=== PATIENT | male | born 1940 | race Caucasian/White ===

== ENCOUNTER 2018-01-07 07:13 | Inpatient (IN) | payer MEDICARE, BC ==
[2018-01-07] MEDS ORDERED: HYDROmorphone 2 MG/ML SDV IVPUSH ONE (07:18)
[2018-01-07] MEDS ORDERED: Metoclopramide 10 MG/2 ML SDV IVPUSH ONE (07:18)
[2018-01-07] MEDS: Sodium Chloride 0.9% 1,000 ML IV SCH ×2 (07:50→11:41)
[2018-01-07] MEDS ORDERED: Sodium Chloride 0.9% 10 ML Syringe FLUSH PRN (07:57)
[2018-01-07] MEDS ORDERED: Potassium Chloride 20 MEQ in Premix Bag 1 BAG IV ONE (08:18)
[2018-01-07] MEDS ORDERED: Potassium Chloride 100 ML ONE (08:53)
[2018-01-07] MEDS ORDERED: Ondansetron 4 MG Tab.DIS PO PRN (10:12)
[2018-01-07] MEDS ORDERED: cefTRIAXone 1,000 MG in Sodium Chloride 0.9% 50 ML IV SCH (10:30)
--- NOTE | 2018-01-07 11:02 | PCM.HP ---
H&P History of Present Illness - General Date of Service: 01/07/18 Admit Problem/Dx: Admission Diagnosis/Problem Admission Diagnosis/Problem Acute cholecystitis versus biliary colic versus muscle strain Source of Information: Patient, Old Records, Provider, RN Notes Reviewed - History of Present Illness Initial Comments - Free Text/Narative: Patient is 77-year-old male admitted for right abdominal pain and evidence of gallbladder stones on ultrasound with some Pericholecystic edema on CT abdomen. Patient was in his usual state of health until this morning at about 4 AM when he woke out of a sound sleep with severe right upper quadrant and middle quadrant abdominal pain. It looks almost stabbing him with a knife. The pain was constant and unremitting. He got up and finally decided to come into the emergency room because it was so painful. No other associated symptoms. No nausea, no vomiting, no diarrhea, no chest pain, no shortness of breath. He had no shoulder pain. He did have the chills but no sweats. No fever that he knows of. He's otherwise been feeling well and at his usual baseline. He's got underlying shortness of breath with activity and is morbidly obese but has had no worsening of his shortness of breath. Has had no upper respiratory symptoms. No real cough. No GI or complaints that are new. Past medical history: #1 Coronary artery disease with history of ST elevated myocardial infarction with stent in 2007 to the RCA. Later that same year received another 2 stents at planned outpatient angiogram. In 2009 had another angiogram and at that time received 2 more stents. Ejection fraction was 40%. About 2 weeks later patient had a non-ST elevated MT with another angiogram and received a bare metal stent to the LAD. In 2010 patient had another non-ST elevated MT with a stent to the mid LAD. At that time ejection fraction was markedly reduced with 30%. In 2012 had another non-ST MT with 2 drug-eluting stents to the mid circumflex. 2013 another drug-eluting stent to the proximal RCA. 2015 had a left main and circumflex stent. Since 2015 hasn't had any further MIs or stents. Has ischemic myopathy with a dual-chamber ICD with last ejection fraction 40% in 2015 and hypokinetic anterolateral, apical anterior, apical lateral, and apex wall segments. ICD was placed in 2011. #2 chronic combined systolic and diastolic congestive heart failure, cardiorenal syndrome, chronic atrial fibrillation. #3 DVT of right femoral vein in 2013. On chronic warfarin treatment. Last INR 2.5 on December 19, 2017 #4 hypertension and hyperlipidemia. #5 peripheral vascular disease #6 obstructive sleep apnea with dyspnea on exertion underlying COPD. #7 deviated septum #8 diabetes mellitus with retinopathy, peripheral neuropathy, and mild chronic kidney disease. Last A1c was 8.9% in October 2017. 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 #12 cataracts. Social History: The patient quit smoking in 1985. 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 He was raised on a farm and has formed his whole life. He never and had no children. He is a nondrinker. Family history: The patient has 3 siblings as noted above. His mother at 93 of old age. His father at 79. He is not sure why he . Onset of Symptoms: Reports: Sudden right lower quad Pain Score (Numeric/FACES): 10 - Related Data Allergies/Adverse Reactions: Allergies Allergy/AdvReac Type Severity Reaction Status Date / Time No Known Allergies Allergy Verified 05/10/16 02:27 Home Medications: Home Meds Omeprazole 40 mg PO 1700 12/08/13 [History] Insulin Npl/Insulin Lispro [Humalog Mix 75-25 Kwikpen] 27 units SUBCUT DAILY 04/20 [History] Potassium Chloride [Klor-Con 10] 10 meq PO DAILY 10/14/15 [History] Warfarin [Coumadin] 5 mg PO SUTUTHSA 10/14/15 [History] Acetaminophen [Acetaminophen ER] 650 mg PO ASDIRECTED PRN 02/22/16 [History] Carvedilol 12.5 mg PO BID 02/22/16 [History] Furosemide [Lasix] 40 mg PO BID 02/22/16 [History] atorvaSTATin [Lipitor] 80 mg PO DAILY 04/10/16 [History] Multivits-Minerals/FA/Lycopene [One Daily Men's Health Tablet] 1 tab PO DAILY [History] Nitroglycerin 0.4 mg SL ASDIRECTED PRN 04/14/16 [History] Triamcinolone Acetonide [Kenalog 0.1% Crm] 1 applic TOP TID 04/14/16 [History] Cyclobenzaprine HCl 5 mg PO Q6H PRN 01/07/18 [History] Diltiazem [Diltiazem XR] 240 mg PO DAILY 01/07/18 [History] Insulin Lispro Prot/Lispro [HumaLOG Mix 75-25] 23 unit SQ BEDTIME 01/07/18 [ History] Metolazone 2.5 mg PO TUTHSA 01/07/18 [History] Ticagrelor [Brilinta] 60 mg PO BID 01/07/18 [History] Warfarin [Coumadin] 2.5 mg PO MOWEFR 01/07/18 [History] Past Medical History HEENT History: Reports: Hard of Hearing, Sinusitis Other HEENT History: States had sinus surgery in the past. Cardiovascular History: Reports: Automatic Implantable Cardioverter Defibrillators, Blood Clots/VTE/DVT, CAD, Heart Failure, High Cholesterol, Hypertension, Pacemaker, SOB on Exertion, Stents Respiratory History: Reports: COPD, Sleep Apnea Other Respiratory History: Uses O2 @ hs with CPAP. Gastrointestinal History: Reports: GERD Musculoskeletal History: Reports: Arthritis, Back Pain, Chronic, Fracture, Gout , Osteoarthritis, Other (See Below) Other Musculoskeletal History: fx ankle Endocrine/Metabolic History: Reports: Diabetes, Type II, Obesity/BMI 30+ Hematologic History: Reports: Blood Transfusion(s) Dermatologic History: Reports: Other (See Below) Other Dermatologic History: Stated rash was on stomach and was taken medication at home and now resolved. - Infectious Disease History Infectious Disease History: Reports: Chicken Pox, Measles, Mumps - Past Surgical History HEENT Surgical History: Reports: Other (See Below) Cardiovascular Surgical History: Reports: Coronary Artery Stent, Percutaneous Transluminal Angioplasty Social & Family History - Family History Family Medical History: Noncontributory H&P Review of Systems - Review of Systems: Review Of Systems: ROS reveals no pertinent complaints other than HPI. Exam - Exam Exam: See Below (Oriented to person, place, and time but drowsy from pain medication.) - Vital Signs Vital Signs: Last Vital Signs Temp 36.5 C 01/07/18 07:05 Pulse 50 L 01/07/18 08:10 Resp 16 01/07/18 08:10 BP 128/68 01/07/18 08:10 Pulse Ox 98 01/07/18 08:10 Weight: 122.47 kg - Exam General: Alert, Oriented, Cooperative HEENT: PERRLA, Mucosa Moist & [place]ck[place], Posterior Pharynx Clear Neck: Supple Lungs: Clear to Auscultation, Normal Respiratory Effort Cardiovascular: Regular Rate, Regular Rhythm, Normal S1, Normal S2 GI/Abdominal Exam: Normal Bowel Sounds, Soft, Tender (obese. Exquisitely tender over the right upper and middle quadrant. No tenderness over the left. No guarding, no rigidity.) - Patient Data Lab Results Last 24 hrs: Laboratory Results - last 24 hr 01/07/18 01/07/18 01/07/18 Range/Units 07:45 07:45 07:45 WBC 11.3 (4.5-12.0) X10-3/uL RBC 4.63 (4.30-5.75) x10(6)uL Hgb 15.5 (11.5-15.5) g/dL Hct 45.7 (30.0-51.3) % MCV 98.8 H (80-96) fL MCH 33.6 (27.7-33.6) pg MCHC 33.9 (32.2-35.4) g/dL RDW 13.3 (11.5-15.5) % Plt Count 182 (125-369) X10(3)uL MPV 9.2 (7.4-10.4) fL Neut % (Auto) 82.3 H (46-82) % Lymph % (Auto) 8.0 L (13-37) % [place] % (Auto) 5.1 (4-12) % Eos % (Auto) 2 (1.0-5.0) % Baso % (Auto) 3 H (0-2) % Neut # (Auto) 9.2 H (1.6-8.3) # Lymph # (Auto) 0.9 (0.6-5.0) # [place] # (Auto) 0.6 (0.0-1.3) # Eos # (Auto) 0.2 (0.0-0.8) # Baso # (Auto) 0.4 H (0.0-0.2) # PT (8.7-11.1) INR (0.89-1.13) Sodium (135-145) mmol/L Potassium (3.5-5.3) mmol/L Chloride (100-110) mmol/L Carbon Dioxide (21-32) mmol/L BUN (7-18) mg/dL Creatinine (0.70-1.30) mg/dL Est Cr Clr Drug Dosing mL/min Estimated GFR (MDRD) (>60) BUN/Creatinine Ratio (9-20) Glucose (80-116) mg/dL Lactic Acid 2.3 H (0.4-2.2) mmol/L Calcium (8.6-10.2) mg/dL Total Bilirubin (0.1-1.3) mg/dL AST (5-25) IU/L ALT (12-36) U/L Alkaline Phosphatase (56-112) IU/L C-Reactive Protein 1.6 H (0.5-0.9) mg/dL Total Protein (6.0-8.0) g/dL Albumin (3.2-4.6) g/dL Globulin g/dL Albumin/Globulin Ratio Urine Color (YELLOW) Urine Appearance (CLEAR) Urine pH (5.0-6.5) Ur Specific [place] (1.010-1.025) Urine Protein (NEGATIVE) mg/dL Urine Glucose (UA) (NEGATIVE) mg/dL Urine Ketones (NEGATIVE) mg/dL Urine Occult Blood (NEGATIVE) Urine Nitrite (NEGATIVE) Urine Bilirubin (NEGATIVE) Urine Urobilinogen (NEGATIVE) mg/dL Ur Leukocyte Esterase (NEGATIVE) Urine RBC (0) Urine WBC (0) Ur Squamous Epith Cells (NS,R,O) Urine Bacteria (NS) 01/07/18 01/07/18 01/07/18 Range/Units 07:45 07:45 09:20 WBC (4.5-12.0) X10-3/uL RBC (4.30-5.75) x10(6)uL Hgb (11.5-15.5) g/dL Hct (30.0-51.3) % MCV (80-96) fL MCH (27.7-33.6) pg MCHC (32.2-35.4) g/dL RDW (11.5-15.5) % Plt Count (125-369) X10(3)uL MPV (7.4-10.4) fL Neut % (Auto) (46-82) % Lymph % (Auto) (13-37) % [place] % (Auto) (4-12) % Eos % (Auto) (1.0-5.0) % Baso % (Auto) (0-2) % Neut # (Auto) (1.6-8.3) # Lymph # (Auto) (0.6-5.0) # [place] # (Auto) (0.0-1.3) # Eos # (Auto) (0.0-0.8) # Baso # (Auto) (0.0-0.2) # PT 33.4 H (8.7-11.1) INR 3.48 H (0.89-1.13) Sodium 132 L (135-145) mmol/L Potassium 3.0 L (3.5-5.3) mmol/L Chloride 92 L (100-110) mmol/L Carbon Dioxide 34 H (21-32) mmol/L BUN 18 (7-18) mg/dL Creatinine 1.2 (0.70-1.30) mg/dL Est Cr Clr Drug Dosing 48.29 mL/min Estimated GFR (MDRD) 58 L (>60) BUN/Creatinine Ratio 15.0 (9-20) Glucose 251 H (80-116) mg/dL Lactic Acid (0.4-2.2) mmol/L Calcium 9.1 (8.6-10.2) mg/dL Total Bilirubin 1.1 (0.1-1.3) mg/dL AST 21 (5-25) IU/L ALT 25 (12-36) U/L Alkaline Phosphatase 89 (56-112) IU/L C-Reactive Protein (0.5-0.9) mg/dL Total Protein 6.8 (6.0-8.0) g/dL Albumin 3.6 (3.2-4.6) g/dL Globulin 3.2 g/dL Albumin/Globulin Ratio 1.1 Urine Color Yellow (YELLOW) Urine Appearance Clear (CLEAR) Urine pH 8.0 H (5.0-6.5) Ur Specific [place] 1.015 (1.010-1.025) Urine Protein Negative (NEGATIVE) mg/dL Urine Glucose (UA) >1000 H (NEGATIVE) mg/dL Urine Ketones Negative (NEGATIVE) mg/dL Urine Occult Blood Negative (NEGATIVE) Urine Nitrite Negative (NEGATIVE) Urine Bilirubin Negative (NEGATIVE) Urine Urobilinogen Normal (NEGATIVE) mg/dL Ur Leukocyte Esterase Negative (NEGATIVE) Urine RBC 0-5 (0) Urine WBC 5-10 (0) Ur Squamous Epith Cells Few H (NS,R,O) Urine Bacteria Many H (NS) Result Diagrams: 01/07/18 07:45 01/07/18 07:45 - Problem List (1) RUQ abdominal pain SNOMED Code(s): 390856747 ICD Code: R10.11 - RIGHT UPPER QUADRANT PAIN Status: Acute Current Visit : Yes Problem Details: Patient has a presentation consistent with biliary colic rather than acute cholecystitis. However this patient is high risk for complications and with his chills and acute onset of pain, I'm going to start him on Rocephin until seen by general surgery. Dr. Phan consulted. He is this patient does progress to acute cholecystitis and would require surgery, I would not feel comfortable managing him here because of his cardiac history. He should be managed at a facility where he can be followed by cardiology. (2) Coronary arteriosclerosis, CAD SNOMED Code(s): 98417616 ICD Code: I25.10 - ATHSCL HEART DISEASE OF [place] CORONARY ARTERY W/O ANG PCTRS Status: Chronic Current Visit: No Problem Details: Continue current medications. (3) Diabetes mellitus type 2 SNOMED Code(s): 45359428 ICD Code: E11.9 - TYPE 2 DIABETES MELLITUS WITHOUT COMPLICATIONS Status: Chronic Current Visit: No Problem Details: Patient's outpatient control is very poor. It's very difficult to adjust 75/25 for blood sugars and I would suggest for this patient that we consider switching him to a Lantus and NovoLog regimen as long as we have him here in the hospital. For now he is going to be nothing by mouth and sliding scale but ultimately we may want to change him to Levemir this evening and discharge him on Levemir/NovoLog. Could also consider addition of Januvia. Will discuss with patient when he is more awake. (4) HTN, Benign essential hypertension SNOMED Code(s): 0833010 ICD Code: I10 - ESSENTIAL (PRIMARY) HYPERTENSION Status: Chronic Current Visit: No Problem Details: Continue Home meds (5) Hyperlipidemia SNOMED Code(s): 97037391 ICD Code: E78.5 - HYPERLIPIDEMIA, UNSPECIFIED Status: Chronic Current Visit: No Problem Details: Continue lipitor. (6) Obesity SNOMED Code(s): 361010826 ICD Code: E66.9 - OBESITY, UNSPECIFIED Status: Chronic Current Visit: No Problem Details: With ROCKY. Home CPAP machine. Continuous oximetry while on narcotics. (7) Systolic and diastolic CHF, chronic SNOMED Code(s): 036391918000151, 035386843624704 ICD Code: I50.42 - CHRONIC COMBINED SYSTOLIC AND DIASTOLIC HRT FAIL Status : Acute Current Visit: Yes Problem Details: We will have to monitor very closely for signs of fluid overload while patient is nothing by mouth and holding Lasix. 75 mL normal saline per hour for now. (8) Hx of deep venous thrombosis SNOMED Code(s): 788136018 ICD Code: Z86.718 - PERSONAL HISTORY OF OTHER VENOUS THROMBOSIS AND EMBOLISM Status: Acute Current Visit: Yes Problem Details: Continue anticoagulation. INR slightly elevated. Hold warfarin today and resume tomorrow. (9) Chronic a-fib SNOMED Code(s): 760862509 ICD Code: I48.2 - CHRONIC ATRIAL FIBRILLATION Status: Acute Current Visit : Yes Problem Details: Monitor. Currently sounds to be in SR. (10) DVT prophylaxis SNOMED Code(s): 655328538, 755006133 ICD Code: [id number] - Status: Acute Current Visit: Yes Problem Details: Anticoagulated. (11) ROCKY on CPAP SNOMED Code(s): 28538182 ICD Code: G47.33 - OBSTRUCTIVE SLEEP APNEA (ADULT) (PEDIATRIC); Z99.89 - DEPENDENCE ON OTHER ENABLING MACHINES AND DEVICES Status: Acute Current Visit: Yes Problem Details: Continue with home machine. Problem List Initiated/Reviewed/Updated: Yes Orders Last 24hrs: Active Orders 24 hr Category Date Time Status Patient Status [ADT] Routine ADT 01/07/18 10:12 Active EKG Documentation Completion [RC] ASDIRECTED Care 01/07/18 10:15 Active Height and Weight [RC] DAILY Care 01/07/18 10:12 Active Intake and Output [RC] QSHIFT Care 01/07/18 10:13 Active Notify Provider Vital Signs [RC] ASDIRECTED Care 01/07/18 10:14 Active Oxygen Therapy [RC] PRN Care 01/07/18 09:55 Active Oxygen Therapy [RC] PRN Care 01/07/18 10:12 Active Up With Assistance [RC] ASDIRECTED Care 01/07/18 10:12 Active VTE/DVT Education [RC] Per Unit Routine Care 01/07/18 09:55 Active VTE/DVT Education [RC] Per Unit Routine Care 01/07/18 10:12 Active Vital Signs [RC] Q4H Care 01/07/18 09:55 Active Vital Signs [RC] Q4H Care 01/07/18 10:12 Active Nothing per Oral Now Diet [DIET] Diet 01/07/18 Breakfast Active Abdomen Pelvis wo Cont [CT] Stat Exams 01/07/18 07:20 Taken Gallbladder [Abdomen Ltd] [US] Stat Exams 01/07/18 08:21 Taken CBC WITH AUTO DIFF [HEME] AM Lab 01/08/18 05:11 Ordered COMPREHENSIVE METABOLIC PN,CMP [CHEM] AM Lab 01/08/18 05:11 Ordered CULTURE URINE [RM] Routine Lab 01/07/18 09:20 Ordered UA W/MICROSCOPIC [URIN] Urgent Lab 01/07/18 09:20 Ordered Carvedilol [Coreg] Med 01/07/18 21:00 Active 12.5 mg PO BID Diltiazem [Dilacor XR] Med 01/08/18 09:00 Active 240 mg PO DAILY HYDROmorphone [Dilaudid] Med 01/07/18 10:12 Active 0.5 mg IVPUSH Q2H PRN Insulin Aspart [NovoLOG] Med 01/07/18 13:00 Ordered See Protocol SUBCUT QID Ondansetron [Zofran ODT] Med 01/07/18 10:12 Active 4 mg PO Q4H PRN Sodium Chloride 0.9% [Normal Saline] 1,000 ml Med 01/07/18 07:30 Active IV ASDIRECTED Sodium Chloride 0.9% [Saline Flush] Med 01/07/18 07:57 Active 10 ml FLUSH ASDIRECTED PRN Ticagrelor [Brilinta] Med 01/07/18 21:00 Active 90 mg PO BID Umeclidinium Brm/Vilanterol Tr [Anoro Ellipta 62.5-25 Med 01/08/18 09:00 Ordered MCG] DOSE mcg IH DAILY cefTRIAXone [Rocephin] 1,000 mg Med 01/07/18 10:30 Ordered Sodium Chloride 0.9% [Normal Saline] 50 ml IV Q24H Peripheral IV Insertion Adult [OM.PC] Routine Oth 01/07/18 07:45 Ordered Sequential Compression Device [OM.PC] Per Unit Routine Oth 01/07/18 10:14 Ordered Resuscitation Status Routine Resus Stat 01/07/18 09:55 Ordered EKG 12 Lead [EK] Routine Ther 01/07/18 10:12 Ordered Medication Orders Carvedilol (Coreg) 12.5 mg PO BID [facility] Diltiazem HCl (Dilacor Xr) 240 mg PO DAILY [facility] Hydromorphone HCl (Dilaudid) 0.5 mg IVPUSH Q2H PRN PRN Reason: Pain (severe 7-10) Sodium Chloride (Normal Saline) 1,000 mls @ 300 mls/hr IV ASDIRECTED ROCIO Last Admin: 01/07/18 07:50 Dose: 300 mls/hr Ceftriaxone Sodium 1,000 mg/ (Sodium Chloride) 50 mls @ 100 mls/hr IV Q24H [facility] Insulin Aspart (Novolog) 0 unit SUBCUT QID ROCIO; Protocol Ondansetron HCl (Zofran Odt) 4 mg PO Q4H PRN PRN Reason: nausea, able to take PO Sodium Chloride (Saline Flush) 10 ml FLUSH ASDIRECTED PRN PRN Reason: Keep Vein Open Last Admin: 01/07/18 07:45 Dose: 10 ml Ticagrelor (Brilinta) 90 mg PO BID [facility] Assessment/Plan Comment:: CODE STATUS discussed with the patient on admission. He is really unable to make a decision as he doesn't feel ready to decide. He will just be a full code. Explained to him what that means. He is agreeable. Thus FULL CODE.
[2018-01-07] MEDS ORDERED: cefTRIAXone 1,000 MG VIAL IVPUSH SCH (11:15)
[2018-01-07] MEDS ORDERED: Sodium Chloride 0.9% 1,000 ML IV SCH (11:20)
--- NOTE | 2018-01-07 12:01 | PCM.CONS ---
H&P History of Present Illness - General Date of Service: 01/07/18 Admit Problem/Dx: Admission Diagnosis/Problem Admission Diagnosis/Problem Acute cholecystitis versus biliary colic versus muscle strain Source of Information: Patient, Old Records History Limitations: Reports: Other (poor historian ) - History of Present Illness Initial Comments - Free Text/Narative: 77 yo wm who has significant medical hx including, CAD, CHF, DM, PVD. Presented to the ED this am with a hx of right sided abd pain. The pt is unable to delineate any exacerbating or relieving factors nor describe the qualilty of the pain. He underwent a subsequent love which demonstrated some pericholecystic fluid, as well as gallstones on CT scan. US is pending at this point. CBC was normal, as were his LFTs. CRP and lactic acid was elevated mildly. He denies any fever. right lower quad Pain Score (Numeric/FACES): 10 - Related Data Allergies/Adverse Reactions: Allergies Allergy/AdvReac Type Severity Reaction Status Date / Time No Known Allergies Allergy Verified 05/10/16 02:27 Home Medications: Home Meds Omeprazole 40 mg PO 1700 12/08/13 [History] Insulin Npl/Insulin Lispro [Humalog Mix 75-25 Kwikpen] 27 units SUBCUT DAILY 04/20 [History] Potassium Chloride [Klor-Con 10] 10 meq PO DAILY 10/14/15 [History] Warfarin [Coumadin] 5 mg PO SUTUTHSA 10/14/15 [History] Acetaminophen [Acetaminophen ER] 1,300 mg PO BID 02/22/16 [History] Carvedilol 12.5 mg PO BID 02/22/16 [History] Furosemide [Lasix] 40 mg PO BID@08,12 02/22/16 [History] atorvaSTATin [Lipitor] 80 mg PO DAILY 04/10/16 [History] Multivits-Minerals/FA/Lycopene [One Daily Men's Health Tablet] 1 tab PO DAILY [History] Nitroglycerin 0.4 mg SL ASDIRECTED PRN 04/14/16 [History] Triamcinolone Acetonide [Kenalog 0.1% Crm] 1 applic TOP TID 04/14/16 [History] Cyclobenzaprine HCl 5 mg PO Q6H PRN 01/07/18 [History] Diltiazem [Diltiazem XR] 240 mg PO DAILY 01/07/18 [History] Insulin Lispro Prot/Lispro [HumaLOG Mix 75-25] 23 unit SQ BEDTIME 01/07/18 [ History] Metolazone 2.5 mg PO TUTHSA 01/07/18 [History] Ticagrelor [Brilinta] 60 mg PO BID 01/07/18 [History] Warfarin [Coumadin] 2.5 mg PO MOWEFR 01/07/18 [History] Past Medical History HEENT History: Reports: Hard of Hearing, Sinusitis Other HEENT History: States had sinus surgery in the past. Cardiovascular History: Reports: Automatic Implantable Cardioverter Defibrillators, Blood Clots/VTE/DVT, CAD, Heart Failure, High Cholesterol, Hypertension, Pacemaker, SOB on Exertion, Stents Other Cardiovascular History: peripheral vascular disease; unstable angina; cardio renal syndrome; deviated septum; elevated troponin Respiratory History: Reports: COPD, Sleep Apnea Other Respiratory History: Uses O2 @ hs with CPAP. Gastrointestinal History: Reports: GERD Genitourinary History: Reports: Other (See Below) Other Genitourinary History: organic impotence; phimosis Musculoskeletal History: Reports: Arthritis, Back Pain, Chronic, Fracture, Gout , Osteoarthritis, Other (See Below) Other Musculoskeletal History: fx ankle Endocrine/Metabolic History: Reports: Diabetes, Type II, Obesity/BMI 30+ Other Endocrine/Metabolic History: Diabetic retinopathy; peripheral neuropathy Hematologic History: Reports: Blood Transfusion(s) Other Hematologic History: long time use of anticoagulant therapy Dermatologic History: Reports: Other (See Below) Other Dermatologic History: Stated rash was on stomach and was taken medication at home and now resolved. - Infectious Disease History Infectious Disease History: Reports: Chicken Pox, Measles, Mumps - Past Surgical History HEENT Surgical History: Reports: Other (See Below) Cardiovascular Surgical History: Reports: Coronary Artery Stent, Percutaneous Transluminal Angioplasty Social & Family History - Family History Family Medical History: Noncontributory - Tobacco Use Smoking Status *Q: Never Smoker - Caffeine Use Caffeine Use: Reports: None - Recreational Drug Use Recreational Drug Use: No H&P Review of Systems - Review of Systems: Review Of Systems: Unable To Obtain (poor historian) Exam - Exam Exam: See Below - Vital Signs Vital Signs: Last Vital Signs Temp 36.9 C 01/07/18 10:38 Pulse 86 01/07/18 10:38 Resp 18 01/07/18 10:38 BP 110/67 01/07/18 10:38 Pulse Ox 95 01/07/18 10:38 Weight: 122.47 kg - Exam General: Alert Lungs: Clear to Auscultation, Normal Respiratory Effort Cardiovascular: Regular Rate, Regular Rhythm GI/Abdominal Exam: Normal Bowel Sounds, Tender (ruq). No: Guarding, Rigid, Rebound - Patient Data Lab Results Last 24 hrs: Laboratory Results - last 24 hr 01/07/18 01/07/18 01/07/18 Range/Units 07:45 07:45 07:45 WBC 11.3 (4.5-12.0) X10-3/uL RBC 4.63 (4.30-5.75) x10(6)uL Hgb 15.5 (11.5-15.5) g/dL Hct 45.7 (30.0-51.3) % MCV 98.8 H (80-96) fL MCH 33.6 (27.7-33.6) pg MCHC 33.9 (32.2-35.4) g/dL RDW 13.3 (11.5-15.5) % Plt Count 182 (125-369) X10(3)uL MPV 9.2 (7.4-10.4) fL Neut % (Auto) 82.3 H (46-82) % Lymph % (Auto) 8.0 L (13-37) % Parmer % (Auto) 5.1 (4-12) % Eos % (Auto) 2 (1.0-5.0) % Baso % (Auto) 3 H (0-2) % Neut # (Auto) 9.2 H (1.6-8.3) # Lymph # (Auto) 0.9 (0.6-5.0) # Parmer # (Auto) 0.6 (0.0-1.3) # Eos # (Auto) 0.2 (0.0-0.8) # Baso # (Auto) 0.4 H (0.0-0.2) # PT (8.7-11.1) INR (0.89-1.13) Sodium (135-145) mmol/L Potassium (3.5-5.3) mmol/L Chloride (100-110) mmol/L Carbon Dioxide (21-32) mmol/L BUN (7-18) mg/dL Creatinine (0.70-1.30) mg/dL Est Cr Clr Drug Dosing mL/min Estimated GFR (MDRD) (>60) BUN/Creatinine Ratio (9-20) Glucose (80-116) mg/dL Lactic Acid 2.3 H (0.4-2.2) mmol/L Calcium (8.6-10.2) mg/dL Total Bilirubin (0.1-1.3) mg/dL AST (5-25) IU/L ALT (12-36) U/L Alkaline Phosphatase (56-112) IU/L C-Reactive Protein 1.6 H (0.5-0.9) mg/dL Total Protein (6.0-8.0) g/dL Albumin (3.2-4.6) g/dL Globulin g/dL Albumin/Globulin Ratio Urine Color (YELLOW) Urine Appearance (CLEAR) Urine pH (5.0-6.5) Ur Specific [place] (1.010-1.025) Urine Protein (NEGATIVE) mg/dL Urine Glucose (UA) (NEGATIVE) mg/dL Urine Ketones (NEGATIVE) mg/dL Urine Occult Blood (NEGATIVE) Urine Nitrite (NEGATIVE) Urine Bilirubin (NEGATIVE) Urine Urobilinogen (NEGATIVE) mg/dL Ur Leukocyte Esterase (NEGATIVE) Urine RBC (0) Urine WBC (0) Ur Squamous Epith Cells (NS,R,O) Urine Bacteria (NS) 01/07/18 01/07/18 01/07/18 Range/Units 07:45 07:45 09:20 WBC (4.5-12.0) X10-3/uL RBC (4.30-5.75) x10(6)uL Hgb (11.5-15.5) g/dL Hct (30.0-51.3) % MCV (80-96) fL MCH (27.7-33.6) pg MCHC (32.2-35.4) g/dL RDW (11.5-15.5) % Plt Count (125-369) X10(3)uL MPV (7.4-10.4) fL Neut % (Auto) (46-82) % Lymph % (Auto) (13-37) % Parmer % (Auto) (4-12) % Eos % (Auto) (1.0-5.0) % Baso % (Auto) (0-2) % Neut # (Auto) (1.6-8.3) # Lymph # (Auto) (0.6-5.0) # Parmer # (Auto) (0.0-1.3) # Eos # (Auto) (0.0-0.8) # Baso # (Auto) (0.0-0.2) # PT 33.4 H (8.7-11.1) INR 3.48 H (0.89-1.13) Sodium 132 L (135-145) mmol/L Potassium 3.0 L (3.5-5.3) mmol/L Chloride 92 L (100-110) mmol/L Carbon Dioxide 34 H (21-32) mmol/L BUN 18 (7-18) mg/dL Creatinine 1.2 (0.70-1.30) mg/dL Est Cr Clr Drug Dosing 48.29 mL/min Estimated GFR (MDRD) 58 L (>60) BUN/Creatinine Ratio 15.0 (9-20) Glucose 251 H (80-116) mg/dL Lactic Acid (0.4-2.2) mmol/L Calcium 9.1 (8.6-10.2) mg/dL Total Bilirubin 1.1 (0.1-1.3) mg/dL AST 21 (5-25) IU/L ALT 25 (12-36) U/L Alkaline Phosphatase 89 (56-112) IU/L C-Reactive Protein (0.5-0.9) mg/dL Total Protein 6.8 (6.0-8.0) g/dL Albumin 3.6 (3.2-4.6) g/dL Globulin 3.2 g/dL Albumin/Globulin Ratio 1.1 Urine Color Yellow (YELLOW) Urine Appearance Clear (CLEAR) Urine pH 8.0 H (5.0-6.5) Ur Specific [place] 1.015 (1.010-1.025) Urine Protein Negative (NEGATIVE) mg/dL Urine Glucose (UA) >1000 H (NEGATIVE) mg/dL Urine Ketones Negative (NEGATIVE) mg/dL Urine Occult Blood Negative (NEGATIVE) Urine Nitrite Negative (NEGATIVE) Urine Bilirubin Negative (NEGATIVE) Urine Urobilinogen Normal (NEGATIVE) mg/dL Ur Leukocyte Esterase Negative (NEGATIVE) Urine RBC 0-5 (0) Urine WBC 5-10 (0) Ur Squamous Epith Cells Few H (NS,R,O) Urine Bacteria Many H (NS) Result Diagrams: 01/07/18 07:45 01/07/18 07:45 Consult PN Assessment/Plan Procedures: Procedures AIRWAY INHALATION TREATMENT (05/09/16) ASSAY OF CK (CPK) (12/08/13) ASSAY OF LACTIC ACID (05/09/16) ASSAY OF NATRIURETIC PEPTIDE (05/09/16) ASSAY OF TROPONIN QUANT (05/09/16) ASSAY THYROID STIM HORMONE (04/14/16) BLOOD CULTURE FOR BACTERIA (04/28/16) BLOOD GASES ANY COMBINATION (04/14/16) C-REACTIVE PROTEIN (04/28/16) CHEST X-RAY 1 VIEW FRONTAL (05/09/16) CHEST X-RAY 2VW FRONTAL&LATL (05/02/15) COMPLETE CBC AUTOMATED (05/09/16) COMPLETE CBC W/AUTO DIFF WBC (04/28/16) COMPREHEN METABOLIC PANEL (04/28/16) CREATINE MB FRACTION (12/08/13) CRITICAL CARE FIRST HOUR (03/29/16) CT MAXILLOFACIAL W/O DYE (04/28/16) CULTURE AEROBIC IDENTIFY (05/14/15) CULTURE OTHR SPECIMN AEROBIC (04/28/16) ELECTROCARDIOGRAM REPORT (05/09/16) ELECTROCARDIOGRAM TRACING (05/09/16) EMERGENCY DEPT VISIT (05/09/16) EMERGENCY DEPT VISIT (04/12/16) EMERGENCY DEPT VISIT (04/11/16) EMERGENCY DEPT VISIT (04/10/16) EMERGENCY DEPT VISIT (04/10/16) EMERGENCY DEPT VISIT (03/29/16) EMERGENCY DEPT VISIT (02/22/16) EMERGENCY DEPT VISIT (10/14/15) EMERGENCY DEPT VISIT (05/02/15) EMERGENCY DEPT VISIT (05/02/15) EMERGENCY DEPT VISIT (04/26/14) EMERGENCY DEPT VISIT (04/26/14) EMERGENCY DEPT VISIT (12/08/13) EMERGENCY DEPT VISIT (12/08/13) EVALUATE PT USE OF INHALER (05/09/16) EXTREMITY STUDY (12/01/14) FIBRIN DEGRADATION QUANT (04/28/16) GLUCOSE BLOOD TEST (05/14/15) GLYCOSYLATED HEMOGLOBIN TEST (05/09/16) HYDRATE IV INFUSION ADD-ON (03/29/16) INSERT TEMP BLADDER CATH (03/29/16) METABOLIC PANEL TOTAL CA (11/10/17) MICROBE SUSCEPTIBLE ELOINA (05/14/15) NON-ROUTINE BL DRAW 3/> YRS (03/29/16) OFFICE/OUTPATIENT VISIT EST (05/07/16) POS AIRWAY PRESSURE CPAP (03/29/16) PROTHROMBIN TIME (05/09/16) REAGENT STRIP/BLOOD GLUCOSE (04/26/14) ROUTINE VENIPUNCTURE (11/10/17) SMEAR GRAM STAIN (04/28/16) THER/DIAG CONCURRENT INF (04/28/16) THER/PROPH/DIAG INJ IV PUSH (04/10/16) THER/PROPH/DIAG INJ SC/IM (02/22/16) THER/PROPH/DIAG IV INF ADDON (04/28/16) THER/PROPH/DIAG IV INF INIT (04/28/16) TX/PRO/DX INJ NEW DRUG ADDON (04/28/16) URINALYSIS AUTO W/O SCOPE (12/08/13) URINALYSIS AUTO W/SCOPE (05/09/16) URINE CULTURE/COLONY COUNT (04/28/16) WITHDRAWAL OF ARTERIAL BLOOD (04/14/16) X-RAY EXAM L-S SPINE 2/3 VWS (04/11/13) (1) RUQ abdominal pain SNOMED Code(s): 731908039 Code(s): R10.11 - RIGHT UPPER QUADRANT PAIN Current Visit: Yes Comment: Patient has a presentation consistent with biliary colic rather than acute cholecystitis. However this patient is high risk for complications and with his chills and acute onset of pain, I'm going to start him on Rocephin until seen by general surgery. Dr. Phan consulted. He is this patient does progress to acute cholecystitis and would require surgery, I would not feel comfortable managing him here because of his cardiac history. He should be managed at a facility where he can be followed by cardiology. Assessment:: exam appears to be most consistent with biliary colic though early cholecystitis could not be ruled out and should be a concern mauricio with his DM. Problem List Initiated/Reviewed/Updated: Yes My Orders Last 24 Hours: My Active Orders 01/07/18 12:00 cefOXitin [Mefoxin] 2 gm IVPUSH Q8H Plan: at this point I would keep NPO I have change his antibiotics from rocephin to cefoxitin serial labs will follow with you. at this point he does not appear to need surgery. If he does need to require surgery, would recommend transfer.
[2018-01-07] MEDS: cefOXitin 2 GM Vial IVPUSH SCH ×2 (12:26→20:42)
[2018-01-07] MEDS ORDERED: Albuterol/Ipratropium 3.0-0.5 MG/3 ML Neb Soln INH PRN (12:37)
[2018-01-07] MEDS: Insulin Aspart 100 Units/ML 3 ML Pen SUBCUT SCH ×3 (12:44→20:40)
[2018-01-07] MEDS ORDERED: Warfarin Sliding Scale PO SCH (13:30)
--- NOTE | 2018-01-07 14:02 | US ---
INDICATION: Abdominal pain with pericholecystic stranding on CT. RIGHT UPPER QUADRANT/GALLBLADDER ULTRASOUND: Multiple ultrasonic images revealed the gallbladder to be enlarged, measuring 14 x 5.3 x 4.3 cm. Calculi are present within it of small size, compatible with gravel. No pericholecystic fluid is seen. The wall was not thickened. The common bile duct could not be evaluated - was not visualized. The pancreas and right kidney were not visualized adequately. Portions of the liver visualized appeared normal with no intrahepatic ductal dilatation identified. IMPRESSION: Cholelithiasis with negative ultrasonic [place] sign. However, other findings suggest acute cholecystitis, including markedly enlarged size and multiple calculi. Although negative ultrasonic [place] sign was present, it does not preclude the diagnosis of acute cholecystitis. MTDD
[2018-01-07] MEDS: HYDROmorphone 2 MG/ML SDV IVPUSH PRN ×2 (14:31→17:40)
[2018-01-07] MEDS: Carvedilol 12.5 MG Tab PO SCH (18:14)
[2018-01-07] MEDS ORDERED: Ticagrelor 90 MG Tab PO SCH (21:00)
[2018-01-08] MEDS: HYDROmorphone 2 MG/ML SDV IVPUSH PRN ×4 (00:07→10:30)
[2018-01-08] MEDS: TICAGRELOR 60 MG PO SCH ×2 (01:52→09:30)
[2018-01-08] MEDS: cefOXitin 2 GM Vial IVPUSH SCH (04:12)
--- NOTE | 2018-01-08 07:43 | PCM.SURGPN ---
- General Info Date of Service: 01/08/18 - Review of Systems General: Denies: Fever Pulmonary: Reports: No Symptoms Cardiovascular: Reports: No Symptoms Gastrointestinal: Reports: Abdominal Pain - Patient Data Vitals - Most Recent: Last Vital Signs Temp 37.0 C 01/08/18 04:20 Pulse 84 01/08/18 04:20 Resp 20 01/08/18 04:20 BP 120/73 01/08/18 04:20 Pulse Ox 93 L 01/08/18 04:20 Weight - Most Recent: 130.725 kg I&O - Last 24 Hours: Intake & Output 01/07/18 01/08/18 01/08/18 22:59 06:59 14:59 Intake Total 350 650 Output Total 300 375 Balance 50 275 Lab Results Last 24 Hrs: Laboratory Results - last 24 hr 01/07/18 01/07/18 01/07/18 Range/Units 07:45 07:45 07:45 WBC 11.3 (4.5-12.0) X10-3/uL RBC 4.63 (4.30-5.75) x10(6)uL Hgb 15.5 (11.5-15.5) g/dL Hct 45.7 (30.0-51.3) % MCV 98.8 H (80-96) fL MCH 33.6 (27.7-33.6) pg MCHC 33.9 (32.2-35.4) g/dL RDW 13.3 (11.5-15.5) % Plt Count 182 (125-369) X10(3)uL MPV 9.2 (7.4-10.4) fL Neut % (Auto) 82.3 H (46-82) % Lymph % (Auto) 8.0 L (13-37) % [place] % (Auto) 5.1 (4-12) % Eos % (Auto) 2 (1.0-5.0) % Baso % (Auto) 3 H (0-2) % Neut # (Auto) 9.2 H (1.6-8.3) # Lymph # (Auto) 0.9 (0.6-5.0) # [place] # (Auto) 0.6 (0.0-1.3) # Eos # (Auto) 0.2 (0.0-0.8) # Baso # (Auto) 0.4 H (0.0-0.2) # Add Manual Diff Neutrophils % (Manual) (46-82) % Band Neutrophils % (0-6) % Lymphocytes % (Manual) (13-37) % Monocytes % (Manual) (4-12) % Eosinophils % (Manual) (0-5) % PT (8.7-11.1) INR (0.89-1.13) Sodium (135-145) mmol/L Potassium (3.5-5.3) mmol/L Chloride (100-110) mmol/L Carbon Dioxide (21-32) mmol/L BUN (7-18) mg/dL Creatinine (0.70-1.30) mg/dL Est Cr Clr Drug Dosing mL/min Estimated GFR (MDRD) (>60) BUN/Creatinine Ratio (9-20) Glucose (80-116) mg/dL POC Glucose (80-116) mg/dL Lactic Acid 2.3 H (0.4-2.2) mmol/L Calcium (8.6-10.2) mg/dL Total Bilirubin (0.1-1.3) mg/dL AST (5-25) IU/L ALT (12-36) U/L Alkaline Phosphatase (56-112) IU/L C-Reactive Protein 1.6 H (0.5-0.9) mg/dL Total Protein (6.0-8.0) g/dL Albumin (3.2-4.6) g/dL Globulin g/dL Albumin/Globulin Ratio Urine Color (YELLOW) Urine Appearance (CLEAR) Urine pH (5.0-6.5) Ur Specific [place] (1.010-1.025) Urine Protein (NEGATIVE) mg/dL Urine Glucose (UA) (NEGATIVE) mg/dL Urine Ketones (NEGATIVE) mg/dL Urine Occult Blood (NEGATIVE) Urine Nitrite (NEGATIVE) Urine Bilirubin (NEGATIVE) Urine Urobilinogen (NEGATIVE) mg/dL Ur Leukocyte Esterase (NEGATIVE) Urine RBC (0) Urine WBC (0) Ur Squamous Epith Cells (NS,R,O) Urine Bacteria (NS) 01/07/18 01/07/18 01/07/18 Range/Units 07:45 07:45 09:20 WBC (4.5-12.0) X10-3/uL RBC (4.30-5.75) x10(6)uL Hgb (11.5-15.5) g/dL Hct (30.0-51.3) % MCV (80-96) fL MCH (27.7-33.6) pg MCHC (32.2-35.4) g/dL RDW (11.5-15.5) % Plt Count (125-369) X10(3)uL MPV (7.4-10.4) fL Neut % (Auto) (46-82) % Lymph % (Auto) (13-37) % [place] % (Auto) (4-12) % Eos % (Auto) (1.0-5.0) % Baso % (Auto) (0-2) % Neut # (Auto) (1.6-8.3) # Lymph # (Auto) (0.6-5.0) # [place] # (Auto) (0.0-1.3) # Eos # (Auto) (0.0-0.8) # Baso # (Auto) (0.0-0.2) # Add Manual Diff Neutrophils % (Manual) (46-82) % Band Neutrophils % (0-6) % Lymphocytes % (Manual) (13-37) % Monocytes % (Manual) (4-12) % Eosinophils % (Manual) (0-5) % PT 33.4 H (8.7-11.1) INR 3.48 H (0.89-1.13) Sodium 132 L (135-145) mmol/L Potassium 3.0 L (3.5-5.3) mmol/L Chloride 92 L (100-110) mmol/L Carbon Dioxide 34 H (21-32) mmol/L BUN 18 (7-18) mg/dL Creatinine 1.2 (0.70-1.30) mg/dL Est Cr Clr Drug Dosing 48.29 mL/min Estimated GFR (MDRD) 58 L (>60) BUN/Creatinine Ratio 15.0 (9-20) Glucose 251 H (80-116) mg/dL POC Glucose (80-116) mg/dL Lactic Acid (0.4-2.2) mmol/L Calcium 9.1 (8.6-10.2) mg/dL Total Bilirubin 1.1 (0.1-1.3) mg/dL AST 21 (5-25) IU/L ALT 25 (12-36) U/L Alkaline Phosphatase 89 (56-112) IU/L C-Reactive Protein (0.5-0.9) mg/dL Total Protein 6.8 (6.0-8.0) g/dL Albumin 3.6 (3.2-4.6) g/dL Globulin 3.2 g/dL Albumin/Globulin Ratio 1.1 Urine Color Yellow (YELLOW) Urine Appearance Clear (CLEAR) Urine pH 8.0 H (5.0-6.5) Ur Specific [place] 1.015 (1.010-1.025) Urine Protein Negative (NEGATIVE) mg/dL Urine Glucose (UA) >1000 H (NEGATIVE) mg/dL Urine Ketones Negative (NEGATIVE) mg/dL Urine Occult Blood Negative (NEGATIVE) Urine Nitrite Negative (NEGATIVE) Urine Bilirubin Negative (NEGATIVE) Urine Urobilinogen Normal (NEGATIVE) mg/dL Ur Leukocyte Esterase Negative (NEGATIVE) Urine RBC 0-5 (0) Urine WBC 5-10 (0) Ur Squamous Epith Cells Few H (NS,R,O) Urine Bacteria Many H (NS) 01/07/18 01/07/18 01/08/18 Range/Units 12:19 17:22 05:24 WBC (4.5-12.0) X10-3/uL RBC (4.30-5.75) x10(6)uL Hgb (11.5-15.5) g/dL Hct (30.0-51.3) % MCV (80-96) fL MCH (27.7-33.6) pg MCHC (32.2-35.4) g/dL RDW (11.5-15.5) % Plt Count (125-369) X10(3)uL MPV (7.4-10.4) fL Neut % (Auto) (46-82) % Lymph % (Auto) (13-37) % [place] % (Auto) (4-12) % Eos % (Auto) (1.0-5.0) % Baso % (Auto) (0-2) % Neut # (Auto) (1.6-8.3) # Lymph # (Auto) (0.6-5.0) # [place] # (Auto) (0.0-1.3) # Eos # (Auto) (0.0-0.8) # Baso # (Auto) (0.0-0.2) # Add Manual Diff Neutrophils % (Manual) (46-82) % Band Neutrophils % (0-6) % Lymphocytes % (Manual) (13-37) % Monocytes % (Manual) (4-12) % Eosinophils % (Manual) (0-5) % PT (8.7-11.1) INR (0.89-1.13) Sodium (135-145) mmol/L Potassium (3.5-5.3) mmol/L Chloride (100-110) mmol/L Carbon Dioxide (21-32) mmol/L BUN (7-18) mg/dL Creatinine (0.70-1.30) mg/dL Est Cr Clr Drug Dosing mL/min Estimated GFR (MDRD) (>60) BUN/Creatinine Ratio (9-20) Glucose (80-116) mg/dL POC Glucose 242 H 250 H 272 H (80-116) mg/dL Lactic Acid (0.4-2.2) mmol/L Calcium (8.6-10.2) mg/dL Total Bilirubin (0.1-1.3) mg/dL AST (5-25) IU/L ALT (12-36) U/L Alkaline Phosphatase (56-112) IU/L C-Reactive Protein (0.5-0.9) mg/dL Total Protein (6.0-8.0) g/dL Albumin (3.2-4.6) g/dL Globulin g/dL Albumin/Globulin Ratio Urine Color (YELLOW) Urine Appearance (CLEAR) Urine pH (5.0-6.5) Ur Specific [place] (1.010-1.025) Urine Protein (NEGATIVE) mg/dL Urine Glucose (UA) (NEGATIVE) mg/dL Urine Ketones (NEGATIVE) mg/dL Urine Occult Blood (NEGATIVE) Urine Nitrite (NEGATIVE) Urine Bilirubin (NEGATIVE) Urine Urobilinogen (NEGATIVE) mg/dL Ur Leukocyte Esterase (NEGATIVE) Urine RBC (0) Urine WBC (0) Ur Squamous Epith Cells (NS,R,O) Urine Bacteria (NS) 01/08/18 01/08/18 01/08/18 Range/Units 05:50 05:50 05:50 WBC 14.0 H (4.5-12.0) X10-3/uL RBC 4.47 (4.30-5.75) x10(6)uL Hgb 15.1 (11.5-15.5) g/dL Hct 44.6 (30.0-51.3) % MCV 99.6 H (80-96) fL MCH 33.8 H (27.7-33.6) pg MCHC 33.9 (32.2-35.4) g/dL RDW 13.8 (11.5-15.5) % Plt Count 155 (125-369) X10(3)uL MPV 9.7 (7.4-10.4) fL Neut % (Auto) (46-82) % Lymph % (Auto) (13-37) % [place] % (Auto) (4-12) % Eos % (Auto) (1.0-5.0) % Baso % (Auto) (0-2) % Neut # (Auto) (1.6-8.3) # Lymph # (Auto) (0.6-5.0) # [place] # (Auto) (0.0-1.3) # Eos # (Auto) (0.0-0.8) # Baso # (Auto) (0.0-0.2) # Add Manual Diff Yes Neutrophils % (Manual) 85 H (46-82) % Band Neutrophils % 3 (0-6) % Lymphocytes % (Manual) 4 L (13-37) % Monocytes % (Manual) 7 (4-12) % Eosinophils % (Manual) 1 (0-5) % PT 20.3 H (8.7-11.1) INR 2.11 H (0.89-1.13) Sodium 132 L (135-145) mmol/L Potassium 3.1 L (3.5-5.3) mmol/L Chloride 95 L (100-110) mmol/L Carbon Dioxide 30 (21-32) mmol/L BUN 15 (7-18) mg/dL Creatinine 1.2 (0.70-1.30) mg/dL Est Cr Clr Drug Dosing 48.29 mL/min Estimated GFR (MDRD) 58 L (>60) BUN/Creatinine Ratio 12.5 (9-20) Glucose 263 H (80-116) mg/dL POC Glucose (80-116) mg/dL Lactic Acid (0.4-2.2) mmol/L Calcium 8.5 L (8.6-10.2) mg/dL Total Bilirubin 1.8 H (0.1-1.3) mg/dL AST 19 (5-25) IU/L ALT 20 D (12-36) U/L Alkaline Phosphatase 62 (56-112) IU/L C-Reactive Protein (0.5-0.9) mg/dL Total Protein 6.1 (6.0-8.0) g/dL Albumin 2.9 L (3.2-4.6) g/dL Globulin 3.2 g/dL Albumin/Globulin Ratio 0.9 Urine Color (YELLOW) Urine Appearance (CLEAR) Urine pH (5.0-6.5) Ur Specific [place] (1.010-1.025) Urine Protein (NEGATIVE) mg/dL Urine Glucose (UA) (NEGATIVE) mg/dL Urine Ketones (NEGATIVE) mg/dL Urine Occult Blood (NEGATIVE) Urine Nitrite (NEGATIVE) Urine Bilirubin (NEGATIVE) Urine Urobilinogen (NEGATIVE) mg/dL Ur Leukocyte Esterase (NEGATIVE) Urine RBC (0) Urine WBC (0) Ur Squamous Epith Cells (NS,R,O) Urine Bacteria (NS) Pravin Results Last 24 Hrs: Microbiology 01/07/18 09:20 Urine Culture - Preliminary Urine, Voided Gram Positive Cocci Gram Negative Rods Med Orders - Current: Current Medications Albuterol/Ipratropium (Duoneb 3.0-0.5 Mg/3 Ml) 3 ml INH QID PRN PRN Reason: SHORTNESS OF BREATH Carvedilol (Coreg) 12.5 mg PO BIDMEALS [facility] Last Admin: 01/07/18 18:14 Dose: 12.5 mg Cefoxitin Sodium (Mefoxin) 2 gm IVPUSH Q8H [facility] [place] Last Admin: 01/08/18 04:12 Dose: 2 gm Diltiazem HCl (Dilacor Xr) 240 mg PO DAILY [facility] [place] Hydromorphone HCl (Dilaudid) 0.5 mg IVPUSH Q2H PRN PRN Reason: Pain (severe 7-10) Last Admin: 01/08/18 04:15 Dose: 0.5 mg Sodium Chloride (Normal Saline) 1,000 mls @ 75 mls/hr IV ASDIRECTED [facility] [place] Last Admin: 01/08/18 00:25 Dose: 75 mls/hr Insulin Aspart (Novolog) 0 unit SUBCUT QIDACANDBED [facility]; Protocol Last Admin: 01/07/18 20:40 Dose: Not Given (Ticagrelor [ Brilinta] 60 Mg) * Ptom 60 mg PO BID [facility] [place] Last Admin: 01/08/18 01:52 Dose: Not Given Ondansetron HCl (Zofran Odt) 4 mg PO Q4H PRN PRN Reason: nausea, able to take PO Sodium Chloride (Saline Flush) 10 ml FLUSH ASDIRECTED PRN PRN Reason: Keep Vein Open Last Admin: 01/07/18 07:45 Dose: 10 ml Warfarin Sodium (Coumadin Sliding Scale) 0 each PO ASDIRECTED [facility] Discontinued Medications Ceftriaxone Sodium (Rocephin) 1,000 mg IVPUSH Q24H [facility] [place] Last Admin: 01/07/18 13:40 Dose: Not Given Hydromorphone HCl (Dilaudid) 1 mg IVPUSH ONETIME ONE Stop: 01/07/18 07:19 Last Admin: 01/07/18 07:56 Dose: 1 mg Sodium Chloride (Normal Saline) 1,000 mls @ 300 mls/hr IV ASDIRECTED [facility] [place] Last Admin: 01/07/18 11:41 Dose: 300 mls/hr Potassium Chloride 20 meq/ (Premix) 100 mls @ 40 mls/hr IV ONETIME ONE Stop: 01/07/18 10:47 Last Admin: 01/07/18 08:55 Dose: 40 mls/hr Potassium Chloride (Kcl 20 Meq In Water 100 Ml) Confirm Administered Dose 100 mls @ as directed .ROUTE .STK-MED ONE Stop: 01/07/18 08:54 Last Admin: 01/07/18 13:41 Dose: Not Given Metoclopramide HCl (Reglan) 10 mg IVPUSH ONETIME ONE Stop: 01/07/18 07:19 Last Admin: 01/07/18 07:56 Dose: 10 mg - Exam General: Alert, Cooperative Lungs: Clear to Auscultation, Normal Respiratory Effort Cardiovascular: Regular Rate, Regular Rhythm GI/Abdominal Exam: Tender (ruq) - Problem List & Annotations (1) RUQ abdominal pain SNOMED Code(s): 239338452 Code(s): R10.11 - RIGHT UPPER QUADRANT PAIN Status: Acute Current Visit: Yes Annotation/Comment:: Patient has a presentation consistent with biliary colic rather than acute cholecystitis. However this patient is high risk for complications and with his chills and acute onset of pain, I'm going to start him on Rocephin until seen by general surgery. Dr. Phan consulted. He is this patient does progress to acute cholecystitis and would require surgery, I would not feel comfortable managing him here because of his cardiac history. He should be managed at a facility where he can be followed by cardiology. (2) Acute cholecystitis due to biliary calculus SNOMED Code(s): 92961015095061 Code(s): K80.00 - CALCULUS OF GALLBLADDER W ACUTE CHOLECYST W/O OBSTRUCTION Status: Acute Current Visit: Yes Annotation/Comment:: appears to have progressed into cholecystitis. elevation in bilirubin is also a concern for possible obstruction. - Problem List Review Problem List Initiated/Reviewed/Updated: Yes - My Orders Last 24 Hours: Active Orders 24 hr Category Date Time Status Patient Status [ADT] Routine ADT 01/07/18 10:12 Active CPAP Noctural Home [RT BiPAP/CPAP] [RC] ASDIRECTED Care 01/07/18 11:49 Active Height and Weight [RC] 06 Care 01/07/18 10:12 Active Intake and Output [RC] 06,14,22 Care 01/07/18 10:13 Active Notify Provider Consults [RC] ASDIRECTED Care 01/07/18 11:33 Active Notify Provider Vital Signs [RC] ASDIRECTED Care 01/07/18 10:14 Active Overnight Pulse Oximetry [RC] Click to Edit Care 01/07/18 11:48 Active Oxygen Therapy [RC] PRN Care 01/07/18 09:55 Active Oxygen Therapy [RC] PRN Care 01/07/18 10:12 Active POC Glucose [Blood Glucose Check, Bedside] [RC] 0630, Care 01/07/18 12:00 Active 1100,1700,2100 Up With Assistance [RC] ASDIRECTED Care 01/07/18 10:12 Active VTE/DVT Education [RC] Per Unit Routine Care 01/07/18 09:55 Active VTE/DVT Education [RC] Per Unit Routine Care 01/07/18 10:12 Active Vital Signs [RC] 00,04,08,12,16,20 Care 01/07/18 09:55 Active Vital Signs [RC] Q4H Care 01/07/18 10:12 Active Consult to Pharmacy [CONS] Routine Cons 01/07/18 11:59 Active Consult to Physician [CONS] Routine Cons 01/07/18 11:32 Ordered Abdomen Pelvis wo Cont [CT] Stat Exams 01/07/18 07:20 Taken BILIRUBIN DIRECT/INDIRECT [CHEM] Routine Lab 01/08/18 07:36 Ordered CULTURE URINE [RM] Routine Lab 01/07/18 09:20 Ordered INR,PT,PROTHROMBIN TIME [COAG] DAILY Lab 01/09/18 13:23 Ordered INR,PT,PROTHROMBIN TIME [COAG] DAILY Lab 01/10/18 13:23 Ordered INR,PT,PROTHROMBIN TIME [COAG] DAILY Lab 01/11/18 13:23 Ordered INR,PT,PROTHROMBIN TIME [COAG] DAILY Lab 01/12/18 13:23 Ordered INR,PT,PROTHROMBIN TIME [COAG] DAILY Lab 01/13/18 13:23 Ordered INR,PT,PROTHROMBIN TIME [COAG] DAILY Lab 01/14/18 13:23 Ordered UA W/MICROSCOPIC [URIN] Urgent Lab 01/07/18 09:20 Ordered Albuterol/Ipratropium [DuoNeb 3.0-0.5 MG/3 ML] Med 01/07/18 12:37 Active 3 ml INH QID PRN Carvedilol [Coreg] Med 01/07/18 18:00 Active 12.5 mg PO BIDMEALS Diltiazem [Dilacor XR] Med 01/08/18 09:00 Active 240 mg PO DAILY HYDROmorphone [Dilaudid] Med 01/07/18 10:12 Active 0.5 mg IVPUSH Q2H PRN Insulin Aspart [NovoLOG] Med 01/07/18 11:30 Active See Protocol SUBCUT QIDACANDBED Ondansetron [Zofran ODT] Med 01/07/18 10:12 Active 4 mg PO Q4H PRN Sodium Chloride 0.9% [Normal Saline] 1,000 ml Med 01/07/18 11:20 Active IV ASDIRECTED Sodium Chloride 0.9% [Saline Flush] Med 01/07/18 07:57 Active 10 ml FLUSH ASDIRECTED PRN Ticagrelor [Brilinta] Med 01/07/18 21:00 Active 60 mg PO BID Warfarin Sliding Scale [Coumadin Sliding Scale] Med 01/07/18 13:30 Pending See Dose Instructions PO ASDIRECTED cefOXitin [Mefoxin] Med 01/07/18 12:00 Active 2 gm IVPUSH Q8H Peripheral IV Insertion Adult [OM.PC] Routine Oth 01/07/18 07:45 Ordered Pulse Oximetry Continuous Monitoring [OM.PC] Routine Oth 01/07/18 11:48 Ordered Sequential Compression Device [OM.PC] Per Unit Routine Oth 01/07/18 10:14 Ordered Resuscitation Status Routine Resus Stat 01/07/18 09:55 Ordered EKG 12 Lead [EK] Routine Ther 01/07/18 10:12 Ordered Medication Orders Albuterol/Ipratropium (Duoneb 3.0-0.5 Mg/3 Ml) 3 ml INH QID PRN PRN Reason: SHORTNESS OF BREATH Carvedilol (Coreg) 12.5 mg PO BIDMEALS [facility] Last Admin: 01/07/18 18:14 Dose: 12.5 mg Cefoxitin Sodium (Mefoxin) 2 gm IVPUSH Q8H [facility] Last Admin: 01/08/18 04:12 Dose: 2 gm Admin: 01/07/18 20:42 Dose: 2 gm Admin: 01/07/18 12:26 Dose: 2 gm Diltiazem HCl (Dilacor Xr) 240 mg PO DAILY [facility] Hydromorphone HCl (Dilaudid) 0.5 mg IVPUSH Q2H PRN PRN Reason: Pain (severe 7-10) Last Admin: 01/08/18 04:15 Dose: 0.5 mg Admin: 01/08/18 00:07 Dose: 0.5 mg Admin: 01/07/18 17:40 Dose: 0.5 mg Admin: 01/07/18 14:31 Dose: 0.5 mg Sodium Chloride (Normal Saline) 1,000 mls @ 75 mls/hr IV ASDIRECTED [facility] Last Admin: 01/08/18 00:25 Dose: 75 mls/hr Insulin Aspart (Novolog) 0 unit SUBCUT QIDACANDBED [facility]; Protocol Last Admin: 01/07/18 20:40 Dose: Admin: 01/07/18 17:41 Dose: 6 units Admin: 01/07/18 12:44 Dose: 4 units (Ticagrelor [ Brilinta] 60 Mg) * Ptom 60 mg PO BID [facility] Last Admin: 01/08/18 01:52 Dose: Ondansetron HCl (Zofran Odt) 4 mg PO Q4H PRN PRN Reason: nausea, able to take PO Sodium Chloride (Saline Flush) 10 ml FLUSH ASDIRECTED PRN PRN Reason: Keep Vein Open Last Admin: 01/07/18 07:45 Dose: 10 ml Warfarin Sodium (Coumadin Sliding Scale) 0 each PO ASDIRECTED [facility] - Assessment Assessment (Free Text/Narrative):: appears to need surgery. - Plan Plan (Free Text/Narrative):: fractionate the bilirubin per your discussion and concern about commodities would recommend transfer at this time. will sign off.
[2018-01-08] MEDS: Insulin Aspart 100 Units/ML 3 ML Pen SUBCUT SCH ×2 (08:44→11:30)
[2018-01-08] MEDS ORDERED: Umeclidinium Brm/Vilanterol Tr 62.5-25 MCG 30 Puff Inhaler IH SCH (09:00)
[2018-01-08] MEDS ORDERED: Diltiazem 240 MG Cap.ER PO SCH (09:00)
[2018-01-08] MEDS: Carvedilol 12.5 MG Tab PO SCH (09:29)
--- NOTE | 2018-01-08 09:29 | PCM.DCSUM1 ---
Discharge Summary - Hospital Course Free Text/Narrative:: Date of admission: 01/07/18 Date of discharge/transfer: 01/08/18 Admission diagnosis: Possible cholecystitis, conservative management. Discharge diagnosis: Acute cholecystitis with possible biliary obstruction. Patient too high risk to manage at this facility. Transfer to higher level of care. Consults: Gen. surgery Dr. Phan Procedures: CT abdomen and pelvis showed cholelithiasis with minimal pericholecystic edema. Ultrasound on preliminary report was negative but final radiology report showed cholelithiasis with negative ultrasonic Moyer's sign, however patient had enlarged gallbladder with multiple calculi. Common bile duct was unable to be evaluated as it was not visualized. The gallbladder wall was not thickened. History of present illness: Patient is 77-year-old male in his usual state of health until morning of admission at about 4 AM when he woke out of a sound sleep with severe right upper quadrant and middle quadrant abdominal pain. It was like someone stabbing him with a knife. The pain was constant and unremitting. He got up and finally decided to come into the emergency room because it was so painful. No other associated symptoms. No nausea, no vomiting, no diarrhea, no chest pain, no shortness of breath. He had no shoulder pain. He did have the chills but no sweats. No fever that he knows of. He's otherwise been feeling well and at his usual baseline. He's got underlying shortness of breath with activity and is morbidly obese but has had no worsening of his shortness of breath. Has had no upper respiratory symptoms. No real cough. No GI or complaints that are new. Hospital Course: Patient was admitted and treated with IV fluids, IV antibiotic therapy with Mefoxin and consult with general surgery. Vital signs were stable but the day of transfer the patient's bilirubin had increased, and his white count had increased, suggesting failure of conservative management. Due to the patient's complexity and multiple medical problems as well as anticoagulation issues, the decision was made to transfer the patient to higher level of care. Dr. Childers and Dr. Coffey from [facility] accepted the patient in transfer at ~ 0915. - Discharge Data Discharge Date: 01/08/18 Discharge Disposition: DC/Tfer to Acute Hospital 02 Condition: Good - Discharge Diagnosis/Problem(s) (1) RUQ abdominal pain SNOMED Code(s): 440615857 ICD Code: R10.11 - RIGHT UPPER QUADRANT PAIN Status: Acute Problem Details: Patient has declared himself with increased WBC, increased bili to have failed antibiotic therapy alone. Transfer to higher level of care. Dr. Childers general surgeon and Dr. Coffey hospitalist agreed to accept the patient in transfer. (2) Coronary arteriosclerosis, CAD SNOMED Code(s): 98189210 ICD Code: I25.10 - ATHSCL HEART DISEASE OF [place] CORONARY ARTERY W/O ANG PCTRS Status: Chronic Problem Details: Continue current medications. (3) Diabetes mellitus type 2 SNOMED Code(s): 46910178 ICD Code: E11.9 - TYPE 2 DIABETES MELLITUS WITHOUT COMPLICATIONS Status: Chronic Problem Details: Patient's outpatient control is very poor. Currently on sliding scale only. Will defer to accepting team. (4) HTN, Benign essential hypertension SNOMED Code(s): 8824639 ICD Code: I10 - ESSENTIAL (PRIMARY) HYPERTENSION Status: Chronic Problem Details: Continue Home meds (5) Hyperlipidemia SNOMED Code(s): 40034735 ICD Code: E78.5 - HYPERLIPIDEMIA, UNSPECIFIED Status: Chronic Problem Details: Continue lipitor. (6) Obesity SNOMED Code(s): 284156407 ICD Code: E66.9 - OBESITY, UNSPECIFIED Status: Chronic Problem Details: With ROCKY. Home CPAP machine. Continuous oximetry while on narcotics. (7) Acute cholecystitis due to biliary calculus SNOMED Code(s): 12059932589806 ICD Code: K80.00 - CALCULUS OF GALLBLADDER W ACUTE CHOLECYST W/O OBSTRUCTION Status: Acute Problem Details: Transfer as above. Patient extremely complex and high risk for surgical complications. (8) DVT prophylaxis SNOMED Code(s): 818348299, 666230368 ICD Code: DXL7734 - Status: Acute Problem Details: Anticoagulated. Warfarin held on day of admission 01/08. - Patient Summary/Data Consults: Consultations 01/07/18 11:32 Consult to Physician [CONS] Routine Consulting Provider: Bebeto Phan Courtesy Call Completed to Consulting Physician: Yes Reason for Consult: possible cholecystitis 01/07/18 11:59 Consult to Pharmacy [CONS] Routine Comment: Physician Instructions: Quantity: Reason for Consult: a fib DVT INR 2-3: warfarin management Special Instructions: please hold today - Patient Instructions Diet: NPO - Discharge Plan Home Medications: Home Meds Omeprazole 40 mg PO 1700 12/08/13 [History] Insulin Npl/Insulin Lispro [Humalog Mix 75-25 Kwikpen] 27 units SUBCUT DAILY 04/20 [History] Potassium Chloride [Klor-Con 10] 10 meq PO DAILY 10/14/15 [History] Warfarin [Coumadin] 5 mg PO SUTUTHSA 10/14/15 [History] Acetaminophen [Acetaminophen ER] 1,300 mg PO BID 02/22/16 [History] Carvedilol 12.5 mg PO BID 02/22/16 [History] Furosemide [Lasix] 40 mg PO BID@,12 02/22/16 [History] atorvaSTATin [Lipitor] 80 mg PO DAILY 04/10/16 [History] Multivits-Minerals/FA/Lycopene [One Daily Men's Health Tablet] 1 tab PO DAILY [History] Nitroglycerin 0.4 mg SL ASDIRECTED PRN 04/14/16 [History] Triamcinolone Acetonide [Kenalog 0.1% Crm] 1 applic TOP TID 04/14/16 [History] Cyclobenzaprine HCl 5 mg PO Q6H PRN 01/07/18 [History] Diltiazem [Diltiazem XR] 240 mg PO DAILY 01/07/18 [History] Insulin Lispro Prot/Lispro [HumaLOG Mix 75-25] 23 unit SQ BEDTIME 01/07/18 [ History] Metolazone 2.5 mg PO TUTHSA 01/07/18 [History] Ticagrelor [Brilinta] 60 mg PO BID 01/07/18 [History] Warfarin [Coumadin] 2.5 mg PO MOWEFR 01/07/18 [History] Patient Handouts: Type 2 Diabetes Mellitus, Diagnosis, Adult, Heart Failure, [id number], Fall Prevention in Hospitals, Adult, Preventing Antibiotic Resistance, Venous Thromboembolism Prevention Forms: ED Department Discharge Referrals: Hector De Leon MD [Primary Care Provider] - - General Info Date of Service: 01/08/18 Subjective Update: Still having right upper quadrant abdominal pain radiating down the right side. No nausea or vomiting. No chest pain or new shortness of breath. Patient is agreeable to transfer. - Patient Data Vitals - Most Recent: Last Vital Signs Temp 37.0 C 01/08/18 04:20 Pulse 84 01/08/18 04:20 Resp 20 01/08/18 04:20 BP 120/73 01/08/18 04:20 Pulse Ox 93 L 01/08/18 04:20 Weight - Most Recent: 130.725 kg I&O - Last 24 hours: Intake & Output 01/07/18 01/08/18 01/08/18 22:59 06:59 14:59 Intake Total 350 650 Output Total 300 375 Balance 50 275 Lab Results - Last 24 hrs: Laboratory Results - last 24 hr 01/07/18 01/07/18 01/07/18 Range/Units 07:45 09:20 12:19 WBC (4.5-12.0) X10-3/uL RBC (4.30-5.75) x10(6)uL Hgb (11.5-15.5) g/dL Hct (30.0-51.3) % MCV (80-96) fL MCH (27.7-33.6) pg MCHC (32.2-35.4) g/dL RDW (11.5-15.5) % Plt Count (125-369) X10(3)uL MPV (7.4-10.4) fL Add Manual Diff Neutrophils % (Manual) (46-82) % Band Neutrophils % (0-6) % Lymphocytes % (Manual) (13-37) % Monocytes % (Manual) (4-12) % Eosinophils % (Manual) (0-5) % PT 33.4 H (8.7-11.1) INR 3.48 H (0.89-1.13) Sodium (135-145) mmol/L Potassium (3.5-5.3) mmol/L Chloride (100-110) mmol/L Carbon Dioxide (21-32) mmol/L BUN (7-18) mg/dL Creatinine (0.70-1.30) mg/dL Est Cr Clr Drug Dosing mL/min Estimated GFR (MDRD) (>60) BUN/Creatinine Ratio (9-20) Glucose (80-116) mg/dL POC Glucose 242 H (80-116) mg/dL Calcium (8.6-10.2) mg/dL Total Bilirubin (0.1-1.3) mg/dL Direct Bilirubin (0.10-0.20) mg/dL Indirect Bilirubin (0.0-1.0) mg/dL AST (5-25) IU/L ALT (12-36) U/L Alkaline Phosphatase (56-112) IU/L Total Protein (6.0-8.0) g/dL Albumin (3.2-4.6) g/dL Globulin g/dL Albumin/Globulin Ratio Urine Color Yellow (YELLOW) Urine Appearance Clear (CLEAR) Urine pH 8.0 H (5.0-6.5) Ur Specific [place] 1.015 (1.010-1.025) Urine Protein Negative (NEGATIVE) mg/dL Urine Glucose (UA) >1000 H (NEGATIVE) mg/dL Urine Ketones Negative (NEGATIVE) mg/dL Urine Occult Blood Negative (NEGATIVE) Urine Nitrite Negative (NEGATIVE) Urine Bilirubin Negative (NEGATIVE) Urine Urobilinogen Normal (NEGATIVE) mg/dL Ur Leukocyte Esterase Negative (NEGATIVE) Urine RBC 0-5 (0) Urine WBC 5-10 (0) Ur Squamous Epith Cells Few H (NS,R,O) Urine Bacteria Many H (NS) 01/07/18 01/08/18 01/08/18 Range/Units 17:22 05:24 05:50 WBC 14.0 H (4.5-12.0) X10-3/uL RBC 4.47 (4.30-5.75) x10(6)uL Hgb 15.1 (11.5-15.5) g/dL Hct 44.6 (30.0-51.3) % MCV 99.6 H (80-96) fL MCH 33.8 H (27.7-33.6) pg MCHC 33.9 (32.2-35.4) g/dL RDW 13.8 (11.5-15.5) % Plt Count 155 (125-369) X10(3)uL MPV 9.7 (7.4-10.4) fL Add Manual Diff Yes Neutrophils % (Manual) 85 H (46-82) % Band Neutrophils % 3 (0-6) % Lymphocytes % (Manual) 4 L (13-37) % Monocytes % (Manual) 7 (4-12) % Eosinophils % (Manual) 1 (0-5) % PT (8.7-11.1) INR (0.89-1.13) Sodium (135-145) mmol/L Potassium (3.5-5.3) mmol/L Chloride (100-110) mmol/L Carbon Dioxide (21-32) mmol/L BUN (7-18) mg/dL Creatinine (0.70-1.30) mg/dL Est Cr Clr Drug Dosing mL/min Estimated GFR (MDRD) (>60) BUN/Creatinine Ratio (9-20) Glucose (80-116) mg/dL POC Glucose 250 H 272 H (80-116) mg/dL Calcium (8.6-10.2) mg/dL Total Bilirubin (0.1-1.3) mg/dL Direct Bilirubin (0.10-0.20) mg/dL Indirect Bilirubin (0.0-1.0) mg/dL AST (5-25) IU/L ALT (12-36) U/L Alkaline Phosphatase (56-112) IU/L Total Protein (6.0-8.0) g/dL Albumin (3.2-4.6) g/dL Globulin g/dL Albumin/Globulin Ratio Urine Color (YELLOW) Urine Appearance (CLEAR) Urine pH (5.0-6.5) Ur Specific [place] (1.010-1.025) Urine Protein (NEGATIVE) mg/dL Urine Glucose (UA) (NEGATIVE) mg/dL Urine Ketones (NEGATIVE) mg/dL Urine Occult Blood (NEGATIVE) Urine Nitrite (NEGATIVE) Urine Bilirubin (NEGATIVE) Urine Urobilinogen (NEGATIVE) mg/dL Ur Leukocyte Esterase (NEGATIVE) Urine RBC (0) Urine WBC (0) Ur Squamous Epith Cells (NS,R,O) Urine Bacteria (NS) 01/08/18 01/08/18 01/08/18 Range/Units 05:50 05:50 05:50 WBC (4.5-12.0) X10-3/uL RBC (4.30-5.75) x10(6)uL Hgb (11.5-15.5) g/dL Hct (30.0-51.3) % MCV (80-96) fL MCH (27.7-33.6) pg MCHC (32.2-35.4) g/dL RDW (11.5-15.5) % Plt Count (125-369) X10(3)uL MPV (7.4-10.4) fL Add Manual Diff Neutrophils % (Manual) (46-82) % Band Neutrophils % (0-6) % Lymphocytes % (Manual) (13-37) % Monocytes % (Manual) (4-12) % Eosinophils % (Manual) (0-5) % PT 20.3 H (8.7-11.1) INR 2.11 H (0.89-1.13) Sodium 132 L (135-145) mmol/L Potassium 3.1 L (3.5-5.3) mmol/L Chloride 95 L (100-110) mmol/L Carbon Dioxide 30 (21-32) mmol/L BUN 15 (7-18) mg/dL Creatinine 1.2 (0.70-1.30) mg/dL Est Cr Clr Drug Dosing 48.29 mL/min Estimated GFR (MDRD) 58 L (>60) BUN/Creatinine Ratio 12.5 (9-20) Glucose 263 H (80-116) mg/dL POC Glucose (80-116) mg/dL Calcium 8.5 L (8.6-10.2) mg/dL Total Bilirubin 1.8 H 1.7 H (0.1-1.3) mg/dL Direct Bilirubin 0.35 H (0.10-0.20) mg/dL Indirect Bilirubin 1.4 H (0.0-1.0) mg/dL AST 19 (5-25) IU/L ALT 20 D (12-36) U/L Alkaline Phosphatase 62 (56-112) IU/L Total Protein 6.1 (6.0-8.0) g/dL Albumin 2.9 L (3.2-4.6) g/dL Globulin 3.2 g/dL Albumin/Globulin Ratio 0.9 Urine Color (YELLOW) Urine Appearance (CLEAR) Urine pH (5.0-6.5) Ur Specific [place] (1.010-1.025) Urine Protein (NEGATIVE) mg/dL Urine Glucose (UA) (NEGATIVE) mg/dL Urine Ketones (NEGATIVE) mg/dL Urine Occult Blood (NEGATIVE) Urine Nitrite (NEGATIVE) Urine Bilirubin (NEGATIVE) Urine Urobilinogen (NEGATIVE) mg/dL Ur Leukocyte Esterase (NEGATIVE) Urine RBC (0) Urine WBC (0) Ur Squamous Epith Cells (NS,R,O) Urine Bacteria (NS) ELOINA Results - Last 24 hrs: Microbiology 01/07/18 09:20 Urine Culture - Preliminary Urine, Voided Gram Positive Cocci Gram Negative Rods Med Orders - Current: Current Medications Albuterol/Ipratropium (Duoneb 3.0-0.5 Mg/3 Ml) 3 ml INH QID PRN PRN Reason: SHORTNESS OF BREATH Carvedilol (Coreg) 12.5 mg PO BIDMEALS [facility] Last Admin: 01/07/18 18:14 Dose: 12.5 mg Cefoxitin Sodium (Mefoxin) 2 gm IVPUSH Q8H [facility] Last Admin: 01/08/18 04:12 Dose: 2 gm Diltiazem HCl (Dilacor Xr) 240 mg PO DAILY [facility] Hydromorphone HCl (Dilaudid) 0.5 mg IVPUSH Q2H PRN PRN Reason: Pain (severe 7-10) Last Admin: 01/08/18 08:45 Dose: 0.5 mg Sodium Chloride (Normal Saline) 1,000 mls @ 75 mls/hr IV ASDIRECTED [facility] Last Admin: 01/08/18 00:25 Dose: 75 mls/hr Insulin Aspart (Novolog) 0 unit SUBCUT QIDACANDBED [facility]; Protocol Last Admin: 01/08/18 08:44 Dose: 6 units (Ticagrelor [ Brilinta] 60 Mg) * Ptom 60 mg PO BID [facility] Last Admin: 01/08/18 01:52 Dose: Not Given Ondansetron HCl (Zofran Odt) 4 mg PO Q4H PRN PRN Reason: nausea, able to take PO Sodium Chloride (Saline Flush) 10 ml FLUSH ASDIRECTED PRN PRN Reason: Keep Vein Open Last Admin: 01/07/18 07:45 Dose: 10 ml Warfarin Sodium (Coumadin Sliding Scale) 0 each PO ASDIRECTED [facility] Discontinued Medications Ceftriaxone Sodium (Rocephin) 1,000 mg IVPUSH Q24H [facility] Last Admin: 01/07/18 13:40 Dose: Not Given Hydromorphone HCl (Dilaudid) 1 mg IVPUSH ONETIME ONE Stop: 01/07/18 07:19 Last Admin: 01/07/18 07:56 Dose: 1 mg Sodium Chloride (Normal Saline) 1,000 mls @ 300 mls/hr IV ASDIRECTED [facility] Last Admin: 01/07/18 11:41 Dose: 300 mls/hr Potassium Chloride 20 meq/ (Premix) 100 mls @ 40 mls/hr IV ONETIME ONE Stop: 01/07/18 10:47 Last Admin: 01/07/18 08:55 Dose: 40 mls/hr Potassium Chloride (Kcl 20 Meq In Water 100 Ml) Confirm Administered Dose 100 mls @ as directed .ROUTE .STK-MED ONE Stop: 01/07/18 08:54 Last Admin: 01/07/18 13:41 Dose: Not Given Metoclopramide HCl (Reglan) 10 mg IVPUSH ONETIME ONE Stop: 01/07/18 07:19 Last Admin: 01/07/18 07:56 Dose: 10 mg - Exam General: Reports: Alert, Cooperative, No Acute Distress HEENT: Reports: Pupils Equal, Pupils Reactive Neck: Reports: Supple Lungs: Reports: Clear to Auscultation, Normal Respiratory Effort Cardiovascular: Reports: Regular Rate, No Murmurs, Irregular Rhythm GI/Abdominal Exam: Soft, Distended, Tender (RUQ and MQ tenderness, hypoactive BS.) Back Exam: Reports: Normal Inspection Extremities: Pedal Edema (Trace)
[2018-01-08 09:30] VITALS: BP 143/85
--- NOTE | 2018-01-11 09:57 | ER ---
DATE SEEN: 01/07/2018 HISTORY OF PRESENT ILLNESS: The patient is awakened at approximately 0300 to 0400 hours with right lower quadrant and right upper quadrant abdominal discomfort. The patient was seen at 0710. 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 He has had chronic low back pain in the past, which is unchanged. He has had a slight cough for the last several weeks. No history of weight loss or hematochezia, constipation, blood in his stool, or change in bowels. He notes he does have to strain to move his bowels, and yesterday he strained moderately excessively because he thought he had constipation. He had minimal stool, but there was semi-firm stool, not rock hard or pellets. No history of hematochezia or vomiting or decreased fluid or p.o. intake. PAST MEDICAL HISTORY: Significant for insulin-dependent diabetes, metabolic syndrome, congestive heart failure, AFib, non-STEMI, back muscle spasm, CHF, pneumonia, DVTs, coronary artery disease, dyslipidemia, obesity, hypertension, diabetes, and chest pain. MEDICATIONS: 1. Warfarin 5 mg daily. 2. Insulin 43 units daily. 3. Lispro 39 units in the morning. 4. Visine p.r.n. 5. Metolazone 2.5 mg Sunday, , and Sunday. DICTATION ENDS HERE /[id number] ROSEMARY/YELITZA
== END 2018-01-08 10:40 | DRG 445 ==
LOC: FB.ED 07:13 → FB.MS 09:59 → OBSVTOIN 10:12
PROVIDERS: ADMIT Family Medicine; ATTEND Family Medicine
DX: R10.11 Right upper quadrant pain (principal); K80.50 Calculus of bile duct without cholangitis or cholecystitis without obstruction; K80.00 Calculus of gallbladder with acute cholecystitis without obstruction; Z68.41 Body mass index [BMI] 40.0-44.9, adult; I13.0 Hypertensive heart and chronic kidney disease with heart failure and stage 1 through stage 4 chronic kidney disease, or unspecified chronic kidney disease; I50.42 Chronic combined systolic (congestive) and diastolic (congestive) heart failure; E66.01 Morbid (severe) obesity due to excess calories; I25.10 Atherosclerotic heart disease of native coronary artery without angina pectoris; I25.2 Old myocardial infarction; N18.9 Chronic kidney disease, unspecified; E11.22 Type 2 diabetes mellitus with diabetic chronic kidney disease; E11.65 Type 2 diabetes mellitus with hyperglycemia; Z79.4 Long term (current) use of insulin; Z87.891 Personal history of nicotine dependence; I48.2 Chronic atrial fibrillation; Z79.01 Long term (current) use of anticoagulants; Z79.84 Long term (current) use of oral hypoglycemic drugs; Z51.81 Encounter for therapeutic drug level monitoring; E11.319 Type 2 diabetes mellitus with unspecified diabetic retinopathy without macular edema; E11.42 Type 2 diabetes mellitus with diabetic polyneuropathy; Z95.5 Presence of coronary angioplasty implant and graft; Z86.718 Personal history of other venous thrombosis and embolism; E78.5 Hyperlipidemia, unspecified; E11.51 Type 2 diabetes mellitus with diabetic peripheral angiopathy without gangrene; G47.33 Obstructive sleep apnea (adult) (pediatric); M19.90 Unspecified osteoarthritis, unspecified site; M54.9 Dorsalgia, unspecified; G89.29 Other chronic pain; Z99.89 Dependence on other enabling machines and devices; H91.90 Unspecified hearing loss, unspecified ear; Q76.2 Congenital spondylolisthesis; Z95.810 Presence of automatic (implantable) cardiac defibrillator
CPT/HCPCS: 36415; 74176; 76705; 80053; 81001; 83605; 85025; 85610; 86140; 87086; 87088 ×2; 87186 ×2; 96361; 96365; 96366; 96375; 99285; J1170; J2765; J3480; J7030; J7050; 82247; 82248; 82962; 93005; A9270-GY; J0694

== ENCOUNTER 2018-11-25 13:52 | Emergency (ER) | payer MEDICARE, BC ==
[2018-11-25] MEDS ORDERED: Nitroglycerin 0.4 MG Tab.SL SL PRN (14:06)
[2018-11-25] MEDS ORDERED: Sodium Chloride 0.9% 10 ML Syringe FLUSH PRN (14:06)
--- NOTE | 2018-11-25 14:19 | EDM.PDOC ---
ED HPI GENERAL MEDICAL PROBLEM - General Chief Complaint: Cardiovascular Problem Stated Complaint: CHEST PAIN Time Seen by Provider: 11/25/18 14:07 Source of Information: Reports: Patient History Limitations: Reports: No Limitations - History of Present Illness INITIAL COMMENTS - FREE TEXT/NARRATIVE: Presents with intermittent substernal non-radiating chest pressure x 2 days. Has had a cough, on Augmentin for sinusitis. Patient has a history of CAD, 15 coronary stents placed, last 2 yrs ago @[facility]. Patient is scheduled for cataract surgery tomorrow. 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 - Related Data Allergies Allergy/AdvReac Type Severity Reaction Status Date / Time No Known Allergies Allergy Verified 11/25/18 13:41 Home Meds: Home Meds Omeprazole 40 mg PO 1700 12/08/13 [History] Acetaminophen [Acetaminophen ER] 650 mg PO Q4HR PRN 02/22/16 [History] Carvedilol 12.5 mg PO BID 02/22/16 [History] Furosemide [Lasix] 40 mg PO BID@08,12 02/22/16 [History] atorvaSTATin [Lipitor] 40 mg PO 1700 04/10/16 [History] Multivits-Minerals/FA/Lycopene [One Daily Men's Health Tablet] 1 tab PO DAILY [History] Nitroglycerin 0.4 mg SL ASDIRECTED PRN 04/14/16 [History] Triamcinolone Acetonide [Kenalog 0.1% Crm] 1 applic TOP TID 04/14/16 [History] Diltiazem [Diltiazem XR] 240 mg PO DAILY 01/07/18 [History] Ticagrelor [Brilinta] 60 mg PO BID 01/07/18 [History] metOLazone [Metolazone] 2.5 mg PO TUTHSA 01/07/18 [History] Docusate Sodium [Colace] 1 cap PO BID 11/25/18 [History] Fluticasone Propionate [Flonase] 1 spray INH BID 11/25/18 [History] Gluc [place]/Chondro [place] A/Vit C/Mn [Glucosamine-Chondroitin Cap] 1 cap PO BID [History] Glycerin/Phenyleph/Pramox/Pet [Preparation H Crm] 1 dose RECTAL QID PRN [History] Insulin Detemir [Levemir Flextouch] 38 units SQ BEDTIME 11/25/18 [History] Insulin Lispro [Humalog] 10 units SQ TID 11/25/18 [History] Loratadine [Claritin] 10 mg PO DAILY PRN 11/25/18 [History] Potassium Chloride 2 tab PO TID 11/25/18 [History] Sodium Chloride 0.65% [[place] Saline] 2 spray INH QID 11/25/18 [History] Tiotropium Br/Olodaterol HCl [Stiolto Respimat Inhal [place]] 2 puff INH DAILY [History] Warfarin Sodium [Jantoven] 2.5 mg PO MO 11/25/18 [History] Warfarin Sodium [Jantoven] 5 mg PO SUTUWETHFRSA 11/25/18 [History] Past Medical History HEENT History: Reports: Hard of Hearing, Sinusitis Other HEENT History: States had sinus surgery in the past. Cardiovascular History: Reports: Automatic Implantable Cardioverter Defibrillators, Blood Clots/VTE/DVT, CAD, Heart Failure, High Cholesterol, Hypertension, Pacemaker, SOB on Exertion, Stents Other Cardiovascular History: peripheral vascular disease; unstable angina; cardio renal syndrome; deviated septum; elevated troponin Respiratory History: Reports: COPD, Sleep Apnea Other Respiratory History: Uses O2 @ hs with CPAP. Gastrointestinal History: Reports: GERD Genitourinary History: Reports: Other (See Below) Other Genitourinary History: organic impotence; phimosis Musculoskeletal History: Reports: Arthritis, Back Pain, Chronic, Fracture, Gout , Osteoarthritis, Other (See Below) Other Musculoskeletal History: fx ankle Endocrine/Metabolic History: Reports: Diabetes, Type II, Obesity/BMI 30+ Other Endocrine/Metabolic History: Diabetic retinopathy; peripheral neuropathy Hematologic History: Reports: Blood Transfusion(s) Other Hematologic History: long time use of anticoagulant therapy Dermatologic History: Reports: Other (See Below) Other Dermatologic History: Stated rash was on stomach and was taken medication at home and now resolved. - Infectious Disease History Infectious Disease History: Reports: Chicken Pox, Measles, Mumps - Past Surgical History HEENT Surgical History: Reports: Other (See Below) Cardiovascular Surgical History: Reports: Coronary Artery Stent, Percutaneous Transluminal Angioplasty Other Cardiovascular Surgeries/Procedures: Pacemaker Social & Family History - Family History Family Medical History: Noncontributory - Tobacco Use Tobacco Use Within Last Twelve Months: No - Caffeine Use Caffeine Use: Reports: None ED ROS GENERAL - Review of Systems Review Of Systems: ROS reveals no pertinent complaints other than HPI. ED EXAM, GENERAL - Physical Exam Exam: See Below Exam Limited By: No Limitations General Appearance: Alert, WD/WN, No Apparent Distress Ears: Normal External Exam Nose: Normal Inspection Throat/Mouth: Normal Inspection, No Airway Compromise Head: Atraumatic, Normocephalic Neck: Supple Respiratory/Chest: No Respiratory Distress, Lungs Clear, Normal Breath Sounds, Chest Non-Tender Cardiovascular: Regular Rate, Rhythm, No Murmur GI/Abdominal: Normal Bowel Sounds, Soft, Tender (mild epigastric) Back Exam: Full Range of Motion Extremities: Normal Range of Motion, Non-Tender, Pedal Edema Neurological: Alert, Normal Cognition, No Motor/Sensory Deficits Psychiatric: Normal Affect, Normal Mood Skin Exam: Warm, Dry, Intact EKG INTERPRETATION EKG Date: 11/25/18 Time: 14:11 Rhythm: Other (atrial paced rhythm) Rate (Beats/Min): 65 Comparison: Change From Previous EKG Course - Vital Signs Text/Narrative:: BP 135/63, HR 63, SAO2 100% RA, RR 21 - Orders/Labs/Meds Orders: Active Orders 24 hr Category Date Time Status EKG Documentation Completion [RC] ASDIRECTED Care 11/25/18 14:05 Active Chest 1V Frontal [CR] Stat Exams 11/25/18 14:05 Taken Sodium Chloride 0.9% [Saline Flush] Med 11/25/18 14:06 Active 10 ml FLUSH ASDIRECTED PRN Saline Lock Insert [OM.PC] Routine Oth 11/25/18 14:06 Ordered EKG 12 Lead [EK] Routine Ther 11/25/18 14:05 Ordered Medication Orders Sodium Chloride (Saline Flush) 10 ml FLUSH ASDIRECTED PRN PRN Reason: Keep Vein Open Last Admin: 11/25/18 14:20 Dose: 10 ml Labs: Laboratory Tests 11/25/18 11/25/18 11/25/18 Range/Units 14:20 14:20 14:20 WBC 6.1 (4.5-12.0) X10-3/uL RBC 4.14 L (4.30-5.75) x10(6)uL Hgb 13.7 (13.5-17.8) g/dL Hct 40.0 (30.0-51.3) % MCV 96.7 H (80-96) fL MCH 33.1 (27.7-33.6) pg MCHC 34.2 (32.2-35.4) g/dL RDW 14.1 (11.5-15.5) % Plt Count 175 (125-369) X10(3)uL MPV 9.0 (7.4-10.4) fL Neut % (Auto) 69.4 (46-82) % Lymph % (Auto) 19.3 (13-37) % [place] % (Auto) 7.3 (4-12) % Eos % (Auto) 3 (1.0-5.0) % Baso % (Auto) 1 (0-2) % Neut # (Auto) 4.3 (1.6-8.3) # Lymph # (Auto) 1.2 (0.6-5.0) # [place] # (Auto) 0.4 (0.0-1.3) # Eos # (Auto) 0.2 (0.0-0.8) # Baso # (Auto) 0.0 (0.0-0.2) # PT 35.2 H* (8.7-11.1) INR 3.68 H (0.89-1.13) Sodium 136 (135-145) mmol/L Potassium 3.3 L (3.5-5.3) mmol/L Chloride 100 D (100-110) mmol/L Carbon Dioxide 29 (21-32) mmol/L BUN 21 H (7-18) mg/dL Creatinine 1.2 (0.70-1.30) mg/dL Est Cr Clr Drug Dosing TNP Estimated GFR (MDRD) 58 L (>60) BUN/Creatinine Ratio 17.5 (9-20) Glucose 169 H D (80-116) mg/dL Calcium 8.8 (8.6-10.2) mg/dL Magnesium (1.8-2.5) mg/dL Total Bilirubin 0.8 (0.1-1.3) mg/dL AST 19 (5-25) IU/L ALT 23 D (12-36) U/L Alkaline Phosphatase 81 (56-112) IU/L Troponin I (<0.017-0.056) ng/mL NT-Pro-B Natriuret Pep (<=450) pg/mL Total Protein 6.2 (6.0-8.0) g/dL Albumin 3.1 L (3.2-4.6) g/dL Globulin 3.1 g/dL Albumin/Globulin Ratio 1.0 Amylase (25-115) U/L 11/25/18 11/25/18 11/25/18 Range/Units 14:20 14:20 14:54 WBC (4.5-12.0) X10-3/uL RBC (4.30-5.75) x10(6)uL Hgb (13.5-17.8) g/dL Hct (30.0-51.3) % MCV (80-96) fL MCH (27.7-33.6) pg MCHC (32.2-35.4) g/dL RDW (11.5-15.5) % Plt Count (125-369) X10(3)uL MPV (7.4-10.4) fL Neut % (Auto) (46-82) % Lymph % (Auto) (13-37) % [place] % (Auto) (4-12) % Eos % (Auto) (1.0-5.0) % Baso % (Auto) (0-2) % Neut # (Auto) (1.6-8.3) # Lymph # (Auto) (0.6-5.0) # [place] # (Auto) (0.0-1.3) # Eos # (Auto) (0.0-0.8) # Baso # (Auto) (0.0-0.2) # PT (8.7-11.1) INR (0.89-1.13) Sodium (135-145) mmol/L Potassium (3.5-5.3) mmol/L Chloride (100-110) mmol/L Carbon Dioxide (21-32) mmol/L BUN (7-18) mg/dL Creatinine (0.70-1.30) mg/dL Est Cr Clr Drug Dosing Estimated GFR (MDRD) (>60) BUN/Creatinine Ratio (9-20) Glucose (80-116) mg/dL Calcium (8.6-10.2) mg/dL Magnesium 2.0 (1.8-2.5) mg/dL Total Bilirubin (0.1-1.3) mg/dL AST (5-25) IU/L ALT (12-36) U/L Alkaline Phosphatase (56-112) IU/L Troponin I 0.038 (<0.017-0.056) ng/mL NT-Pro-B Natriuret Pep 493 H (<=450) pg/mL Total Protein (6.0-8.0) g/dL Albumin (3.2-4.6) g/dL Globulin g/dL Albumin/Globulin Ratio Amylase 26 (25-115) U/L 11/25/18 Range/Units 17:00 WBC (4.5-12.0) X10-3/uL RBC (4.30-5.75) x10(6)uL Hgb (13.5-17.8) g/dL Hct (30.0-51.3) % MCV (80-96) fL MCH (27.7-33.6) pg MCHC (32.2-35.4) g/dL RDW (11.5-15.5) % Plt Count (125-369) X10(3)uL MPV (7.4-10.4) fL Neut % (Auto) (46-82) % Lymph % (Auto) (13-37) % [place] % (Auto) (4-12) % Eos % (Auto) (1.0-5.0) % Baso % (Auto) (0-2) % Neut # (Auto) (1.6-8.3) # Lymph # (Auto) (0.6-5.0) # [place] # (Auto) (0.0-1.3) # Eos # (Auto) (0.0-0.8) # Baso # (Auto) (0.0-0.2) # PT (8.7-11.1) INR (0.89-1.13) Sodium (135-145) mmol/L Potassium (3.5-5.3) mmol/L Chloride (100-110) mmol/L Carbon Dioxide (21-32) mmol/L BUN (7-18) mg/dL Creatinine (0.70-1.30) mg/dL Est Cr Clr Drug Dosing Estimated GFR (MDRD) (>60) BUN/Creatinine Ratio (9-20) Glucose (80-116) mg/dL Calcium (8.6-10.2) mg/dL Magnesium (1.8-2.5) mg/dL Total Bilirubin (0.1-1.3) mg/dL AST (5-25) IU/L ALT (12-36) U/L Alkaline Phosphatase (56-112) IU/L Troponin I 0.035 (<0.017-0.056) ng/mL NT-Pro-B Natriuret Pep (<=450) pg/mL Total Protein (6.0-8.0) g/dL Albumin (3.2-4.6) g/dL Globulin g/dL Albumin/Globulin Ratio Amylase (25-115) U/L Meds: Medications Generic Name Dose Route Start Last Admin Trade Name Freq PRN Reason Stop Dose Admin Sodium Chloride 10 ml 11/25/18 14:06 11/25/18 14:20 Saline Flush FLUSH 10 ml ASDIRECTED PRN Administration Keep Vein Open Discontinued Medications Generic Name Dose Route Start Last Admin Trade Name Freq PRN Reason Stop Dose Admin Nitroglycerin 0.4 mg 11/25/18 14:06 Nitrostat SL Q5M PRN Chest Pain Pantoprazole Sodium 40 mg 11/25/18 14:53 11/25/18 15:11 Protonix Iv IVPUSH 11/25/18 14:54 40 mg ONETIME ONE Administration Potassium Chloride 40 meq 11/25/18 14:54 11/25/18 15:11 Potassium Chloride Solution PO 11/25/18 14:55 40 meq ONETIME ONE Administration - Radiology Interpretation Free Text/Narrative:: CXR: atelectasis right base, otherwise negative (ED provider interpretation). - Re-Assessments/Exams Free Text/Narrative Re-Assessment/Exam: 11/25/18 18:07 Symptoms resolved spontaneously, no NTG given. Departure - Departure Time of Disposition: 18:07 Disposition: Home, Self-Care 01 Condition: Good Clinical Impression: Chest pain, Coagulopathy Referrals: Hector De Leon MD [Primary Care Provider] - Nito Solorio DO [Ordering Only Provider] - 2 Days Forms: ED Department Discharge Additional Instructions: Cancel cataract surgery scheduled for tomorrow. Discontinue Augmentin. Hold Coumadin x 2 days, Home Health care to adjust dose. Discontinue Augmentin. Follow up with Cardiology (Dr. Solorio) in 1-2 days. Return to the ER if symptoms worsen. - My Orders Last 24 Hours: My Active Orders 11/25/18 14:05 EKG Documentation Completion [RC] ASDIRECTED Chest 1V Frontal [CR] Stat EKG 12 Lead [EK] Routine 11/25/18 14:06 Sodium Chloride 0.9% [Saline Flush] 10 ml FLUSH ASDIRECTED PRN Saline Lock Insert [OM.PC] Routine - Assessment/Plan Last 24 Hours: My Active Orders 11/25/18 14:05 EKG Documentation Completion [RC] ASDIRECTED Chest 1V Frontal [CR] Stat EKG 12 Lead [EK] Routine 11/25/18 14:06 Sodium Chloride 0.9% [Saline Flush] 10 ml FLUSH ASDIRECTED PRN Saline Lock Insert [OM.PC] Routine
[2018-11-25] MEDS ORDERED: Pantoprazole 40 MG Vial IVPUSH ONE (14:53)
[2018-11-25] MEDS ORDERED: Potassium Chloride 10% 20 MEQ/15 ML Soln 15 ML UD Cup PO ONE (14:54)
--- NOTE | 2018-11-26 08:51 | CR ---
INDICATION: Chest pain. CHEST: A single portable AP upright view of the chest was obtained 11/25/18 and compared with 05/09/16 and 04/28/16. The heart appeared slightly enlarged. Bipolar pacemaker leads are unchanged in position. The aorta is tortuous with calcification in the arch. Overlying EKG leads are noted. A definite active infiltrate or effusion cannot be excluded, especially at the right lung base but also at the left lung base, with heavy markings in those areas. However, these heavy markings may be on the basis of fibrosis, as they appear to have been at least partly present previously. MTDD
[2018-11-29 10:33] VITALS: BP 142/67
== END 2018-11-25 18:20 | disposition home or self-care (01) ==
LOC: FB.ED 13:52
DX: R07.89 Other chest pain (principal); D68.9 Coagulation defect, unspecified; I11.0 Hypertensive heart disease with heart failure; I50.9 Heart failure, unspecified; J44.9 Chronic obstructive pulmonary disease, unspecified; Z95.5 Presence of coronary angioplasty implant and graft; E11.9 Type 2 diabetes mellitus without complications; Z79.4 Long term (current) use of insulin; Z79.01 Long term (current) use of anticoagulants; Z79.899 Other long term (current) drug therapy; Z95.810 Presence of automatic (implantable) cardiac defibrillator
CPT/HCPCS: 36415; 71045; 80053; 82150; 83735; 83880; 84484; 85025; 85610; 93005; 96374; 99283; 99285-25; A9270-GY; C9113

== ENCOUNTER 2019-01-28 06:45 | Day surgery (SDC) | payer MEDICARE, BC ==
[2019-01-28] MEDS ORDERED: Midazolam 1 MG/ML 2 ML SDV IV ONE (06:46)
[2019-01-28] MEDS: Lactated Ringers 1,000 ML IV SCH (07:10)
[2019-01-28 09:31] VITALS: BP 130/73
--- NOTE | 2019-01-29 08:50 | OR ---
DATE OF OPERATION: 01/28/2019 SURGEON: Naomie Suggs MD PREOPERATIVE DIAGNOSIS: Visually significant cataract, left eye. POSTOPERATIVE DIAGNOSIS: Visually significant cataract, left eye. PROCEDURES PERFORMED: Complex phacoemulsification with intraocular lens placement, left eye. CPT 39120. ASSISTANTS: None. ANESTHESIA: Local with sedation. COMPLICATIONS: None. BLOOD LOSS: None. IMPLANTS: A 22.0 diopter lens implanted. CDE: 3.99. DESCRIPTION OF PROCEDURE: After risks and benefits were reviewed with the patient, consent was obtained in the preoperative area, and the operative eye was marked with a surgical pen. In the preoperative area, a pledget was used to dilate the pupil consisting of a mixture of phenylephrine 10%, cyclopentolate 2%, moxifloxacin 0.5%, and bupivacaine 0.75%. The patient was taken to the operating room, where a time-out was performed, and the patient was placed under monitored anesthesia care. Topical tetracaine was used for anesthesia. The operative eye was prepped and draped for ophthalmic surgery, and the microscope was brought into position and focussed. A paracentesis incision was made, followed by injection of preservative-free 1% lidocaine into the anterior chamber, followed by injection of Viscoat into the anterior chamber. Due to poor pupillary dilation, a Malyugin ring was used to dilate the pupil to 6.25 mm. A microkeratome blade was used to make a corneal limbal incision temporarily. A cystotome was used to make the beginning of the capsulorrhexis, which was carried around 360 degrees in a curvilinear fashion using Utrata forceps. A Meraz cannula with BSS was used to hydrodissect and hydrodelineate the nucleus. The nucleus was removed in a divide and conquer manner using phacoemulsification. Irrigation and aspiration were used to remove the remaining cortical material. Provisc was used to inflate the capsular bag, and a pre-loaded 22.0-diopter lens, serial number [id number] was injected into the capsular bag. A Sinskey hook was used to position and center the lens. The Malyugin ring was then removed from the anterior chamber and discarded. Next, irrigation and aspiration was used to remove any remaining viscoelastic and cortical material from the anterior chamber. BSS on a cannula was used to inflate the anterior chamber and hydrate the wound. The wound was checked and found to be watertight. 1 mg of Moxifloxacin was injected into the anterior chamber. Drapes were removed and the eye was cleaned. A drop of brimonidine 0.15% and a drop of TobraDex was placed. The eye was shielded, and the patient was taken to the recovery room in stable condition. /[id number] REMY/DENEENL CC: SOHAIL KWON MD MTDD
== END 2019-01-28 09:20 | disposition home or self-care (01) ==
LOC: FB.SDS 06:45
PROVIDERS: ATTEND Ophthalmology
DX: H25.13 Age-related nuclear cataract, bilateral (principal); H02.886 Meibomian gland dysfunction of left eye, unspecified eyelid; H02.883 Meibomian gland dysfunction of right eye, unspecified eyelid; H43.823 Vitreomacular adhesion, bilateral; H35.039 Hypertensive retinopathy, unspecified eye; H52.209 Unspecified astigmatism, unspecified eye; I11.0 Hypertensive heart disease with heart failure; I50.32 Chronic diastolic (congestive) heart failure; I25.5 Ischemic cardiomyopathy; I48.2 Chronic atrial fibrillation; I25.10 Atherosclerotic heart disease of native coronary artery without angina pectoris; I25.2 Old myocardial infarction; E11.3293 Type 2 diabetes mellitus with mild nonproliferative diabetic retinopathy without macular edema, bilateral; E11.40 Type 2 diabetes mellitus with diabetic neuropathy, unspecified; E11.51 Type 2 diabetes mellitus with diabetic peripheral angiopathy without gangrene; E11.42 Type 2 diabetes mellitus with diabetic polyneuropathy; E78.00 Pure hypercholesterolemia, unspecified; J44.9 Chronic obstructive pulmonary disease, unspecified; K21.9 Gastro-esophageal reflux disease without esophagitis; M17.11 Unilateral primary osteoarthritis, right knee; E66.2 Morbid (severe) obesity with alveolar hypoventilation; Z68.41 Body mass index [BMI] 40.0-44.9, adult; Z99.89 Dependence on other enabling machines and devices; Z95.5 Presence of coronary angioplasty implant and graft; Z86.718 Personal history of other venous thrombosis and embolism; Z83.511 Family history of glaucoma; Z79.4 Long term (current) use of insulin; Z79.01 Long term (current) use of anticoagulants; Z79.899 Other long term (current) drug therapy
CPT/HCPCS: 00142-QZ; 82962; J2250; J7120; V2632

== ENCOUNTER 2019-02-25 06:52 | Day surgery (SDC) | payer MEDICARE, BC ==
[2019-02-25] MEDS ORDERED: Midazolam 1 MG/ML 2 ML SDV IV ONE (06:53)
[2019-02-25] MEDS ORDERED: Lactated Ringers 1,000 ML IV SCH (07:00)
[2019-02-25] MEDS ORDERED: Sodium Chloride 0.9% 10 ML Syringe FLUSH PRN (07:00)
[2019-02-25 13:32] VITALS: BP 110/73; PULSE 64
--- NOTE | 2019-02-25 14:19 | OR ---
DATE OF OPERATION: 02/25/2019 SURGEON: Naomie Suggs MD PREOPERATIVE DIAGNOSIS: Visually significant cataract, right eye. POSTOPERATIVE DIAGNOSIS: Visually significant cataract, right eye. PROCEDURES PERFORMED: Phacoemulsification with intraocular lens placement, right eye. ASSISTANTS: None. ANESTHESIA: Local with sedation. COMPLICATIONS: None. BLOOD LOSS: None. IMPLANTS: Maco [id number], 21.0 diopter lens implanted. CDE: 4.85. DESCRIPTION OF PROCEDURE: After risks and benefits were reviewed with the patient, consent was obtained in the preoperative area, and the operative eye was marked with a surgical pen. In the preoperative area, a pledget was used to dilate the pupil consisting of a mixture of phenylephrine 10%, cyclopentolate 2%, moxifloxacin 0.5%, and bupivacaine 0.75%. The patient was taken to the operating room, where a time-out was performed, and the patient was placed under monitored anesthesia care. Topical tetracaine was used for anesthesia. The operative eye was prepped and draped for ophthalmic surgery, and the microscope was brought into position and focussed. A paracentesis incision was made, followed by injection of preservative-free 1% lidocaine into the anterior chamber, followed by injection of Viscoat into the anterior chamber. A microkeratome blade was used to make a corneal limbal incision temporarily. A cystotome was used to make the beginning of the capsulorrhexis, which was carried around 360 degrees in a curvilinear fashion using Utrata forceps. A Meraz cannula with BSS was used to hydrodissect and hydrodelineate the nucleus. The nucleus was removed in a divide and conquer manner using phacoemulsification. Irrigation and aspiration were used to remove the remaining cortical material. Provisc was used to inflate the capsular bag, and a pre-loaded Maco [id number] 21.0 diopter lens, serial number [id number] was injected into the capsular bag. A Sinskey hook was used to position and center the lens. Next, irrigation and aspiration was used to remove any remaining viscoelastic and cortical material from the anterior chamber. BSS on a cannula was used to inflate the anterior chamber and hydrate the wound. The wound was checked and found to be watertight. 1 mg of Moxifloxacin was injected into the anterior chamber. Drapes were removed and the eye was cleaned. A drop of brimonidine 0.15% and a drop of TobraDex was placed. The eye was shielded, and the patient was taken to the recovery room in stable condition. /[id number] REMY/YELITZA cc: Francisco Daniels, [facility]
== END 2019-02-25 09:39 | disposition home or self-care (01) ==
LOC: FB.SDS 06:52
PROVIDERS: ATTEND Ophthalmology
DX: E11.36 Type 2 diabetes mellitus with diabetic cataract (principal); H25.811 Combined forms of age-related cataract, right eye; H02.886 Meibomian gland dysfunction of left eye, unspecified eyelid; H02.883 Meibomian gland dysfunction of right eye, unspecified eyelid; H35.039 Hypertensive retinopathy, unspecified eye; H52.209 Unspecified astigmatism, unspecified eye; H04.129 Dry eye syndrome of unspecified lacrimal gland; K21.9 Gastro-esophageal reflux disease without esophagitis; I25.10 Atherosclerotic heart disease of native coronary artery without angina pectoris; I25.5 Ischemic cardiomyopathy; I11.0 Hypertensive heart disease with heart failure; I50.42 Chronic combined systolic (congestive) and diastolic (congestive) heart failure; I25.2 Old myocardial infarction; I48.2 Chronic atrial fibrillation; E11.319 Type 2 diabetes mellitus with unspecified diabetic retinopathy without macular edema; E11.51 Type 2 diabetes mellitus with diabetic peripheral angiopathy without gangrene; E78.00 Pure hypercholesterolemia, unspecified; J44.9 Chronic obstructive pulmonary disease, unspecified; E66.2 Morbid (severe) obesity with alveolar hypoventilation; Z68.41 Body mass index [BMI] 40.0-44.9, adult; Z98.42 Cataract extraction status, left eye; Z99.89 Dependence on other enabling machines and devices; Z95.5 Presence of coronary angioplasty implant and graft; Z96.1 Presence of intraocular lens; Z83.511 Family history of glaucoma; Z79.01 Long term (current) use of anticoagulants; Z79.51 Long term (current) use of inhaled steroids; Z79.4 Long term (current) use of insulin; Z79.899 Other long term (current) drug therapy
CPT/HCPCS: 00142; 66984; 82962; J2250; J7120; V2632

== ENCOUNTER 2019-03-18 10:42 | Observation (INO) | payer MEDICARE, BC ==
--- NOTE | 2019-03-18 11:02 | PCM.SN ---
- Free Text/Narrative Note: Was called to ER for IV start on patient complaining of chest discomfort and shortness of breath.Preeped right hand with alcohol and started 20 gauge IV.tapped and flushed with 10cc's of saline
--- NOTE | 2019-03-18 12:17 | EDM.PDOC ---
ED HPI GENERAL MEDICAL PROBLEM - General Chief Complaint: Chest Pain Stated Complaint: CHEST PAIN Time Seen by Provider: 03/18/19 10:50 Source of Information: Reports: Patient, Old Records History Limitations: Reports: No Limitations - History of Present Illness INITIAL COMMENTS - FREE TEXT/NARRATIVE: patient presents with concern for chest pain occurring with activity the last two days, lasting less than 5 minutes, has maybe happened 5-6 times. This morning the chest pain occurred while his home health nurse was there, who encouraged him to take a nitro (had not done so before this, because pain immediately resolved if he sat down) and be evaluated in the ER. He states he has had some increased shortness of breath over the past two days in general which seems unrelated to anything else. Slight cough, clear sputum, uncertain how long that's been happening. Denies weight gain. No nausea, vomiting, sweats, headache, pain in arm or jaw. No fever, chills, sweats, changes in urination (tends to urinate quite frequently, especially after water pill), diarrhea, numbness or tingling on either side of his body. PMHx significant for many coronary stents placed (?15), PAD, CHF, biventricular pacer, diabetes type II on insulin, ROCKY on CPAP which he reports to faithfully be using, HTN, HLD. Remote history of DVT, on coumadin. History diabetic foot ulcers, but states he finally recovered from those. chest Pain Score (Numeric/FACES): 1 - Related Data Allergies Allergy/AdvReac Type Severity Reaction Status Date / Time No Known Allergies Allergy Verified 02/25/19 07:15 Home Meds: Home Meds RX: Omeprazole 40 mg PO 0 12/08/13 [History] Acetaminophen [Acetaminophen ER] 650 mg PO Q4HR PRN 02/22/16 [History] Furosemide [Lasix] 40 mg PO BID@08,12 02/22/16 [History] RX: Carvedilol 12.5 mg PO BID 02/22/16 [History] atorvaSTATin [Lipitor] 40 mg PO 1700 04/10/16 [History] Multivits-Minerals/FA/Lycopene [One Daily Men's Health Tablet] 1 tab PO DAILY [History] RX: Nitroglycerin 0.4 mg SL ASDIRECTED PRN 09/09/16 [History] Triamcinolone Acetonide [Kenalog 0.1% Crm] 1 applic TOP TID 04/14/16 [History] Diltiazem [Diltiazem XR] 240 mg PO DAILY 01/07/18 [History] metOLazone [Metolazone] 2.5 mg PO TUTHSA 01/07/18 [History] Docusate Sodium [Colace] 1 cap PO DAILY 11/25/18 [History] Fluticasone Propionate [Flonase] 1 spray INH BID 11/25/18 [History] Gluc [place]/Chondro [place] A/Vit C/Mn [Glucosamine-Chondroitin Cap] 1 cap PO BID [History] Insulin Detemir [Levemir Flextouch] 40 units SQ BEDTIME 11/25/18 [History] Insulin Lispro [Humalog] 10 units SQ TID 11/25/18 [History] Loratadine [Claritin] 10 mg PO DAILY PRN 11/25/18 [History] RX: Potassium Chloride 2 tab PO TID 11/25/18 [History] Sodium Chloride 0.65% [[place] Saline] 2 spray INH QID 11/25/18 [History] Tiotropium Br/Olodaterol HCl [Stiolto Respimat Inhal Century] 1 puff INH DAILY [History] Warfarin Sodium [Jantoven] 2.5 mg PO MOFR 11/25/18 [History] Warfarin Sodium [Jantoven] 5 mg PO SUTUWETHSA 11/25/18 [History] Ticagrelor [Brilinta] 1 tab PO BID 01/27/19 [History] Past Medical History HEENT History: Reports: Cataract, Hard of Hearing, Sinusitis Other HEENT History: States had sinus surgery in the past. Cardiovascular History: Reports: Automatic Implantable Cardioverter Defibrillators, Blood Clots/VTE/DVT, CAD, Heart Failure, High Cholesterol, Hypertension, Pacemaker, SOB on Exertion, Stents Other Cardiovascular History: peripheral vascular disease; unstable angina; cardio renal syndrome; deviated septum; elevated troponin Respiratory History: Reports: COPD, Sleep Apnea, SOB Other Respiratory History: Uses O2 @ hs with CPAP - maybe. Reports no cannister Gastrointestinal History: Reports: GERD Genitourinary History: Reports: Other (See Below) Other Genitourinary History: organic impotence; phimosis Musculoskeletal History: Reports: Arthritis, Back Pain, Chronic, Fracture, Gout , Osteoarthritis, Other (See Below) Other Musculoskeletal History: fx ankle Endocrine/Metabolic History: Reports: Diabetes, Type II, Obesity/BMI 30+ Other Endocrine/Metabolic History: Diabetic retinopathy; peripheral neuropathy Hematologic History: Reports: Blood Transfusion(s) Other Hematologic History: long time use of anticoagulant therapy Dermatologic History: Reports: Other (See Below) Other Dermatologic History: Stated rash was on stomach and was taken medication at home and now resolved. - Infectious Disease History Infectious Disease History: Reports: Chicken Pox, Measles, Mumps - Past Surgical History HEENT Surgical History: Reports: Cataract Surgery, Other (See Below) Other HEENT Surgeries/Procedures: sinus surgery Cardiovascular Surgical History: Reports: Coronary Artery Stent, Percutaneous Transluminal Angioplasty Other Cardiovascular Surgeries/Procedures: Pacemaker GI Surgical History: Reports: Colonoscopy Social & Family History - Family History Family Medical History: Noncontributory - Tobacco Use Smoking Status *Q: Former Smoker Used Tobacco, but Quit: Yes Month/Year Tobacco Last Used: 1979 - Caffeine Use Caffeine Use: Reports: None - Alcohol Use Alcohol Use History: Yes Date/Time of Last Drink Comment: many years ago, quit in 's around same time he quite smoking - Recreational Drug Use Recreational Drug Use: No - Living Situation & Occupation Social History Comment: brother lives nearby. Home health. ED ROS GENERAL - Review of Systems Review Of Systems: See Below Constitutional: Denies: Fever, Chills, Malaise, Weakness, Night Sweats, Diaphoresis, Weight Gain HEENT: Reports: Rhinitis Respiratory: Reports: Shortness of Breath, Cough, Sputum (clear ). Denies: Wheezing, Pleuritic Chest Pain Cardiovascular: Reports: Chest Pain, Dyspnea on Exertion, Edema (at baseline ). Denies: Lightheadedness, Palpitations, Syncope Endocrine: Reports: No Symptoms GI/Abdominal: Denies: Abdominal Pain, Black Stool, Diarrhea, Nausea, Vomiting : Reports: Frequency. Denies: Dysuria, Urgency Musculoskeletal: Reports: No Symptoms Skin: Reports: No Symptoms Neurological: Denies: Confusion, Headache, Numbness, Tingling, Weakness Psychiatric: Reports: No Symptoms Hematologic/Lymphatic: Denies: Easy Bruising Immunologic: Reports: No Symptoms ED EXAM, GENERAL - Physical Exam Exam: See Below Free Text/Narrative:: general: Alert, very pleasant no acute distress. Head atraumatic, neck supple. Pupils are equal and reactive, facial muscles symmetric. Heart is regular rate and rhythm, noted occasional irregular beat consistent with PVCs on monitor. Lungs have a few very faint scattered wheezes, overall good air movement and no increased respiratory effort. Peripheral pulses are +2 in the upper extremity, +1/barely palpable in lower extremity with some slight pitting edema, at baseline per patient. strength is equal in the upper and lower extremities bilaterally, and there is area of erythema and irritated skin on the soles of both feet. no other rashes or lesions are noted. Abdomen positive bowel sounds, soft nondistended nontender with no rebound or guarding, obese. EKG INTERPRETATION Rhythm: NSR (occasionally paced on monitor) P-Wave: Present QRS: Other (frequent PVCs) ST-T: Normal QT: Normal Course - Vital Signs Text/Narrative:: history concerning for angina and recurrent CAD, alternately wonder about volume /fluid overload with CHF exacerbation, unlikely clot given his dual coumadin and Brilinta therapy. Hemodynamically stable, no chest pain now. 1 nitro this morning. Does not appear in distress, no signs infection. will get labs, CXR Last Recorded V/S: Last Vital Signs Temp 36.4 C 03/18/19 10:42 Pulse 73 03/18/19 10:42 Resp 27 H 03/18/19 10:42 BP 127/72 03/18/19 10:42 Pulse Ox 98 03/18/19 10:42 - Orders/Labs/Meds Orders: Active Orders 24 hr Category Date Time Status Patient Status Manage Transfer [TRANSFER] Routine ADT 03/18/19 15:29 Ordered EKG Documentation Completion [RC] ASDIRECTED Care 03/18/19 12:32 Active EKG 12 Lead [EK] Routine Ther 03/18/19 12:32 Ordered Labs: Laboratory Tests 03/18/19 03/18/19 03/18/19 Range/Units 11:15 11:15 11:15 WBC 5.9 (4.5-12.0) X10-3/uL RBC 4.09 L (4.30-5.75) x10(6)uL Hgb 13.6 (13.5-17.8) g/dL Hct 39.6 (30.0-51.3) % MCV 96.9 H (80-96) fL MCH 33.2 (27.7-33.6) pg MCHC 34.3 (32.2-35.4) g/dL RDW 14.5 (11.5-15.5) % Plt Count 144 (125-369) X10(3)uL MPV 9.7 (7.4-10.4) fL Neut % (Auto) 66.5 (46-82) % Lymph % (Auto) 20.9 (13-37) % Gregory % (Auto) 8.2 (4-12) % Eos % (Auto) 4 (1.0-5.0) % Baso % (Auto) 1 (0-2) % Neut # (Auto) 4.0 (1.6-8.3) # Lymph # (Auto) 1.2 (0.6-5.0) # Gregory # (Auto) 0.5 (0.0-1.3) # Eos # (Auto) 0.2 (0.0-0.8) # Baso # (Auto) 0.0 (0.0-0.2) # PT (8.7-11.1) INR (0.89-1.13) Sodium 135 (135-145) mmol/L Potassium 3.6 (3.5-5.3) mmol/L Chloride 101 (100-110) mmol/L Carbon Dioxide 29 (21-32) mmol/L BUN 25 H (7-18) mg/dL Creatinine 1.3 (0.70-1.30) mg/dL Est Cr Clr Drug Dosing TNP Estimated GFR (MDRD) 53 L (>60) BUN/Creatinine Ratio 19.2 (9-20) Glucose 225 H (80-116) mg/dL Calcium 8.8 (8.6-10.2) mg/dL Magnesium 1.9 (1.8-2.5) mg/dL Total Bilirubin 0.9 (0.1-1.3) mg/dL AST 16 D (5-25) IU/L ALT 16 D (12-36) U/L Alkaline Phosphatase 78 (56-112) IU/L Troponin I 0.059 H (<0.017-0.056) ng/mL NT-Pro-B Natriuret Pep 1105 H* (<=450) pg/mL Total Protein 6.6 (6.0-8.0) g/dL Albumin 2.9 L (3.2-4.6) g/dL Globulin 3.7 g/dL Albumin/Globulin Ratio 0.8 03/18/19 03/18/19 Range/Units 11:15 14:30 WBC (4.5-12.0) X10-3/uL RBC (4.30-5.75) x10(6)uL Hgb (13.5-17.8) g/dL Hct (30.0-51.3) % MCV (80-96) fL MCH (27.7-33.6) pg MCHC (32.2-35.4) g/dL RDW (11.5-15.5) % Plt Count (125-369) X10(3)uL MPV (7.4-10.4) fL Neut % (Auto) (46-82) % Lymph % (Auto) (13-37) % Gregory % (Auto) (4-12) % Eos % (Auto) (1.0-5.0) % Baso % (Auto) (0-2) % Neut # (Auto) (1.6-8.3) # Lymph # (Auto) (0.6-5.0) # Gregory # (Auto) (0.0-1.3) # Eos # (Auto) (0.0-0.8) # Baso # (Auto) (0.0-0.2) # PT 30.0 H (8.7-11.1) INR 3.13 H (0.89-1.13) Sodium (135-145) mmol/L Potassium (3.5-5.3) mmol/L Chloride (100-110) mmol/L Carbon Dioxide (21-32) mmol/L BUN (7-18) mg/dL Creatinine (0.70-1.30) mg/dL Est Cr Clr Drug Dosing Estimated GFR (MDRD) (>60) BUN/Creatinine Ratio (9-20) Glucose (80-116) mg/dL Calcium (8.6-10.2) mg/dL Magnesium (1.8-2.5) mg/dL Total Bilirubin (0.1-1.3) mg/dL AST (5-25) IU/L ALT (12-36) U/L Alkaline Phosphatase (56-112) IU/L Troponin I 0.051 (<0.017-0.056) ng/mL NT-Pro-B Natriuret Pep (<=450) pg/mL Total Protein (6.0-8.0) g/dL Albumin (3.2-4.6) g/dL Globulin g/dL Albumin/Globulin Ratio - Re-Assessments/Exams Free Text/Narrative Re-Assessment/Exam: 03/18/19 CXR - possible slight pulmonary edema, I do not see infiltrate labs - CBC within normal limits, creatinine at baseline per our records, no electrolyte abnormalities, LFTs ok, INR slightly elevated. BNP 1105 - elevated Troponin 0.003 above cutoff for normal. Patient feeling fine now, no recurrence of chest pain since arrival. Reports has been taking medication regularly, denies weight gain, some indiscretion with diet last couple days Discussed with hospitalist regarding admission for ACS r/o vs transfer to [place] given his significant heart history. Patient stable at this time. Will recheck troponin at 3 hrs from last draw, which is roughly almost 6 hrs since his chest pain and taking nitro, if significantly climbing will transfer, if relatively flat and patient has remained asymptomatic will stay here. May benefit from slight bump in diuretics. Patient in agreement with this plan Free Text/Narrative Re-Assessment/Exam: 03/18/19 15:32 repeat troponin similar to first. Discussed with patient admission locally for ACS r/o, I suspect also CHF component. He is in agreement with this plan. Dr Cardenas accepting. Departure - Departure Time of Disposition: 15:33 Disposition: Admitted As Inpatient 64 Condition: Fair Clinical Impression: Coronary arteriosclerosis, CAD, Chest pain CHF (congestive heart failure) Qualifiers: Qualified Code(s): I50.9 - Heart failure, unspecified - Discharge Information *PRESCRIPTION DRUG MONITORING PROGRAM REVIEWED*: Not Applicable *COPY OF PRESCRIPTION DRUG MONITORING REPORT IN PATIENT KAT: Not Applicable Referrals: Hector De Leon MD [Primary Care Provider] - Forms: ED Department Discharge - My Orders Last 24 Hours: My Active Orders 03/18/19 12:32 EKG Documentation Completion [RC] ASDIRECTED EKG 12 Lead [EK] Routine 03/18/19 15:29 Patient Status Manage Transfer [TRANSFER] Routine - Assessment/Plan Last 24 Hours: My Active Orders 03/18/19 12:32 EKG Documentation Completion [RC] ASDIRECTED EKG 12 Lead [EK] Routine 03/18/19 15:29 Patient Status Manage Transfer [TRANSFER] Routine
--- NOTE | 2019-03-18 13:03 | CR ---
INDICATION: Short of breath. CHEST: Two AP views and a lateral view of the chest were obtained, 03/18/19, and compared with 11/25/18 and 05/09/16. The heart appears somewhat enlarged with bipolar pacemaker leads unchanged in position from the left subclavian. Overlying EKG leads are noted. Mild prominence of the upper lung field pulmonary vasculature is again noted, suggesting a mild chronic or mild acute or early CHF of mild degree. No consolidating pneumonia or effusion was identified. Overlying EKG leads are noted. Prominent AP diameter, flattening of diaphragm leaves, and hyperaeration are noted, compatible with COPD. Moderate hypertrophic degenerative changes are noted in the mid to lower thoracic spine. Some linear density at the posterior lung apparently on the right may represent fibrosis and/or linear atelectasis, although minimal patchy pneumonia cannot be excluded. IMPRESSION: 1. Cannot exclude minimal patchy pneumonia versus atelectasis at the right lower lobe posteriorly. 2. ASHD, cardiomegaly, possible minimal or early CHF. 3. COPD. 4. DJD spine. MTDD
[2019-03-18] MEDS ORDERED: Warfarin 2.5 MG Tab *PTOM PO SCH (16:00)
[2019-03-18] MEDS ORDERED: Ondansetron 4 MG/2 ML SDV IV PRN (16:33)
[2019-03-18] MEDS ORDERED: Sodium Chloride 0.9% 10 ML Syringe FLUSH PRN (16:33)
[2019-03-18] MEDS ORDERED: Acetaminophen 325 MG Tab PO PRN (16:33)
[2019-03-18] MEDS ORDERED: Nitroglycerin 0.4 MG Tab.SL SL PRN (16:38)
[2019-03-18] MEDS ORDERED: PETROLATUM RC PRN (16:38)
[2019-03-18] MEDS ORDERED: PHENYLEPHRINE RC PRN (16:38)
[2019-03-18] MEDS ORDERED: PRAMOXINE RC PRN (16:38)
[2019-03-18] MEDS ORDERED: [UNRECOGNIZED DRUG - OTHER] RC PRN (16:38)
[2019-03-18] MEDS ORDERED: Loratadine 10 MG Tab PO PRN (16:38)
[2019-03-18] MEDS ORDERED: Acetaminophen 650 MG Tab.ER PO PRN (16:38)
[2019-03-18] MEDS ORDERED: GLYCERIN RC PRN (16:38)
[2019-03-18] MEDS ORDERED: OMEPRAZOLE 40 MG PO SCH (17:00)
[2019-03-18] MEDS ORDERED: ATORVASTATIN 80 MG PO SCH (17:00)
[2019-03-18] MEDS: [UNRECOGNIZED DRUG - OTHER] SUBCUT SCH (18:03)
[2019-03-18] MEDS: Carvedilol 25 MG Tab *PTOM PO SCH (18:05)
[2019-03-18] MEDS: Potassium Chloride 20 MEQ Tab.ER *PTOM PO SCH (18:05)
[2019-03-18] MEDS: Sodium Chloride 0.65% Nasal Spray 45 ML Bottle NAS SCH ×2 (18:14→21:09)
[2019-03-18] MEDS ORDERED: [UNRECOGNIZED DRUG - OTHER] NS SCH (21:00)
[2019-03-18] MEDS ORDERED: SALIVA SUBSTITUTION COMBO NO 9 MM SCH (21:00)
[2019-03-18] MEDS ORDERED: ALOE NS SCH (21:00)
[2019-03-18] MEDS ORDERED: SODIUM CHLORIDE NS SCH (21:00)
[2019-03-18] MEDS ORDERED: [UNRECOGNIZED DRUG - OTHER] SUBCUT SCH (21:00)
[2019-03-18] MEDS ORDERED: Fluticasone Propionate Nasal Spray 16 GM Bottle NAS SCH (21:00)
[2019-03-18] MEDS ORDERED: VITAMIN E NS SCH (21:00)
[2019-03-18] MEDS ORDERED: Triamcinolone Acetonide 0.1% Crm 15 GM Tube TOP SCH (21:00)
[2019-03-18] MEDS: TICAGRELOR 90 MG PO SCH (21:09)
[2019-03-18] MEDS: CHONDROITIN PO SCH (21:09)
[2019-03-18] MEDS: GLUCOSAMINE PO SCH (21:09)
[2019-03-19] MEDS ORDERED: Furosemide 80 MG Tab *PTOM PO SCH (08:00)
--- NOTE | 2019-03-19 08:29 | PCM.DCSUM1 ---
Discharge Summary - Hospital Course HPI Initial Comments: Patient is an 79 yr old male who presented to ER for 2 day history of chest pain , non-radiating, lasting for 5 min, occurring 5-6 times, worse with activity or walking up stairs, improved with rest. Had episode this morning when home health nurse was present, she had him take a nitro, pain resolved. Was encouraged to be evaluated in ER. Slight shortness of breath, postnasal drainage which he states is chronic, no sinus symptoms or cough. No fevers, chills, diaphoresis, nausea, vomiting, diarrhea, dysuria, urgency. Sometimes has frequency and constipation. No rashes. Some bruising from lab draw and stasis dermatitis on lower legs. 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 Diagnosis: Stroke: No - Discharge Data Discharge Date: 03/19/19 Discharge Disposition: DC/Tfer to Acute Hospital 02 Condition: Stable - Discharge Diagnosis/Problem(s) (1) Chest pain SNOMED Code(s): 31618401 ICD Code: R07.9 - CHEST PAIN, UNSPECIFIED Status: Acute Current Visit: Yes (2) CHF (congestive heart failure) SNOMED Code(s): 31010464 ICD Code: I50.9 - HEART FAILURE, UNSPECIFIED Status: Acute Current Visit : Yes (3) Coronary arteriosclerosis, CAD SNOMED Code(s): 92708439 ICD Code: I25.10 - ATHSCL HEART DISEASE OF [place] CORONARY ARTERY W/O ANG PCTRS Status: Chronic Current Visit: Yes Problem Details: Continue current medications. (4) A-fib SNOMED Code(s): 34635547 ICD Code: I48.91 - UNSPECIFIED ATRIAL FIBRILLATION Status: Chronic Current Visit: No Qualifiers: Atrial fibrillation type: chronic Qualified Code(s): I48.2 - Chronic atrial fibrillation (5) Diabetes mellitus type 2 SNOMED Code(s): 23205961 ICD Code: E11.9 - TYPE 2 DIABETES MELLITUS WITHOUT COMPLICATIONS Status: Chronic Current Visit: No Problem Details: Patient's outpatient control is very poor. Currently on sliding scale only. Will defer to accepting team. (6) HTN, Benign essential hypertension SNOMED Code(s): 8159725 ICD Code: I10 - ESSENTIAL (PRIMARY) HYPERTENSION Status: Chronic Current Visit: No Problem Details: Continue Home meds (7) Cardiac defibrillator in place Status: Chronic Current Visit: Yes - Patient Summary/Data Hospital Course: Patient was admitted yesterday for acute coronary syndrome rule out, had 2 sets of troponin in the ER 0.059 and then 0.051, no EKG changes does have defibrillator in place. Chest x-ray showed some mild CHF, BNP 1105. He had no chest pain overnight. Repeat troponin last night was 0.053 then this morning troponin jumped to 0.157. No chest pain this morning. No abdominal pain. Had some nausea this morning but resolved with eating breakfast. Spoke with Dr Thomas and cardiology media consultant in regards to patient. Cardiology felt with his history that he needed to be transferred to [place]. Dr Thomas, with hospitalist service will be accepting patient on medical floor. - Patient Instructions Diet: Heart Healthy Diet - Discharge Plan *PRESCRIPTION DRUG MONITORING PROGRAM REVIEWED*: Not Applicable *COPY OF PRESCRIPTION DRUG MONITORING REPORT IN PATIENT KAT: Not Applicable Home Medications: Home Meds Omeprazole 40 mg PO 1700 12/08/13 [History] Acetaminophen [Acetaminophen ER] 650 mg PO Q4H PRN 02/22/16 [History] atorvaSTATin [Lipitor] 40 mg PO 1700 04/10/16 [History] Multivits-Minerals/FA/Lycopene [One Daily Men's Health Tablet] 1 tab PO DAILY [History] Nitroglycerin 0.4 mg SL Q5M PRN 04/14/16 [History] Triamcinolone Acetonide [Kenalog 0.1% Crm] 1 applic TOP TID 04/14/16 [History] Diltiazem [Dilacor XR] 240 mg PO DAILY 01/07/18 [History] metOLazone [Metolazone] 2.5 mg PO TUTHSA 01/07/18 [History] Docusate Sodium [Colace] 100 mg PO DAILY 11/25/18 [History] Fluticasone Propionate [Flonase] 1 spray ANKUR BID 11/25/18 [History] Gluc [place]/Chondro [place] A/Vit C/Mn [Glucosamine-Chondroitin Cap] 1 cap PO BID [History] Insulin Detemir [Levemir Flextouch] 40 units SQ BEDTIME 11/25/18 [History] Insulin Lispro [Humalog] 10 units SQ TIDMEALS 11/25/18 [History] Loratadine [Claritin] 10 mg PO DAILY PRN 11/25/18 [History] Potassium Chloride 40 meq PO TIDMEALS 11/25/18 [History] Tiotropium Br/Olodaterol HCl [Stiolto Respimat Inhal [place]] 1 puff INH DAILY [History] Warfarin Sodium [Jantoven] 2.5 mg PO MOFR 11/25/18 [History] Warfarin Sodium [Jantoven] 5 mg PO SUTUWETHSA 11/25/18 [History] Ticagrelor [Brilinta] 90 mg PO BID 01/27/19 [History] Aloe/Sodium Chloride/Vitamin E [Entsol Nasal Gel] 1 applic NS TID 03/18/19 [ History] Carvedilol 12.5 mg PO BIDMEALS 03/18/19 [History] Compounded Eye Drops 1 drop EYERT DAILY 03/18/19 [History] Ez Tears 1 tab PO BID 03/18/19 [History] Furosemide [Lasix] 40 mg PO ,03/18/19 [History] Glycerin/Phenyleph/Pramox/Pet [Preparation H Crm] 1 applic RC Q4H PRN 03/18/19 [ History] Saliva Substitution Combo No.9 [Biotene] 10 ml MM TID 03/18/19 [History] Sodium Chloride 0.65% [[place] Saline] 2 spray ANKUR QID 03/18/19 [History] Oxygen Therapy Mode: Nasal Cannula Oxygen Flow Rate (L/min): 2 Maintain SpO2% greater than: 90 Forms: ED Department Discharge Referrals: Hector De Leon MD [Primary Care Provider] - - Discharge Summary/Plan Comment DC Time >30 min.: No - Patient Data Vitals - Most Recent: Last Vital Signs Temp 36.4 C 03/19/19 04:00 Pulse 69 03/19/19 04:00 Resp 19 03/19/19 04:00 BP 121/68 03/19/19 04:00 Pulse Ox 92 L 03/19/19 04:00 Weight - Most Recent: 122.158 kg I&O - Last 24 hours: Intake & Output 03/18/19 03/19/19 03/19/19 22:59 06:59 14:59 Intake Total 300 Output Total 1890 Balance -1890 300 Lab Results - Last 24 hrs: Laboratory Results - last 24 hr 03/18/19 03/18/19 03/18/19 Range/Units 11:15 11:15 11:15 WBC 5.9 (4.5-12.0) X10-3/uL RBC 4.09 L (4.30-5.75) x10(6)uL Hgb 13.6 (13.5-17.8) g/dL Hct 39.6 (30.0-51.3) % MCV 96.9 H (80-96) fL MCH 33.2 (27.7-33.6) pg MCHC 34.3 (32.2-35.4) g/dL RDW 14.5 (11.5-15.5) % Plt Count 144 (125-369) X10(3)uL MPV 9.7 (7.4-10.4) fL Neut % (Auto) 66.5 (46-82) % Lymph % (Auto) 20.9 (13-37) % [place] % (Auto) 8.2 (4-12) % Eos % (Auto) 4 (1.0-5.0) % Baso % (Auto) 1 (0-2) % Neut # (Auto) 4.0 (1.6-8.3) # Lymph # (Auto) 1.2 (0.6-5.0) # [place] # (Auto) 0.5 (0.0-1.3) # Eos # (Auto) 0.2 (0.0-0.8) # Baso # (Auto) 0.0 (0.0-0.2) # PT (8.7-11.1) INR (0.89-1.13) Sodium 135 (135-145) mmol/L Potassium 3.6 (3.5-5.3) mmol/L Chloride 101 (100-110) mmol/L Carbon Dioxide 29 (21-32) mmol/L BUN 25 H (7-18) mg/dL Creatinine 1.3 (0.70-1.30) mg/dL Est Cr Clr Drug Dosing TNP Estimated GFR (MDRD) 53 L (>60) BUN/Creatinine Ratio 19.2 (9-20) Glucose 225 H (80-116) mg/dL POC Glucose (80-116) mg/dL Calcium 8.8 (8.6-10.2) mg/dL Magnesium 1.9 (1.8-2.5) mg/dL Total Bilirubin 0.9 (0.1-1.3) mg/dL AST 16 D (5-25) IU/L ALT 16 D (12-36) U/L Alkaline Phosphatase 78 (56-112) IU/L Troponin I 0.059 H (<0.017-0.056) ng/mL NT-Pro-B Natriuret Pep 1105 H* (<=450) pg/mL Total Protein 6.6 (6.0-8.0) g/dL Albumin 2.9 L (3.2-4.6) g/dL Globulin 3.7 g/dL Albumin/Globulin Ratio 0.8 03/18/19 03/18/19 03/18/19 Range/Units 11:15 14:30 18:02 WBC (4.5-12.0) X10-3/uL RBC (4.30-5.75) x10(6)uL Hgb (13.5-17.8) g/dL Hct (30.0-51.3) % MCV (80-96) fL MCH (27.7-33.6) pg MCHC (32.2-35.4) g/dL RDW (11.5-15.5) % Plt Count (125-369) X10(3)uL MPV (7.4-10.4) fL Neut % (Auto) (46-82) % Lymph % (Auto) (13-37) % [place] % (Auto) (4-12) % Eos % (Auto) (1.0-5.0) % Baso % (Auto) (0-2) % Neut # (Auto) (1.6-8.3) # Lymph # (Auto) (0.6-5.0) # [place] # (Auto) (0.0-1.3) # Eos # (Auto) (0.0-0.8) # Baso # (Auto) (0.0-0.2) # PT 30.0 H (8.7-11.1) INR 3.13 H (0.89-1.13) Sodium (135-145) mmol/L Potassium (3.5-5.3) mmol/L Chloride (100-110) mmol/L Carbon Dioxide (21-32) mmol/L BUN (7-18) mg/dL Creatinine (0.70-1.30) mg/dL Est Cr Clr Drug Dosing Estimated GFR (MDRD) (>60) BUN/Creatinine Ratio (9-20) Glucose (80-116) mg/dL POC Glucose 100 D (80-116) mg/dL Calcium (8.6-10.2) mg/dL Magnesium (1.8-2.5) mg/dL Total Bilirubin (0.1-1.3) mg/dL AST (5-25) IU/L ALT (12-36) U/L Alkaline Phosphatase (56-112) IU/L Troponin I 0.051 (<0.017-0.056) ng/mL NT-Pro-B Natriuret Pep (<=450) pg/mL Total Protein (6.0-8.0) g/dL Albumin (3.2-4.6) g/dL Globulin g/dL Albumin/Globulin Ratio 03/18/19 03/18/19 03/19/19 Range/Units 20:00 21:05 06:00 WBC (4.5-12.0) X10-3/uL RBC (4.30-5.75) x10(6)uL Hgb (13.5-17.8) g/dL Hct (30.0-51.3) % MCV (80-96) fL MCH (27.7-33.6) pg MCHC (32.2-35.4) g/dL RDW (11.5-15.5) % Plt Count (125-369) X10(3)uL MPV (7.4-10.4) fL Neut % (Auto) (46-82) % Lymph % (Auto) (13-37) % [place] % (Auto) (4-12) % Eos % (Auto) (1.0-5.0) % Baso % (Auto) (0-2) % Neut # (Auto) (1.6-8.3) # Lymph # (Auto) (0.6-5.0) # [place] # (Auto) (0.0-1.3) # Eos # (Auto) (0.0-0.8) # Baso # (Auto) (0.0-0.2) # PT (8.7-11.1) INR (0.89-1.13) Sodium (135-145) mmol/L Potassium (3.5-5.3) mmol/L Chloride (100-110) mmol/L Carbon Dioxide (21-32) mmol/L BUN (7-18) mg/dL Creatinine (0.70-1.30) mg/dL Est Cr Clr Drug Dosing Estimated GFR (MDRD) (>60) BUN/Creatinine Ratio (9-20) Glucose (80-116) mg/dL POC Glucose 218 H D (80-116) mg/dL Calcium (8.6-10.2) mg/dL Magnesium (1.8-2.5) mg/dL Total Bilirubin (0.1-1.3) mg/dL AST (5-25) IU/L ALT (12-36) U/L Alkaline Phosphatase (56-112) IU/L Troponin I 0.053 0.157 H* (<0.017-0.056) ng/mL NT-Pro-B Natriuret Pep (<=450) pg/mL Total Protein (6.0-8.0) g/dL Albumin (3.2-4.6) g/dL Globulin g/dL Albumin/Globulin Ratio 03/19/19 03/19/19 03/19/19 Range/Units 06:00 06:00 07:39 WBC (4.5-12.0) X10-3/uL RBC (4.30-5.75) x10(6)uL Hgb (13.5-17.8) g/dL Hct (30.0-51.3) % MCV (80-96) fL MCH (27.7-33.6) pg MCHC (32.2-35.4) g/dL RDW (11.5-15.5) % Plt Count (125-369) X10(3)uL MPV (7.4-10.4) fL Neut % (Auto) (46-82) % Lymph % (Auto) (13-37) % [place] % (Auto) (4-12) % Eos % (Auto) (1.0-5.0) % Baso % (Auto) (0-2) % Neut # (Auto) (1.6-8.3) # Lymph # (Auto) (0.6-5.0) # [place] # (Auto) (0.0-1.3) # Eos # (Auto) (0.0-0.8) # Baso # (Auto) (0.0-0.2) # PT 25.2 H (8.7-11.1) INR 2.62 H (0.89-1.13) Sodium 141 (135-145) mmol/L Potassium 3.5 (3.5-5.3) mmol/L Chloride 104 (100-110) mmol/L Carbon Dioxide 28 (21-32) mmol/L BUN 20 H (7-18) mg/dL Creatinine 1.2 (0.70-1.30) mg/dL Est Cr Clr Drug Dosing 46.71 Estimated GFR (MDRD) 58 L (>60) BUN/Creatinine Ratio 16.7 (9-20) Glucose 105 D (80-116) mg/dL POC Glucose 109 D (80-116) mg/dL Calcium 8.8 (8.6-10.2) mg/dL Magnesium (1.8-2.5) mg/dL Total Bilirubin (0.1-1.3) mg/dL AST (5-25) IU/L ALT (12-36) U/L Alkaline Phosphatase (56-112) IU/L Troponin I (<0.017-0.056) ng/mL NT-Pro-B Natriuret Pep (<=450) pg/mL Total Protein (6.0-8.0) g/dL Albumin (3.2-4.6) g/dL Globulin g/dL Albumin/Globulin Ratio Med Orders - Current: Current Medications Acetaminophen (Tylenol Arthritis Pain) 650 mg PO Q4H PRN PRN Reason: Pain [facility]vedil[facility] ([facility]) [facility] Admin: 03/18/19 18:05 Dose: 12.5 mg Diltiazem HCl (Dilacor Xr) 240 mg PO DAILY [facility] Docusate Sodium (Colace) 100 mg PO DAILY [facility] Fluticasone Propionate (Flonase) gm ANKUR BID [facility] Furosemide (Lasix) 40 mg PO 12 [facility] Glucosamine/Chondroitin (Glucosamine-Chondroitin 500-400 Capsule) 1 cap PO BID [facility] Last Admin: 03/18/19 21:09 Dose: 1 cap Insulin Glargine (Lantus Solostar) 40 units SUBCUT 2100 [facility] Last Admin: 03/18/19 21:10 Dose: 40 units Insulin Human Lispro (Humalog) 10 unit SUBCUT TIDMEALS [facility] Last Admin: 03/18/19 18:03 Dose: 10 units Loratadine (Claritin) 10 mg PO DAILY PRN PRN Reason: Allergies Metolazone (Zaroxolyn) 2.5 mg PO TUTHSA [facility] Multivitamins (Thera) 1 each PO DAILY [facility] Nitroglycerin (Nitrostat) 0.4 mg SL Q5M PRN PRN Reason: Chest Pain Non-Formulary Medication (Aloe/Sodium Chloride/Vitamin E [Entsol Nasal Gel]) 1 applic NS TID [facility] Atorvastatin [ Lipitor] 80 Mg Tab * Ptom 40 mg PO 1700 [facility] Last Admin: 03/18/19 17:54 Dose: 40 mg Non-Formulary Medication (Glycerin/Phenyleph/Pramox/Pet [Preparation H Crm]) 1 applic RC Q4H PRN PRN Reason: HEMORROIDS Omeprazole [ Omeprazole] 40 Mg* Ptom 40 mg PO 1700 [facility] Last Admin: 03/18/19 17:57 Dose: 40 mg Non-Formulary Medication (Saliva Substitution Combo No.9 [Biotene]) 10 ml MM TID [facility] Non-Formulary Medication (Tiotropium Br/Olodaterol Hcl [Stiolto Respimat Inhal [place]]) 1 puff INH DAILY [facility] Ondansetron HCl (Zofran) 4 mg IV Q4H PRN PRN Reason: Nausea/Vomiting Potassium Chloride (Klor-Con M20) 40 meq PO TIDMEALS [facility] Last Admin: 03/18/19 18:05 Dose: 40 meq Sodium Chloride (Saline Flush) 10 ml FLUSH ASDIRECTED PRN PRN Reason: Keep Vein Open Sodium Chloride ([place] Nasal [place]) 0 ml ANKUR QID [facility] Last Admin: 03/18/19 21:09 Dose: 1 spray Ticagrelor (Brilinta) 90 mg PO BID [facility] Last Admin: 03/18/19 21:09 Dose: 90 mg Triamcinolone Acetonide (Triamcinolone Acetonide 0.1% Crm) gm TOP TID [facility] Warfarin Sodium (Coumadin) 2.5 mg PO MOFR [facility] Warfarin Sodium (Coumadin) 5 mg PO SUTUWETHSA [facility] Last Admin: 03/18/19 17:54 Dose: 5 mg Discontinued Medications Acetaminophen (Tylenol) 650 mg PO Q4H PRN PRN Reason: Pain (Mild 1-3)/fever - Exam Quality Assessment: Reports: Supplemental Oxygen General: Reports: Alert, Oriented, Cooperative, No Acute Distress Lungs: Reports: Clear to Auscultation, Normal Respiratory Effort Cardiovascular: Reports: Regular Rate, Regular Rhythm GI/Abdominal Exam: Normal Bowel Sounds, Soft, Non-Tender, No Distention Extremities: Pedal Edema (1+) Skin: Reports: Warm, Dry, Intact, Ecchymosis, Other (stasis dermatitis bilateral lower legs)
[2019-03-19] MEDS ORDERED: Docusate Sodium 100 MG Cap *PTOM PO SCH (09:00)
[2019-03-19] MEDS ORDERED: MULTIVITAMINS THERAPEUTIC PO SCH (09:00)
[2019-03-19] MEDS ORDERED: DILTIAZEM 240 MG PO SCH (09:00)
[2019-03-19] MEDS: [UNRECOGNIZED DRUG - OTHER] SUBCUT SCH (09:01)
[2019-03-19] MEDS: Potassium Chloride 20 MEQ Tab.ER *PTOM PO SCH (09:03)
[2019-03-19] MEDS: TICAGRELOR 90 MG PO SCH (09:04)
[2019-03-19] MEDS: Carvedilol 25 MG Tab *PTOM PO SCH (09:04)
[2019-03-19] MEDS: CHONDROITIN PO SCH (09:06)
[2019-03-19] MEDS: GLUCOSAMINE PO SCH (09:06)
[2019-03-19] MEDS: Sodium Chloride 0.65% Nasal Spray 45 ML Bottle NAS SCH (09:06)
[2019-03-19 09:08] VITALS: PULSE 66
[2019-03-19 11:03] VITALS: BP 109/53
[2019-03-20] MEDS ORDERED: Metolazone 2.5 MG Tab PO SCH (07:30)
[2019-03-21] MEDS ORDERED: Warfarin 2.5 MG Tab *PTOM PO SCH (16:38)
--- NOTE | 2019-03-25 13:20 | PCM.HP.2 ---
H&P History of Present Illness - General Date of Service: 03/18/19 Admit Problem/Dx: Admission Diagnosis/Problem Admission Diagnosis/Problem Chest pain, rule out acute myocardial infarction Source of Information: Patient, EMS Notes Reviewed - History of Present Illness Initial Comments - Free Text/Narative: Patient is an 79 yr old male who presented to ER for 2 day history of chest pain , non-radiating, lasting for 5 min, occurring 5-6 times, worse with activity or walking up stairs, improved with rest. Had episode this morning when home health nurse was present, she had him take a nitro, pain resolved. Was encouraged to be evaluated in ER. Slight shortness of breath, postnasal drainage which he states is chronic, no sinus symptoms or cough. No fevers, chills, diaphoresis, nausea, vomiting, diarrhea, dysuria, urgency. Sometimes has frequency and constipation. No rashes. Some bruising from lab draw and stasis dermatitis on lower legs. chest Pain Score (Numeric/FACES): 1 - Related Data Allergies/Adverse Reactions: Allergies Allergy/AdvReac Type Severity Reaction Status Date / Time No Known Allergies Allergy Verified 02/25/19 07:15 Home Medications: Home Meds Omeprazole 40 mg PO 1700 12/08/13 [History] Acetaminophen [Acetaminophen ER] 650 mg PO Q4H PRN 02/22/16 [History] atorvaSTATin [Lipitor] 40 mg PO 1700 04/10/16 [History] Multivits-Minerals/FA/Lycopene [One Daily Men's Health Tablet] 1 tab PO DAILY [History] Nitroglycerin 0.4 mg SL Q5M PRN 04/14/16 [History] Triamcinolone Acetonide [Kenalog 0.1% Crm] 1 applic TOP TID 04/14/16 [History] Diltiazem [Diltiazem XR] 240 mg PO DAILY 01/07/18 [History] metOLazone [Metolazone] 2.5 mg PO TUTHSA 01/07/18 [History] Docusate Sodium [Colace] 100 mg PO DAILY 11/25/18 [History] Fluticasone Propionate [Flonase] 1 spray ANKUR BID 11/25/18 [History] Gluc [place]/Chondro [place] A/Vit C/Mn [Glucosamine-Chondroitin Cap] 1 cap PO BID [History] Insulin Detemir [Levemir Flextouch] 40 units SQ BEDTIME 11/25/18 [History] Insulin Lispro [Humalog] 10 units SQ TIDMEALS 11/25/18 [History] Loratadine [Claritin] 10 mg PO DAILY PRN 11/25/18 [History] Potassium Chloride 40 meq PO TIDMEALS 11/25/18 [History] Tiotropium Br/Olodaterol HCl [Stiolto Respimat Inhal [place]] 1 puff INH DAILY [History] Warfarin Sodium [Jantoven] 2.5 mg PO MOFR 11/25/18 [History] Warfarin Sodium [Jantoven] 5 mg PO SUTUWETHSA 11/25/18 [History] Ticagrelor [Brilinta] 90 mg PO BID 01/27/19 [History] Aloe/Sodium Chloride/Vitamin E [Entsol Nasal Gel] 1 applic NS TID 03/18/19 [ History] Carvedilol 12.5 mg PO BIDMEALS 03/18/19 [History] Ez Tears 1 tab PO BID 03/18/19 [History] Furosemide [Lasix] 40 mg PO ,12 03/18/19 [History] Glycerin/Phenyleph/Pramox/Pet [Preparation H Crm] 1 applic RC Q4H PRN 03/18/19 [ History] Saliva Substitution Combo No.9 [Biotene] 10 ml MM TID 03/18/19 [History] Sodium Chloride 0.65% [[place] Saline] 2 spray ANKUR QID 03/18/19 [History] Past Medical History HEENT History: Reports: Cataract, Hard of Hearing, Sinusitis Other HEENT History: States had sinus surgery in the past. Cardiovascular History: Reports: Automatic Implantable Cardioverter Defibrillators, Blood Clots/VTE/DVT, CAD, Heart Failure, High Cholesterol, Hypertension, Pacemaker, SOB on Exertion, Stents Other Cardiovascular History: peripheral vascular disease; unstable angina; cardio renal syndrome; deviated septum; elevated troponin Respiratory History: Reports: COPD, Sleep Apnea, SOB Other Respiratory History: Uses O2 @ hs with CPAP - maybe. Reports no cannister Gastrointestinal History: Reports: GERD Genitourinary History: Reports: Other (See Below) Other Genitourinary History: organic impotence; phimosis Musculoskeletal History: Reports: Arthritis, Back Pain, Chronic, Fracture, Gout , Osteoarthritis, Other (See Below) Other Musculoskeletal History: fx ankle Endocrine/Metabolic History: Reports: Diabetes, Type II, Obesity/BMI 30+ Other Endocrine/Metabolic History: Diabetic retinopathy; peripheral neuropathy Hematologic History: Reports: Blood Transfusion(s) Other Hematologic History: long time use of anticoagulant therapy Dermatologic History: Reports: Other (See Below) Other Dermatologic History: Stated rash was on stomach and was taken medication at home and now resolved. - Infectious Disease History Infectious Disease History: Reports: Chicken Pox, Measles, Mumps - Past Surgical History HEENT Surgical History: Reports: Cataract Surgery, Other (See Below) Other HEENT Surgeries/Procedures: sinus surgery Cardiovascular Surgical History: Reports: Coronary Artery Stent, Percutaneous Transluminal Angioplasty Other Cardiovascular Surgeries/Procedures: Pacemaker GI Surgical History: Reports: Colonoscopy Social & Family History - Family History Family Medical History: Noncontributory - Tobacco Use Smoking Status *Q: Former Smoker Used Tobacco, but Quit: Yes Month/Year Tobacco Last Used: 25 years ago - Caffeine Use Caffeine Use: Reports: Soda - Recreational Drug Use Recreational Drug Use: No H&P Review of Systems - Review of Systems: Review Of Systems: ROS reveals no pertinent complaints other than HPI. Exam - Exam Exam: See Below - Vital Signs Vital Signs: Last Vital Signs Temp 36.4 C 03/18/19 16:12 Pulse 77 03/18/19 16:12 Resp 21 H 03/18/19 16:12 BP 132/68 03/18/19 16:12 Pulse Ox 95 03/18/19 16:29 Weight: 122.425 kg - Exam General: Alert, Oriented, Cooperative HEENT: PERRLA, Conjunctiva Clear, EOMI, Hearing Intact, Mucosa Moist & [place], Nares Patent, Normal Nasal Septum, Posterior Pharynx Clear, Pupils Equal, Pupils Reactive, TMs Clear Neck: Supple, Trachea Midline, +2 Carotid Pulse wo Bruit. No: JVD Lungs: Normal Respiratory Effort, Decreased Breath Sounds Cardiovascular: Regular Rate, Regular Rhythm. No: Systolic Murmur GI/Abdominal Exam: Normal Bowel Sounds, Soft, Non-Tender, No Distention (Male) Exam: Deferred Extremities: Non-Tender, Pedal Edema (1+). No: Leg Pain, Redness Peripheral Pulses: 2+: Radial (L), Radial (R) Skin: Warm, Dry, Intact, Ecchymosis (left forearm, stasis dermatitis BLE) Neuro Extensive - Mental Status: Alert, Oriented x3, Normal Mood/Affect - Patient Data Lab Results Last 24 hrs: Laboratory Results - last 24 hr 03/18/19 03/18/19 03/18/19 Range/Units 11:15 11:15 11:15 WBC 5.9 (4.5-12.0) X10-3/uL RBC 4.09 L (4.30-5.75) x10(6)uL Hgb 13.6 (13.5-17.8) g/dL Hct 39.6 (30.0-51.3) % MCV 96.9 H (80-96) fL MCH 33.2 (27.7-33.6) pg MCHC 34.3 (32.2-35.4) g/dL RDW 14.5 (11.5-15.5) % Plt Count 144 (125-369) X10(3)uL MPV 9.7 (7.4-10.4) fL Neut % (Auto) 66.5 (46-82) % Lymph % (Auto) 20.9 (13-37) % [place] % (Auto) 8.2 (4-12) % Eos % (Auto) 4 (1.0-5.0) % Baso % (Auto) 1 (0-2) % Neut # (Auto) 4.0 (1.6-8.3) # Lymph # (Auto) 1.2 (0.6-5.0) # [place] # (Auto) 0.5 (0.0-1.3) # Eos # (Auto) 0.2 (0.0-0.8) # Baso # (Auto) 0.0 (0.0-0.2) # PT (8.7-11.1) INR (0.89-1.13) Sodium 135 (135-145) mmol/L Potassium 3.6 (3.5-5.3) mmol/L Chloride 101 (100-110) mmol/L Carbon Dioxide 29 (21-32) mmol/L BUN 25 H (7-18) mg/dL Creatinine 1.3 (0.70-1.30) mg/dL Est Cr Clr Drug Dosing TNP Estimated GFR (MDRD) 53 L (>60) BUN/Creatinine Ratio 19.2 (9-20) Glucose 225 H (80-116) mg/dL Calcium 8.8 (8.6-10.2) mg/dL Magnesium 1.9 (1.8-2.5) mg/dL Total Bilirubin 0.9 (0.1-1.3) mg/dL AST 16 D (5-25) IU/L ALT 16 D (12-36) U/L Alkaline Phosphatase 78 (56-112) IU/L Troponin I 0.059 H (<0.017-0.056) ng/mL NT-Pro-B Natriuret Pep 1105 H* (<=450) pg/mL Total Protein 6.6 (6.0-8.0) g/dL Albumin 2.9 L (3.2-4.6) g/dL Globulin 3.7 g/dL Albumin/Globulin Ratio 0.8 03/18/19 03/18/19 Range/Units 11:15 14:30 WBC (4.5-12.0) X10-3/uL RBC (4.30-5.75) x10(6)uL Hgb (13.5-17.8) g/dL Hct (30.0-51.3) % MCV (80-96) fL MCH (27.7-33.6) pg MCHC (32.2-35.4) g/dL RDW (11.5-15.5) % Plt Count (125-369) X10(3)uL MPV (7.4-10.4) fL Neut % (Auto) (46-82) % Lymph % (Auto) (13-37) % [place] % (Auto) (4-12) % Eos % (Auto) (1.0-5.0) % Baso % (Auto) (0-2) % Neut # (Auto) (1.6-8.3) # Lymph # (Auto) (0.6-5.0) # [place] # (Auto) (0.0-1.3) # Eos # (Auto) (0.0-0.8) # Baso # (Auto) (0.0-0.2) # PT 30.0 H (8.7-11.1) INR 3.13 H (0.89-1.13) Sodium (135-145) mmol/L Potassium (3.5-5.3) mmol/L Chloride (100-110) mmol/L Carbon Dioxide (21-32) mmol/L BUN (7-18) mg/dL Creatinine (0.70-1.30) mg/dL Est Cr Clr Drug Dosing Estimated GFR (MDRD) (>60) BUN/Creatinine Ratio (9-20) Glucose (80-116) mg/dL Calcium (8.6-10.2) mg/dL Magnesium (1.8-2.5) mg/dL Total Bilirubin (0.1-1.3) mg/dL AST (5-25) IU/L ALT (12-36) U/L Alkaline Phosphatase (56-112) IU/L Troponin I 0.051 (<0.017-0.056) ng/mL NT-Pro-B Natriuret Pep (<=450) pg/mL Total Protein (6.0-8.0) g/dL Albumin (3.2-4.6) g/dL Globulin g/dL Albumin/Globulin Ratio Result Diagrams: 03/18/19 11:15 03/18/19 11:15 - Problem List (1) Chest pain SNOMED Code(s): 11719330 ICD Code: R07.9 - CHEST PAIN, UNSPECIFIED Status: Acute Current Visit: Yes (2) CHF (congestive heart failure) SNOMED Code(s): 99323249 ICD Code: I50.9 - HEART FAILURE, UNSPECIFIED Status: Acute Current Visit : Yes Qualifiers: Qualified Code(s): I50.9 - Heart failure, unspecified (3) Coronary arteriosclerosis, CAD SNOMED Code(s): 65765818 ICD Code: I25.10 - ATHSCL HEART DISEASE OF [place] CORONARY ARTERY W/O ANG PCTRS Status: Chronic Current Visit: Yes Problem Details: Continue current medications. (4) A-fib SNOMED Code(s): 82497050 ICD Code: I48.91 - UNSPECIFIED ATRIAL FIBRILLATION Status: Chronic Current Visit: No Qualifiers: Atrial fibrillation type: chronic Qualified Code(s): I48.2 - Chronic atrial fibrillation (5) Diabetes mellitus type 2 SNOMED Code(s): 83449178 ICD Code: E11.9 - TYPE 2 DIABETES MELLITUS WITHOUT COMPLICATIONS Status: Chronic Current Visit: No Problem Details: Patient's outpatient control is very poor. Currently on sliding scale only. Will defer to accepting team. (6) HTN, Benign essential hypertension SNOMED Code(s): 6609260 ICD Code: I10 - ESSENTIAL (PRIMARY) HYPERTENSION Status: Chronic Current Visit: No Problem Details: Continue Home meds (7) Cardiac defibrillator in place Status: Chronic Current Visit: Yes Problem List Initiated/Reviewed/Updated: Yes Orders Last 24hrs: Active Orders 24 hr Category Date Time Status Patient Status [ADT] Routine ADT 03/18/19 16:29 Ordered Blood Glucose Check, Bedside [RC] WITHMEALSANDBED Care 03/18/19 16:45 Ordered EKG Documentation Completion [RC] ASDIRECTED Care 03/19/19 06:00 Ordered Oxygen Therapy [RC] PRN Care 03/18/19 16:29 Ordered Telemetry Monitoring [Cardiac Monitoring] [RC] .As Care 03/18/19 15:44 Active Directed Telemetry Monitoring [Cardiac Monitoring] [RC] .As Care 03/18/19 15:58 Active Directed Vital Signs [RC] Q4H Care 03/18/19 16:29 Ordered Heart Healthy Diet [DIET] Diet 03/18/19 Dinner Ordered BASIC METABOLIC PANEL,BMP [CHEM] Routine Lab 03/19/19 06:00 Ordered INR,PT,PROTHROMBIN TIME [COAG] Routine Lab 03/19/19 06:00 Ordered TROPONIN I [CHEM] Routine Lab 03/18/19 20:00 Ordered TROPONIN I [CHEM] Routine Lab 03/19/19 06:00 Ordered Acetaminophen [Tylenol Arthritis Pain] Med 03/18/19 16:38 Ordered 650 mg PO Q4H PRN Aloe/Sodium Chloride/Vitamin E [Entsol Nasal Gel] Med 03/18/19 21:00 Ordered 1 applic NS TID Carvedilol [Coreg] Med 03/18/19 18:00 Ordered 12.5 mg PO BIDMEALS Diltiazem [Dilacor XR] Med 03/19/19 09:00 Ordered 240 mg PO DAILY Docusate Sodium [Colace] Med 03/19/19 09:00 Ordered 100 mg PO DAILY Fluticasone Propionate [Flonase] Med 03/18/19 21:00 Ordered 1 spray ANKUR BID Furosemide [Lasix] Med 03/19/19 08:00 Ordered 40 mg PO 08,12 Gluc [place]/Chondro [place] A/Vit C/Mn [Glucosamine-Chondroitin Med 03/18/19 21:00 Ordered Cap] 1 cap PO BID Glycerin/Phenyleph/Pramox/Pet [Preparation H Crm] Med 03/18/19 16:38 Ordered 1 applic RC Q4H PRN Insulin Detemir [Levemir Flextouch] Med 03/18/19 21:00 Ordered 40 units SQ BEDTIME Insulin Lispro [HumaLOG] Med 03/18/19 18:00 Ordered 10 unit SUBCUT TIDMEALS Loratadine [Claritin] Med 03/18/19 16:38 Ordered 10 mg PO DAILY PRN Multivits-Minerals/FA/Lycopene [One Daily [facility] Med 03/19/19 09:00 Ordered Tablet] 1 tab PO DAILY Nitroglycerin [Nitrostat] Med 03/18/19 16:38 Ordered 0.4 mg SL Q5M PRN Omeprazole [Omeprazole] Med 03/18/19 17:00 Ordered 40 mg PO 1700 Ondansetron [Zofran] Med 03/18/19 16:33 Ordered 4 mg IV Q4H PRN Potassium Chloride [Potassium Chloride] Med 03/18/19 18:00 Ordered 40 meq PO TIDMEALS Saliva Substitution Combo No.9 [Biotene] Med 03/18/19 21:00 Ordered 10 ml MM TID Sodium Chloride 0.65% [[place] Nasal [place]] Med 03/18/19 17:00 Ordered 2 spray ANKUR QID Sodium Chloride 0.9% [Saline Flush] Med 03/18/19 16:33 Ordered 10 ml FLUSH ASDIRECTED PRN Ticagrelor [Brilinta] Med 03/18/19 21:00 Ordered 90 mg PO BID Tiotropium Br/Olodaterol HCl [Stiolto Respimat Inhal Med 03/19/19 09:00 Ordered [place]] 1 puff INH DAILY Triamcinolone Acetonide [Triamcinolone Acetonide 0.1% Med 03/18/19 21:00 Ordered Crm] 1 applic TOP TID Warfarin [Coumadin] Med 03/21/19 16:38 Ordered 2.5 mg PO MOFR Warfarin [Coumadin] Med 03/18/19 16:45 Ordered 5 mg PO SUTUWETHSA atorvaSTATin [Lipitor] Med 03/18/19 17:00 Ordered 40 mg PO 1700 metOLazone [Zaroxolyn] Med 03/18/19 16:45 Ordered 2.5 mg PO TUTHSA Saline Lock Insert [OM.PC] Routine Oth 03/18/19 16:33 Ordered Resuscitation Status Routine Resus Stat 03/18/19 16:29 Ordered EKG 12 Lead [EK] Routine Ther 03/18/19 12:32 Stop Req EKG 12 Lead [EK] Routine Ther 03/19/19 06:00 Ordered Medication Orders Acetaminophen (Tylenol Arthritis Pain) 650 mg PO Q4H PRN PRN Reason: Pain Carvedilol (Coreg) 12.5 mg PO BIDMEALS [facility] Diltiazem HCl (Dilacor Xr) 240 mg PO DAILY [facility] Docusate Sodium (Colace) 100 mg PO DAILY [facility] Fluticasone Propionate (Flonase) gm ANKUR BID [facility] Furosemide (Lasix) 40 mg PO 08,12 [facility] Insulin Human Lispro (Humalog) 10 unit SUBCUT TIDMEALS [facility] Loratadine (Claritin) 10 mg PO DAILY PRN PRN Reason: Allergies Metolazone (Zaroxolyn) 2.5 mg PO TUTHSA [facility] Nitroglycerin (Nitrostat) 0.4 mg SL Q5M PRN PRN Reason: Chest Pain Non-Formulary Medication (Aloe/Sodium Chloride/Vitamin E [Entsol Nasal Gel]) 1 applic NS TID [facility] Non-Formulary Medication (Atorvastatin [Lipitor]) 40 mg PO 1700 [facility] Non-Formulary Medication (Gluc [place]/Chondro [place] A/Vit C/Mn [Glucosamine- Chondroitin Cap]) 1 cap PO BID [facility] Non-Formulary Medication (Glycerin/Phenyleph/Pramox/Pet [Preparation H Crm]) 1 applic RC Q4H PRN PRN Reason: HEMORROIDS Non-Formulary Medication (Insulin Detemir [Levemir Flextouch]) 40 units SQ BEDTIME [facility] Non-Formulary Medication (Multivits-Minerals/Fa/Lycopene [One Daily Men's Health Tablet]) 1 tab PO DAILY [facility] Non-Formulary Medication (Omeprazole [Omeprazole]) 40 mg PO 1700 [facility] Non-Formulary Medication (Potassium Chloride [Potassium Chloride]) 40 meq PO TIDMEALS [facility] Non-Formulary Medication (Saliva Substitution Combo No.9 [Biotene]) 10 ml MM TID [facility] Non-Formulary Medication (Tiotropium Br/Olodaterol Hcl [Stiolto Respimat Inhal [place]]) 1 puff INH DAILY [facility] Ondansetron HCl (Zofran) 4 mg IV Q4H PRN PRN Reason: Nausea/Vomiting Sodium Chloride (Saline Flush) 10 ml FLUSH ASDIRECTED PRN PRN Reason: Keep Vein Open Sodium Chloride ([place] Nasal [place]) ml ANKUR QID [facility] Ticagrelor (Brilinta) 90 mg PO BID [facility] Triamcinolone Acetonide (Triamcinolone Acetonide 0.1% Crm) gm TOP TID [facility] Warfarin Sodium (Coumadin) 2.5 mg PO MOFR [facility] Warfarin Sodium (Coumadin) 5 mg PO SUTUWETHSA [facility] Assessment/Plan Comment:: 1. Admit for observation for rule out acute coronary syndrome, congestive heart failure. 2. Telemetry, serial troponin levels, repeat EKG in am. 3. Daily weights. 4. INR and BMP in am. 5 Continue home medications. 6. Heart healthy diet, blood glucose with meals and bedtime, continue home insulin regiment. 7. Adjust treatments as necessary. 8. Code status: Full. - Mortality Measure Prognosis:: Good
--- OUTSIDE RECORDS SUMMARY | 2019-04-10 13:19 | XMSREPORT ---
:1940 Author Organization [facility] Address [facility] [address] [place] [address] Care Team Providers Name Role Phone Hector De Leon MD Primary Care Provider Dori Minor RN, CDE Inspector [employer] Hector De Leon MD Attributed Provider Reason for Referral (Routine) Status Reason Specialty Diagnoses / Procedures Referred By Contact Referred To Contact [address] [phone] (Routine) Status Reason Specialty Diagnoses / Procedures Referred By Contact Referred To Contact [address] [phone] [facility] (Routine) Status Reason Specialty Diagnoses / Referred By Referred To Contact Procedures Contact New Request CARDIOLOGY Diagnoses NSTEMI (non-ST elevated myocardial infarction) (HCC) Tara Frye, [facility] DAG SPRAYER-INFORMATION SYSTEMS SUPERVISOR [address] [place] [phone] Phone: Scheduling Instructions This is an electronic referral. Reason for Visit Reason Comments Auth/Cert Status Reason Specialty Diagnoses / Procedures Referred By Contact Referred To Contact Encounter Details Date Type Department Care Team Description 03/19/2019 - Hospital Encounter [facility] Provider, Generic Hosp Procedure NSTEMI (non-ST 03/20/2019 [facility] UnderwoodTara delgado, DAG SPRAYER-INFORMATION SYSTEMS SUPERVISOR [address] [place] [address] [phone] elevated myocardial [address] [place], Oleg Hayes MD [address] [place] [address] [phone] infarction) (HCC) [place] [address] Allergies No Known Allergiesdocumented as of this encounter (statuses as of 03/20/2019) Medications Medication Sig Dispensed Refills Start End Date Status Date acetaminophen Take 650 mg by 0 Active (TYLENOL mouth Every 4 ARTHRITIS) 650 mg hours as needed CR tablet for mild pain saline (AYR) Use 1 application 1 Tube 6 Active nasal in the nose 3 6 gelIndications: times a day Wash Nasal hands and then obstruction, apply ointment as Nasal dryness, instructed History of epistaxis saline nasal [place] 2 sprays 0 Active spray (AYR,OCEAN) into each nostril 0.65 % nasal 4 times a day Not spray taking Multiple Vitamin Take 1 tablet by 30 tablet 0 Active (ONE-A-DAY MENS) mouth 1 time per 8 TABSIndications: day Diabetes mellitus with background retinopathy (HCC) Mouthwashes Place 10 mL into 0 Active (BIOTENE DRY mouth 3 times a MOUTH) LIQD day mouthwash PREPARATION H Insert rectally 0 Active (PREPARATION H) Every 4 hours as 1-0.25-14.4-15 % needed CREA Glucosamine-Chond Take 1 capsule by 0 Active roit-Vit C-Mn mouth 2 times a (GLUCOSAMINE-ELBERT day DROITIN) capsule carVEDilol Take 1 tablet 180 tablet 1 Active (COREG) 12.5 mg (12.5 mg) by mouth 8 tabletIndications 2 times a day with : 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 (HCC), Essential hypertension, Chronic atrial fibrillation (HCC) fluticasone USE 1 SPRAY IN 16 g 11 Active (FLONASE) 50 EACH NOSTRIL TWICE 8 mcg/spray nasal A DAY sprayIndications: 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, with long-term current use of insulin ([facility]), COPD exacerbation ([facility]) insulin needle To use with 200 each 2 Active ([place]) insulin four times 8 31G X 8 mm daily E11.3299 (12/19") ShortIndications: Diabetes mellitus with background retinopathy ([facility]) potassium TAKE 2 TABLETS BY 180 tablet 6 Active chloride MOUTH THREE TIMES 8 (KLOR-CON M20) 20 DAILY MEQ CR tabletIndications : Hypokalemia omeprazole Take 1 capsule (40 90 capsule 1 Active (PRILOSEC) 40 mg mg) by mouth 1 8 capsuleIndication time a day at s: Uncontrolled supper type 2 diabetes mellitus with complication, with long-term current use of insulin ([facility]) loratadine Take 1 tablet (10 90 tablet 1 Active (CLARITIN) 10 mg mg) by mouth 1 8 tabletIndications time per day As : COPD needed for exacerbation allergies ([facility]) tiotropium-olodat Inhale 2 puffs 0 Active maritza (STIOLTO orally 1 time per RESPIMAT) 2.5-2.5 day mcg/puff inhaler atorvaSTATin Take 1 tablet (40 90 tablet 1 Active (LIPITOR) 40 mg mg) by mouth 1 9 tabletIndications time per day : Coronary artery disease of [place] artery of [place] heart with stable angina pectoris ([facility]), 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, with long-term current use of insulin ([facility]) insulin lispro Inject 10 Units 3 mL 3 Active (HUMALOG) 100 subcutaneously 3 9 unit/mL times a day with subcutaneous meals injection (pen)Indications: 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, with long-term current use of insulin ([facility]) warfarin Take 1-2 tablets 180 tablet 3 Active (JANTOVEN) 2.5 MG daily as directed 9 tabletIndications by Anticoag Clinic : Chronic atrial fibrillation ([facility]) blood glucose USE TO TEST BLOOD 200 each 1 Active test strip SUGAR THREE TIMES 9 (ACCU-CHEK FRANCISCO DAILY ICD:E11.32 PLUS)Indications: Diabetes mellitus with background retinopathy ([facility]) ticagrelor Take 1 tablet (90 60 tablet 11 Active (BRILINTA) 90 mg mg) by mouth 2 9 tabletIndications times a day : Coronary artery disease of [place] artery of [place] heart with stable angina pectoris ([facility]) dilTIAZem Take 240 mg by 0 Active (CARDIZEM CD) 240 mouth 1 time per mg extended day release capsule furosemide Take 40 mg by 0 Active (LASIX) 40 mg mouth 2 times a tablet day metOLazone Take 2.5 mg by 0 Active (ZAROXOLYN) 2.5 mouth 3 times a mg tablet week , , Sun Take 30 min prior to lasix nitroglycerin Dissolve 1 tablet 25 tablet 3 Active (NITROSTAT) 0.4 (0.4 mg) under the 9 mg sublingual tongue Every 5 tabletIndications minutes as needed : Coronary artery for chest pain May disease involving repeat every 5 [place] heart with minutes for a angina pectoris, total of 3 doses. unspecified vessel or lesion type ([facility]) docusate sodium Take 1 capsule 0 Active (COLACE) 100 mg (100 mg) by mouth 9 capsuleIndication 1 time per day s: 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, with long-term current use of insulin ([facility]) insulin detemir Inject 40 Units 0 Active (LEVEMIR subcutaneously 9 FLEXTOUCH) every night at subcutaneous bedtime injection (pen)Indications: Diabetes mellitus with background retinopathy ([facility]), 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, with long-term current use of insulin ([facility]) docusate sodium Take 1 capsule 180 capsule 1 03/20/20 Discontinued (COLACE) 100 mg (100 mg) by mouth 8 19 capsuleIndication 2 times a day s: 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, with long-term current use of insulin ([facility]) insulin detemir Inject 38 Units 10 mL 6 03/20/20 Discontinued (LEVEMIR subcutaneously 9 19 FLEXTOUCH) every night at subcutaneous bedtime injection (pen)Indications: Diabetes mellitus with background retinopathy ([facility]), 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, with long-term current use of insulin ([facility]) documented as of this encounter (statuses as of 03/20/2019) Active Problems Problem Noted Date NSTEMI (non-ST elevated myocardial infarction) 03/19/2019 Biliary colic 01/08/2018 Osteoarthritis of right knee 07/03/2017 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 Phimosis 01/16/2017 Deviated septum 05/31/2016 ROCKY (obstructive sleep apnea) 04/20/2016 Overview: PSG 12/30/07, AHI 36.7 O2 83% CPAP 12 Changed to CPAP 17 cmH2O, EPR 3/AHI 36.7 on 09/27/2016 Obesity hypoventilation syndrome 04/20/2016 COPD exacerbation 04/20/2016 Chronic atrial fibrillation 04/20/2016 Obesity, Class III, BMI 40-49.9 (morbid obesity) 04/20/2016 Cardiorenal syndrome 04/15/2016 Diabetic retinopathy, nonproliferative 10/26/2015 Status post implantation of automatic cardioverter/defibrillator (AICD) 2015 group home current use of anticoagulant therapy 05/21/2015 Medical home 02/24/2015 [facility] Care Coordination Tier 1 (Basic) 02/24/2015 Peripheral neuropathy 08/31/2014 CHEN (dyspnea on exertion) 06/18/2014 Deep vein thrombosis of right femoral vein 05/04/2014 Overview: 04/25/14 R) Proximal femoral deep vein thrombosis, still present on 11/2014 US. On warfarin therapy. Acute on chronic combined systolic and diastolic congestive heart failure Cataract 10/13/2013 Callus of foot 07/28/2013 Hyperlipidemia 06/21/2012 Hypertension 06/21/2012 Ischemic cardiomyopathy 06/21/2012 Overview: -10/24/11 implantable cardiac defibrillator placement Coronary artery disease involving [place] coronary artery of [place] heart 05/28 Overview: -09/11/2007 ST-elevated myocardial infarction with angiogram revealing a 100% lesion in the proximal RCA. Received a Liberte bare-metal stent to this lesion. Elsewhere there was noted to be an 80% lesion mid left anterior descending artery; 90% stenosis in the 1st obtuse marginal and 2nd obtuse marginal, 60% stenosis distal RCA, 80% stenosis in the RPDA and 80% stenosis in the RPLS. Ejection fraction 25%. -10/17/2007 planned angiogram to intervene on the 80% lesion of the mid left anterior descending artery. Patient received 2-Cypher drug eluting stents to this lesion with 0% residual stenosis. -10/20/09 angiogram due to non-ST elevated myocardial infarction revealed 95% lesion in the mid left anterior descending artery and 80% stenosis in the mid circumflex, patient received Cypher drug elutin g stent to the mid left anterior descending artery and Xience drug eluting stent to the mid circumflex. Right PDA was supplied by collaterals. There was a diffuse 100% stenosis in the middle third of this vessel segment. Ejection fraction 40%. -10/26/09 non-ST elevated myocardial infarction with angiogram revealing a 100% lesion in the mid left anterior descending artery and patient received a Mini Vision bare-metal stent to this lesion. Also noted to have a 50% stenosis in the middle third of the RPLS. RPDA with 100% stenosis and good collateral flow. Ejection fraction 40% with severe anterolateral hypokinesis and severe apical hypokinesis. -03/14/11 non-ST elevated myocardial infarction with angiogram revealing 99% in- stent stenosis in the mid LAD. 100% distal left anterior descending artery stenosis. Received a Xience drug eluting stent to the 99% stenosis in the mid left anterior descending artery. -03/14/11 Echo revealed the left ventricle moderately dilated. Systolic function was markedly reduced with ejection fraction 30%. No significant valvular disease. -10/06/2012 non-STEMI with 2 drug-eluting stents to the mid circumflex. -12/10/13 chest pain with angiogram showing tight stenosis in the proximal RCA and received a 3.5x30 mm Resolute LAMONT to this lesion. -10.14.2015 . Left main stent and circumflex stent Peripheral vascular disease 03/17/2011 Overview: March 2011: Initial visit to IR for claudication with left resting ISHAN 0.39. Angiogram recommended but he was on Effient for recent (3 days prior) LAMONT. Angiogram deferred. July 2011: Lower extremity angiogram by Dr. Solorio with COMPUTER ANALYST to intervention including left peroneal and left popliteal arteries. June 2013: Underwent LE angiogram per Dr. Coto due to recurrent progressive claudication and worsening ABIs. Underwent left SFA 6 mm COMPUTER ANALYST and left tibioperoneal trunk 4 mm COMPUTER ANALYST. Noted to have sev ere tibial occlusive disease with single vessel runoff to both feet. Diabetes mellitus with background retinopathy 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, with long-term current use of insulin Congenital spondylolisthesis documented as of this encounter (statuses as of 03/20/2019) Resolved Problems Problem Noted Date Resolved Date Acute combined systolic and diastolic heart failure 04/29/2016 01/07/2018 Acute respiratory failure with hypoxia 04/20/2016 01/07/2018 Hyponatremia 04/15/2016 04/20/2016 Elevated troponin 04/15/2016 01/07/2018 NSTEMI (non-ST elevated myocardial infarction) 03/30/2016 01/07/2018 Chest pain 10/14/2015 01/07/2018 Unstable angina 12/10/2013 01/07/2018 Rash and other nonspecific skin eruption 07/22/2009 01/07/2018 documented as of this encounter (statuses as of 03/20/2019) Immunizations Name Dates Previously Given Next Due FLU VACCINE HIGH DOSE 65YR+ 04/29/2016, 05/11/2015, 05/04/2014, 05/23/2013 FLU VACCINE HIGH DOSE 65YR+(Fluzone) 04/25/2018, 05/21/2017 Influenza Vaccine,unspecified 06/22/2005 Pneumococcal Conj PCV13 05/05/2015 Pneumococcal Polysaccharide PPSV23 12/12/2016, 06/22/2006, 06/22/1998 TDAP 05/27/2012 Tetanus Toxoid,not adsorbed 05/11/2014, 06/22/1998 Triamcinolone Acetonide 40mg/ml 12/23/2012 Zoster Live(Zostavax) 05/23/2013 documented as of this encounter Social History Tobacco Use Types Packs/Day Years Used Date Former Smoker Cigarettes, Cigars 2 20 Quit: 08/06/1985 Smokeless Tobacco: Never Used Alcohol Use Drinks/Week oz/Week Comments No 0 Standard drinks or equivalent 0.0 Quit 1987 Social Isolation Answer Date Recorded In a typical week, how many times do you More than three times a week 2018 talk on the phone with family, friends, or neighbors? How often do you get together with friends More than three times a week 01/22 or relatives? How often do you attend protestant or More than 4 times per year 01/22/2019 adventism services? Do you belong to any clubs or Yes 01/22/2019 organizations such as protestant groups, unions, fraternal or athletic groups, or school groups? How often do you attend meetings of the More than 4 times per year 01/22/2019 clubs or organizations you belong to? Are you now , , , Never 01/22/2019 , never or living with a partner? Physical Activity Answer Date Recorded On average, how many days per week do you engage in moderate 0 days 2018 to strenuous exercise (like walking fast, running, jogging, dancing, swimming, biking, or other activities that cause a light or heavy sweat)? On average, how many minutes do you engage in exercise at Not asked this level? Financial Resource Strain Answer Date Recorded How hard is it for you to pay for the very basics like Not hard at all 2018 food, housing, medical care, and heating? Intimate Partner Violence Answer Date Recorded Within the last year, have you been afraid of your partner or No 01/22/2019 ex-partner? Within the last year, have you been humiliated or emotionally No 01/22/2019 abused in other ways by your partner or ex-partner? Within the last year, have you been kicked, hit, slapped, or No 01/22/2019 otherwise physically hurt by your partner or ex-partner? Within the last year, have you been raped or forced to have Not asked any kind of sexual activity by your partner or ex-partner? Food Insecurity Answer Date Recorded Within the past 12 months, you worried that your food would Never true 2018 run out before you got money to buy more. Within the past 12 months, the food you bought just didn't Never true 2018 last and you didn't have money to get more. Transportation Needs Answer Date Recorded In the past 12 months, has lack of transportation kept you from No 01/22/2019 medical appointments or from getting medications? In the past 12 months, has lack of transportation kept you from No 01/22/2019 meetings, work, or getting things needed for daily living? Sexually Active Control Partners Comments Not Currently Sex Assigned at Date Recorded Not on file Job Start Date Occupation Industry Not on file Not on file Not on file Travel History Travel Start Travel End No recent travel history available. documented as of this encounter Last Filed Vital Signs Vital Sign Reading Time Taken Blood Pressure 116/64 03/20/2019 7:32 AM CDT Pulse 63 03/20/2019 7:32 AM CDT Temperature 36.7 C (98 F) 03/20/2019 7:32 AM CDT Respiratory Rate 20 03/20/2019 7:32 AM CDT Oxygen Saturation 95% 03/20/2019 7:32 AM CDT Inhaled Oxygen Concentration - - Weight 121.7 kg (268 lb 6.4 oz) 03/19/2019 11:09 AM CDT Height 172.7 cm (5' 8") 03/19/2019 11:09 AM CDT Body Mass Index 40.81 03/19/2019 11:09 AM CDT documented in this encounter Functional Status Functional Status Response Date of Assessment Is the person deaf or does he/she have serious difficulty No 03/19/2019 hearing? Is this person blind or does he/she have difficulty No 03/19/2019 seeing even when wearing glasses? Do you have difficulty with walking, balance, climbing No 03/19/2019 stairs, or had a fall in the last 3 months? Does the patient have difficulty dressing or bathing? No 03/19/2019 Because of a physical, mental, or emotional condition; No 03/19/2019 does this person have difficulty doing errands alone such as visiting a doctor's office or shopping? Cognitive Status Response Date of Assessment Because of a physical, mental, or emotional condition; No 03/19/2019 does this person have serious difficulty concentrating, remembering, or making decisions? documented as of this encounter Discharge Summaries Not on filedocumented in this encounter Discharge Instructions InstructionsCoHilary pope, PHARM D - 03/20/2019 WARFARIN DISCHARGE INSTRUCTIONS Warfarin dose of 5 mg given 03/20/19 in the hospital. Check INR tomorrow on 03/21/19 Radial site discharge instruction provided with the AVS Healthy Meals for Diabetes A healthcare provider will help you develop a meal plan that fits your needs. Ask your healthcare team to help you make a meal plan that fits your needs. Your meal plan tells youwhen to eat your meals and snacks, what kinds of foods to eat, and how much of each food to eat. Youdont have to give up all the foods you like. But you do need to follow some guidelines. Choose healthy carbohydrates Starches, sugars, and fiber are all types of carbohydrates.Fiber can help lower your cholesterol and triglycerides. Fiber is also healthy for your heart. You should have 20 to 35 grams of total fibereach day. Fiber-rich foods include: Whole-grain breads and cereals Bulgur wheat Brown rice Whole-wheat pasta Fruits and vegetables Dry beans, and peas Keep track of the amount of carbohydrates you eat. This can help you keep the right balance of physical activity and medicine. The amount of carbohydrates needed will vary for each person. It depends on many things such as your health , the medicines you take, and how active you are. Your healthcare team will help you figure out the right amount of carbohydrates for you. You may start with around 45 to 60 grams of carbohydrates per meal, depending on your situation. Here are some examples of foods containing about 15 grams of carbohydrates (1 serving of carbohydrates): 1/2 cup of canned or frozen fruit A small piece of fresh fruit (4 ounces) 1 slice of bread 1/2 cup of oatmeal 1/3 cup of rice 4 to 6 crackers 1/2 Georgian muffin 1/2 cup of black beans 1/4 of a large baked potato (3 ounces) 2/3 cup of plain fat-free yogurt 1 cup of soup 1/2 cup of casserole 6 chicken nuggets 6-syhy-xxlksb brownie or cake without frosting 2 small cookies 1/2 cup of ice cream or sherbet Choose healthy protein foods Eating protein that is low in fat can help you control your weight. It also helps keep your heart healthy. Low-fat protein foods include: Fish Plant proteins, such as dry beans and peas, nuts, and soy products like tofu and soymilk Lean meat with all visible fat removed Poultry with the skin removed Low-fat ornonfat milk, cheese, and yogurt Limit unhealthy fats and sugar Saturated and trans fats are unhealthy for your heart. They raise LDL (bad) cholesterol. Fat is alsohigh in calories, so it can make you gain weight. To cut down on unhealthy fats and sugar, limit these foods: Butter or margarine Palm and palm kernel oils and coconut oil Cream Cheese Leal Lunch meats Ice cream Sweet bakery goods such as pies, muffins, and donuts Jams and jellies Candy bars Regular sodas How much to eat The amount of food you eat affects your blood sugar. It also affects your weight. Your healthcare team will tell you how much of each type of food you should eat. Use measuring cups and spoons and afood scale to measure serving sizes. Learn what a correct serving size looks like on your plate. This will help when you are away fromhome and cant measure your servings. Eat only the number of servings given on your meal plan for each food. Don t take seconds. Learn to read food labels. Be sure to look at serving size, total carbohydrates, fiber, calories,sugar, and saturated and trans fats. Look for healthier alternatives to foods that have added sugar. Plan ahead for parties so you can still have a good time without going overboard with unhealthy food choices. Set a good example yourself by bringing a healthy dish to [employer]. Choose healthy snacks When it comes to snacks, we usually think about foods with added sugar and fats. But there are many other options for healthier snack choices. Here are a few snack ideas to choose from: Snacks with less than 5 grams of carbohydrates 1 piece of string cheese 3 celery sticks plus 1 tablespoon of peanut butter 5 branch tomatoes plus 1 tablespoon of ranch dressing 1 hard-boiled egg 1/4 cup of fresh blueberries 5 baby carrots 1 cup of light popcorn 1/2 cup of sugar-free gelatin 15 almonds Snacks with about 10 to 20 grams of carbohydrates 1/3 cup of hummus plus 1 cup of fresh cut nonstarchy vegetables (carrots, green peppers, broccoli, celery, or a combination) 1/2 cup of fresh or canned fruit plus 1/4 cup of cottage cheese 1/2 cup of tuna salad with 4 crackers 2 rice cakes and a tablespoon of peanut butter 1 small apple or orange 3 cups light popcorn 1/2 of a turkey sandwich (1 slice of whole-wheat bread, 2 ounces of turkey, and mustard) Portion sizes are important to controlling your blood sugar and staying at a healthy weight. Stock up on healthy snack items so you always have them on hand. When to eat Your meal plan will likely include breakfast, lunch, dinner, and some snacks. Try to eat your meals and snacks at about the same times each day. Eat all your meals and snacks. Skipping a meal or snack can make your blood sugar drop too low. It can also cause you to eat too much at the next meal or snack. Then your blood sugar could get too high. Date Last Reviewed: 02/04/201619991403-8106 [employer]. [address] [place] [address], [place] [address]. All rights reserved. This information is not intended as a substitute for professional medical care. Always follow your healthcare professional's instructions. documented in this encounter Medications at Time of Discharge Medication Sig Dispensed Refills Start Date End Date docusate sodium Take 1 capsule (100 mg) 0 03/20/2019 (COLACE) 100 mg by mouth 1 time per day capsuleIndications: 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, with long-term current use of insulin ([facility]) insulin detemir Inject 40 Units 0 03/20/2019 (LEVEMIR FLEXTOUCH) subcutaneously every subcutaneous injection night at bedtime (pen)Indications: Diabetes mellitus with background retinopathy ([facility]), 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, with long-term current use of insulin ([facility]) nitroglycerin Dissolve 1 tablet (0.4 25 tablet 3 01/15/2019 (NITROSTAT) 0.4 mg mg) under the tongue sublingual Every 5 minutes as tabletIndications: needed for chest pain Coronary artery disease May repeat every 5 involving [place] heart minutes for a total of with angina pectoris, 3 doses. unspecified vessel or lesion type ([facility]) dilTIAZem (CARDIZEM CD) Take 240 mg by mouth 1 0 240 mg extended release time per day capsule furosemide (LASIX) 40 Take 40 mg by mouth 2 0 mg tablet times a day metOLazone (ZAROXOLYN) Take 2.5 mg by mouth 3 0 2.5 mg tablet times a week , , Sun Take 30 min prior to lasix ticagrelor (BRILINTA) Take 1 tablet (90 mg) 60 tablet 11 12/18/2018 90 mg by mouth 2 times a day tabletIndications: Coronary artery disease of [place] artery of [place] heart with stable angina pectoris ([facility]) blood glucose test USE TO TEST BLOOD SUGAR 200 each 1 11/27/2018 strip (ACCU-CHEK FRANCISCO THREE TIMES DAILY PLUS)Indications: ICD:E11.32 Diabetes mellitus with background retinopathy ([facility]) atorvaSTATin (LIPITOR) Take 1 tablet (40 mg) 90 tablet 1 10/11/2018 40 mg by mouth 1 time per day tabletIndications: Coronary artery disease of [place] artery of [place] heart with stable angina pectoris ([facility]), 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, with long-term current use of insulin ([facility]) insulin lispro Inject 10 Units 3 mL 3 10/11/2018 (HUMALOG) 100 unit/mL subcutaneously 3 times subcutaneous injection a day with meals (pen)Indications: 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, with long-term current use of insulin ([facility]) warfarin (JANTOVEN) 2.5 Take 1-2 tablets daily 180 tablet 3 10/11/2018 MG tabletIndications: as directed by 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 ([facility]), Essential hypertension, Chronic atrial fibrillation ([facility]) fluticasone (FLONASE) USE 1 SPRAY IN EACH 16 g 11 06/12/2018 50 mcg/spray nasal NOSTRIL TWICE A DAY sprayIndications: 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, with long-term current use of insulin ([facility]), COPD exacerbation ([facility]) insulin needle (UNIFINE To use with insulin 200 each 2 06/12/2018 PENTIPS) 31G X 8 mm four times daily (5/16") E11.3299 ShortIndications: Diabetes mellitus with background retinopathy ([facility]) potassium chloride TAKE 2 TABLETS BY MOUTH 180 tablet 6 06/12/2018 (KLOR-CON M20) 20 MEQ THREE TIMES DAILY CR tabletIndications: Hypokalemia omeprazole (PRILOSEC) Take 1 capsule (40 mg) 90 capsule 1 06/12/2018 40 mg by mouth 1 time a day capsuleIndications: at supper 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, with long-term current use of insulin ([facility]) loratadine (CLARITIN) Take 1 tablet (10 mg) 90 tablet 1 06/12/2018 10 mg by mouth 1 time per day tabletIndications: COPD As needed for allergies exacerbation (HCC) PREPARATION H Insert rectally Every 4 0 (PREPARATION H) hours as needed 1-0.25-14.4-15 % CREA Uvsplrxltnu-Pxvhoiemt-T Take 1 capsule by mouth 0 it C-Mn 2 times a day (GLUCOSAMINE-CHONDROITI N) capsule Mouthwashes (BIOTENE Place 10 mL into mouth 0 DRY MOUTH) LIQD 3 times a day mouthwash Multiple Vitamin Take 1 tablet by mouth 30 tablet 0 01/15/2018 (ONE-A-DAY MENS) 1 time per day TABSIndications: Diabetes mellitus with background retinopathy (HCC) saline nasal spray [place] 2 sprays into 0 (AYR,OCEAN) 0.65 % each nostril 4 times a nasal spray day Not taking saline (AYR) nasal Use 1 application in 1 Tube 6 06/12/2016 gelIndications: Nasal the nose 3 times a day obstruction, Nasal Wash hands and then dryness, History of apply ointment as epistaxis instructed acetaminophen (TYLENOL Take 650 mg by mouth 0 ARTHRITIS) 650 mg CR Every 4 hours as needed tablet for mild pain documented as of this encounter Progress Notes Leslee Bingham PA - 03/20/2019 7:10 AM CDT Cardiology Hospital Progress Note Assessment / Plan Active Problems: NSTEMI (non-ST elevated myocardial infarction) ([facility]) Resolved Problems: * No resolved hospital problems. * Plan: -Patient seen and evaluated with Dr. Herrera -Recommend Cardiac rehab -Do not push/pull/lift more than 10-15 pounds for about a week to allow the radial artery to heal -Angiogram discussed -Continue current medications and optimize as able -Follow up in 2-4 weeks with an Interventional MI to do an FDG viability scan rather than stress test for analyzing further blockages -Patient would like the pictures from his angiogram -Cardiology will sign off, please call with questions HPI / History / ROS Denis Smith is a 79yr old male admitted on 03/19/2019. He is feeling well today, better than yesterday. He was up walking with cardiac rehab this morning and did not have symptoms with it. He denies chest pain, palpitations, shortness of breath, abdominal pain, nausea, dizziness, or syncope. Angiogram:PTCA and stenting of obtuse marginal branch #1 with a 3.0 x 26 orsiro LAMONT, PTCA of left main with a 3.5 x 20 noncompliant balloon. Coronary anatomy- 60% left main stenosis, 90% obtuse marginal branch stenosis, 100% proximal LAD stenosis, LAD supplied by collaterals, patent RCA stents, occluded PDA. Left ventriculography-not done Review of Systems Constitutional: Negative for chills, fatigue and fever. HENT: Negative. Respiratory: Negative for cough, chest tightness and shortness of breath. Cardiovascular: Positive for leg swelling. Negative for chest pain and palpitations. Gastrointestinal: Negative for abdominal pain, nausea and vomiting. Musculoskeletal: Negative for arthralgias and myalgias. Skin: Negative for color change and pallor. Neurological: Negative for dizziness and light-headedness. Psychiatric/Behavioral: Negative. Physical / Results Current Vital Signs Temp: 98.5 F (36.9 C) BP: 117/65 Weight: 121.7 kg (268 lb 6.4 oz) SpO2: 96 % Resp: 16 Pulse: 66 Current BMI (>50=increased risk): (!) 40.82 O2 Device: Room Air Pain Ratin Maximum Temperatures (last 24 hours) Temperature Maximum Max Temp 98.5 F (36.9 C) Physical Exam Constitutional: No distress. Eyes: Conjunctivae are normal. Neck: Normal range of motion. Neck supple. Cardiovascular: Normal rate and regular rhythm. Exam reveals distant heart sounds. Pulmonary/Chest: Effort normal. He has no wheezes. He has no rales. He exhibits no tenderness. Abdominal: Soft. Bowel sounds are normal. Musculoskeletal: Normal range of motion. He exhibits edema. Neurological: He is alert and oriented to person, place, and time. Skin: Skin is warm and dry. Associated attestation - Alie Herrera MD - 03/20/2019 12:45 PM CDT I discussed the patient with the fellow and personally interviewed and examined the patient. I verified in the medical record all fellow documentation/findings , including history, physical exam, and medical decision making, and I agree with the fellow's documentation. Note the following additions/corrections: Discussed with Dr Solorio agrees with FDG pet to assess viability anterior wall. A total of 20 minutes was spent with the patient or on the floor today, greater than 50% of which was spent in counseling regarding today's findings/assessment/ plan Taylor Michel PHARM COMMUNITY ADMINISTRATOR - 03/19/2019 1:42 PM CDT03/19/2019 1:42 PM -- Patient was seen by the pharmacy med reconciliation team and home medications have been reconciled and updated to match the patient's home usage. Added to med list: None Changed on med list: Takes 40 units of Tresiba every night instead of 38. Changed Glucosamine/Chonroitin from not taking to last dose, patient is taking again. Removed on med list: none Warfarin: Normal regimen is 2.5mg on M,F and 5mg on AOD. Pt has 2.5mg tabs at home. Patient denies use of other inhalers, creams/ointments, eye/ear drops, patches or injectables, OTC, vitamins and/or herbal products PATRICK Diane COMMUNITY ADMINISTRATOR documented in this encounter Plan of Treatment Date Type Specialty Care Team Description 03/24/2019 Office Visit Family Practice Hector De Leon MD [address] [facility] [place] [address] [phone] 05/26/2019 Clinical Support Cardiovascular Services Visit 08/21/2019 Office Visit Nutrition Roxy Romano RD, CDE [address] [place] [address] [phone] Name Priority Associated Diagnoses Order Schedule PROTIME/INR Timed Routine every 24 hours until discontinued starting 03/20/2019, 1 completed Name Priority Associated Diagnoses Order Schedule CLINIC REFERRAL Routine NSTEMI (non-ST elevated Ordered: 03/20/2019 CARDIOLOGY ONE CHART myocardial infarction) (HCC) HOSPITAL DISCHARGE Routine Once for 1 Occurrences WARFARIN ANTICOAG ORDER starting 03/20/2019 until 03/20/2019 documented as of this encounter Goals Goal Patient Goal Associated Recent Patient-Stated? Author Type Problems Progress DIET - REDUCE Diet Dori Carcamo RN, CDE Care Coordination General Dori Carcamo RN, CDE Note: Date Plan Created: 01/25/17 Date of last Plan Modification: 01/26/2017 Plan discussed with: patient [employer] Coach Driver and patient and/or caregivers have discussed and agreed to this Care Plan. After hours call: Kim Starks Nurse: . For emergencies: Dial 911 or go to the closest Emergency Room. External Care Plan: None Is there a copy in the EMR? N/A The following people or agencies are involved in my care (community resources): Language: Georgian Housing: Lives with sister, Alicia, and Brother, Ed. Employment: [employer] Transportation: Patient is able to drive himself, has own vehicle Buddhism: Temple, non practicing Diet: Limiting portion sizes/sweets Assistance Needed with ADL's: None Caregiver Support: Siblings for emotional support Barriers: None Exercise - Walking 15 Lifestyle No Dori Minor, RN, CDE minutes every day HGB A1C < 8.0 Result Component 8.3 (02/24/2019 No Dori Minor RN, CDE 2:09 PM CDT) documented as of this encounter Implants Implanted Type Area Plant Maintenance Mechanic Device Shelf Model / Identifier Expiration Serial / Date Lot [employer] Dual Chamber Defibrillator-10/24/2011 Cardiovascular Left: [employer] J[employer]ES CRAMER [id number] ICD / Implanted: 10/24/2011 by Fito Ware MD (Quantity not on file) CHEST [id number] / Explanted: Stnt Resolute [id number] N [id number] Lupillo (Aka [id number])-12/10/2013 Cardiovascular [employer]IC 08/27/2014 / Implanted: 12/10/2013 (Quantity not on file) / Explanted: [id number] Stnt Resolute 2.32d20qg N [id number] Lupillo (Aka [id number])-07/10/2014 Cardiovascular [employer] 09/24/2015 / Implanted: 07/10/2014 by Scott Carver MD (Quantity not on file) / Explanted: [id number] Stnt Resolute 2.00l22dr N [id number] Lupillo (Aka [id number])-07/10/2014 Cardiovascular [employer] 10/01/2015 / Implanted: 07/10/2014 by Scott Carver MD (Quantity not on file) / Explanted: [id number] Stnt Resolute 3.51s82fh N [id number] Ea (Aka [id number])-10/15/2015 Cardiovascular [employer] / Implanted: 10/15/2015 by Nito Solorio DO (Quantity not on file) / [id number] Stnt Resolute 3.5x38mm N [id number] Ea (Aka [id number])-10/15/2015 Cardiovascular [employer] / Implanted: 10/15/2015 by Nito Solorio DO (Quantity not on file) / [id number] Stnt Resolute 4.95h27fg N [id number] Ea (Aka [id number])-03/30/2016 Cardiovascular [employer] / Implanted: 03/30/2016 by Maxx Harry MD (Quantity not on file ) / [id number] Stnt Resolute Killian Rx 3.5x22mm N [id number] (Aka [id number])- Cardiovascular-12/11/2018 ARTERIAL [employer]TR[employer]IC 10/29/2020 [id number] / Implanted: Qty: 1 on 12/11/2018 by Nito Solorio DO / [id number] documented as of this encounter Procedures Procedure Name Priority Date/Time Associated Comments Diagnosis GLUCOSE BY METER, Routine 03/20/2019 12:26 Results for this POCT PM CDT procedure are in the results section. GLUCOSE BY METER, Routine 03/20/2019 7:33 Results for this POCT AM CDT procedure are in the results section. LAB ONLY-COMPLETE Routine 03/20/2019 7:21 Results for this BLOOD COUNT WITH AM CDT procedure are in DIFFERENTIAL the results section. LIPID PANEL Routine 03/20/2019 7:21 Results for this AM CDT procedure are in the results section. PROTIME/INR Timed Routine 03/20/2019 7:21 Results for this AM CDT procedure are in the results section. HEPATIC FUNCTION Routine 03/20/2019 7:21 Results for this PANEL AM CDT procedure are in the results section. BASIC METABOLIC PANEL Routine 03/20/2019 7:21 Results for this AM CDT procedure are in the results section. COMPLETE BLOOD COUNT Routine 03/20/2019 7:21 Results for this WITH DIFFERENTIAL AM CDT procedure are in the results section. GLUCOSE BY METER, Routine 03/19/2019 8:52 Results for this POCT PM CDT procedure are in the results section. GLUCOSE BY METER, Routine 03/19/2019 7:18 Results for this POCT PM CDT procedure are in the results section. EKG Routine 03/19/2019 6:45 Results for this PM CDT procedure are in the results section. TROPONIN I Timed Routine 03/19/2019 5:59 Results for this PM CDT procedure are in the results section. ECHO ADULT COMPLETE Routine 03/19/2019 4:54 Results for this PM CDT procedure are in the results section. GLUCOSE BY METER, Routine 03/19/2019 3:11 Results for this POCT PM CDT procedure are in the results section. EKG STAT 03/19/2019 2:57 Results for this PM CDT procedure are in the results section. ACTIVATED CLOTTING Routine 03/19/2019 1:58 Results for this TIME POCT PM CDT procedure are in the results section. PTT GILDARDO 03/19/2019 12:24 Results for this PM CDT procedure are in the results section. PROTIME/INR GILDARDO 03/19/2019 12:24 Results for this PM CDT procedure are in the results section. COMPLETE BLOOD COUNT GILDARDO 03/19/2019 12:24 Results for this WITHOUT DIFFERENTIAL PM CDT procedure are in the results section. TROPONIN I Timed Routine 03/19/2019 12:24 Results for this PM CDT procedure are in the results section. COMPREHENSIVE GILDARDO 03/19/2019 12:24 Results for this METABOLIC PANEL PM CDT procedure are in the results section. BRAIN NATRIURETIC GILDARDO 03/19/2019 12:24 Results for this PEPTIDE PM CDT procedure are in the results section. GLUCOSE BY METER, Routine 03/19/2019 11:39 Results for this POCT AM CDT procedure are in the results section. documented in this encounter Results GLUCOSE BY METER, POCT (03/20/2019 12:26 PM CDT)Only the most recent of6 resultswithin the time period is included. Glucose POC 207 (H) 70 - 100 mg/dL [facility] POINT OF CARE TESTING Specimen Blood Performing Organization Address City/State/Zipcode Phone Number [facility] POINT OF [address] [place] [address] CARE TESTING LAB ONLY-COMPLETE BLOOD COUNT WITH DIFFERENTIAL (03/20/2019 7:21 AM CDT) WBC 6.4 4.0 - 11.0 K/uL [address] RBC 4.32 (L) 4.40 - 5.80 [place] [address] [facility] M/uL Hemoglobin 14.0 13.5 - 17.[address] g/dL Hematocrit 42.0 40.0 - 50.0 % [address] MCV 97.2 80.0 - 98.[address] MCH 32.4 25.5 - 34.[address] MCHC 33.3 31.5 - 36.[address] g/dL RDW-CV 14.1 11.5 - 15.5 % [address] RDW-SD 50.8 (H) 35.5 - 50.[address] Platelet Count 154 140 - 400 K/uL [address] MPV 10.8 8.5 - 12.[address] Seg Neut Absolute 4.3 1.8 - 8.0 K/uL [address] Lymphocytes Absolute 1.2 0.8 - 4.1 K/uL [address] Monocytes Absolute 0.5 0.0 - 1.0 K/uL [address] Eosinophils Absolute 0.3 0.0 - 0.7 K/uL [address] Basophil Absolute 0.1 0.0 - 0.2 K/uL [address] Immature Granulocyte 0.02 0.00 - 0.06 [place] [address] [facility] Absolute K/uL Neutrophils Abs. 4,300 /uL [place] [address] [facility] (Segs and Bands) Neutrophils Percent 67.0 % [address] Lymphocytes Percent 19.0 % [address] Monocytes Percent 8.4 % [address] Immature Granulocyte 0.3 % [address] Percent Eosinophils Percent 4.7 % [address] Basophil Percent 0.9 % [address] Nucleated RBC 0 /[address] Specimen Blood Performing Organization Address [facility] Phone Number [address] [place] [phone] LIPID PANEL (03/20/2019 7:21 AM CDT) Cholesterol 96 (L) 100 - 200 mg/dL [facility] Triglyceride 82 50 - 150 mg/dL [facility] HDL 28 (L) 40 - 80 mg/dL [facility] LDL 52 0 - 129 mg/dL [facility] Specimen Blood Performing Organization Address [facility] Phone Number [facility] [address] [place], [place] [phone] HEPATIC FUNCTION PANEL (03/20/2019 7:21 AM CDT) Alkaline Phosphatase 80 30 - 150 U/L [address] AST - SGOT 20 0 - 35 U/L [address] ALT - SGPT 13 0 - 55 U/L [address] Bilirubin Total 0.8 0.2 - 1.2 mg/dL [address] Bilirubin Indirect 0.4 0.0 - 0.8 mg/dL [address] Bilirubin Direct 0.4 0.0 - 0.4 mg/dL [address] Albumin 3.5 3.5 - 5.0 g/dL [address] Protein Total 6.4 6.0 - 8.2 g/dL [address] Specimen Blood Performing Organization Address [facility] Phone Number [address] [place] [phone] BASIC METABOLIC PANEL (03/20/2019 7:21 AM CDT) Glucose 132 (H) 70 - 100 mg/dL [address] BUN 18 6 - 22 mg/dL [address] Creatinine 1.05 0.80 - 1.[address] mg/dL BUN/Creatinine Ratio 17.1 10.0 - 25.[address] Sodium 137 135 - 145 meq/L [place] [address] [facility] Potassium 3.8 3.5 - 5.3 meq/L [address] Chloride 105 99 - 110 meq/L [address] CO2 25 20 - 29 meq/L [address] Anion Gap with K 11 6 - 20 meq/L [address] Calcium 8.9 8.5 - 10.5 mg/dL [address] Age [address] eGFR Non- 68 >=[address] Rwandan mL/min/1.73m2 eGFR 82 >=[address] mL/min/1.73m2 Specimen Blood Performing Organization Address [facility] Phone Number [address] [place] [phone] PROTIME/INR (03/20/2019 7:21 AM CDT)Only the most recent of2 resultswithin the time period is included. Protime 28.2 (H) 12.0 - 14.[address] INR 2.7 2.0 - 3.[address] Specimen Blood Narrative Performed At Normal INR reference range (patients not on oral [address] anticoagulants)0.9-1.1. INR Standard Intensity=(2.0 - 3.0) INR Higher Intensity=(2.5 - 3.5) Performing Organization Address [facility] Phone Number [address] [place] [phone] EKG to be done 3 hours post coronary intervention (03/19/2019 6:45 PM CDT)Only the most recent of2 resultswithin the time period is included. EKG [facility] Sinus rhythm with marked sinus arrythmia with 1st degree A-V block with frequent Premature ventricular complexes Left axis deviation intermiteent atrial pacing Anteroseptal infarct , age undetermined Abnormal ECG Ventricular Rate: 74 BPM Atrial Rate: 61 BPM P-R Interval: 288 ms QRS Duration: 92 ms Q-T Interval: 438 ms QTc Calculation(Bazett): 486 ms Calculated P [place]: 70 degrees Calculated R [place]: -43 degrees Calculated T [place]: 92 degrees Specimen Narrative Performed At Performing Organization Address [facility]/Zipcode Phone Number [facility] [employer] [employer] TROPONIN I (03/19/2019 5:59 PM CDT)Only the most recent of2 resultswithin the time period is included. Troponin I 0.269 (H) 0.000 - 0.028 ng/mL [facility] Specimen Blood Performing Organization Address City/State/Zipcode Phone Number [address] [place] [place] [address] ECHO ADULT COMPLETE (03/19/2019 4:54 PM CDT) Specimen Narrative Performed At [facility] Patient: DENIS SMITH MR#: [id number] Exam Date: 03/19/2019 Transthoracic Echocardiogram [facility] [address] [facility], [id number] : 121/68 mmHg HR:75 bpm : 1940Exam Location: Bedside Height:68.00 "( 172.7 cm) Age: 79 year(s)Patient Room: [facility] 01Weight:268 lbs.( 121.56 kg) Gender:MalePatient Status: Inpatient BSA: 2.31 m2 Dye Boarding Machine Operator: HILARY MCBRIDE RDCS Reading Physician: ROXY HAUSER MD [facility] Ordering Physician:OLEG VALDEZ MD Referring Physician:ANDREA HARRIS Procedure Indication(s):Chest Pain Examination:TTE Complete 2D(m-mode) , Complete Spectral Doppler, Color Doppler Exam Comments No IV access to use for contrast. Clinical History Most Recent PCI Date: 03/19/2019 Conclusions Left Ventricle: Mildly reduced left ventricular systolic function. The ejection fraction is visually estimated to be 45 %. The mid anteroseptal, mid inferolateral, apical anterior, apical septal, apical inferior, apical lateral and apex wall segments are hypokinetic. Doppler parameters are consistent with high left ventricular filling pressure. Left Atrium: Dilated left atrium. Mitral Valve: Moderate mitral leaflet thickening. Restricted mobility of the posterior mitral leaflet. Eaip-co-wjmidapp mitral regurgitation. Right Atrium: Dilated right atrium by visual assessment. Comparison Study Comparison Date: 12/05/2018 Comparison Study: Transthoracic Echocardiogram There was no significant change from prior echo Findings Left Ventricle: Normal left ventricular size. Increased left ventricular wall thickness. Mildly reduced left ventricular systolic function. The ejection fraction is visually estimated to be 45 %. The mid anteroseptal, mid inferolateral, apical anterior, apical septal, apical inferior, apical lateral and apex wall segments are hypokinetic. Doppler parameters are consistent with high left ventricular filling pressure. Left Atrium: Dilated left atrium. Aortic Valve: The aortic valve is tricuspid. Moderate aortic cuspal thickening. Reduced aortic cuspal mobility. Trivial aortic regurgitation. No aortic stenosis. Aorta: The sinus of valsalva is normal in size measuring 40.0 mm. The ascending aorta is normal in size measuring 39.0 mm. Mitral Valve: Moderate mitral leaflet thickening. Mild mitral leaflet calcification. Restricted mobility of the posterior mitral leaflet. There is mild mitral annular calcification. Tnuw-io-fufjyaku mitral regurgitation. No mitral stenosis. IAS: No gross evidence of shunt flow seen; however the possibility of a PFO cannot be completely ruled out. Right Ventricle: Normal right ventricular size. Normal right ventricular systolic function. Normal right ventricular wall thickness. An ICD lead is present in the right ventricle. Pulmonary Artery: The tricuspid jet envelope definition is inadequate for estimation of RV systolic pressure. Pulmonary Vein: The pulmonary venous flow demonstrates a blunted S-wave. Right Atrium: Dilated right atrium by visual assessment. An ICD lead is present in the right atrium. Tricuspid Valve: Normal tricuspid valve structure. Trivial tricuspid regurgitation. No significant tricuspid stenosis. Pulmonic Valve: Normal pulmonary valve structure. Trivial pulmonary regurgitation. No pulmonary stenosis. IVC: Dilated IVC with normal respirophasic changes. Pericardium: No significant pericardial effusion. There is pericardial fat. No pleural effusion. Measurements Left Ventricle Aortic Valve Label ValueNormal Value Label Value Normal Value LVDd, 2D59 mm LVOT Vmax 81 cm/s LVDs, 2D41.1 mm AV Vmax 145 cm/s IVSd, 2D12.5 mm LVOTd 23 mm LVPWd, 2D 11.3 mm LVOT VTI19.4 cm FS, 2D30.34 % LVOT PGmax3 mmHg Cardiac Output6.08 L/min AV Xabvg210 cm/s Cardiac Index 2.63 AV VTI37 cm L/min/m-sq AV PGmax 8 mmHg LVEDVI, 2D74.9 ml/m2 AV PGmean 5 mmHg LVESVI, 2D32.5 ml/m2 RAMAKRISHNA (Vmax)2.3 cm-sq Stroke Index35.06 AV Vmax, Cmegrbv430 cm/s ml/m-sqAVA( VTI)2.2 cm-sq Left Atrium Obstructive Index 0.56 Label ValueNormal Value (Vmax) LADs Long.74 mm Obstruction Index 0.52 LA Volume Index 52.8 ml/m-sq (VTI) LADs, MM53 mm Mitral Valve LA/AO Ratio, MM 1.39 Label Value Normal Value Aorta MV E Vmax 133 cm/ s Label ValueNormal Value MV A Vmax 80 cm/s Ao Asc39 mm MV E/A1.66 Ao Sinus, MM38 mm MV E/E' lateral 19.9 Ao Sinus, 2D40 mm MV E/E' .6 Great Vessels MV Dec Time 241 ms Label ValueNormal Value MV E' septal4 cm/s PVein S 24 cm/s MV VTI45.2 cm MVA (VTI) 1.8 cm-sq PVein D 68 cm/s MV PGmax 9 mmHg S/D Ratio 0.4 MV PGmean 3 mmHg Heart Rate MR Reg. Laftrp40 ml Label ValueNormal Value MR Vmax 433 cm/s Heart Rate75 bpm MR IES260 cm MR Defect Area (ERO)0.2 cm-sq MV E' lateral 6.7 cm/s Tricuspid Valve Label ValueNormal Value RA Pressure 8 mmHg Pulmonic Valve Label ValueNormal Value PV Vmax 69 cm/s PV PGmax2 mmHg Wall Motion Scores -1 - Not Scored, 0 - Unknown, 1 - Normal or hyperkinesia,2 - Hypokinesia, 3 - Akinesia, 4 - Dyskinesia, 5 - Aneurysm Procedure Note Interface, Inc Results No Pull Forward - 03/19/2019 8:12 PM CDT Patient: DENIS SMITH MR#: [id number] Exam Date: 03/19/2019 Transthoracic Echocardiogram [facility] [address] [place] [id number] BP: 121/68 mmHg HR: 75 bpm : 1940 Exam Location: Bedside Height: 68.00 "(172.7 cm) Age: 79 year(s) Patient Room: [place] [address] Weight: 268 lbs.(121.56 kg) Gender: Male Patient Status: Inpatient BSA: 2.31 m2 Dye Boarding Machine Operator: HILARY MCBRIDE RDCS Reading Physician: ROXY HAUSER MD [facility] Ordering Physician: OLEG VALDEZ MD Referring Physician: ANDREA HARRIS Procedure Indication(s): Chest Pain Examination: TTE Complete 2D(m-mode), Complete Spectral Doppler, Color Doppler Exam Comments No IV access to use for contrast. Clinical History Most Recent PCI Date: 03/19/2019 Conclusions Left Ventricle: Mildly reduced left ventricular systolic function. The ejection fraction is visually estimated to be 45 %. The mid anteroseptal, mid inferolateral, apical anterior, apical septal, apical inferior, apical lateral and apex wall segments are hypokinetic. Doppler parameters are consistent with high left ventricular filling pressure. Left Atrium: Dilated left atrium. Mitral Valve: Moderate mitral leaflet thickening. Restricted mobility of the posterior mitral leaflet. [id number] mitral regurgitation. Right Atrium: Dilated right atrium by visual assessment. Comparison Study Comparison Date: 12/05/2018 Comparison Study: Transthoracic Echocardiogram There was no significant change from prior echo Findings Left Ventricle: Normal left ventricular size. Increased left ventricular wall thickness. Mildly reduced left ventricular systolic function. The ejection fraction is visually estimated to be 45 %. The mid anteroseptal, mid inferolateral, apical anterior, apical septal, apical inferior, apical lateral and apex wall segments are hypokinetic. Doppler parameters are consistent with high left ventricular filling pressure. Left Atrium: Dilated left atrium. Aortic Valve: The aortic valve is tricuspid. Moderate aortic cuspal thickening. Reduced aortic cuspal mobility. Trivial aortic regurgitation. No aortic stenosis. Aorta: The sinus of valsalva is normal in size measuring 40.0 mm. The ascending aorta is normal in size measuring 39.0 mm. Mitral Valve: Moderate mitral leaflet thickening. Mild mitral leaflet calcification. Restricted mobility of the posterior mitral leaflet. There is mild mitral annular calcification. [id number] mitral regurgitation. No mitral stenosis. IAS: No gross evidence of shunt flow seen; however the possibility of a PFO cannot be completely ruled out. Right Ventricle: Normal right ventricular size. Normal right ventricular systolic function. Normal right ventricular wall thickness. An ICD lead is present in the right ventricle. Pulmonary Artery: The tricuspid jet envelope definition is inadequate for estimation of RV systolic pressure. Pulmonary Vein: The pulmonary venous flow demonstrates a blunted S-wave. Right Atrium: Dilated right atrium by visual assessment. An ICD lead is present in the right atrium. Tricuspid Valve: Normal tricuspid valve structure. Trivial tricuspid regurgitation. No significant tricuspid stenosis. Pulmonic Valve: Normal pulmonary valve structure. Trivial pulmonary regurgitation. No pulmonary stenosis. IVC: Dilated IVC with normal respirophasic changes. Pericardium: No significant pericardial effusion. There is pericardial fat. No pleural effusion. Measurements Left Ventricle Aortic Valve Label Value Normal Value Label Value Normal Value LVDd, 2D 59 mm LVOT Vmax 81 cm/s LVDs, 2D 41.1 mm AV Vmax 145 cm/s IVSd, 2D 12.5 mm LVOTd 23 mm LVPWd, 2D 11.3 mm LVOT VTI 19.4 cm FS, 2D 30.34 % LVOT PGmax 3 mmHg Cardiac Output 6.08 L/min AV Vmean 106 cm/s Cardiac Index 2.63 AV VTI 37 cm L/min/m-sq AV PGmax 8 mmHg LVEDVI, 2D 74.9 ml/m2 AV PGmean 5 mmHg LVESVI, 2D 32.5 ml/m2 RAMAKRISHNA (Vmax) 2.3 cm-sq Stroke Index 35.06 AV Vmax, Caliper 145 cm/s ml/m-sq RAMAKRISHNA (VTI) 2.2 cm-sq Left Atrium Obstructive Index 0.56 Label Value Normal Value (Vmax) LADs Long. 74 mm Obstruction Index 0.52 LA Volume Index 52.8 ml/m-sq (VTI) LADs, MM 53 mm Mitral Valve LA/AO Ratio, MM 1.39 Label Value Normal Value Aorta MV E Vmax 133 cm/s Label Value Normal Value MV A Vmax 80 cm/s Ao Asc 39 mm MV E/A 1.66 Ao Sinus, MM 38 mm MV E/E' lateral 19.9 Ao Sinus, 2D 40 mm MV E/E' septal 33.6 Great Vessels MV Dec Time 241 ms Label Value Normal Value MV E' septal 4 cm/s PVein S 24 cm/s MV VTI 45.2 cm MVA (VTI) 1.8 cm-sq PVein D 68 cm/s MV PGmax 9 mmHg S/D Ratio 0.4 MV PGmean 3 mmHg Heart Rate MR Reg. Volume 35 ml Label Value Normal Value MR Vmax 433 cm/s Heart Rate 75 bpm MR VTI 167 cm MR Defect Area (ERO) 0.2 cm-sq MV E' lateral 6.7 cm/s Tricuspid Valve Label Value Normal Value RA Pressure 8 mmHg Pulmonic Valve Label Value Normal Value PV Vmax 69 cm/s PV PGmax 2 mmHg Wall Motion Scores -1 - Not Scored, 0 - Unknown, 1 - Normal or hyperkinesia, 2 - Hypokinesia, 3 - Akinesia, 4 - Dyskinesia, 5 - Aneurysm Performing Organization Address [facility] Phone Number [facility], [place] ACTIVATED CLOTTING TIME POCT (03/19/2019 1:58 PM CDT) Activated Clotting 323 (H) 100 - 150 Secs [facility] POINT OF CARE TESTING Specimen Blood Narrative Performed At DEVICE: [facility] POINT OF CARE TESTING [id number] Performing Organization Address [facility] Phone Number [facility] POINT OF [address], [place] [address] CARE TESTING BRAIN NATRIURETIC PEPTIDE (03/19/2019 12:24 PM CDT) BNP 388 (H) 0 - 100 pg/mL [place] [address] [facility] Specimen Blood Performing Organization Address [facility] Phone Number [place] [address] [place] [id number] COMPREHENSIVE METABOLIC PANEL (03/19/2019 12:24 PM CDT) Glucose 175 (H) 70 - 100 mg/dL [place] [address] [facility] BUN 19 6 - 22 mg/dL [address] Creatinine 1.30 0.80 - 1.[address] mg/dL BUN/Creatinine Ratio 14.6 10.0 - 25.[address] Sodium 137 135 - 145 meq/L [place] [address] [facility] Potassium 4.3 3.5 - 5.3 meq/L [address] Chloride 100 99 - 110 meq/L [address] CO2 30 (H) 20 - 29 meq/L [address] Anion Gap with K 11 6 - 20 meq/L [address] Calcium 9.5 8.5 - 10.[address] mg/dL Protein Total 7.3 6.0 - 8.2 g/dL [address] Albumin 4.0 3.5 - 5.0 g/dL [address] Alkaline Phosphatase 89 30 - 150 U/L [address] AST - SGOT 21 0 - 35 U/L [address] ALT - SGPT 14 0 - 55 U/L [address] Bilirubin Total 1.1 0.2 - 1.2 mg/dL [address] Age [address] eGFR Non- 53 (L) >=[address] [place] mL/min/1.73m2 eGFR 64 >=[address] mL/min/1.73m2 Specimen Blood Performing Organization Address [facility] Phone Number [address] [place] [id number] PTT (03/19/2019 12:24 PM CDT) APTT 42 (H) 24 - [address] Specimen Blood Performing Organization Address [facility] Phone Number [address] [place] [id number] COMPLETE BLOOD COUNT WITHOUT DIFFERENTIAL (03/19/2019 12:24 PM CDT) WBC 6.2 4.0 - 11.0 K/uL [address] RBC 4.67 4.40 - 5.80 M/uL [address] Hemoglobin 15.1 13.5 - 17.5 g/dL [address] Hematocrit 45.4 40.0 - 50.0 % [address] MCV 97.2 80.0 - 98.[address] MCH 32.3 25.5 - 34.[address] MCHC 33.3 31.5 - 36.5 g/dL [address] RDW-CV 14.2 11.5 - 15.5 % [address] RDW-SD 50.3 (H) 35.5 - 50.[address] Platelet Count 163 140 - 400 K/uL [address] MPV 10.9 8.5 - 12.[address] Specimen Blood Performing Organization Address City/State/Zipcode Phone Number [address] [place] [address] documented in this encounter Visit Diagnoses Diagnosis NSTEMI (non-ST elevated myocardial infarction) (HCC) - Primary Acute myocardial infarction, subendocardial infarction, episode of care unspecified 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, 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 Use rectal suppository if patient not able to take oral acetaminophen., acetaminophen (TYLENOL) tablet 650 mg 650 mg, Oral, Every six hours prn, Starting Sun03/19/19 at 1209, Until Discontinued, fever > (indicate temp), 100.5 degrees F, Total dose of acetaminophen from all acetaminophen containing products should not exceed 4 grams (4000 mg) per day., acetaminophen (TYLENOL) tablet 650 mg 650 mg, Oral, Every four hours prn, Starting Sun03/19/19 at 1452, Until Discontinued, mild pain, Post-Procedure (Cath), Pain Scale 1 - 3, aspirin chewable tablet 81 mg Given 03/20/2019 8:59 AM CDT 81 mg 81 mg, Oral, Daily, First dose on Sun03/20/19 at 0900, Until Discontinued, Post-Procedure (Cath) atorvaSTATin (LIPITOR) tablet 40 mg Given 03/20/2019 8:59 AM CDT 40 mg 40 mg, Oral, DAILY, First dose on Sun03/20/19 at 0900, Until Discontinued bisacodyl (DULCOLAX) suppository 10 mg 10 mg, Rectal, One time a day prn, Starting Sun03/19/19 at 1209, Until Discontinued, constipation, Use SECOND for constipation. If patient cannot take oral medications, use first for constipation., carbohydrate 15 g 15 g, Oral, PRN per parameter, Starting Sun03/19/19 at 1212, Until Discontinued , low blood glucose, Give 15 grams of carbohydrate if blood glucose is less than 70 mg/dL, patient is responsive and able to take food or oral meds. Recheck blood glucose in 15 minutes. Repeat 1 time and call MD. If recheck is greater than 70 mg/dL and able to take food or oral meds, give 15 gram carbohydrate if meal or snack due in more than an hour. Serve meal or snack if due in less than 1 hour. See hypoglycemia treatment on cardex. Sources of 15 grams carbohydrate: a.4 oz of fruit juice or b.4 oz of soda pop (NOT diet) or c.1 tablespoon of honey, carVEDilol (COREG) tablet 12.5 mg Given 03/20/2019 8:59 AM CDT 12.5 mg 12.5 mg, Oral, Two times a day with meals, First dose on Sun03/19/19 at 1730, Until Discontinued, Take with food., , Take with food., Given 03/19/2019 4:39 PM CDT 12.5 mg dextrose 50% IV solution 50 mL 50 mL (25 g), IV, PRN per parameter, Starting Sun03/19/19 at 1212, Until Discontinued, low blood glucose, 50 mL, Give if blood glucose is less than 70 mg/dL, patient is unresponsive or NPO, and has IV access. Recheck blood glucose in 15 minutes and call MD. Repeat dose if recheck less than 70 mg/dL and call MD. If recheck is greater than 70 mg/dL and able to take food or oral meds, give 15 gram carbohydrate if meal or snack due in more than an hour. Serve meal or snack if due in less than 1 hour. See hypoglycemia treatment on cardex., dextrose chewable tablet 16 g 16 g (4 tablet), Oral, PRN per parameter, Starting Sun03/19/19 at 1212, Until Discontinued, low blood glucose, Chew before swallowing. Give 15 gram of carbohydrate if blood glucose is less than 70 mg/dL, patient is responsive and able to take food or oral meds. Recheck blood glucose in 15 minutes. Repeat 15 gram carbohydrate if recheck is less than 70 mg/dL and call MD. If recheck is greater than 70 mg/dL and able to take food or oral meds, give 15 gram carbohydrate if meal or snack due in more than an hour. Serve meal or snack if due in less than 1 hour. See hypoglycemia treatment on cardex. (Sources of 15 gram carbohydrate: 4 oz fruit juice or 4 oz soda pop (NOT diet) or 1 tablespoonful honey or 4 glucose tablets )., dilTIAZem (CARDIZEM CD) extended release Given 03/20/2019 8:59 AM CDT 240 mg capsule 240 mg 240 mg, Oral, DAILY, First dose on Sun03/20/19 at 0900, Until Discontinued, Swallow capsule whole. Do not crush, chew or open., , , docusate sodium (COLACE) capsule 100 mg Given 03/20/2019 8:59 AM CDT 100 mg 100 mg, Oral, Two times a day, First dose on Sun03/19/19 at 2100, Until Discontinued, Swallow cap whole. Should not be crushed or chewed, Given 03/19/2019 8:45 PM CDT 100 mg docusate sodium (THEREVAC-SB MINI;ENEMEEZ MINI) 283 MG enema 1 enema 1 enema, Rectal, One time a day prn, Starting Sun03/19/19 at 1209, Until Discontinued, constipation, Use THIRD for constipation - if no BM 8 hours after ducolax suppository. If patient cannot take oral medications, use second for constipation., fluticasone (FLONASE) 50 mcg/spray Given 03/20/2019 8:58 AM CDT 1 spray 1 spray, Each nostril, Two times a day, First dose on Sun03/19/19 at 2100, Until Discontinued, use as directed, Given 03/19/2019 8:48 PM CDT 1 spray glucagon for injection 1 mg vial 1 mg 1 mg, Intramuscular, PRN per parameter, Starting Sun03/19/19 at 1212, Until Discontinued, low blood glucose, Give if blood glucose less than 70 mg/dL, patient is unresponsive or NPO, and has no IV access. Establish IV access. Recheck blood glucose in 15 minutes and call MD. If recheck is greater than 70 mg/dL and able to take food or oral meds, give 15 gram carbohydrate if meal or snack due in more than an hour. Serve meals or snack if due in less than 1 hour. See hypoglycemia treatment on cardex. Reconstitute vial with 1 mL of sterile water for injection for reconstitution for a final concentration of 1 mg/mL. Shake vial gently. Use immediately and discard unused portion. Reconstitute with 1 mL of sterile water for injection to yield 1 mg/mL. Shake vial gently. Use immediately and discard unused portion., insulin aspart (NovoLOG) SQ correction Given 03/20/2019 12:51 PM CDT 3 Units scale (Adult) 2-8 Units, Subcutaneous, Three times a day with meals, First dose on Sun03/19/19 at 1215, Until Discontinued, 0.08 mL, Patient is eating LOW DOSE insulin aspart (NovoLOG) subcutaneous correction scale Premeal Blood Glucose=Insulin Dose 150-199 2 units 200-249 3 units 250-299 5 units 300-349 7 units Over 349 8 units, insulin detemir (LEVEMIR) SQ injection Given 03/19/2019 8:55 PM CDT 40 Units 40 Units, Subcutaneous, Bedtime, First dose on Sun03/19/19 at 2100, Until Discontinued, 0.4 mL, Do not hold. Call provider if blood glucose less than 100 mg/dl, if patient changed to NPO or if tube feedings stopped., melatonin tablet 3 mg 3 mg, Oral, Bedtime prn, Starting Sun03/19/19 at 1209, Until Discontinued, other (Specify), insomnia, If inadequate response in 60 minutes, may proceed to next choice option or, if no other options, contact provider., nitroglycerin (NITROSTAT) sublingual tablet 0.4 mg 0.4 mg, Sublingual, Every five minutes prn, Starting Sun03/19/19 at 1407, Until Discontinued, chest pain, At onset of chest pain, dissolve one tablet under tongue. May repeat every 5 minutes for 3 doses. Do not crush or chew., omeprazole (priLOSEC) capsule 40 mg Given 03/19/2019 4:38 PM CDT 40 mg 40 mg, Oral, One time a day with evening meal, First dose on Sun03/19/19 at 1730, Until Discontinued, Swallow cap whole. Do not crush, chew or open., ondansetron (ZOFRAN ODT) dispersible tablet 4 mg 4 mg, Oral, Every four hours prn, Starting Sun03/19/19 at 1209, Until Discontinued, nausea, vomiting, Use FIRST. If ineffective after 30 minutes use ondansetron IV , ondansetron (ZOFRAN) injection solution 4 mg 4 mg, IV, Every four hours prn, Starting Sun03/19/19 at 1209, Until Discontinued, nausea, vomiting, 2 mL, Use SECOND. If ineffective after 30 minutes and ondansetron ODT used, call physician for alternative. If preference is to further dilute for IV administration: First draw up patient-specific dose, then dilute to 10 mL with 0.9% sodium chloride., senna-docusate sodium (SENOKOT-S;PERICOLACE) tablet 2 tablet 2 tablet, Oral, Two times a day prn, Starting Sun03/19/19 at 1209, Until Discontinued, constipation, Use FIRST for constipation unless patient cannot take oral medications., ticagrelor (BRILINTA) tablet 90 mg Given 03/20/2019 8:59 AM CDT 90 mg 90 mg, Oral, Two times a day, 730 doses, First dose on Sun03/19/19 at 2100, Last dose on Sun03/18/20 at 0900, Post-Procedure (Cath), If medication is crushed, must be mixed with water for administration., Given 03/19/2019 8:45 PM CDT 90 mg Medication Order MAR Action Action Date Dose Rate Site aspirin tablet 325 mg Given 03/19/2019 12:57 PM CDT 325 mg 325 mg, Oral, One time, 1 dose, Sun03/19/19 at 1340, Prep Orders (Cath) if inpatient - floor RN to release, Patient to receive 325 mg aspirin prior to procedure If patient currently taking aspirin at home and has not taken their dose today prior to procedure: hold this dose and administer 325 mg, fentaNYL 100 mcg/2 mL preservative free Given 03/19/2019 1:29 PM CDT 25 mcg injection solution 25-300 mcg 25-300 mcg, IV, PRN per parameter, Starting Sun03/19/19 at 1242, Until Sun03/19/19 at 1415, other (Specify), sedation for cardiac catheterization, 6 mL, Pre-Procedure (Cath), procedural area to release, For sedation under direction provider privileged to perform sedation. Do not give on the floor., heparin (porcine) injection solution Given 03/19/2019 1:44 PM CDT 4,000 Units 0-12,000 Units 0-12,000 Units, IV, Administer in Cardiac Outdoor Landscape Architect, 1 dose, Sun03/19/19 at 1345, 12 mL, Under the direction of the provider in CCL. Do not give on the floor., iohexol (OMNIPAQUE) 350 mg/mL solution 75 mL Given 03/19/2019 2:11 PM CDT 75 mL 75 mL, Intra-arterial, One time, 1 dose, Sun03/19/19 at 1415, 100 mL lidocaine PF (XYLOCAINE-MPF) 1 % preservative Given 03/19/2019 1:34 PM CDT 2 mL free injection solution 2 mL 2 mL, Subcutaneous, One time, 1 dose, Sun03/19/19 at 1340, 2 mL, Prep Orders (Cath) if inpatient - floor RN to release midazolam (VERSED) injection solution 0.5-10 Given 03/19/2019 1:29 PM CDT 1 mg mg 0.5-10 mg, IV, PRN per parameter, Starting Sun03/19/19 at 1242, Until Sun03/19/19 at 1415, other (Specify), sedation for cardiac catheterization, 10 mL, Pre-Procedure (Cath), procedural area to release, For sedation under direction provider privileged to perform sedation. Do not give on the floor., sodium chloride 0.9% IV solution Restarted 03/19/2019 3:30 PM CDT 150 mL/hr IV, at 150 mL/hr, Continuous, Starting Sun03/19/19 at 1510, Until Sun03/19/19 at 1709, 1,000 mL, Post-Procedure (Cath) ticagrelor (BRILINTA) tablet 90 mg Given 03/19/2019 2:02 PM CDT 180 mg 90 mg, Oral, Two times a day, First dose on Sun03/19/19 at 2100, Until Discontinued, If medication is crushed, must be mixed with water for administration., verapamil-hEParin in normal saline (radial Given 03/19/2019 1:34 PM CDT cocktail) Intra-arterial, Now, 1 dose, Sun03/19/19 at 1245, 10 mL, Prep Orders (Cath) if inpatient - floor RN to release, Do NOT administer on the floor. Procedural/CCL ONLY product. Provider must be present., warfarin (COUMADIN) tablet 5 mg Given 03/19/2019 4:39 PM CDT 5 mg 5 mg, Oral, Warfarin one time dose, 1 dose, Sun03/19/19 at 1600, If patient is receiving tube feeding, hold tube feeding 1 hour before and 1 hour after warfarin administration., warfarin (COUMADIN) tablet 5 mg Given 03/20/2019 12:51 PM CDT 5 mg 5 mg, Oral, Warfarin one time dose, 1 dose, Paulette 03/20/19 at 1230, Give before discharge, If patient is receiving tube feeding, hold tube feeding 1 hour before and 1 hour after warfarin administration., documented in this encounter
== END 2019-03-19 10:00 ==
LOC: FB.ED 10:42 → FB.MS 15:29
PROVIDERS: ADMIT Family Medicine; ATTEND Family Medicine
DX: R07.9 Chest pain, unspecified (principal); I11.0 Hypertensive heart disease with heart failure; I50.9 Heart failure, unspecified; I25.10 Atherosclerotic heart disease of native coronary artery without angina pectoris; I48.2 Chronic atrial fibrillation; E78.00 Pure hypercholesterolemia, unspecified; J44.9 Chronic obstructive pulmonary disease, unspecified; K21.9 Gastro-esophageal reflux disease without esophagitis; M19.90 Unspecified osteoarthritis, unspecified site; M10.9 Gout, unspecified; E11.42 Type 2 diabetes mellitus with diabetic polyneuropathy; E11.319 Type 2 diabetes mellitus with unspecified diabetic retinopathy without macular edema; Z95.810 Presence of automatic (implantable) cardiac defibrillator; Z79.899 Other long term (current) drug therapy; Z79.4 Long term (current) use of insulin; Z79.01 Long term (current) use of anticoagulants; Z87.891 Personal history of nicotine dependence
CPT/HCPCS: 36410; 36415; 71046; 80048; 80053; 82962; 83735; 83880; 84484; 85025; 85610; 93005; 99285; A9270; G0378; J1815; 93010

== ENCOUNTER 2020-09-13 19:10 | Inpatient (IN) | payer MEDICARE, BC ==
[2020-09-13] MEDS ORDERED: Furosemide 40 MG/4 ML VIAL IVPUSH ONE (19:31)
[2020-09-13] MEDS ORDERED: Morphine 4 MG/ML VIAL IVPUSH STA (19:31)
[2020-09-13] MEDS ORDERED: hydrALAZINE 20 MG/ML SDV IVPUSH STA (19:31)
[2020-09-13] MEDS ORDERED: LORazepam 2 MG/ML SDV IVPUSH STA (19:46)
[2020-09-13] MEDS: Sodium Chloride 0.9% 10 ML Syringe FLUSH PRN ×3 (19:47→19:52)
--- NOTE | 2020-09-13 19:55 | EDM.PDOC ---
ED HPI GENERAL MEDICAL PROBLEM - General Stated Complaint: SOB Time Seen by Provider: 09/13/20 19:50 Source of Information: Reports: Family History Limitations: Reports: No Limitations - History of Present Illness INITIAL COMMENTS - FREE TEXT/NARRATIVE: Patient presented to the ED because of sudden onset of dyspnea at about 6 pm before he ate his dinner. There is no chest pain, nausea, vomiting. There is no fever,chills, cough or cold symptoms. He has significant cardiac history including: NSTEMI, AFIB, CHF. - Related Data Allergies Allergy/AdvReac Type Severity Reaction Status Date / Time No Known Allergies Allergy Verified 02/25/19 07:15 Home Meds: Home Meds Omeprazole 40 mg PO 1700 12/08/13 [History] Acetaminophen [Acetaminophen ER] 650 mg PO Q4H PRN 02/22/16 [History] Multivit-Minerals/FA/Lycopene [One Daily Men's Health Tablet] 1 tab PO DAILY 04/14/16 [History] Nitroglycerin 0.4 mg SL Q5M PRN 04/14/16 [History] Triamcinolone Acetonide [Kenalog 0.1% Crm] 1 applic TOP TID PRN 04/14/16 [History] Diltiazem [Dilacor XR] 240 mg PO DAILY 01/07/18 [History] metOLazone [Metolazone] 2.5 mg PO TUTHSA 01/07/18 [History] Docusate Sodium [Colace] 100 mg PO DAILY 11/25/18 [History] Fluticasone Propionate [Flonase] 1 spray ANKUR BID 11/25/18 [History] Gluc [place]/Chondro [place] A/Vit C/Mn [Glucosamine-Chondroitin Cap] 1 cap PO BID 11/25/18 [History] Insulin Detemir [Levemir Flextouch] 40 units SQ BEDTIME 11/25/18 [History] Loratadine [Claritin] 10 mg PO DAILY PRN 11/25/18 [History] Potassium Chloride 20 meq PO BIDMEALS 11/25/18 [History] Tiotropium Br/Olodaterol HCl [Stiolto Respimat Inhal [place]] 1 puff INH DAILY 11/25/18 [History] Warfarin Sodium [Jantoven] 2.5 mg PO FR 11/25/18 [History] Warfarin Sodium [Jantoven] 5 mg PO SUMOTUWETHSA 11/25/18 [History] Furosemide [Lasix] 40 mg PO 08,12 03/18/19 [History] Glycerin/Phenyleph/Pramox/Pet [Preparation H Crm] 1 applic RC Q4H PRN 03/18/19 [History] Sodium Chloride 0.65% [[place] Saline] 2 spray ANKUR QID 03/18/19 [History] Albuterol [Ventolin HFA] 2 puff IH Q4H PRN 09/14/20 [History] Aloe Vera/Sodium Chloride [[place] Saline Nasal Gel] 1 applic NASBOTH TID 09/14/20 [History] Aspirin [Halfprin] 81 mg PO DAILY 09/14/20 [History] Insulin Aspart [NovoLOG] 12 units SUBCUT TIDMEALS 09/14/20 [History] Saliva Substitute Combo No.9 [Biotene] 10 ml PO TID 09/14/20 [History] atorvaSTATin Calcium [Lipitor] 40 mg PO DAILY 09/14/20 [History] carvediloL [Coreg] 12.5 mg PO BIDMEALS 09/14/20 [History] Past Medical History HEENT History: Reports: Cataract, Hard of Hearing, Sinusitis Other HEENT History: States had sinus surgery in the past. Cardiovascular History: Reports: Automatic Implantable Cardioverter Defibrillators, Blood Clots/VTE/DVT, CAD, Heart Failure, High Cholesterol, Hypertension, Pacemaker, SOB on Exertion, Stents Other Cardiovascular History: peripheral vascular disease; unstable angina; cardio renal syndrome; deviated septum; elevated troponin Respiratory History: Reports: COPD, Sleep Apnea, SOB Other Respiratory History: Uses O2 @ hs with CPAP - maybe. Reports no cannister Gastrointestinal History: Reports: GERD Genitourinary History: Reports: Other (See Below) Other Genitourinary History: organic impotence; phimosis Musculoskeletal History: Reports: Arthritis, Back Pain, Chronic, Fracture, Gout, Osteoarthritis, Other (See Below) Other Musculoskeletal History: fx ankle Endocrine/Metabolic History: Reports: Diabetes, Type II, Obesity/BMI 30+ Other Endocrine/Metabolic History: Diabetic retinopathy; peripheral neuropathy Hematologic History: Reports: Blood Transfusion(s) Other Hematologic History: long time use of anticoagulant therapy Dermatologic History: Reports: Other (See Below) Other Dermatologic History: Stated rash was on stomach and was taken medication at home and now resolved. - Infectious Disease History Infectious Disease History: Reports: Chicken Pox, Measles, Mumps - Past Surgical History HEENT Surgical History: Reports: Cataract Surgery, Other (See Below) Other HEENT Surgeries/Procedures: sinus surgery Cardiovascular Surgical History: Reports: Coronary Artery Stent, Percutaneous Transluminal Angioplasty Other Cardiovascular Surgeries/Procedures: Pacemaker GI Surgical History: Reports: Colonoscopy Social & Family History - Family History Family Medical History: No Pertinent Family History - Caffeine Use Caffeine Use: Reports: Soda ED ROS GENERAL - Review of Systems Review Of Systems: See Below Constitutional: Reports: No Symptoms HEENT: Reports: No Symptoms Respiratory: Reports: Shortness of Breath Cardiovascular: Reports: Dyspnea on Exertion Endocrine: Reports: No Symptoms GI/Abdominal: Reports: No Symptoms : Reports: No Symptoms Musculoskeletal: Reports: No Symptoms, Joint Swelling Skin: Reports: No Symptoms Neurological: Reports: No Symptoms Psychiatric: Reports: No Symptoms ED EXAM, GENERAL - Physical Exam Exam: See Below Exam Limited By: No Limitations General Appearance: Alert, No Apparent Distress Eye Exam: Bilateral Eye: PERRL Ears: Normal External Exam, Normal Canal Nose: Normal Inspection, Normal Mucosa, No Blood Throat/Mouth: Normal Inspection Head: Atraumatic, Normocephalic Neck: Normal Inspection, Supple, Non-Tender, Full Range of Motion Respiratory/Chest: No Respiratory Distress, Respiratory Distress, Decreased Breath Sounds, Crackles Cardiovascular: Normal Peripheral Pulses, No Gallop, No JVD, No Murmur, No Rub, Tachycardia, Irregularly Irregular GI/Abdominal: Normal Bowel Sounds, Soft, Non-Tender, No Organomegaly, No Distention Back Exam: Normal Inspection, Full Range of Motion Extremities: Normal Inspection, Normal Range of Motion, Pedal Edema, Other (Left 2nd toe amputation) Neurological: Alert, Oriented, CN II-XII Intact, Normal Cognition Psychiatric: Normal Affect Course - Vital Signs Text/Narrative:: Labs/EKG/CXR was discussed with patient and his brother CXR-CHF,Pulmonary edema BiPap Lasix 60 mg IV Morphine 4 mg IV Ativan 1 mg IV Hydralazine 20 mg IV Wong Code Status:Full Code Last Recorded V/S: Last Vital Signs Temp 36.8 C 09/14/20 08:19 Pulse 82 09/14/20 08:19 Resp 27 H 09/14/20 08:19 BP 102/62 09/14/20 08:19 Pulse Ox 98 09/14/20 08:19 - Orders/Labs/Meds Orders: Active Orders 24 hr Category Date Time Status Patient Status [ADT] Routine ADT 09/13/20 21:17 Active Blood Glucose Check, Bedside [RC] QIDACANDBED Care 09/13/20 21:16 Active Cardiac Monitoring [RC] CONTINUOUS Care 09/13/20 21:19 Active EKG Documentation Completion [RC] ASDIRECTED Care 09/13/20 19:30 Active Wong Catheter Insertion [Insert Urinary Catheter] [OM. Care 09/13/20 19:45 Ordered PC] Q24H Intake and Output [RC] 06,14,22 Care 09/13/20 21:19 Active Oxygen Therapy [RC] .PRN Care 09/13/20 21:17 Active Pulse Oximetry [RC] CONTINUOUS Care 09/13/20 21:19 Active RT Aerosol Therapy [RC] ASDIRECTED Care 09/13/20 21:25 Active Up With Assistance [RC] ASDIRECTED Care 09/13/20 21:16 Active Urinary Catheter Assessment [RC] QSHIFT Care 09/13/20 19:35 Active VTE/DVT Education [RC] 08 Care 09/13/20 21:17 Active Vital Signs [RC] Q4H Care 09/13/20 21:17 Active Heart Healthy Diet [DIET] Diet 09/14/20 Breakfast Ordered Chest 1V Frontal [CR] Stat Exams 09/13/20 19:29 Taken Albuterol/Ipratropium [DuoNeb 3.0-0.5 MG/3 ML] Med 09/13/20 21:16 Active 3 ml NEB QIDRT PRN LORazepam [Ativan] Med 09/13/20 21:29 Active 1 mg IVPUSH Q8H PRN Ondansetron [Zofran] Med 09/13/20 21:16 Active 4 mg IV Q4H PRN Sodium Chloride 0.9% [Saline Flush] Med 09/13/20 19:29 Active 10 ml FLUSH ASDIRECTED PRN Saline Lock Insert [OM.PC] Routine Oth 09/13/20 19:29 Ordered Resuscitation Status Routine Resus Stat 09/13/20 21:16 Ordered EKG 12 Lead [EK] Routine Ther 09/13/20 19:29 Ordered Medication Orders Albuterol/Ipratropium (Duoneb 3.0-0.5 Mg/3 Ml) 3 ml NEB QIDRT PRN PRN Reason: Dyspnea Last Admin: 09/13/20 22:52 Dose: 3 ml Documented by: ROCHELLE Furosemide (Lasix) 40 mg IVPUSH BID ONE Stop: 09/14/20 08:01 Lorazepam (Ativan) 1 mg IVPUSH Q8H PRN PRN Reason: Anxiety Ondansetron HCl (Zofran) 4 mg IV Q4H PRN PRN Reason: Nausea/Vomiting Sodium Chloride (Saline Flush) 10 ml FLUSH ASDIRECTED PRN PRN Reason: Keep Vein Open Last Admin: 09/13/20 19:52 Dose: 10 ml Documented by: Admin: 09/13/20 19:48 Dose: 10 ml Documented by: Admin: 09/13/20 19:47 Dose: 10 ml Documented by: MERON Labs: Laboratory Tests 09/13/20 09/13/20 09/13/20 Range/Units 19:29 19:30 19:30 WBC 10.5 H (3.2-10.1) x10-3/uL RBC 4.67 (3.90-5.90) x10(6)uL Hgb 15.1 (12.9-17.7) g/dL Hct 45.7 (38.3-50.1) % MCV 97.7 (80.8-98.7) fL MCH 32.4 (27.0-33.3) pg MCHC 33.2 (28.7-35.3) g/dL RDW 15.3 H (12.4-15.0) % Plt Count 218 (117-477) x10(3)uL MPV 9.3 (6.7-11.0) fL Neut % (Auto) 73.4 H (40.3-71.8) % Lymph % (Auto) 16.1 (15.8-45.3) % [place] % (Auto) 5.8 (5.5-15.2) % Eos % (Auto) 3.9 (0.1-6.8) % Baso % (Auto) 0.8 (0.3-3.8) % Neut # (Auto) 7.7 H (1.7-6.9) x10-3/uL Lymph # (Auto) 1.7 (0.5-4.5) x10-3/uL [place] # (Auto) 0.6 (0.0-1.2) x10-3/uL Eos # (Auto) 0.4 (0.0-0.6) x10-3/uL Baso # (Auto) 0.1 (0.0-0.3) x10-3/uL PT 20.7 H (9.0-11.1) sec INR 2.01 H (1.00-1.24) APTT 25.6 (24.4-33.2) SECONDS POC VBG pH (7.32-7.43) pH Units POC VBG pCO2 (41-51) mmHg POC VBG HCO3 (21-29) mmol/L VBG Base Excess (-2-3) mmol/L O2 Delivery Device Sodium (135-145) mmol/L Potassium (3.5-5.3) mmol/L Chloride (100-110) mmol/L Carbon Dioxide (21-32) mmol/L BUN (7-18) mg/dL Creatinine (0.70-1.30) mg/dL Est Cr Clr Drug Dosing Estimated GFR (MDRD) (>60) Glucose (80-116) mg/dL POC Glucose 173 H (74-100) mg/dL Calcium (8.6-10.2) mg/dL Total Bilirubin (0.1-1.3) mg/dL AST (5-25) IU/L ALT (12-36) U/L Alkaline Phosphatase (56-112) IU/L Troponin I (4.0-60.3) pg/mL NT-Pro-B Natriuret Pep (<=450) pg/mL Total Protein (6.0-8.0) g/dL Albumin (3.2-4.6) g/dL Globulin g/dL Albumin/Globulin Ratio Urine Color (YELLOW) Urine Appearance (CLEAR) Urine pH (5.0-6.5) Ur Specific [place] (1.010-1.025) Urine Protein (NEGATIVE) mg/dL Urine Glucose (UA) (NORMAL) mg/dL Urine Ketones (NEGATIVE) mg/dL Urine Occult Blood (NEGATIVE) Urine Nitrite (NEGATIVE) Urine Bilirubin (NEGATIVE) Urine Urobilinogen (NEGATIVE) mg/dL Ur Leukocyte Esterase (NEGATIVE) Urine RBC (0-5) Urine WBC (0-5) Ur Squamous Epith Cells (NS,R,O) Urine Bacteria (NS) SARS-CoV-2 RNA (ALLI) (NEGATIVE) 09/13/20 09/13/20 09/13/20 Range/Units 19:30 19:30 19:30 WBC (3.2-10.1) x10-3/uL RBC (3.90-5.90) x10(6)uL Hgb (12.9-17.7) g/dL Hct (38.3-50.1) % MCV (80.8-98.7) fL MCH (27.0-33.3) pg MCHC (28.7-35.3) g/dL RDW (12.4-15.0) % Plt Count (117-477) x10(3)uL MPV (6.7-11.0) fL Neut % (Auto) (40.3-71.8) % Lymph % (Auto) (15.8-45.3) % [place] % (Auto) (5.5-15.2) % Eos % (Auto) (0.1-6.8) % Baso % (Auto) (0.3-3.8) % Neut # (Auto) (1.7-6.9) x10-3/uL Lymph # (Auto) (0.5-4.5) x10-3/uL [place] # (Auto) (0.0-1.2) x10-3/uL Eos # (Auto) (0.0-0.6) x10-3/uL Baso # (Auto) (0.0-0.3) x10-3/uL PT (9.0-11.1) sec INR (1.00-1.24) APTT (24.4-33.2) SECONDS POC VBG pH 7.34 (7.32-7.43) pH Units POC VBG pCO2 49 (41-51) mmHg POC VBG HCO3 26 (21-29) mmol/L VBG Base Excess 0 (-2-3) mmol/L O2 Delivery Device Non rebr mask Sodium 121 L D (135-145) mmol/L Potassium 3.5 (3.5-5.3) mmol/L Chloride (100-110) mmol/L Carbon Dioxide 26 (21-32) mmol/L BUN 14 (7-18) mg/dL Creatinine 1.4 H (0.70-1.30) mg/dL Est Cr Clr Drug Dosing TNP Estimated GFR (MDRD) 49 L (>60) Glucose 214 H D (80-116) mg/dL POC Glucose (74-100) mg/dL Calcium 8.2 L (8.6-10.2) mg/dL Total Bilirubin 1.0 (0.1-1.3) mg/dL AST 33 H D (5-25) IU/L ALT 26 D (12-36) U/L Alkaline Phosphatase 128 H (56-112) IU/L Troponin I 19.2 (4.0-60.3) pg/mL NT-Pro-B Natriuret Pep 1443 H* (<=450) pg/mL Total Protein 7.6 (6.0-8.0) g/dL Albumin 3.5 (3.2-4.6) g/dL Globulin 4.1 g/dL Albumin/Globulin Ratio 0.9 Urine Color (YELLOW) Urine Appearance (CLEAR) Urine pH (5.0-6.5) Ur Specific [place] (1.010-1.025) Urine Protein (NEGATIVE) mg/dL Urine Glucose (UA) (NORMAL) mg/dL Urine Ketones (NEGATIVE) mg/dL Urine Occult Blood (NEGATIVE) Urine Nitrite (NEGATIVE) Urine Bilirubin (NEGATIVE) Urine Urobilinogen (NEGATIVE) mg/dL Ur Leukocyte Esterase (NEGATIVE) Urine RBC (0-5) Urine WBC (0-5) Ur Squamous Epith Cells (NS,R,O) Urine Bacteria (NS) SARS-CoV-2 RNA (ALLI) (NEGATIVE) 09/13/20 09/13/20 Range/Units 19:45 20:02 WBC (3.2-10.1) x10-3/uL RBC (3.90-5.90) x10(6)uL Hgb (12.9-17.7) g/dL Hct (38.3-50.1) % MCV (80.8-98.7) fL MCH (27.0-33.3) pg MCHC (28.7-35.3) g/dL RDW (12.4-15.0) % Plt Count (117-477) x10(3)uL MPV (6.7-11.0) fL Neut % (Auto) (40.3-71.8) % Lymph % (Auto) (15.8-45.3) % [place] % (Auto) (5.5-15.2) % Eos % (Auto) (0.1-6.8) % Baso % (Auto) (0.3-3.8) % Neut # (Auto) (1.7-6.9) x10-3/uL Lymph # (Auto) (0.5-4.5) x10-3/uL [place] # (Auto) (0.0-1.2) x10-3/uL Eos # (Auto) (0.0-0.6) x10-3/uL Baso # (Auto) (0.0-0.3) x10-3/uL PT (9.0-11.1) sec INR (1.00-1.24) APTT (24.4-33.2) SECONDS POC VBG pH (7.32-7.43) pH Units POC VBG pCO2 (41-51) mmHg POC VBG HCO3 (21-29) mmol/L VBG Base Excess (-2-3) mmol/L O2 Delivery Device Sodium (135-145) mmol/L Potassium (3.5-5.3) mmol/L Chloride (100-110) mmol/L Carbon Dioxide (21-32) mmol/L BUN (7-18) mg/dL Creatinine (0.70-1.30) mg/dL Est Cr Clr Drug Dosing Estimated GFR (MDRD) (>60) Glucose (80-116) mg/dL POC Glucose (74-100) mg/dL Calcium (8.6-10.2) mg/dL Total Bilirubin (0.1-1.3) mg/dL AST (5-25) IU/L ALT (12-36) U/L Alkaline Phosphatase (56-112) IU/L Troponin I (4.0-60.3) pg/mL NT-Pro-B Natriuret Pep (<=450) pg/mL Total Protein (6.0-8.0) g/dL Albumin (3.2-4.6) g/dL Globulin g/dL Albumin/Globulin Ratio Urine Color Yellow (YELLOW) Urine Appearance Clear (CLEAR) Urine pH 6.5 (5.0-6.5) Ur Specific [place] 1.015 (1.010-1.025) Urine Protein Trace (NEGATIVE) mg/dL Urine Glucose (UA) Normal (NORMAL) mg/dL Urine Ketones Negative (NEGATIVE) mg/dL Urine Occult Blood Moderate H (NEGATIVE) Urine Nitrite Negative (NEGATIVE) Urine Bilirubin Negative (NEGATIVE) Urine Urobilinogen Normal (NEGATIVE) mg/dL Ur Leukocyte Esterase Negative (NEGATIVE) Urine RBC 10-20 H (0-5) Urine WBC 0-5 (0-5) Ur Squamous Epith Cells Rare (NS,R,O) Urine Bacteria Rare H (NS) SARS-CoV-2 RNA (ALLI) Negative (NEGATIVE) Meds: Medications Generic Name Dose Route Start Last Admin Trade Name Freq PRN Reason Stop Dose Admin Albuterol/Ipratropium 3 ml 09/13/20 21:16 09/13/20 22:52 Duoneb 3.0-0.5 Mg/3 Ml NEB 3 ml QIDRT PRN Administration Dyspnea Furosemide 40 mg 09/14/20 08:00 Lasix IVPUSH 09/14/20 08:01 BID ONE Lorazepam 1 mg 09/13/20 21:29 Ativan IVPUSH Q8H PRN Anxiety Ondansetron HCl 4 mg 09/13/20 21:16 Zofran IV Q4H PRN Nausea/Vomiting Sodium Chloride 10 ml 09/13/20 19:29 09/13/20 19:52 Saline Flush FLUSH 10 ml ASDIRECTED PRN Administration Keep Vein Open Discontinued Medications Generic Name Dose Route Start Last Admin Trade Name Freq PRN Reason Stop Dose Admin Furosemide 60 mg 09/13/20 19:31 09/13/20 19:40 Lasix IVPUSH 09/13/20 19:32 60 mg NOW ONE Administration Hydralazine HCl 20 mg 09/13/20 19:31 09/13/20 19:36 Apresoline IVPUSH 09/13/20 19:32 20 mg NOW STA Administration Ceftriaxone Sodium 1 gm/ 50 mls @ 200 mls/hr 09/13/20 21:35 09/13/20 22:51 Sodium Chloride IV 09/13/20 21:49 200 mls/hr ONETIME ONE Administration Lorazepam 1 mg 09/13/20 19:46 09/13/20 19:51 Ativan IVPUSH 09/13/20 19:47 1 mg NOW STA Administration Lorazepam 1 mg 09/13/20 21:21 09/13/20 21:35 Ativan IVPUSH 09/13/20 21:22 1 mg ONETIME ONE Administration Morphine Sulfate 4 mg 09/13/20 19:31 09/13/20 19:38 Morphine IVPUSH 09/13/20 19:32 4 mg NOW STA Administration Departure - Departure Time of Disposition: 19:30 Disposition: Admitted As Inpatient 64 Condition: Good Clinical Impression: CHF (congestive heart failure), Chronic a-fib, Hypertensive crisis, Hyponatremia, COPD (chronic obstructive pulmonary disease) - Discharge Information Sepsis Event Note (ED) - Focused Exam Vital Signs: Vital Signs Resp BP Pulse Ox 09/13/20 21:30 29 H 111/70 97 - My Orders Last 24 Hours: My Active Orders 09/13/20 19:29 Chest 1V Frontal [CR] Stat Sodium Chloride 0.9% [Saline Flush] 10 ml FLUSH ASDIRECTED PRN Saline Lock Insert [OM.PC] Routine EKG 12 Lead [EK] Routine 09/13/20 19:30 EKG Documentation Completion [RC] ASDIRECTED 09/13/20 19:35 Urinary Catheter Assessment [RC] QSHIFT 09/13/20 19:45 Wong Catheter Insertion [Insert Urinary Catheter] [OM.PC] Q24H 09/13/20 21:16 Blood Glucose Check, Bedside [RC] QIDACANDBED Up With Assistance [RC] ASDIRECTED Albuterol/Ipratropium [DuoNeb 3.0-0.5 MG/3 ML] 3 ml NEB QIDRT PRN Ondansetron [Zofran] 4 mg IV Q4H PRN Resuscitation Status Routine 09/13/20 21:17 Patient Status [ADT] Routine Oxygen Therapy [RC] .PRN VTE/DVT Education [RC] 08 Vital Signs [RC] Q4H 09/13/20 21:19 Cardiac Monitoring [RC] CONTINUOUS Intake and Output [RC] 06,14,22 Pulse Oximetry [RC] CONTINUOUS 09/13/20 21:25 RT Aerosol Therapy [RC] ASDIRECTED 09/13/20 21:29 LORazepam [Ativan] 1 mg IVPUSH Q8H PRN 09/14/20 Breakfast Heart Healthy Diet [DIET] - Assessment/Plan Last 24 Hours: My Active Orders 09/13/20 19:29 Chest 1V Frontal [CR] Stat Sodium Chloride 0.9% [Saline Flush] 10 ml FLUSH ASDIRECTED PRN Saline Lock Insert [OM.PC] Routine EKG 12 Lead [EK] Routine 09/13/20 19:30 EKG Documentation Completion [RC] ASDIRECTED 09/13/20 19:35 Urinary Catheter Assessment [RC] QSHIFT 09/13/20 19:45 Wong Catheter Insertion [Insert Urinary Catheter] [OM.PC] Q24H 09/13/20 21:16 Blood Glucose Check, Bedside [RC] QIDACANDBED Up With Assistance [RC] ASDIRECTED Albuterol/Ipratropium [DuoNeb 3.0-0.5 MG/3 ML] 3 ml NEB QIDRT PRN Ondansetron [Zofran] 4 mg IV Q4H PRN Resuscitation Status Routine 09/13/20 21:17 Patient Status [ADT] Routine Oxygen Therapy [RC] .PRN VTE/DVT Education [RC] 08 Vital Signs [RC] Q4H 09/13/20 21:19 Cardiac Monitoring [RC] CONTINUOUS Intake and Output [RC] 06,14,22 Pulse Oximetry [RC] CONTINUOUS 09/13/20 21:25 RT Aerosol Therapy [RC] ASDIRECTED 09/13/20 21:29 LORazepam [Ativan] 1 mg IVPUSH Q8H PRN 09/14/20 Breakfast Heart Healthy Diet [DIET]
[2020-09-13 20:03] LABS: BASE EXCESS VENOUS,POC 0 mmol/L (-2-3); HCO3 VENOUS,POC 26 mmol/L (21-29); PCO2 VENOUS,POC 49 mmHg (41-51); PH VENOUS,POC 7.34 pH Units (7.32-7.43)
[2020-09-13] MEDS ORDERED: Ondansetron 4 MG/2 ML SDV IV PRN (21:16)
[2020-09-13] MEDS ORDERED: LORazepam 2 MG/ML SDV IVPUSH ONE (21:21)
[2020-09-13] MEDS ORDERED: LORazepam 2 MG/ML SDV IVPUSH PRN (21:29)
[2020-09-13] MEDS ORDERED: cefTRIAXone 1 GM in Sodium Chloride 0.9% 50 ML IV ONE (21:35)
[2020-09-13] MEDS: Albuterol/Ipratropium 3.0-0.5 MG/3 ML Neb Soln NEB PRN (22:52)
[2020-09-14] MEDS ORDERED: Acetaminophen 650 MG Tab.ER PO PRN (09:43)
[2020-09-14] MEDS ORDERED: Loratadine 10 MG Tab PO PRN (09:43)
[2020-09-14] MEDS ORDERED: Nitroglycerin 0.4 MG Tab.SL SL PRN (09:43)
[2020-09-14] MEDS ORDERED: Albuterol 8 GM Inhaler INH PRN (09:43)
[2020-09-14] MEDS ORDERED: Warfarin Sliding Scale PO SCH (09:45)
[2020-09-14] MEDS ORDERED: Warfarin 2.5 MG Tab PO SCH (09:45)
[2020-09-14] MEDS ORDERED: Metolazone 2.5 MG Tab PO SCH (09:45)
[2020-09-14] MEDS: Furosemide 40 MG/4 ML VIAL IVPUSH SCH ×2 (10:11→16:27)
[2020-09-14] MEDS: Sodium Chloride 0.9% 10 ML Syringe FLUSH PRN ×2 (10:14→16:30)
[2020-09-14] MEDS: Carvedilol 12.5 MG Tab PO SCH ×2 (10:15→17:29)
[2020-09-14] MEDS: Aspirin 81 MG Tab.EC PO SCH (10:16)
[2020-09-14] MEDS: Potassium Chloride 20 MEQ Tab.ER PO SCH ×2 (10:16→17:56)
--- NOTE | 2020-09-14 10:49 | CR ---
CHEST ONE VIEW INDICATION: Dyspnea. An AP portable upright view of the chest was obtained 09/13/2020 and compared with 11/25/2018 and 03/18/2019. The heart is prominent in size with bipolar pacemaker leads unchanged in position. Overlying EKG leads are noted. Bilateral small pleural effusions are noted with extensive bilateral infiltration centrally and extending into the lung bases. Findings may be on the basis of CHF and acute pulmonary edema. However, the appearance of the infiltrates is felt to be most compatible with severe bilateral pneumonia, possibly of unusual etiology such as viral; although, aspiration pneumonia would be a consideration also. MTDD
--- NOTE | 2020-09-14 11:11 | HP ---
ADMISSION DATE: 09/13/2020 CHIEF COMPLAINT: Shortness of breath. HISTORY OF PRESENT ILLNESS: Mr. Flores is an 80-year-old man from with a history of coronary artery disease, status post multiple stents and congestive heart failure, permanent pacemaker with defibrillator, peripheral vascular disease, obstructive sleep apnea, COPD, and osteoarthritis. The patient presented to the emergency room on 09/13/2020 because of sudden onset of shortness of breath. He was just getting ready to eat his evening meal and was not exerting himself at that time. He did not have any associated chest pain. He has not had any recent fever, chills, sweats, or symptoms of infection. He was evaluated in the emergency room by Dr. Zhao and admitted to acute care with an exacerbation of congestive heart failure. PAST MEDICAL HISTORY: Includes an extensive [facility], multiple angioplasties and stents, most recently in March of 2019, CHF, obstructive sleep apnea, COPD, obesity, chronic atrial fibrillation. 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 He has associated peripheral vascular disease. MEDICATIONS: Extensive, reviewed, see list, but main ones include, 1. Carvedilol 12.5 mg b.i.d. 2. Diltiazem CD 240 once daily. 3. Albuterol MDI. 4. Furosemide 40 mg daily. 5. Levemir 40 units at bedtime and NovoLog 12 units t.i.d. with meals. 6. Zaroxolyn 2.5 mg three days a week. 7. Stiolto Respimat. 8. Warfarin. 9. Potassium. 10.Aspirin. ALLERGIES: None known. HABITS: Nonsmoker. No alcohol. 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 He has never been and has no children. REVIEW OF SYSTEMS: GENERAL: No seizure, syncope, or recent documented weight change. SKIN: Positive for scar and eschar formation at the site of his left 2nd toe removal. He also has chronic venous stasis changes of the lower extremities. No new rash. HEENT: No recent change in hearing or vision. He does have significant hearing loss, however. RESPIRATORY: No cough or purulent sputum. He does have chronic dyspnea with this episode superimposed. CARDIAC: No chest pain. GI: No nausea, vomiting, or diarrhea. : No hematuria or UTI symptoms. MUSCULOSKELETAL: Positive for the osteoarthritis of the lower extremities and peripheral vascular disease, with recent left 2nd toe amputation. NEUROLOGIC: Positive for mild cognitive deficits. No focal symptoms. PHYSICAL EXAMINATION: GENERAL: He is drowsy, but awakens and responds to voice. He does have a poor memory, however. VITAL SIGNS: Blood pressure 102/62, pulse 82 and irregular in atrial fibrillation pattern, respirations normal, O2 saturation 98% on 2 L nasal cannula. Temp 98.3. Weight 294 pounds 14 ounces. SKIN: Shows venous stasis over his lower extremities and an eschar at the site of his left 2nd toe amputation with minimal dull erythema surrounding this. HEENT: Shows mouth to be dry. LUNGS: Have rales bilaterally in the back. HEART: Irregular in atrial fib pattern. No murmur was heard. Heart sounds are somewhat distant. ABDOMEN: Obese, soft, nontender. No organomegaly. EXTREMITIES: Show 1+ pitting edema at the right tibia and right ankle, 2+ pitting edema at the left ankle and foot and lower squires. NEUROLOGIC: He is drowsy but answers voiced appropriately. Motor exam appears symmetric. Station and gait are not tested. LABORATORY: Hemoglobin 13.6, white count 7400. INR 1.82. Potassium 3.4, sodium 123, chloride 87, BUN 15, creatinine 1.1. BNP 1443. Urinalysis 10-20 red cells, 0-5 white cells. EKG shows atrial fibrillation with intermittent beats paced from the right ventricle. No acute ST-T wave changes are noted. Chest x-ray shows extensive bilateral pulmonary edema. ASSESSMENT: An 80-year-old man with, 1. History of severe coronary artery disease, post multiple stents, chronic congestive heart failure, now admitted with acute pulmonary edema. 2. Chronic obstructive pulmonary disease. 3. Type 2 diabetes. 4. Obesity. 5. Osteoarthritis. 6. Peripheral vascular disease. PLAN: He is admitted for diuresis, acute care. We will carefully watch his electrolytes and renal function. I anticipate a 48- to 72- hour acute hospital stay followed by return to home as able. /[id number] MARIAH/YELITZA
[2020-09-14] MEDS ORDERED: Insulin Lispro 100 Unit/ML 3 ML KwikPen SUBCUT ONE (11:23)
[2020-09-14] MEDS: Insulin Lispro 100 Unit/ML 3 ML KwikPen SUBCUT SCH ×2 (11:54→17:51)
[2020-09-14] MEDS: Isosorbide Mononitrate 30 MG Tab.ER PO SCH (11:57)
[2020-09-14] MEDS ORDERED: Warfarin 5 MG Tab PO SCH (16:00)
[2020-09-14] MEDS ORDERED: Insulin Glargine,Human Rec. Analog 100 Units/ML 3 ML Pen SUBCUT ONE (20:14)
[2020-09-14] MEDS: Insulin Glargine,Human Rec. Analog 100 Units/ML 3 ML Pen SUBCUT SCH (20:22)
[2020-09-15] MEDS: Potassium Chloride 20 MEQ Tab.ER PO SCH ×2 (08:18→18:32)
[2020-09-15] MEDS: Furosemide 40 MG/4 ML VIAL IVPUSH SCH (08:18)
[2020-09-15] MEDS: Carvedilol 12.5 MG Tab PO SCH ×2 (08:18→18:31)
[2020-09-15] MEDS: Umeclidinium Brm/Vilanterol Tr 62.5-25 MCG 7 Puff Inhaler IH SCH (08:18)
[2020-09-15] MEDS: Isosorbide Mononitrate 30 MG Tab.ER PO SCH (08:19)
[2020-09-15] MEDS: Aspirin 81 MG Tab.EC PO SCH (08:19)
[2020-09-15] MEDS: Insulin Lispro 100 Unit/ML 3 ML KwikPen SUBCUT SCH ×3 (08:23→18:32)
[2020-09-15] MEDS: Sodium Chloride 0.9% 10 ML Syringe FLUSH PRN ×2 (08:28→14:07)
--- OUTSIDE RECORDS SUMMARY | 2020-09-15 10:11 | XMSREPORT ---
:1940 Author Organization [facility] Address [address] [place] [address] Phone Reason For Referral No Reason for Referral was given. History Of Present Illness No HPI available. Assessments No Assessments available Plan of Care Name Dates Details Planned Observations Hospital Referral Request
--- OUTSIDE RECORDS SUMMARY | 2020-09-15 10:11 | XMSREPORT ---
:1940 Author Name Sydney Address Unavailable Unavailable , Care Team Providers Name Role Phone Sydney Unavailable Unavailable Santiago Guerra Unavailable Unavailable Unavailable Unavailable Unavailable Reason for Referral Hospital Admission History of Present Illness DENIS SMITH is a 79 year old male who comes in with complaints of swelling along his incision from a lesion removal 2 days ago on October 08, by Dr. Phan at [facility] here in [place]. Patient reports that he noticed a little swelling yesterday, but it was much more swollen today than it was yesterday. He states it is not very tender, but it is a little bit tender when it is touched. He is worredi because it is getting red along the top of the incision, where it is puffy. He deniesany fevers or chills and denies any headache or vision changes, nasal congestion, ear symptoms, sorethroat, or watery or pain in or around his eyes. He denies any drainage from the wound. He denies any antibiotic therapy following procedure or complications with procedure. Review of Systems See HPI Assessments Assessed Problems:Swelling of surgical site, initial encounter Problems Neck muscle spasm (728.85) (M62.838) Hyponatremia (276.1) (E87.1) Arthritis (716.90) (M19.90) Asthma (493.90) (J45.909) Type 2 diabetes mellitus (250.00) (E11.9) Heart attack (410.90) (I21.9) High blood pressure (401.9) (I10) Swelling of surgical site, initial encounter (998.89) (T81.8 9XA) Allergies and Adverse Reactions No Known Drug Allergies (Allergy) Medications HumaLOG Mix 75/25 KwikPen (75-25) 100 UN IT/ML Subcutaneous Suspension Pen-injector Start: 03-Aug-2017 Quantity: 30 Refills: 0 metOLazone 2.5 MG Oral Tablet Start: Aug-2017 Quantity: 30 Refills: 0 Jantoven 2.5 MG Oral Tablet Start: Quantity: 150 Refills: 0 Atorvastatin Calcium 80 MG Oral Tablet S tart: 24-Aug-2017 Quantity: 30 Refills: 0 Furosemide 40 MG Oral Tablet Start: Quantity: 60 Refills: 0 dilTIAZem HCl ER Coated Beads 240 MG Oral Capsule Extended R elease 24 Hour Start: 25-Jun-2017 Quantity: 30 Refills: 0 Potassium Chloride ER 10 MEQ Oral Tablet Extended Release Start: 25-Jun-2017 Quantity: 30 Refills: 0 Omeprazole 40 MG Oral Capsule Delayed Release Start: 25-Jun-2017 Quantity: 30 Refills: 0 Carvedilol 12.5 MG Oral Tablet Start: Quantity: 60 Refills: 0 Brilinta 60 MG Oral Tablet Start: Quantity: 60 Refills: 0 Nitroglycerin 0.4 MG Sublingual Tablet Sublingual Start: 09-Oct-2017 Quantity: 25 Refills: 0 Bydureon BCise 2 MG/0.85ML Subcutaneous Auto-injector Start: 09-Oct-2017 Quantity: 34 Refills: 0 Procedures Procedures not documented Immunizations Immunizations not documented Family History No pertinent family history (V49.89) (Z78.9) Status: Active No pertinent family history (V49.89) (Z78.9) Status: Active Social History - Ex-smoker Recorded: Interventions Follow-ups/ReferralsHospital Referral; Done: 13 Sep 2020 Plan of Treatment Planned Goals not documented Results No Known Results Results not documented
[2020-09-15] MEDS: Furosemide 100 MG/10 ML SDV IVPUSH SCH (14:02)
[2020-09-15] MEDS ORDERED: Warfarin 5 MG, Warfarin 2.5 MG PO ONE ×2 (16:00)
[2020-09-15] MEDS: Albuterol/Ipratropium 3.0-0.5 MG/3 ML Neb Soln NEB PRN (16:16)
--- NOTE | 2020-09-15 16:27 | PN ---
DATE SEEN: 09/15/2020 HISTORY: Bro is an 80-year-old man with a history of congestive heart failure with an exacerbation of dyspnea who was admitted from the ER on 09/13/2020. He was found to have acute pulmonary edema. He also has type 2 diabetes and obesity. On admission, the patient was started on IV furosemide, given oral metolazone, his insulin was continued, and isosorbide was added. His warfarin for atrial fib was continued, and he was placed on carvedilol. The patient diuresed very well and his breathing significantly improved. He was examined this morning in his room while sitting up after eating his lunch. PHYSICAL EXAMINATION: GENERAL: He is slightly hard of hearing, but otherwise is a good historian. VITAL SIGNS: Blood pressure 123/69, pulse 77 and slightly irregular, respirations 16, O2 saturation 98% on 2 L nasal cannula. SKIN: Shows no rash or trauma. He does have an area of eschar at the left second toe at the area of toe removal with no local signs of infection. Mouth is dry. LUNGS: Have diminished breath sounds at the bases with fine rales at the bases. HEART: Slightly irregular. No murmur heard. ABDOMEN: Obese, soft, nontender. EXTREMITIES: Showed 1+ edema at the ankles bilaterally. LABORATORY DATA: Today, hemoglobin 13.4, INR 1.6. Sodium 127, potassium 3.5, BUN 16, creatinine 1.0. ASSESSMENT: 1. Acute pulmonary edema superimposed on chronic congestive heart failure. 2. Chronic obstructive pulmonary disease. 3. Hyponatremia. 4. Chronic atrial fibrillation, on anticoagulation. 5. Obesity. 6. Diabetes. PLAN: We will continue his insulin. I have added enalapril 2.5 mg daily. Continue diuresis. Anticipate an additional 24 to 48 hours of acute hospital stay for his pulmonary edema and CHF, followed by hopeful return to his home with home health. We will continue to provide palliative care measures for Mr. Flores as well. /[id number] MARIAH/YELITZA
[2020-09-15] MEDS: Insulin Glargine,Human Rec. Analog 100 Units/ML 3 ML Pen SUBCUT SCH (20:00)
[2020-09-16] MEDS: Insulin Lispro 100 Unit/ML 3 ML KwikPen SUBCUT SCH ×3 (08:57→18:04)
[2020-09-16] MEDS: Carvedilol 12.5 MG Tab PO SCH ×2 (08:57→17:06)
[2020-09-16] MEDS: Potassium Chloride 20 MEQ Tab.ER PO SCH ×2 (09:00→17:05)
[2020-09-16] MEDS: Furosemide 100 MG/10 ML SDV IVPUSH SCH (09:00)
[2020-09-16] MEDS: Aspirin 81 MG Tab.EC PO SCH (09:03)
[2020-09-16] MEDS: Umeclidinium Brm/Vilanterol Tr 62.5-25 MCG 7 Puff Inhaler IH SCH (09:03)
[2020-09-16] MEDS: Isosorbide Mononitrate 30 MG Tab.ER PO SCH (09:04)
[2020-09-16] MEDS: Sodium Chloride 0.9% 10 ML Syringe FLUSH PRN (09:13)
--- NOTE | 2020-09-16 11:45 | PN ---
DATE SEEN: 09/16/2020 HISTORY: Bro is an 80-year-old man who was admitted in acute pulmonary edema after sustaining relatively sudden onset of shortness of breath at home. He has a history of MIs, angioplasty, stents, and chronic congestive heart failure. On admission, he was started on IV Lasix diuresis with supplemental metolazone. Admission weight was 294 pounds. He slowly improved. His breathing got much better. His appetite was good. He was up walking with physical therapy. He did have some borderline low blood pressures. He had been started on enalapril, carvedilol, and isosorbide mononitrate. The isosorbide was discontinued, his diuretic decreased, and states he feels well. PHYSICAL EXAMINATION: GENERAL: He is alert, comfortable. He did get lightheaded while walking with physical therapy, so had to sit down. VITAL SIGNS: Blood pressure this morning 118/62, pulse 77, respirations normal, O2 saturation 97% on room air. SKIN: Showed no sign of rash or trauma. He has the eschar at the site of his left 2nd toe amputation. LUNGS: Dry rales at both bases. HEART: Slightly irregular. No murmur or gallop heard. ABDOMEN: Soft. EXTREMITIES: Show 1+ edema at the ankles. ASSESSMENT: 1. Acute pulmonary edema, resolved. 2. Chronic congestive heart failure. 3. Underlying coronary artery disease. 4. Type 2 diabetes. PLAN: We will continue to adjust his medications as necessary. Anticipate discharge to home within 24 to 48 hours if continue to improve. /[id number] MARIAH/YELITZA
[2020-09-16] MEDS ORDERED: Furosemide 40 MG Tab PO SCH (14:00)
--- NOTE | 2020-09-16 15:10 | CR ---
INDICATION: CHF. CHEST ONE VIEW: Portable AP upright view of the chest 09/16/20 was compared with 09/13/20 and 03/18/19. The appearance of the chest is markedly improved with apparent resolving CHF and acute pulmonary edema with some residual linear atelectasis and pleuroparenchymal changes at the lung bases which may be on the basis of additional pneumonia and pleuritis. Heart remains enlarged. Bipolar pacemaker leads are unchanged in position. The aorta is tortuous with calcification in the arch and descending portion. IMPRESSION: Improving appearance of the chest, but with continued CHF and interstitial lung edema with bibasilar pleuroparenchymal changes. MTDD
[2020-09-16] MEDS: Warfarin 5 MG Tab PO SCH (17:03)
[2020-09-16] MEDS: Insulin Glargine,Human Rec. Analog 100 Units/ML 3 ML Pen SUBCUT SCH (20:23)
[2020-09-17] MEDS: Carvedilol 12.5 MG Tab PO SCH ×2 (07:52→18:04)
[2020-09-17] MEDS: Potassium Chloride 20 MEQ Tab.ER PO SCH ×2 (07:53→18:04)
[2020-09-17] MEDS: Insulin Lispro 100 Unit/ML 3 ML KwikPen SUBCUT SCH ×3 (07:54→18:03)
[2020-09-17] MEDS: Umeclidinium Brm/Vilanterol Tr 62.5-25 MCG 7 Puff Inhaler IH SCH (08:09)
[2020-09-17] MEDS: Furosemide 40 MG Tab PO SCH (08:10)
[2020-09-17] MEDS: Aspirin 81 MG Tab.EC PO SCH (08:10)
[2020-09-17] MEDS ORDERED: Warfarin 2.5 MG Tab PO SCH ×2 (09:43→16:00)
--- NOTE | 2020-09-17 10:15 | PCM.PN ---
- General Info Date of Service: 09/17/20 Subjective Update: rBo had low blood pressure yesterday during therapy, was 63/41, Dr Vallecillo evaluated at the time, changed his Lasix from 40 mg bid to daily and discontinued his Imdur. This morning was 95/51. Denies any dizziness this morning or shortness of breath. States he normally wears two pairs of compression stockings to get his leg swelling down. Had toe amputation last month. Had bowel movement yesterday. He thinks his baseline weight is around 280s. He doesn't know what his blood pressure runs at home, but states home health nurses usually takes it. - Patient Data Vitals - Most Recent: Last Vital Signs Temp 97.6 F 09/17/20 07:59 Pulse 73 09/17/20 07:59 Resp 18 09/17/20 07:59 BP 95/51 L 09/17/20 08:11 Pulse Ox 97 09/17/20 07:59 Weight - Most Recent: 286 lb I&O - Last 24 Hours: Intake & Output 09/16/20 09/17/20 09/17/20 22:59 06:59 14:59 Output Total 500 Balance -500 Lab Results Last 24 Hours: Laboratory Results - last 24 hr 09/16/20 09/16/20 09/16/20 Range/Units 06:15 11:09 16:50 POC Glucose 100 196 H 164 H (74-100) mg/dL 09/17/20 Range/Units 06:12 POC Glucose 133 H (74-100) mg/dL Med Orders - Current: Current Medications Acetaminophen (Tylenol Arthritis Pain) 650 mg PO Q4H PRN PRN Reason: Pain Albuterol (Ventolin Hfa) 0 gm INH Q4H PRN PRN Reason: Shortness of Breath Albuterol/Ipratropium (Duoneb 3.0-0.5 Mg/3 Ml) 3 ml NEB QIDRT PRN PRN Reason: Dyspnea Last Admin: 09/15/20 16:16 Dose: 3 ml Documented by: Aspirin (Halfprin) 81 mg PO DAILY [facility] Last Admin: 09/17/20 08:10 Dose: 81 mg Documented by: Carvedilol (Coreg) 12.5 mg PO BIDMEALS [facility] Last Admin: 09/17/20 07:52 Dose: 12.5 mg Documented by: Enalapril Maleate (Vasotec) 2.5 mg PO DAILY [facility] Last Admin: 09/17/20 08:11 Dose: 2.5 mg Documented by: Furosemide (Lasix) 40 mg PO DAILY [facility] Last Admin: 09/17/20 08:10 Dose: 40 mg Documented by: Insulin Glargine (Lantus Solostar) 40 units SUBCUT BEDTIME [facility] Last Admin: 09/16/20 20:23 Dose: 40 units Documented by: Insulin Human Lispro (Humalog) 12 unit SUBCUT TIDMEALS [facility] Last Admin: 09/17/20 07:54 Dose: 12 units Documented by: Nitroglycerin (Nitrostat) 0.4 mg SL Q5M PRN PRN Reason: Chest Pain Potassium Chloride (Klor-Con M20) 20 meq PO BIDMEALS [facility] Last Admin: 09/17/20 07:53 Dose: 20 meq Documented by: Senna/Docusate Sodium (Senna Plus) 1 tab PO BID [facility] Last Admin: 09/17/20 08:11 Dose: 1 tab Documented by: Sodium Chloride (Saline Flush) 10 ml FLUSH ASDIRECTED PRN PRN Reason: Keep Vein Open Last Admin: 09/16/20 09:13 Dose: 10 ml Documented by: Umeclidinium/Vilanterol (Anoro Ellipta 62.5-25 Mcg) 1 mcg IH DAILY [facility] Last Admin: 09/17/20 08:09 Dose: 1 puff Documented by: Warfarin Sodium (Coumadin Sliding Scale) 1 each PO ASDIRECTED [facility] Warfarin Sodium (Coumadin) 5 mg PO DAILY@1600 [facility] Last Admin: 09/16/20 17:03 Dose: 5 mg Documented by: Discontinued Medications Furosemide (Lasix) 60 mg IVPUSH NOW ONE Stop: 09/13/20 19:32 Last Admin: 09/13/20 19:40 Dose: 60 mg Documented by: Furosemide (Lasix) 40 mg IVPUSH BIDDIURETIC [facility] Last Admin: 09/15/20 08:18 Dose: 40 mg Documented by: Furosemide (Lasix) 80 mg IVPUSH BIDDIURETIC [facility] Last Admin: 09/16/20 09:00 Dose: 80 mg Documented by: Furosemide (Lasix) 40 mg PO BIDDIURETIC [facility] Hydralazine HCl (Apresoline) 20 mg IVPUSH NOW STA Stop: 09/13/20 19:32 Last Admin: 09/13/20 19:36 Dose: 20 mg Documented by: Ceftriaxone Sodium 1 gm/ (Sodium Chloride) 50 mls @ 200 mls/hr IV ONETIME ONE Stop: 09/13/20 21:49 Last Admin: 09/13/20 22:51 Dose: 200 mls/hr Documented by: Isosorbide Mononitrate (Imdur) 30 mg PO DAILY [facility] Last Admin: 09/16/20 09:04 Dose: 30 mg Documented by: Loratadine (Claritin) 10 mg PO DAILY PRN PRN Reason: Allergies Lorazepam (Ativan) 1 mg IVPUSH NOW STA Stop: 09/13/20 19:47 Last Admin: 09/13/20 19:51 Dose: 1 mg Documented by: Lorazepam (Ativan) 1 mg IVPUSH ONETIME ONE Stop: 09/13/20 21:22 Last Admin: 09/13/20 21:35 Dose: 1 mg Documented by: Lorazepam (Ativan) 1 mg IVPUSH Q8H PRN PRN Reason: Anxiety Morphine Sulfate (Morphine) 4 mg IVPUSH NOW STA Stop: 09/13/20 19:32 Last Admin: 09/13/20 19:38 Dose: 4 mg Documented by: Ondansetron HCl (Zofran) 4 mg IV Q4H PRN PRN Reason: Nausea/Vomiting Warfarin Sodium (Coumadin) 5 mg PO SuMoTuWeThSa@1600 [facility] Last Admin: 09/14/20 16:26 Dose: 5 mg Documented by: Warfarin Sodium (Coumadin) 2.5 mg PO Fr@1600 [facility] Warfarin Sodium (Coumadin) 5 mg PO SUMOTUWETHSA [facility] Last Admin: 09/14/20 19:41 Dose: Not Given Documented by: Warfarin Sodium (Coumadin) 2.5 mg PO [facility] Warfarin Sodium 5 mg/ Warfarin (Sodium 2.5 mg) 7.5 mg PO ONETIME ONE Stop: 09/15/20 16:01 Last Admin: 09/15/20 16:13 Dose: 7.5 mg Documented by: - Exam Lungs: Clear to Auscultation (BUL), Decreased Breath Sounds (RLL), Crackles (LLL), Wheezing Cardiovascular: Regular Rate, Regular Rhythm GI/Abdominal Exam: Normal Bowel Sounds, Soft, Non-Tender, No Distention Extremities: Pedal Edema (2+ to knees, bilateral, compression socks in place.) Peripheral Pulses: 2+: Radial (L), Radial (R) Sepsis Event Note - Evaluation Sepsis Screening Result: No Definite Risk - Focused Exam Vital Signs: Vital Signs Temp Pulse Pulse Resp BP BP Pulse Ox 09/17/20 08:11 95/51 L 09/17/20 07:59 97.6 F 73 18 95/51 L 97 09/17/20 07:52 73 95/51 L 09/17/20 06:38 98.1 F 73 18 95/51 L 97 09/17/20 00:00 98 F 80 20 111/58 L 95 - Problem List & Annotations (1) Acute exacerbation of congestive heart failure SNOMED Code(s): 337703847, 41063898974419 Code(s): I50.9 - HEART FAILURE, UNSPECIFIED Status: Acute Current Visit: Yes (2) Hyponatremia SNOMED Code(s): 91648768 Code(s): E87.1 - HYPO-OSMOLALITY AND HYPONATREMIA Status: Acute Current Visit: Yes Annotation/Comment:: acute on chronic (3) CHF (congestive heart failure) SNOMED Code(s): 54164525 Code(s): I50.9 - HEART FAILURE, UNSPECIFIED Status: Chronic Current Visit: Yes (4) COPD (chronic obstructive pulmonary disease) SNOMED Code(s): 23335837 Code(s): J44.9 - CHRONIC OBSTRUCTIVE PULMONARY DISEASE, UNSPECIFIED Status: Chronic Current Visit: Yes (5) Chronic a-fib SNOMED Code(s): 792965226 Code(s): I48.20 - CHRONIC ATRIAL FIBRILLATION, UNSPECIFIED Status: Chronic Current Visit: Yes (6) IDDM (insulin dependent diabetes mellitus) SNOMED Code(s): 12497457 Code(s): E11.9 - TYPE 2 DIABETES MELLITUS WITHOUT COMPLICATIONS; Z79.4 - FPC (CURRENT) USE OF INSULIN Status: Chronic Current Visit: No (7) Cardiac defibrillator in place Status: Chronic Current Visit: No (8) Coronary arteriosclerosis, CAD SNOMED Code(s): 74396756 Code(s): I25.10 - ATHSCL HEART DISEASE OF [place] CORONARY ARTERY W/O ANG PCTRS Status: Chronic Current Visit: No Annotation/Comment:: Continue current medications. (9) Diabetes mellitus type 2 SNOMED Code(s): 58113108 Code(s): E11.9 - TYPE 2 DIABETES MELLITUS WITHOUT COMPLICATIONS Status: Chronic Current Visit: No Annotation/Comment:: Patient's outpatient control is very poor. Currently on sliding scale only. Will defer to accepting team. (10) HTN, Benign essential hypertension SNOMED Code(s): 5532991 Code(s): I10 - ESSENTIAL (PRIMARY) HYPERTENSION Status: Chronic Current Visit: No Annotation/Comment:: Continue Home meds (11) Hyperlipidemia SNOMED Code(s): 52464105 Code(s): E78.5 - HYPERLIPIDEMIA, UNSPECIFIED Status: Chronic Current Visit: No Annotation/Comment:: Continue lipitor. (12) Obesity SNOMED Code(s): 580918723 Code(s): E66.9 - OBESITY, UNSPECIFIED Status: Chronic Current Visit: No (13) Status post amputation of toe SNOMED Code(s): 912527968, 690695208 Code(s): Z89.429 - ACQUIRED ABSENCE OF OTHER TOE(S), UNSPECIFIED SIDE Status: Acute Current Visit: Yes Onset Date: ~08/2020 - Problem List Review Problem List Initiated/Reviewed/Updated: No - My Orders Last 24 Hours: My Active Orders 09/18/20 06:00 BASIC METABOLIC PANEL,BMP [CHEM] Routine 09/18/20 08:00 INR,PT,PROTHROMBIN TIME [COAG] DAILY - Plan Plan:: 1. CHF, recheck his weight and his Lasix was decreased to daily and Imdur discontinued yesterday, still hypotensive when compared to when he was admitted. 2. Hyponatremia: repeat labs tomorrow. He has had issues with this for a few years. 3. s/p toe amputation: follow up with podiatry Sep 22. 4. Has [facility], [place].
[2020-09-17] MEDS: Warfarin 5 MG Tab PO SCH (16:54)
[2020-09-17] MEDS: Insulin Glargine,Human Rec. Analog 100 Units/ML 3 ML Pen SUBCUT SCH (21:13)
[2020-09-18] MEDS: Carvedilol 12.5 MG Tab PO SCH (08:00)
[2020-09-18] MEDS: Potassium Chloride 20 MEQ Tab.ER PO SCH (08:00)
[2020-09-18] MEDS: Insulin Lispro 100 Unit/ML 3 ML KwikPen SUBCUT SCH (08:01)
[2020-09-18 08:03] VITALS: PULSE 75
[2020-09-18] MEDS: Umeclidinium Brm/Vilanterol Tr 62.5-25 MCG 7 Puff Inhaler IH SCH (08:04)
[2020-09-18] MEDS: Furosemide 40 MG Tab PO SCH (08:05)
[2020-09-18] MEDS: Aspirin 81 MG Tab.EC PO SCH (08:05)
[2020-09-18 08:20] VITALS: BP 125/63
--- NOTE | 2020-09-18 14:26 | PCM.DCSUM1 ---
Discharge Summary - Hospital Course HPI Initial Comments: Bro presented to ER on Sep 13 for sudden onset of shortness of breath at rest, no chest pain, but had peripheral edema in his legs. Chest x-ray in ER showed bilateral pulmonary edema. Admitted for diuresis. History of CAD with 17 stents, CHF, permanent pacemaker with defibrillator, peripheral vascular disease, obstructive sleep apnea, Chronic obstructive pulmonary disease, osteoarthritis, diabetes. S/p recent left 2nd toe amputation, follow up with podiatry on 09/22. Diagnosis: Stroke: No - Discharge Data Discharge Date: 09/18/20 ([facility]) Discharge Disposition: Home, W Home Health Agency 06 Condition: Good - Referral to Home Health Date of Face to Face Encounter: 09/18/20 Reason for Homebound Status: congestive heart failure, copd Primary Care Physician: Hector De Leon MD Skilled Need: PT/OT nursing for medication management, DM, teaching - Discharge Diagnosis/Problem(s) (1) Acute exacerbation of congestive heart failure SNOMED Code(s): 011472994, 40369350243306 ICD Code: I50.9 - HEART FAILURE, UNSPECIFIED Status: Acute (2) Hyponatremia SNOMED Code(s): 44970961 ICD Code: E87.1 - HYPO-OSMOLALITY AND HYPONATREMIA Status: Acute Problem Details: acute on chronic (3) CHF (congestive heart failure) SNOMED Code(s): 21842112 ICD Code: I50.9 - HEART FAILURE, UNSPECIFIED Status: Chronic (4) COPD (chronic obstructive pulmonary disease) SNOMED Code(s): 22633512 ICD Code: J44.9 - CHRONIC OBSTRUCTIVE PULMONARY DISEASE, UNSPECIFIED Status: Chronic (5) Chronic a-fib SNOMED Code(s): 014994896 ICD Code: I48.20 - CHRONIC ATRIAL FIBRILLATION, UNSPECIFIED Status: Chronic (6) IDDM (insulin dependent diabetes mellitus) SNOMED Code(s): 55113984 ICD Code: E11.9 - TYPE 2 DIABETES MELLITUS WITHOUT COMPLICATIONS; Z79.4 - CORRECTION (CURRENT) USE OF INSULIN Status: Chronic (7) Cardiac defibrillator in place Status: Chronic (8) Coronary arteriosclerosis, CAD SNOMED Code(s): 31708733 ICD Code: I25.10 - ATHSCL HEART DISEASE OF [place] CORONARY ARTERY W/O ANG PCTRS Status: Chronic Problem Details: Continue current medications. (9) Diabetes mellitus type 2 SNOMED Code(s): 24028491 ICD Code: E11.9 - TYPE 2 DIABETES MELLITUS WITHOUT COMPLICATIONS Status: Chronic Problem Details: Patient's outpatient control is very poor. Currently on sliding scale only. Will defer to accepting team. (10) HTN, Benign essential hypertension SNOMED Code(s): 6938495 ICD Code: I10 - ESSENTIAL (PRIMARY) HYPERTENSION Status: Chronic Problem Details: Continue Home meds (11) Hyperlipidemia SNOMED Code(s): 29969633 ICD Code: E78.5 - HYPERLIPIDEMIA, UNSPECIFIED Status: Chronic Problem Details: Continue lipitor. (12) Obesity SNOMED Code(s): 157233825 ICD Code: E66.9 - OBESITY, UNSPECIFIED Status: Chronic (13) Status post amputation of toe SNOMED Code(s): 934636655, 744794975 ICD Code: Z89.429 - ACQUIRED ABSENCE OF OTHER TOE(S), UNSPECIFIED SIDE Status: Acute Onset Date: ~08/2020 - Patient Summary/Data Consults: Consultations 09/15/20 10:46 OT Evaluation and Treatment [CONS] Routine Please Evaluate and Treat. OT Reason for Consult: Strengthening This query below is only for informational purposes and is not editable. Admission Diagnosis/Problem: CHF, Congestive heart failure PT Evaluation and Treatment [CONS] Routine Please Evaluate and Treat. PT Reason for Consult: Ambulation This query below is only for informational purposes and is not editable. Admission Diagnosis/Problem: CHF, Congestive heart failure Hospital Course: Bill was diuresed with IV Lasix 40 mg bid, metolazone, Imdur and Coreg were added. Diltiazem was held. Also added was Enalapril 2.5 mg daily as his blood pressures were quite high on admission. His weight went from 294 down to 286. On with PT, had some lightheadedness, manual blood pressure showed 63/41, Lasix was changed to daily, Imdur was discontinued. yesterday blood pressure came up to 95/51. Kidney function was stable. Potassium came up to 3.7. Sodium was up to 134. He had episode of low blood sugar Sunday evening and this morning though eating 100% meals, his blood sugars were in good range otherwise. Blood pressure today was 125/63, asymptomatic, lungs were clearer, peripheral edema stable. Will discharge to home with close follow up with Dr De Leon. INR had dropped to 1.9, was therapeutic today at 2.43. - Patient Instructions Diet: Diabetic Diet Activity: As Tolerated Driving: Do Not Drive Showering/Bathing: May Shower Notify Provider of: Fever, Increased Pain, Swelling and Redness Other/Special Instructions: Follow up with Dr De Leon in 3 days to recheck your chemistry and your lungs, swelling in your feet. - Discharge Plan *PRESCRIPTION DRUG MONITORING PROGRAM REVIEWED*: Not Applicable *COPY OF PRESCRIPTION DRUG MONITORING REPORT IN PATIENT KAT: Not Applicable Prescriptions/Med Rec: Furosemide [Lasix] 40 mg PO DAILY 30 Days #30 tablet Enalapril [Vasotec] 2.5 mg PO DAILY 30 Days #30 tablet Home Medications: Home Meds Omeprazole 40 mg PO 1700 12/08/13 [History] Acetaminophen [Acetaminophen ER] 650 mg PO Q4H PRN 02/22/16 [History] Multivit-Minerals/FA/Lycopene [One Daily Men's Health Tablet] 1 tab PO DAILY 04/14/16 [History] Nitroglycerin 0.4 mg SL Q5M PRN 04/14/16 [History] Triamcinolone Acetonide [Kenalog 0.1% Crm] 1 applic TOP TID PRN 04/14/16 [History] metOLazone [Metolazone] 2.5 mg PO TUTHSA 01/07/18 [History] Docusate Sodium [Colace] 100 mg PO DAILY 11/25/18 [History] Fluticasone Propionate [Flonase] 1 spray ANKUR BID 11/25/18 [History] Gluc [place]/Chondro [place] A/Vit C/Mn [Glucosamine-Chondroitin Cap] 1 cap PO BID 11/25/18 [History] Insulin Detemir [Levemir Flextouch] 40 units SQ BEDTIME 11/25/18 [History] Loratadine [Claritin] 10 mg PO DAILY PRN 11/25/18 [History] Potassium Chloride 20 meq PO BIDMEALS 11/25/18 [History] Tiotropium Br/Olodaterol HCl [Stiolto Respimat Inhal [place]] 1 puff INH DAILY 11/25/18 [History] Warfarin Sodium [Jantoven] 2.5 mg PO FR 11/25/18 [History] Warfarin Sodium [Jantoven] 5 mg PO SUMOTUWETHSA 11/25/18 [History] Glycerin/Phenyleph/Pramox/Pet [Preparation H Crm] 1 applic RC Q4H PRN 03/18/19 [History] Sodium Chloride 0.65% [[place] Saline] 2 spray ANKUR QID 03/18/19 [History] Albuterol [Ventolin HFA] 2 puff IH Q4H PRN 09/14/20 [History] Aloe Vera/Sodium Chloride [[place] Saline Nasal Gel] 1 applic NASBOTH TID 09/14/20 [History] Aspirin [Halfprin] 81 mg PO DAILY 09/14/20 [History] Insulin Aspart [NovoLOG] 12 units SUBCUT TIDMEALS 09/14/20 [History] Saliva Substitute Combo No.9 [Biotene] 10 ml PO TID 09/14/20 [History] atorvaSTATin Calcium [Lipitor] 40 mg PO DAILY 09/14/20 [History] carvediloL [Coreg] 12.5 mg PO BIDMEALS 09/14/20 [History] Enalapril [Vasotec] 2.5 mg PO DAILY 30 Days #30 tablet 09/18/20 [Rx] Furosemide [Lasix] 40 mg PO DAILY 30 Days #30 tablet 09/18/20 [Rx] Oxygen Therapy Mode: Room Air Patient Handouts: Heart Failure, Self Care, [id number], Chronic Obstructive Pulmonary Disease, [id number], Type 1 Diabetes Mellitus, Diagnosis, Adult, Atrial Fibrillation, [id number] Forms: ED Department Discharge Referrals: Hector De Leon MD [Primary Care Provider] - - Discharge Summary/Plan Comment DC Time >30 min.: No - General Info Date of Service: 09/18/20 Subjective Update: No dizziness, lightheadedness today. Walked well with therapy today. Dressed himself with OT, did well. Appetite has been good, eating 100% of his meals. Had low blood sugar this morning 54, was eating breakfast so no intervention was needed at the time, repeat sugar was 102. - Patient Data Vitals - Most Recent: Last Vital Signs Temp 98.4 F 09/18/20 08:19 Pulse 75 09/18/20 08:19 Resp 18 09/18/20 08:19 BP 125/63 09/18/20 08:19 Pulse Ox 95 09/18/20 08:19 Weight - Most Recent: 286 lb Lab Results - Last 24 hrs: Laboratory Results - last 24 hr 09/16/20 09/17/20 09/17/20 Range/Units 20:20 11:33 16:42 PT (9.0-11.1) sec INR (1.00-1.24) Sodium (135-145) mmol/L Potassium (3.5-5.3) mmol/L Chloride (100-110) mmol/L Carbon Dioxide (21-32) mmol/L BUN (7-18) mg/dL Creatinine (0.70-1.30) mg/dL Est Cr Clr Drug Dosing mL/min Estimated GFR (MDRD) (>60) BUN/Creatinine Ratio (9-20) Glucose (80-116) mg/dL POC Glucose 210 H 120 H 154 H (74-100) mg/dL Calcium (8.6-10.2) mg/dL 09/17/20 09/18/20 09/18/20 Range/Units 21:07 06:25 06:25 PT 24.7 H (9.0-11.1) sec INR 2.43 H (1.00-1.24) Sodium 134 L (135-145) mmol/L Potassium 3.7 (3.5-5.3) mmol/L Chloride 98 L D (100-110) mmol/L Carbon Dioxide 27 (21-32) mmol/L BUN 17 (7-18) mg/dL Creatinine 1.0 (0.70-1.30) mg/dL Est Cr Clr Drug Dosing 56.95 mL/min Estimated GFR (MDRD) > 60 (>60) BUN/Creatinine Ratio 17.0 (9-20) Glucose 79 L (80-116) mg/dL POC Glucose 179 H (74-100) mg/dL Calcium 9.0 (8.6-10.2) mg/dL Med Orders - Current: Current Medications Discontinued Medications Acetaminophen (Tylenol Arthritis Pain) 650 mg PO Q4H PRN PRN Reason: Pain Albuterol (Ventolin Hfa) 0 gm INH Q4H PRN PRN Reason: Shortness of Breath Albuterol/Ipratropium (Duoneb 3.0-0.5 Mg/3 Ml) 3 ml NEB QIDRT PRN PRN Reason: Dyspnea Last Admin: 09/15/20 16:16 Dose: 3 ml Documented by: Aspirin (Halfprin) 81 mg PO DAILY [facility] Last Admin: 09/18/20 08:05 Dose: 81 mg Documented by: Carvedilol (Coreg) 12.5 mg PO BIDMEALS [facility] Last Admin: 09/18/20 08:00 Dose: 12.5 mg Documented by: Enalapril Maleate (Vasotec) 2.5 mg PO DAILY [facility] Last Admin: 09/18/20 08:04 Dose: 2.5 mg Documented by: Furosemide (Lasix) 60 mg IVPUSH NOW ONE Stop: 09/13/20 19:32 Last Admin: 09/13/20 19:40 Dose: 60 mg Documented by: Furosemide (Lasix) 40 mg IVPUSH BIDDIURETIC [facility] Last Admin: 09/15/20 08:18 Dose: 40 mg Documented by: Furosemide (Lasix) 80 mg IVPUSH BIDDIURETIC [facility] Last Admin: 09/16/20 09:00 Dose: 80 mg Documented by: Furosemide (Lasix) 40 mg PO BIDDIURETIC [facility] Furosemide (Lasix) 40 mg PO DAILY [facility] Last Admin: 09/18/20 08:05 Dose: 40 mg Documented by: Hydralazine HCl (Apresoline) 20 mg IVPUSH NOW STA Stop: 09/13/20 19:32 Last Admin: 09/13/20 19:36 Dose: 20 mg Documented by: Ceftriaxone Sodium 1 gm/ (Sodium Chloride) 50 mls @ 200 mls/hr IV ONETIME ONE Stop: 09/13/20 21:49 Last Admin: 09/13/20 22:51 Dose: 200 mls/hr Documented by: Insulin Glargine (Lantus Solostar) 40 units SUBCUT BEDTIME [facility] Last Admin: 09/17/20 21:13 Dose: 40 units Documented by: Insulin Human Lispro (Humalog) 12 unit SUBCUT TIDMEALS [facility] Last Admin: 09/18/20 08:01 Dose: 12 units Documented by: Isosorbide Mononitrate (Imdur) 30 mg PO DAILY [facility] Last Admin: 09/16/20 09:04 Dose: 30 mg Documented by: Loratadine (Claritin) 10 mg PO DAILY PRN PRN Reason: Allergies Lorazepam (Ativan) 1 mg IVPUSH NOW STA Stop: 09/13/20 19:47 Last Admin: 09/13/20 19:51 Dose: 1 mg Documented by: Lorazepam (Ativan) 1 mg IVPUSH ONETIME ONE Stop: 09/13/20 21:22 Last Admin: 09/13/20 21:35 Dose: 1 mg Documented by: Lorazepam (Ativan) 1 mg IVPUSH Q8H PRN PRN Reason: Anxiety Morphine Sulfate (Morphine) 4 mg IVPUSH NOW STA Stop: 09/13/20 19:32 Last Admin: 09/13/20 19:38 Dose: 4 mg Documented by: Nitroglycerin (Nitrostat) 0.4 mg SL Q5M PRN PRN Reason: Chest Pain Ondansetron HCl (Zofran) 4 mg IV Q4H PRN PRN Reason: Nausea/Vomiting Potassium Chloride (Klor-Con M20) 20 meq PO BIDMEALS [facility] Last Admin: 09/18/20 08:00 Dose: 20 meq Documented by: Senna/Docusate Sodium (Senna Plus) 1 tab PO BID [facility] Last Admin: 09/18/20 08:04 Dose: 1 tab Documented by: Sodium Chloride (Saline Flush) 10 ml FLUSH ASDIRECTED PRN PRN Reason: Keep Vein Open Last Admin: 09/16/20 09:13 Dose: 10 ml Documented by: Umeclidinium/Vilanterol (Anoro Ellipta 62.5-25 Mcg) 1 mcg IH DAILY [facility] Last Admin: 09/18/20 08:04 Dose: 1 puff Documented by: Warfarin Sodium (Coumadin Sliding Scale) 1 each PO ASDIRECTED [facility] Warfarin Sodium (Coumadin) 5 mg PO SuMoTuWeThSa@1600 [facility] Last Admin: 09/14/20 16:26 Dose: 5 mg Documented by: Warfarin Sodium (Coumadin) 2.5 mg PO Fr@1600 [facility] Warfarin Sodium (Coumadin) 5 mg PO SUMOTUWETHSA [facility] Last Admin: 09/14/20 19:41 Dose: Not Given Documented by: Warfarin Sodium (Coumadin) 2.5 mg PO [facility] Warfarin Sodium 5 mg/ Warfarin (Sodium 2.5 mg) 7.5 mg PO ONETIME ONE Stop: 09/15/20 16:01 Last Admin: 09/15/20 16:13 Dose: 7.5 mg Documented by: Warfarin Sodium (Coumadin) 5 mg PO DAILY@1600 [facility] Last Admin: 09/17/20 16:54 Dose: 5 mg Documented by: - Exam General: Reports: Alert, Oriented, Cooperative, No Acute Distress Lungs: Reports: Clear to Auscultation, Normal Respiratory Effort, Decreased Breath Sounds (bibasilar). Denies: Crackles, Wheezing Cardiovascular: Reports: Regular Rate, Irregular Rhythm GI/Abdominal Exam: Normal Bowel Sounds, Soft, Non-Tender, No Distention Extremities: Pedal Edema (2+ BLE up to knees.)
== END 2020-09-18 10:30 | disposition home health service (06) | DRG 292 ==
LOC: FB.ED 19:20 → FB.MS 21:39
PROVIDERS: ADMIT Emergency Medicine; ATTEND Family Medicine
DX: I11.0 Hypertensive heart disease with heart failure (principal); E87.1 Hypo-osmolality and hyponatremia; I48.20 Chronic atrial fibrillation, unspecified; I16.9 Hypertensive crisis, unspecified; Z68.41 Body mass index [BMI] 40.0-44.9, adult; I50.9 Heart failure, unspecified; Z95.810 Presence of automatic (implantable) cardiac defibrillator; J44.9 Chronic obstructive pulmonary disease, unspecified; I11.9 Hypertensive heart disease without heart failure; I73.9 Peripheral vascular disease, unspecified; M19.90 Unspecified osteoarthritis, unspecified site; Z20.822 Contact with and (suspected) exposure to COVID-19; I25.10 Atherosclerotic heart disease of native coronary artery without angina pectoris; E11.40 Type 2 diabetes mellitus with diabetic neuropathy, unspecified; E78.5 Hyperlipidemia, unspecified; E66.9 Obesity, unspecified; E11.51 Type 2 diabetes mellitus with diabetic peripheral angiopathy without gangrene; G47.33 Obstructive sleep apnea (adult) (pediatric); K21.9 Gastro-esophageal reflux disease without esophagitis; H91.90 Unspecified hearing loss, unspecified ear; E78.00 Pure hypercholesterolemia, unspecified; M10.9 Gout, unspecified; E11.42 Type 2 diabetes mellitus with diabetic polyneuropathy; E11.319 Type 2 diabetes mellitus with unspecified diabetic retinopathy without macular edema; M54.9 Dorsalgia, unspecified; I95.9 Hypotension, unspecified; Z95.5 Presence of coronary angioplasty implant and graft; Z95.0 Presence of cardiac pacemaker; Z79.4 Long term (current) use of insulin; Z89.429 Acquired absence of other toe(s), unspecified side; I25.2 Old myocardial infarction; Z79.82 Long term (current) use of aspirin; Z79.01 Long term (current) use of anticoagulants; Z79.899 Other long term (current) drug therapy; Z98.49 Cataract extraction status, unspecified eye; Z86.718 Personal history of other venous thrombosis and embolism
CPT/HCPCS: 36415; 51702; 71045; 80048; 80053; 80069; 81001; 82962; 83880; 84484; 85018; 85025; 85610; 85730; 86140; 93005; 94640; 94660; 96374; 96375; 97116-GP; 97162-GP; 97166-GO; 97530-GO; 97530-GP; 97535-GO; 99222; 99232; 99285; 99285-25; A9270-GY; J0360; J0696; J1815; J1815-GY; J1940; J2060; J2270; J7620-GY; U0002

== ENCOUNTER 2020-09-23 02:41 | Observation (INO) | payer MEDICARE, BC ==
[2020-09-23] MEDS ORDERED: Furosemide 20 MG/2 ML VIAL IVPUSH ONE (03:24)
[2020-09-23] MEDS ORDERED: Sodium Chloride 0.9% 10 ML Syringe FLUSH PRN (03:30)
[2020-09-23] MEDS ORDERED: Morphine 2 MG/ML SYRINGE IVPUSH ONE (03:50)
--- NOTE | 2020-09-23 03:57 | EDM.PDOC ---
ED HPI GENERAL MEDICAL PROBLEM - General Chief Complaint: Respiratory Problem Stated Complaint: SOB Time Seen by Provider: 09/23/20 03:52 Source of Information: Reports: Patient, Old Records History Limitations: Reports: No Limitations - History of Present Illness INITIAL COMMENTS - FREE TEXT/NARRATIVE: Bro returns to ED tonight due to worsening SOB at rest. He was discharged on 09/18/20 with a similar diagnosis.Last evening he had a visit with [facility],and was instructed to take an extra 40 mg Lasix at home ,but his shortness of breath got worse despite of the extra dose. He came by EMS. He does not endorse any chest pain,fever or chills. He has had the COVID vaccine,the firs dose.He has a strong h/o of afib,cad,copd ,dvt pacemaker placement,and glory. - Related Data Allergies Allergy/AdvReac Type Severity Reaction Status Date / Time No Known Allergies Allergy Verified 09/23/20 03:03 Home Meds: Home Meds Omeprazole 40 mg PO 1700 12/08/13 [History] Acetaminophen [Acetaminophen ER] 650 mg PO Q4H PRN 02/22/16 [History] Multivit-Minerals/FA/Lycopene [One Daily Men's Health Tablet] 1 tab PO DAILY 04/14/16 [History] Nitroglycerin 0.4 mg SL Q5M PRN 04/14/16 [History] Triamcinolone Acetonide [Kenalog 0.1% Crm] 1 applic TOP TID PRN 04/14/16 [History] metOLazone [Metolazone] 2.5 mg PO TUTHSA 01/07/18 [History] Docusate Sodium [Colace] 100 mg PO DAILY 11/25/18 [History] Fluticasone Propionate [Flonase] 1 spray ANKUR BID 11/25/18 [History] Gluc [place]/Chondro [place] A/Vit C/Mn [Glucosamine-Chondroitin Cap] 1 cap PO BID 11/25/18 [History] Insulin Detemir [Levemir Flextouch] 40 units SQ BEDTIME 11/25/18 [History] Loratadine [Claritin] 10 mg PO DAILY PRN 11/25/18 [History] Potassium Chloride 20 meq PO BIDMEALS 11/25/18 [History] Tiotropium Br/Olodaterol HCl [Stiolto Respimat Inhal Slayden] 1 puff INH DAILY 11/25/18 [History] Warfarin Sodium [Jantoven] 2.5 mg PO FR 11/25/18 [History] Warfarin Sodium [Jantoven] 5 mg PO SUMOTUWETHSA 11/25/18 [History] Glycerin/Phenyleph/Pramox/Pet [Preparation H Crm] 1 applic RC Q4H PRN 03/18/19 [History] Sodium Chloride 0.65% [Cummings Saline] 2 spray ANKUR QID 03/18/19 [History] Albuterol [Ventolin HFA] 2 puff IH Q4H PRN 09/14/20 [History] Aloe Vera/Sodium Chloride [Cummings Saline Nasal Gel] 1 applic NASBOTH TID 09/14/20 [History] Aspirin [Halfprin] 81 mg PO DAILY 09/14/20 [History] Insulin Aspart [NovoLOG] 12 units SUBCUT TIDMEALS 09/14/20 [History] atorvaSTATin Calcium [Lipitor] 40 mg PO DAILY 09/14/20 [History] carvediloL [Coreg] 12.5 mg PO BIDMEALS 09/14/20 [History] Enalapril [Vasotec] 2.5 mg PO DAILY 09/23/20 [History] Furosemide 20 mg PO DAILY@1400 30 Days #30 tablet 09/24/20 [Rx] Furosemide [Lasix] 40 mg PO DAILY 30 Days #60 tablet 09/24/20 [Rx] Past Medical History HEENT History: Reports: Cataract, Hard of Hearing, Sinusitis Other HEENT History: States had sinus surgery in the past. Cardiovascular History: Reports: Automatic Implantable Cardioverter Defibrillators, Blood Clots/VTE/DVT, CAD, High Cholesterol, Heart Failure, Hypertension, MA, Pacemaker, Stents, SOB on Exertion Other Cardiovascular History: peripheral vascular disease; unstable angina; cardio renal syndrome; deviated septum; elevated troponin, 17 stents, chronic atrial fibrilation. Respiratory History: Reports: COPD, Sleep Apnea, SOB Other Respiratory History: Uses O2 @ hs with CPAP - maybe. Reports no cannister Gastrointestinal History: Reports: GERD Genitourinary History: Reports: Other (See Below) Other Genitourinary History: organic impotence; phimosis Musculoskeletal History: Reports: Arthritis, Back Pain, Chronic, Fracture, Gout, Other (See Below), Osteoarthritis Other Musculoskeletal History: fx ankle Endocrine/Metabolic History: Reports: Diabetes, Type II, Obesity/BMI 30+ Other Endocrine/Metabolic History: Diabetic retinopathy; peripheral neuropathy Hematologic History: Reports: Blood Transfusion(s) Other Hematologic History: long time use of anticoagulant therapy Dermatologic History: Reports: Other (See Below) Other Dermatologic History: Stated rash was on stomach and was taken medication at home and now resolved. - Infectious Disease History Infectious Disease History: Reports: Chicken Pox, Measles, Mumps - Past Surgical History HEENT Surgical History: Reports: Cataract Surgery, Other (See Below) Other HEENT Surgeries/Procedures: sinus surgery Cardiovascular Surgical History: Reports: Coronary Artery Stent, Percutaneous Transluminal Angioplasty Other Cardiovascular Surgeries/Procedures: Pacemaker GI Surgical History: Reports: Colonoscopy Musculoskeletal Surgical History: Reports: Amputation Other Musculoskeletal Surgeries/Procedures:: recent amputation 2nd toe left foot Social & Family History - Family History Family Medical History: No Pertinent Family History - Caffeine Use Caffeine Use: Reports: Soda ED ROS GENERAL - Review of Systems Review Of Systems: Comprehensive ROS is negative, except as noted in HPI. ED EXAM, GENERAL - Physical Exam Exam: See Below Exam Limited By: No Limitations General Appearance: Alert, Anxious, Moderate Distress Ears: Normal External Exam Nose: Normal Inspection Head: Normocephalic Neck: Normal Inspection Respiratory/Chest: Crackles, Rhonchi Cardiovascular: Irregularly Irregular Extremities: Pedal Edema Neurological: Alert, Oriented Psychiatric: Normal Affect #1 Interpretation EKG Date: 09/23/20 Rhythm: A-Fib Course - Vital Signs Last Recorded V/S: Last Vital Signs Temp 98 F 09/24/20 16:00 Pulse 73 09/24/20 16:00 Resp 18 09/24/20 16:00 BP 122/69 09/24/20 16:00 Pulse Ox 98 09/24/20 16:00 - Orders/Labs/Meds Labs: Laboratory Tests 09/23/20 09/23/20 09/23/20 Range/Units 03:10 03:10 03:10 WBC 5.8 (3.2-10.1) x10-3/uL RBC 3.97 (3.90-5.90) x10(6)uL Hgb 13.2 (12.9-17.7) g/dL Hct 38.0 L (38.3-50.1) % MCV 95.5 (80.8-98.7) fL MCH 33.2 (27.0-33.3) pg MCHC 34.7 (28.7-35.3) g/dL RDW 15.2 H (12.4-15.0) % Plt Count 195 (117-477) x10(3)uL MPV 8.5 (6.7-11.0) fL Neut % (Auto) 66.9 (40.3-71.8) % Lymph % (Auto) 20.0 (15.8-45.3) % Valley % (Auto) 8.2 (5.5-15.2) % Eos % (Auto) 4.0 (0.1-6.8) % Baso % (Auto) 0.9 (0.3-3.8) % Neut # (Auto) 3.9 (1.7-6.9) x10-3/uL Lymph # (Auto) 1.2 (0.5-4.5) x10-3/uL Valley # (Auto) 0.5 (0.0-1.2) x10-3/uL Eos # (Auto) 0.2 (0.0-0.6) x10-3/uL Baso # (Auto) 0.1 (0.0-0.3) x10-3/uL PT (9.0-11.1) sec INR (1.00-1.24) Sodium 127 L (135-145) mmol/L Potassium 3.6 (3.5-5.3) mmol/L Chloride 92 L D (100-110) mmol/L Carbon Dioxide 29 (21-32) mmol/L BUN 14 (7-18) mg/dL Creatinine 1.1 (0.70-1.30) mg/dL Est Cr Clr Drug Dosing TNP Estimated GFR (MDRD) > 60 (>60) BUN/Creatinine Ratio 12.7 (9-20) Glucose 166 H D (80-116) mg/dL Calcium 8.8 (8.6-10.2) mg/dL Troponin I 17.8 (4.0-60.3) pg/mL NT-Pro-B Natriuret Pep 3072 H* (<=450) pg/mL SARS-CoV-2 RNA (ALLI) (NEGATIVE) 09/23/20 09/23/20 Range/Units 03:10 03:52 WBC (3.2-10.1) x10-3/uL RBC (3.90-5.90) x10(6)uL Hgb (12.9-17.7) g/dL Hct (38.3-50.1) % MCV (80.8-98.7) fL MCH (27.0-33.3) pg MCHC (28.7-35.3) g/dL RDW (12.4-15.0) % Plt Count (117-477) x10(3)uL MPV (6.7-11.0) fL Neut % (Auto) (40.3-71.8) % Lymph % (Auto) (15.8-45.3) % Valley % (Auto) (5.5-15.2) % Eos % (Auto) (0.1-6.8) % Baso % (Auto) (0.3-3.8) % Neut # (Auto) (1.7-6.9) x10-3/uL Lymph # (Auto) (0.5-4.5) x10-3/uL Valley # (Auto) (0.0-1.2) x10-3/uL Eos # (Auto) (0.0-0.6) x10-3/uL Baso # (Auto) (0.0-0.3) x10-3/uL PT 22.3 H (9.0-11.1) sec INR 2.17 H (1.00-1.24) Sodium (135-145) mmol/L Potassium (3.5-5.3) mmol/L Chloride (100-110) mmol/L Carbon Dioxide (21-32) mmol/L BUN (7-18) mg/dL Creatinine (0.70-1.30) mg/dL Est Cr Clr Drug Dosing Estimated GFR (MDRD) (>60) BUN/Creatinine Ratio (9-20) Glucose (80-116) mg/dL Calcium (8.6-10.2) mg/dL Troponin I (4.0-60.3) pg/mL NT-Pro-B Natriuret Pep (<=450) pg/mL SARS-CoV-2 RNA (ALLI) Negative (NEGATIVE) Meds: Medications Discontinued Medications Generic Name Dose Route Start Last Admin Trade Name Freq PRN Reason Stop Dose Admin Albuterol 0 gm 09/23/20 11:21 Ventolin Hfa INH Q4H PRN Shortness of Breath Aspirin 81 mg 09/23/20 12:00 09/24/20 08:31 Halfprin PO 81 mg DAILY ROCIO Administration Carvedilol 12.5 mg 09/23/20 18:00 09/24/20 08:29 Coreg PO 12.5 mg BIDMEALS ROCIO Administration Dextrose/Water 50 ml 09/23/20 04:00 Dextrose 50% In Water IVPUSH ASDIRECTED PRN Hypoglycemia Docusate Sodium 100 mg 09/23/20 12:00 09/24/20 08:31 Colace PO 100 mg DAILY ROCIO Administration Enalapril Maleate 2.5 mg 09/23/20 12:00 09/24/20 08:34 Vasotec PO 2.5 mg DAILY ROCIO Administration Fluticasone Propionate 1 gm 09/23/20 12:00 Flonase NASBOTH BID ROCIO Fluticasone Propionate 0 gm 09/23/20 12:00 09/24/20 08:32 Flonase NASBOTH 1 spray BID ROCIO Administration Furosemide 20 mg 09/23/20 03:24 09/23/20 03:47 Lasix IVPUSH 09/23/20 03:25 20 mg ONETIME ONE Administration Furosemide 60 mg 09/24/20 09:00 Lasix IVPUSH DAILY ROCIO Furosemide 60 mg 09/24/20 09:00 09/24/20 08:28 Lasix PO 60 mg DAILY ROCIO Administration Glucagon 1 mg 09/23/20 04:00 Glucagen IM ASDIRECTED PRN Hypoglycemia Insulin Glargine 40 units 09/23/20 21:00 09/23/20 20:11 Lantus Solostar SUBCUT 40 unit BEDTIME ROCIO Administration Insulin Human Lispro 0 unit 09/23/20 08:00 09/24/20 11:34 Humalog SUBCUT 1 units TIDMEALS ROCIO Administration Protocol Metolazone 2.5 mg 09/23/20 13:00 09/23/20 13:11 Zaroxolyn PO 2.5 mg TuThSa@0730 ROCIO Administration Morphine Sulfate 2 mg 09/23/20 03:50 09/23/20 03:54 Morphine IVPUSH 09/23/20 03:51 2 mg ONETIME ONE Administration Morphine Sulfate 2 mg 09/23/20 04:00 Morphine IVPUSH Q2H PRN Pain (severe 7-10) Multivitamins/Minerals 1 tab 09/23/20 12:00 09/24/20 08:31 Thera M Plus PO 1 tab DAILY ROCIO Administration Nitroglycerin 0.4 mg 09/23/20 11:41 Nitrostat SL Q5M PRN Chest Pain Non-Formulary Medication 650 mg 09/23/20 10:35 Acetaminophen [Acetaminophen Er] PO Q4H PRN Pain Non-Formulary Medication 1 applic 09/23/20 14:00 Aloe Vera/Sodium Chloride [Cummings Saline Nasal Gel] NASBOTH TID ROCIO (Atorvastatin 40 mg 09/23/20 21:00 09/23/20 20:08 Calcium [Lipitor] 80 PO 40 mg Mg) *Ptom BEDTIME ROCIO Administration Non-Formulary Medication 12 units 09/23/20 12:00 Insulin Aspart [Novolog] SUBCUT TIDMEALS ROCIO Non-Formulary Medication 10 mg 09/23/20 10:35 Loratadine [Claritin] PO DAILY PRN Allergies (Omeprazole [ 40 mg 09/23/20 17:00 09/24/20 16:31 Omeprazole] 40 Mg) * PO 40 mg Ptom 1700 ROCIO Administration Non-Formulary Medication 2 spray 09/23/20 13:00 Sodium Chloride 0.65% [Cummings Saline] ANKUR QID ROCIO (Tiotropium Br/ 1 puff 09/23/20 12:00 09/24/20 08:32 Olodaterol Hcl [ INH 1 puff Stiolto Respimat DAILY ROCIO Administration Inhal Slayden) *Ptom Non-Formulary Medication 1 applic 09/23/20 10:35 Triamcinolone Acetonide [Kenalog 0.1% Crm] TOP TID PRN RASH/ITCHING Potassium Chloride 20 meq 09/23/20 18:00 09/24/20 08:30 Klor-Con M20 PO 20 meq BIDMEALS ROCIO Administration Sodium Chloride 10 ml 09/23/20 03:30 09/23/20 06:00 Saline Flush FLUSH 10 ml ASDIRECTED PRN Administration keep vein open Warfarin Sodium 1 each 09/23/20 10:30 Coumadin Sliding Scale PO ASDIRECTED [facility] Warfarin Sodium 5 mg 09/23/20 16:00 09/23/20 16:38 Coumadin PO 09/23/20 16:01 5 mg ONETIME ONE Administration Warfarin Sodium 2.5 mg 09/24/20 16:00 09/24/20 16:30 Coumadin PO 09/24/20 16:01 2.5 mg ONETIME ONE Administration Departure - Departure Time of Disposition: 03:57 Disposition: Admitted As Inpatient 64 Condition: Good Clinical Impression: CHF (congestive heart failure), NYHA class I - Discharge Information Sepsis Event Note (ED) - Evaluation Sepsis Screening Result: No Definite Risk - Problem List & Annotations (1) Respiratory distress SNOMED Code(s): 284940000 Code(s): R06.00 - DYSPNEA, UNSPECIFIED Status: Acute (2) Diabetes mellitus type 2 SNOMED Code(s): 86964327 Code(s): E11.9 - TYPE 2 DIABETES MELLITUS WITHOUT COMPLICATIONS Status: Chronic Annotation/Comment:: Continue home medications. (3) HTN, Benign essential hypertension SNOMED Code(s): 8259996 Code(s): I10 - ESSENTIAL (PRIMARY) HYPERTENSION Status: Chronic Annotation/Comment:: Diltiazem discontinued. Lasix changed to 60 mg daily: 40 mg in am and 20 mg at 1400. (4) Obesity SNOMED Code(s): 510798020 Code(s): E66.9 - OBESITY, UNSPECIFIED Status: Chronic (5) Coronary arteriosclerosis, CAD SNOMED Code(s): 30896909 Code(s): I25.10 - ATHSCL HEART DISEASE OF [place] CORONARY ARTERY W/O ANG PCTRS Status: Chronic Annotation/Comment:: (6) CHF (congestive heart failure) SNOMED Code(s): 69307012 Code(s): I50.9 - HEART FAILURE, UNSPECIFIED Status: Chronic (7) COPD (chronic obstructive pulmonary disease) SNOMED Code(s): 33525206 Code(s): J44.9 - CHRONIC OBSTRUCTIVE PULMONARY DISEASE, UNSPECIFIED Status: Chronic Qualifiers: COPD type: emphysema - Problem List Review Problem List Initiated/Reviewed/Updated: Yes - Assessment/Plan Plan: I personally reviewed his CXR, still has moderate pulmonary edema. I gave him 20 mg if IV Lasix,Morphine. I will admit him, continue diuresis and Duo Nebs as ne eded.
[2020-09-23] MEDS ORDERED: Morphine 2 MG/ML SYRINGE IVPUSH PRN (04:00)
[2020-09-23] MEDS ORDERED: 50% Dextrose in Water 50 ML Syringe IVPUSH PRN (04:00)
[2020-09-23] MEDS ORDERED: Glucagon,Human Recombinant 1 MG Vial IM PRN (04:00)
[2020-09-23] MEDS: Insulin Lispro 100 Unit/ML 3 ML KwikPen SUBCUT SCH ×3 (09:26→17:25)
[2020-09-23] MEDS ORDERED: Warfarin Sliding Scale PO SCH (10:30)
[2020-09-23] MEDS ORDERED: Non-Formulary Medication 1 Each (Loratadine [Claritin] 10 MG) PO PRN (10:35)
[2020-09-23] MEDS ORDERED: TRIAMCINOLONE ACETONIDE TOP PRN (10:35)
[2020-09-23] MEDS ORDERED: Non-Formulary Medication 1 Each (Acetaminophen [Acetaminophen Er] 650 MG) PO PRN (10:35)
[2020-09-23] MEDS ORDERED: Albuterol 8 GM Inhaler INH PRN (11:21)
[2020-09-23] MEDS ORDERED: Nitroglycerin 0.4 MG Tab.SL SL PRN (11:41)
[2020-09-23] MEDS ORDERED: Fluticasone Propionate Nasal Spray 16 GM Bottle *PTOM NASBOTH SCH (12:00)
[2020-09-23] MEDS ORDERED: INSULIN ASPART 12 UNIT SUBCUT SCH (12:00)
[2020-09-23] MEDS ORDERED: Metolazone 2.5 MG Tab PO SCH (13:00)
[2020-09-23] MEDS ORDERED: [UNRECOGNIZED DRUG - OTHER] NAS SCH (13:00)
[2020-09-23] MEDS ORDERED: SODIUM CHLORIDE 0.65% NAS SCH (13:00)
[2020-09-23] MEDS: Docusate Sodium 100 MG Cap *PTOM PO SCH (13:07)
[2020-09-23] MEDS: Aspirin 81 MG Tab.EC *PTOM PO SCH (13:08)
[2020-09-23] MEDS: Multivitamins with Iron/Calcium/Folic Acid/Minerals Tab *PTOM PO SCH (13:09)
[2020-09-23] MEDS: Enalapril 5 MG Tab PO SCH (13:10)
[2020-09-23] MEDS: Fluticasone Propionate Nasal Spray 16 GM Bottle *PTOM NASBOTH SCH ×2 (13:13→20:08)
[2020-09-23] MEDS: TIOTROPIUM BR INH SCH (13:18)
[2020-09-23] MEDS: OLODATEROL HCL INH SCH (13:18)
[2020-09-23] MEDS ORDERED: Non-Formulary Medication 1 Each (Aloe Vera/Sodium Chloride [Ayr Saline Nasal Gel] 1 APPLIC NASBOTH SCH (14:00)
--- NOTE | 2020-09-23 15:11 | PCM.HP.2 ---
H&P History of Present Illness - General Date of Service: 09/23/20 Admit Problem/Dx: Admission Diagnosis/Problem Admission Diagnosis/Problem CHF, Congestive heart failure Source of Information: Patient, EMS Notes Reviewed - History of Present Illness Initial Comments - Free Text/Narative: Bro returns to ED last night due to worsening SOB at rest. He was discharged on 09/18/20 for congestive heart failure exacerbation. Yesterday he had a visit with [facility], and was instructed to take an extra 40 mg Lasix at home, but his shortness of breath got worse despite of the extra dose. He came by EMS. Denies any chest pain, fever or chills. He has had the COVID vaccine,the first dose. He has a strong h/o of Afib with pacemaker, CAD, COPD, DVT, and Obstructive sleep apnea, though denies that he uses CPAP at home. Also saw podiatry yesterday said amputation site healing as expected in diabetic. Weight is up 2 pounds from discharge. Home health received wrong medication list from discharge so Diltiazem was continued, blood pressures low today. BNP elevated to 3072, sodium 127. Pulmonary edema on chest x-ray. - Related Data Allergies/Adverse Reactions: Allergies Allergy/AdvReac Type Severity Reaction Status Date / Time No Known Allergies Allergy Verified 09/23/20 03:03 Home Medications: Home Meds Omeprazole 40 mg PO 1700 12/08/13 [History] Acetaminophen [Acetaminophen ER] 650 mg PO Q4H PRN 02/22/16 [History] Multivit-Minerals/FA/Lycopene [One Daily Men's Health Tablet] 1 tab PO DAILY 04/14/16 [History] Nitroglycerin 0.4 mg SL Q5M PRN 04/14/16 [History] Triamcinolone Acetonide [Kenalog 0.1% Crm] 1 applic TOP TID PRN 04/14/16 [History] metOLazone [Metolazone] 2.5 mg PO TUTHSA 01/07/18 [History] Docusate Sodium [Colace] 100 mg PO DAILY 11/25/18 [History] Fluticasone Propionate [Flonase] 1 spray ANKUR BID 11/25/18 [History] Gluc [place]/Chondro [place] A/Vit C/Mn [Glucosamine-Chondroitin Cap] 1 cap PO BID [History] Insulin Detemir [Levemir Flextouch] 40 units SQ BEDTIME 11/25/18 [History] Loratadine [Claritin] 10 mg PO DAILY PRN 11/25/18 [History] Potassium Chloride 20 meq PO BIDMEALS 11/25/18 [History] Tiotropium Br/Olodaterol HCl [Stiolto Respimat Inhal [place]] 1 puff INH DAILY 11/25/18 [History] Warfarin Sodium [Jantoven] 2.5 mg PO FR 11/25/18 [History] Warfarin Sodium [Jantoven] 5 mg PO SUMOTUWETHSA 11/25/18 [History] Glycerin/Phenyleph/Pramox/Pet [Preparation H Crm] 1 applic RC Q4H PRN 03/18/19 [History] Sodium Chloride 0.65% [Kenedy Saline] 2 spray ANKUR QID 03/18/19 [History] Albuterol [Ventolin HFA] 2 puff IH Q4H PRN 09/14/20 [History] Aloe Vera/Sodium Chloride [[place]y Saline Nasal Gel] 1 applic NASBOTH TID 09/14/20 [History] Aspirin [Halfprin] 81 mg PO DAILY 09/14/20 [History] Insulin Aspart [NovoLOG] 12 units SUBCUT TIDMEALS 09/14/20 [History] atorvaSTATin Calcium [Lipitor] 40 mg PO DAILY 09/14/20 [History] carvediloL [Coreg] 12.5 mg PO BIDMEALS 09/14/20 [History] Diltiazem [Diltiazem XR] 240 mg PO DAILY 09/23/20 [History] Enalapril [Vasotec] 2.5 mg PO DAILY 09/23/20 [History] Furosemide [Lasix] 40 mg PO DAILY 09/23/20 [History] Past Medical History HEENT History: Reports: Cataract, Hard of Hearing, Sinusitis Other HEENT History: States had sinus surgery in the past. Cardiovascular History: Reports: Automatic Implantable Cardioverter Defibrillators, Blood Clots/VTE/DVT, CAD, High Cholesterol, Heart Failure, Hypertension, [place], Pacemaker, Stents, SOB on Exertion Other Cardiovascular History: peripheral vascular disease; unstable angina; cardio renal syndrome; deviated septum; elevated troponin, 17 stents, chronic atrial fibrilation. Respiratory History: Reports: COPD, Sleep Apnea, SOB Other Respiratory History: Uses O2 @ hs with CPAP - maybe. Reports no cannister Gastrointestinal History: Reports: GERD Genitourinary History: Reports: Other (See Below) Other Genitourinary History: organic impotence; phimosis Musculoskeletal History: Reports: Arthritis, Back Pain, Chronic, Fracture, Gout, Other (See Below), Osteoarthritis Other Musculoskeletal History: fx ankle Endocrine/Metabolic History: Reports: Diabetes, Type II, Obesity/BMI 30+ Other Endocrine/Metabolic History: Diabetic retinopathy; peripheral neuropathy Hematologic History: Reports: Blood Transfusion(s) Other Hematologic History: long time use of anticoagulant therapy Dermatologic History: Reports: Other (See Below) Other Dermatologic History: Stated rash was on stomach and was taken medication at home and now resolved. - Infectious Disease History Infectious Disease History: Reports: Chicken Pox, Measles, Mumps - Past Surgical History HEENT Surgical History: Reports: Cataract Surgery, Other (See Below) Other HEENT Surgeries/Procedures: sinus surgery Cardiovascular Surgical History: Reports: Coronary Artery Stent, Percutaneous Transluminal Angioplasty Other Cardiovascular Surgeries/Procedures: Pacemaker GI Surgical History: Reports: Colonoscopy Musculoskeletal Surgical History: Reports: Amputation Other Musculoskeletal Surgeries/Procedures:: recent amputation 2nd toe left foot Social & Family History - Family History Family Medical History: No Pertinent Family History - Tobacco Use Tobacco Use Status *Q: Former Tobacco User Used Tobacco, but Quit: Yes Month/Year Tobacco Last Used: 20-30 years ago Second Hand Smoke Exposure: No - Caffeine Use Caffeine Use: Reports: Coffee Other Caffeine Use: Everyday coffee drinker - Recreational Drug Use Recreational Drug Use: No H&P Review of Systems - Review of Systems: Review Of Systems: See Below General: Reports: Fatigue. Denies: Fever, Chills HEENT: Reports: No Symptoms Pulmonary: Reports: Shortness of Breath. Denies: Wheezing, Cough Cardiovascular: Reports: Edema. Denies: Chest Pain Gastrointestinal: Reports: No Symptoms Genitourinary: Reports: No Symptoms Musculoskeletal: Reports: No Symptoms Skin: Reports: No Symptoms Psychiatric: Reports: No Symptoms Neurological: Reports: No Symptoms Exam - Exam Exam: See Below - Vital Signs Vital Signs: Last Vital Signs Temp 97.7 F 09/23/20 12:40 Pulse 73 09/23/20 12:40 Resp 20 09/23/20 12:40 BP 133/74 09/23/20 13:10 Pulse Ox 94 L 09/23/20 12:40 Weight: 288 lb 4 oz - Exam General: Alert, Oriented, Cooperative. No: Mild Distress HEENT: PERRLA, Conjunctiva Clear, EOMI, Hearing Intact Neck: Trachea Midline Lungs: Clear to Auscultation (BUL), Normal Respiratory Effort, Decreased Breath Sounds (BLL). No: Crackles, Wheezing Cardiovascular: Regular Rate, Regular Rhythm GI/Abdominal Exam: Normal Bowel Sounds, Soft, Non-Tender, No Distention Extremities: Pedal Edema (2+ BLE to knees, left second toe dressing & coband in place.) Peripheral Pulses: 2+: Radial (L), Radial (R) - Patient Data Lab Results Last 24 hrs: Laboratory Results - last 24 hr 09/23/20 09/23/20 09/23/20 Range/Units 03:10 03:10 03:10 WBC 5.8 (3.2-10.1) x10-3/uL RBC 3.97 (3.90-5.90) x10(6)uL Hgb 13.2 (12.9-17.7) g/dL Hct 38.0 L (38.3-50.1) % MCV 95.5 (80.8-98.7) fL MCH 33.2 (27.0-33.3) pg MCHC 34.7 (28.7-35.3) g/dL RDW 15.2 H (12.4-15.0) % Plt Count 195 (117-477) x10(3)uL MPV 8.5 (6.7-11.0) fL Neut % (Auto) 66.9 (40.3-71.8) % Lymph % (Auto) 20.0 (15.8-45.3) % [place] % (Auto) 8.2 (5.5-15.2) % Eos % (Auto) 4.0 (0.1-6.8) % Baso % (Auto) 0.9 (0.3-3.8) % Neut # (Auto) 3.9 (1.7-6.9) x10-3/uL Lymph # (Auto) 1.2 (0.5-4.5) x10-3/uL [place] # (Auto) 0.5 (0.0-1.2) x10-3/uL Eos # (Auto) 0.2 (0.0-0.6) x10-3/uL Baso # (Auto) 0.1 (0.0-0.3) x10-3/uL PT (9.0-11.1) sec INR (1.00-1.24) Sodium 127 L (135-145) mmol/L Potassium 3.6 (3.5-5.3) mmol/L Chloride 92 L D (100-110) mmol/L Carbon Dioxide 29 (21-32) mmol/L BUN 14 (7-18) mg/dL Creatinine 1.1 (0.70-1.30) mg/dL Est Cr Clr Drug Dosing TNP Estimated GFR (MDRD) > 60 (>60) BUN/Creatinine Ratio 12.7 (9-20) Glucose 166 H D (80-116) mg/dL POC Glucose (74-100) mg/dL Calcium 8.8 (8.6-10.2) mg/dL Troponin I 17.8 (4.0-60.3) pg/mL NT-Pro-B Natriuret Pep 3072 H* (<=450) pg/mL SARS-CoV-2 RNA (ALLI) (NEGATIVE) 09/23/20 09/23/20 09/23/20 Range/Units 03:10 03:52 09:22 WBC (3.2-10.1) x10-3/uL RBC (3.90-5.90) x10(6)uL Hgb (12.9-17.7) g/dL Hct (38.3-50.1) % MCV (80.8-98.7) fL MCH (27.0-33.3) pg MCHC (28.7-35.3) g/dL RDW (12.4-15.0) % Plt Count (117-477) x10(3)uL MPV (6.7-11.0) fL Neut % (Auto) (40.3-71.8) % Lymph % (Auto) (15.8-45.3) % [place] % (Auto) (5.5-15.2) % Eos % (Auto) (0.1-6.8) % Baso % (Auto) (0.3-3.8) % Neut # (Auto) (1.7-6.9) x10-3/uL Lymph # (Auto) (0.5-4.5) x10-3/uL [place] # (Auto) (0.0-1.2) x10-3/uL Eos # (Auto) (0.0-0.6) x10-3/uL Baso # (Auto) (0.0-0.3) x10-3/uL PT 22.3 H (9.0-11.1) sec INR 2.17 H (1.00-1.24) Sodium (135-145) mmol/L Potassium (3.5-5.3) mmol/L Chloride (100-110) mmol/L Carbon Dioxide (21-32) mmol/L BUN (7-18) mg/dL Creatinine (0.70-1.30) mg/dL Est Cr Clr Drug Dosing Estimated GFR (MDRD) (>60) BUN/Creatinine Ratio (9-20) Glucose (80-116) mg/dL POC Glucose 306 H (74-100) mg/dL Calcium (8.6-10.2) mg/dL Troponin I (4.0-60.3) pg/mL NT-Pro-B Natriuret Pep (<=450) pg/mL SARS-CoV-2 RNA (ALLI) Negative (NEGATIVE) 09/23/20 Range/Units 11:59 WBC (3.2-10.1) x10-3/uL RBC (3.90-5.90) x10(6)uL Hgb (12.9-17.7) g/dL Hct (38.3-50.1) % MCV (80.8-98.7) fL MCH (27.0-33.3) pg MCHC (28.7-35.3) g/dL RDW (12.4-15.0) % Plt Count (117-477) x10(3)uL MPV (6.7-11.0) fL Neut % (Auto) (40.3-71.8) % Lymph % (Auto) (15.8-45.3) % [place] % (Auto) (5.5-15.2) % Eos % (Auto) (0.1-6.8) % Baso % (Auto) (0.3-3.8) % Neut # (Auto) (1.7-6.9) x10-3/uL Lymph # (Auto) (0.5-4.5) x10-3/uL [place] # (Auto) (0.0-1.2) x10-3/uL Eos # (Auto) (0.0-0.6) x10-3/uL Baso # (Auto) (0.0-0.3) x10-3/uL PT (9.0-11.1) sec INR (1.00-1.24) Sodium (135-145) mmol/L Potassium (3.5-5.3) mmol/L Chloride (100-110) mmol/L Carbon Dioxide (21-32) mmol/L BUN (7-18) mg/dL Creatinine (0.70-1.30) mg/dL Est Cr Clr Drug Dosing Estimated GFR (MDRD) (>60) BUN/Creatinine Ratio (9-20) Glucose (80-116) mg/dL POC Glucose 202 H (74-100) mg/dL Calcium (8.6-10.2) mg/dL Troponin I (4.0-60.3) pg/mL NT-Pro-B Natriuret Pep (<=450) pg/mL SARS-CoV-2 RNA (ALLI) (NEGATIVE) Result Diagrams: 09/23/20 03:10 09/23/20 03:10 Sepsis Event Note - Evaluation Sepsis Screening Result: No Definite Risk - Focused Exam Vital Signs: Vital Signs Temp Temp Pulse Pulse Resp BP BP 09/23/20 13:10 133/74 09/23/20 12:40 97.7 F 73 20 09/23/20 08:00 97.6 F 69 18 09/23/20 05:15 96.9 F 73 30 H 90/60 09/23/20 05:05 79 24 H 114/87 09/23/20 04:15 64 26 H 116/65 09/23/20 04:12 59 L 23 H 117/54 L 09/23/20 04:00 59 L 28 H 116/53 L 09/23/20 03:54 74 25 H 118/63 BP Pulse Ox 09/23/20 13:10 09/23/20 12:40 133/74 94 L 09/23/20 08:00 103/60 96 09/23/20 05:15 96 09/23/20 05:05 100 09/23/20 04:15 100 09/23/20 04:12 99 09/23/20 04:00 99 09/23/20 03:54 100 *Q Meaningful Use (ADM) - VTE *Q VTE Mechanical Contraindications *Q: At Risk for Falls - VTE Risk Assess *Q Each Risk Factor Represents 1 Point: Swollen Legs, Current, Obesity ( BMI > 25 kg/m2), Congestive heart failure (CHF) Total Score 1 Point Risk Factors: 3 Each Risk Factor Represents 2 Points: None Total Score 2 Point Risk Factors: 0 Each Risk Factor Represents 3 Points: Age 75 Years or Greater Total Score 3 Point Risk Factors: 3 Each Risk Factor Represents 5 Points: None Total Score 5 Point Risk Factors: 0 Venous Thromboembolism Risk Factor Score *Q: 6 - Problem List (1) Acute exacerbation of congestive heart failure SNOMED Code(s): 853145114, 17320126455667 ICD Code: I50.9 - HEART FAILURE, UNSPECIFIED Status: Acute Current Visit: No (2) Edema of lower extremity SNOMED Code(s): 908569618 ICD Code: R60.0 - LOCALIZED EDEMA Status: Acute Current Visit: No (3) Hyponatremia SNOMED Code(s): 70239085 ICD Code: E87.1 - HYPO-OSMOLALITY AND HYPONATREMIA Status: Acute Current Visit: No Problem Details: acute on chronic (4) COPD (chronic obstructive pulmonary disease) SNOMED Code(s): 50235186 ICD Code: J44.9 - CHRONIC OBSTRUCTIVE PULMONARY DISEASE, UNSPECIFIED Status: Chronic Current Visit: No Qualifiers: COPD type: emphysema (5) Cardiac defibrillator in place Status: Chronic Current Visit: No (6) Chronic a-fib SNOMED Code(s): 097956801 ICD Code: I48.20 - CHRONIC ATRIAL FIBRILLATION, UNSPECIFIED Status: Chronic Current Visit: No (7) Coronary arteriosclerosis, CAD SNOMED Code(s): 51363075 ICD Code: I25.10 - ATHSCL HEART DISEASE OF [place] CORONARY ARTERY W/O ANG PCTRS Status: Chronic Current Visit: No Problem Details: (8) Diabetes mellitus type 2 SNOMED Code(s): 72769269 ICD Code: E11.9 - TYPE 2 DIABETES MELLITUS WITHOUT COMPLICATIONS Status: Chronic Current Visit: No Problem Details: Continue home medications. (9) HTN, Benign essential hypertension SNOMED Code(s): 7987332 ICD Code: I10 - ESSENTIAL (PRIMARY) HYPERTENSION Status: Chronic Current Visit: No Problem Details: Diltiazem was discontinued on last admission, did not carry over to home health medication list so will make sure they get updated this with this admission. (10) Hyperlipidemia SNOMED Code(s): 25821902 ICD Code: E78.5 - HYPERLIPIDEMIA, UNSPECIFIED Status: Chronic Current Visit: No Problem Details: Continue lipitor. (11) Obesity SNOMED Code(s): 386974606 ICD Code: E66.9 - OBESITY, UNSPECIFIED Status: Chronic Current Visit: No Problem List Initiated/Reviewed/Updated: Yes Orders Last 24hrs: Active Orders 24 hr Category Date Time Status Patient Status [ADT] Routine ADT 09/23/20 09:41 Active Bedrest Bedside Commode [RC] ASDIRECTED Care 09/23/20 04:00 Active Blood Glucose Check, Bedside [RC] TIDMEALS Care 09/23/20 04:00 Active Cardiac Monitoring [RC] CONTINUOUS Care 09/23/20 04:02 Active Discontinue Telemetry Monitoring [Cardiac Monitoring Care 09/23/20 11:50 Active Discontinue] [RC] Click to Edit EKG Documentation Completion [RC] ASDIRECTED Care 09/23/20 03:03 Active Height and Weight [RC] DAILY Care 09/23/20 04:00 Active Oxygen Therapy [RC] PRN Care 09/23/20 04:00 Active VTE/DVT Education [RC] Per Unit Routine Care 09/23/20 04:00 Active Vital Signs [RC] Q4H Care 09/23/20 04:00 Active Consistent Carbohydrate Diet [DIET] Diet 09/23/20 Breakfast Ordered Chest 2V [CR] Stat Exams 09/23/20 03:03 Taken BASIC METABOLIC PANEL,BMP [CHEM] Routine Lab 09/24/20 06:00 Ordered Albuterol [Ventolin HFA] Med 09/23/20 11:21 Active 0 gm INH Q4H PRN Aspirin [Halfprin] Med 09/23/20 12:00 Active 81 mg PO DAILY Dextrose 50% in Water Med 09/23/20 04:00 Active 50 ml IVPUSH ASDIRECTED PRN Docusate Sodium [Colace] Med 09/23/20 12:00 Active 100 mg PO DAILY Enalapril [Vasotec] Med 09/23/20 12:00 Active 2.5 mg PO DAILY Fluticasone Propionate [Flonase] Med 09/23/20 12:00 Active 0 gm NASBOTH BID Glucagon,Human Recombinant [GlucaGen] Med 09/23/20 04:00 Active 1 mg IM ASDIRECTED PRN Insulin Glarg,Human.Rec.Analog [LantUS Solostar] Med 09/23/20 21:00 Active 40 units SUBCUT BEDTIME Insulin Lispro [HumaLOG] Med 09/23/20 08:00 Active See Protocol SUBCUT TIDMEALS Morphine Med 09/23/20 04:00 Active 2 mg IVPUSH Q2H PRN Multivitamins w-Iron/Ca/FA/Min [Thera M Plus] Med 09/23/20 12:00 Active 1 tab PO DAILY Nitroglycerin [Nitrostat] Med 09/23/20 11:41 Active 0.4 mg SL Q5M PRN Omeprazole [Omeprazole] Med 09/23/20 17:00 Active 40 mg PO 1700 Potassium Chloride [Klor-Con M20] Med 09/23/20 18:00 Active 20 meq PO BIDMEALS Sodium Chloride 0.9% [Saline Flush] Med 09/23/20 03:30 Active 10 ml FLUSH ASDIRECTED PRN Tiotropium Br/Olodaterol HCl [Stiolto Respimat Inhal Med 09/23/20 12:00 Active [place]] 1 puff INH DAILY Warfarin Sliding Scale [Coumadin Sliding Scale] Med 09/23/20 10:30 Pending 1 each PO ASDIRECTED Warfarin [Coumadin] Med 09/23/20 16:00 Once 5 mg PO ONETIME ONE atorvaSTATin Calcium [Lipitor] Med 09/23/20 21:00 Active 40 mg PO BEDTIME carvediloL [Coreg] Med 09/23/20 18:00 Active 12.5 mg PO BIDMEALS metOLazone [Zaroxolyn] Med 09/23/20 13:00 Active 2.5 mg PO TuThSa@0730 Resuscitation Status Routine Resus Stat 09/23/20 04:00 Ordered EKG 12 Lead [EK] Routine Ther 09/23/20 03:03 Ordered Medication Orders Albuterol (Ventolin Hfa) 0 gm INH Q4H PRN PRN Reason: Shortness of Breath Aspirin (Halfprin) 81 mg PO DAILY [facility] Last Admin: 09/23/20 13:08 Dose: 81 mg Documented by: JOSEP Carvedilol (Coreg) 12.5 mg PO BIDMEALS [facility] Dextrose/Water (Dextrose 50% In Water) 50 ml IVPUSH ASDIRECTED PRN PRN Reason: Hypoglycemia Docusate Sodium (Colace) 100 mg PO DAILY [facility] Last Admin: 09/23/20 13:07 Dose: 100 mg Documented by: JOSEP Enalapril Maleate (Vasotec) 2.5 mg PO DAILY [facility] Last Admin: 09/23/20 13:10 Dose: 2.5 mg Documented by: JOSEP Fluticasone Propionate (Flonase) 0 gm NASBOTH BID [facility] Last Admin: 09/23/20 13:13 Dose: 2 spray Documented by: JOSEP Glucagon (Glucagen) 1 mg IM ASDIRECTED PRN PRN Reason: Hypoglycemia Insulin Glargine (Lantus Solostar) 40 units SUBCUT BEDTIME [facility] Insulin Human Lispro (Humalog) 0 unit SUBCUT TIDMEALS [facility]; Protocol Last Admin: 09/23/20 12:28 Dose: 2 units Documented by: JOSEP Cosigned by: ALYSSA Admin: 09/23/20 09:26 Dose: 4 units Documented by: JOSEP Cosigned by: JN Metolazone (Zaroxolyn) 2.5 mg PO TuTa@0730 [facility] Last Admin: 09/23/20 13:11 Dose: 2.5 mg Documented by: JOSEP Morphine Sulfate (Morphine) 2 mg IVPUSH Q2H PRN PRN Reason: Pain (severe 7-10) Multivitamins/Minerals (Thera M Plus) 1 tab PO DAILY [facility] Last Admin: 09/23/20 13:09 Dose: 1 tab Documented by: JOSEP Nitroglycerin (Nitrostat) 0.4 mg SL Q5M PRN PRN Reason: Chest Pain (Atorvastatin Calcium [Lipitor] 80 Mg) *Ptom 40 mg PO BEDTIME [facility] (Omeprazole [ Omeprazole] 40 Mg) * Ptom 40 mg PO 1700 [facility] (Tiotropium Br/Olodaterol Hcl [ Stiolto Respimat Inhal [place]) *Ptom 1 puff INH DAILY [facility] Last Admin: 09/23/20 13:18 Dose: 1 puff Documented by: JOSEP Potassium Chloride (Klor-Con M20) 20 meq PO BIDMEALS [facility] Sodium Chloride (Saline Flush) 10 ml FLUSH ASDIRECTED PRN PRN Reason: keep vein open Last Admin: 09/23/20 06:00 Dose: 10 ml Documented by: LILLIANA Warfarin Sodium (Coumadin Sliding Scale) 1 each PO ASDIRECTED [facility] Warfarin Sodium (Coumadin) 5 mg PO ONETIME ONE Stop: 09/23/20 16:01 Assessment/Plan Comment:: 1. Admit for observation for Acute on chronic CHF exacerbation, lower extremity edema. 2. CHF: Lasix 20 mg IV this morning & Metolazone 2.5 mg today. Lasix 60 mg IV daily start tomorrow. Daily weights. Recheck labs in am. BNP 3072. 3. DM: Continue home medications, Accuchecks qidac&hs. 4. Consistent carb diet. 5. DVT prophylaxis: INR 2.17, Coumadin sliding scale per pharmacy. 6. CODE STATUS: FULL CODE. Discharge to home 24-48 hours with [facility]. - Mortality Measure Prognosis:: Poor
[2020-09-23] MEDS ORDERED: Warfarin 2.5 MG Tab PO ONE (16:00)
[2020-09-23] MEDS: Carvedilol 25 MG Tab *PTOM PO SCH (17:14)
[2020-09-23] MEDS: Potassium Chloride 20 MEQ Tab.ER *PTOM PO SCH (17:20)
--- NOTE | 2020-09-23 18:24 | CR ---
INDICATION: Shortness of breath. CHEST, TWO VIEWS: PA and lateral views of the chest were obtained 09/23/20 and compared with 09/16/20 and 09/13/20. The heart appears to be at the upper limits of normal in size or slightly enlarged with bipolar pacemaker leads unchanged in position. The aorta is tortuous with calcification in the arch. Bibasilar pleuroparenchymal changes are again noted, compatible with pneumonia and pleuritis with less pleural effusion on the left and similar or slightly increased pleural effusion on the right. There also appears to be CHF with prominence of upper lung pulmonary vasculature and this should be correlated clinically as fluid overload can give a similar appearance. Degenerative changes of moderate degree anteriorly are noted with hypertrophic lipping off vertebral bodies. IMPRESSION: 1. Findings remain compatible with CHF or pulmonary vascular congestion with other cause, but with a lesser degree of interstitial lung edema than present on the previous study. 2. Bibasilar pleuroparenchymal changes are again noted, perhaps slightly decreased parenchymal changes on the right with slight increased pleural changes on the right, and decreased pleural changes on the left. MTDD
[2020-09-23] MEDS ORDERED: Insulin Lispro 100 Unit/ML 3 ML KwikPen SUBCUT ONE (20:09)
[2020-09-23] MEDS ORDERED: Insulin Glargine,Human Rec. Analog 100 Units/ML 3 ML Pen SUBCUT ONE (20:09)
[2020-09-23] MEDS ORDERED: Insulin Glargine,Human Rec. Analog 100 Units/ML 3 ML Pen SUBCUT SCH (21:00)
[2020-09-23] MEDS ORDERED: ATORVASTATIN CALCIUM 80 MG PO SCH (21:00)
[2020-09-24] MEDS: Carvedilol 25 MG Tab *PTOM PO SCH (08:29)
[2020-09-24] MEDS: Insulin Lispro 100 Unit/ML 3 ML KwikPen SUBCUT SCH ×2 (08:30→11:34)
[2020-09-24] MEDS: Potassium Chloride 20 MEQ Tab.ER *PTOM PO SCH (08:30)
[2020-09-24] MEDS: Aspirin 81 MG Tab.EC *PTOM PO SCH (08:31)
[2020-09-24] MEDS: Docusate Sodium 100 MG Cap *PTOM PO SCH (08:31)
[2020-09-24] MEDS: Multivitamins with Iron/Calcium/Folic Acid/Minerals Tab *PTOM PO SCH (08:31)
[2020-09-24] MEDS: TIOTROPIUM BR INH SCH (08:32)
[2020-09-24] MEDS: OLODATEROL HCL INH SCH (08:32)
[2020-09-24] MEDS: Fluticasone Propionate Nasal Spray 16 GM Bottle *PTOM NASBOTH SCH (08:32)
[2020-09-24] MEDS: Enalapril 5 MG Tab PO SCH (08:34)
[2020-09-24] MEDS ORDERED: Furosemide 100 MG/10 ML SDV IVPUSH SCH (09:00)
[2020-09-24] MEDS ORDERED: Furosemide 20 MG Tab PO SCH (09:00)
--- NOTE | 2020-09-24 13:59 | PCM.DCSUM1 ---
Discharge Summary - Hospital Course HPI Initial Comments: Bro returns to ED last night due to worsening SOB at rest. He was discharged on 09/18/20 for congestive heart failure exacerbation. Yesterday he had a visit with [facility], and was instructed to take an extra 40 mg Lasix at home, but his shortness of breath got worse despite of the extra dose. He came by EMS. Denies any chest pain, fever or chills. He has had the COVID vaccine,the first dose. He has a strong h/o of Afib with pacemaker, CAD, COPD, DVT, and Obstructive sleep apnea, though denies that he uses CPAP at home. Also saw podiatry yesterday said amputation site healing as expected in diabetic. Weight is up 2 pounds from discharge. Home health received wrong medication list from discharge so Diltiazem was continued, blood pressures low today. BNP elevated to 3072, sodium 127. Pulmonary edema on chest x-ray. Diagnosis: Stroke: No - Discharge Data Discharge Date: 09/24/20 ([facility]) Discharge Disposition: Home, W Home Health Agency 06 Condition: Fair - Referral to Home Health Date of Face to Face Encounter: 09/24/20 Reason for Homebound Status: mobility, weak, unsteady Primary Care Physician: Hector De Leon MD Skilled Need: PT/OT nursing for medical managment, DM education, blood pressure/weight checks, wound care. - Discharge Diagnosis/Problem(s) (1) Acute exacerbation of congestive heart failure SNOMED Code(s): 034897855, 75294617846838 ICD Code: I50.9 - HEART FAILURE, UNSPECIFIED Status: Acute Current Visit: No (2) Edema of lower extremity SNOMED Code(s): 049799249 ICD Code: R60.0 - LOCALIZED EDEMA Status: Acute Current Visit: No (3) Hyponatremia SNOMED Code(s): 69519223 ICD Code: E87.1 - HYPO-OSMOLALITY AND HYPONATREMIA Status: Acute Current Visit: No Problem Details: acute on chronic (4) COPD (chronic obstructive pulmonary disease) SNOMED Code(s): 74596113 ICD Code: J44.9 - CHRONIC OBSTRUCTIVE PULMONARY DISEASE, UNSPECIFIED Status: Chronic Current Visit: No Qualifiers: COPD type: emphysema (5) Cardiac defibrillator in place Status: Chronic Current Visit: No (6) Chronic a-fib SNOMED Code(s): 508478706 ICD Code: I48.20 - CHRONIC ATRIAL FIBRILLATION, UNSPECIFIED Status: Chronic Current Visit: No (7) Coronary arteriosclerosis, CAD SNOMED Code(s): 68348131 ICD Code: I25.10 - ATHSCL HEART DISEASE OF [place] CORONARY ARTERY W/O ANG PCTRS Status: Chronic Current Visit: No Problem Details: (8) Diabetes mellitus type 2 SNOMED Code(s): 94070103 ICD Code: E11.9 - TYPE 2 DIABETES MELLITUS WITHOUT COMPLICATIONS Status: Chronic Current Visit: No Problem Details: Continue home medications. (9) HTN, Benign essential hypertension SNOMED Code(s): 2622335 ICD Code: I10 - ESSENTIAL (PRIMARY) HYPERTENSION Status: Chronic Current Visit: No Problem Details: Diltiazem discontinued. Lasix changed to 60 mg daily: 40 mg in am and 20 mg at 1400. (10) Hyperlipidemia SNOMED Code(s): 72830418 ICD Code: E78.5 - HYPERLIPIDEMIA, UNSPECIFIED Status: Chronic Current Visit: No Problem Details: Continue lipitor. (11) Obesity SNOMED Code(s): 478050618 ICD Code: E66.9 - OBESITY, UNSPECIFIED Status: Chronic Current Visit: No - Patient Summary/Data Hospital Course: Bro was admitted to observation of CHF exacerbation, received 20 mg IV Lasix paper sheeter 09/23, had Metolazone 2.5 mg also 09/23, weight is down to 286 today. Lungs are clear, diminished in bases but no crackles today, edema improved. Blood pressure was good this morning, received 60 mg of Lasix, dropped his pressure 88/55 but asymptomatic. Changed his dose of lasix to 40 mg in am and 20 mg at 1400 as Lasix 40 mg bid last admission was too much, dropped his pressures to 65/31 on 09/16. Blood pressure this afternoon was 122/68 at 1600. Had Purine juice to help with constipation. Discontinued Diltiazem on admission. Sodium came up to 129 with diuresis. Recheck sodium as outpatient. - Patient Instructions Diet: Diabetic Diet Activity: As Tolerated Driving: Do Not Drive Showering/Bathing: May Shower Notify Provider of: Fever, Increased Pain (shortness of breath), Nausea and/or Vomiting Other/Special Instructions: Follow up with Dr De Leon on Sunday for recheck chemistry and weight. INR recheck in 2 weeks, your INR today was 2.44. Your Diltiazem was discontinued and your lasix dose was changed to 40 mg in morning and 20 mg at 2pm, total daily dose 60 mg. - Discharge Plan *PRESCRIPTION DRUG MONITORING PROGRAM REVIEWED*: Not Applicable *COPY OF PRESCRIPTION DRUG MONITORING REPORT IN PATIENT KAT: Not Applicable Prescriptions/Med Rec: Furosemide 20 mg PO DAILY@1400 30 Days #30 tablet Furosemide [Lasix] 40 mg PO DAILY 30 Days #60 tablet Home Medications: Home Meds Omeprazole 40 mg PO 1700 12/08/13 [History] Acetaminophen [Acetaminophen ER] 650 mg PO Q4H PRN 02/22/16 [History] Multivit-Minerals/FA/Lycopene [One Daily Men's Health Tablet] 1 tab PO DAILY 04/14/16 [History] Nitroglycerin 0.4 mg SL Q5M PRN 04/14/16 [History] Triamcinolone Acetonide [Kenalog 0.1% Crm] 1 applic TOP TID PRN 04/14/16 [History] metOLazone [Metolazone] 2.5 mg PO TUTHSA 01/07/18 [History] Docusate Sodium [Colace] 100 mg PO DAILY 11/25/18 [History] Fluticasone Propionate [Flonase] 1 spray ANKUR BID 11/25/18 [History] Gluc [place]/Chondro [place] A/Vit C/Mn [Glucosamine-Chondroitin Cap] 1 cap PO BID 11/25/18 [History] Insulin Detemir [Levemir Flextouch] 40 units SQ BEDTIME 11/25/18 [History] Loratadine [Claritin] 10 mg PO DAILY PRN 11/25/18 [History] Potassium Chloride 20 meq PO BIDMEALS 11/25/18 [History] Tiotropium Br/Olodaterol HCl [Stiolto Respimat Inhal [place]] 1 puff INH DAILY 11/25/18 [History] Warfarin Sodium [Jantoven] 2.5 mg PO FR 11/25/18 [History] Warfarin Sodium [Jantoven] 5 mg PO SUMOTUWETHSA 11/25/18 [History] Glycerin/Phenyleph/Pramox/Pet [Preparation H Crm] 1 applic RC Q4H PRN 03/18/19 [History] Sodium Chloride 0.65% [Union Saline] 2 spray ANKUR QID 03/18/19 [History] Albuterol [Ventolin HFA] 2 puff IH Q4H PRN 09/14/20 [History] Aloe Vera/Sodium Chloride [[place] Sal[place] Nasal Gel] 1 applic NASBOTH TID 09/14/20 [History] Aspirin [Halfprin] 81 mg PO DAILY 09/14/20 [History] Insulin Aspart [NovoLOG] 12 units SUBCUT TIDMEALS 09/14/20 [History] atorvaSTATin Calcium [Lipitor] 40 mg PO DAILY 09/14/20 [History] carvediloL [Coreg] 12.5 mg PO BIDMEALS 09/14/20 [History] Enalapril [Vasotec] 2.5 mg PO DAILY 09/23/20 [History] Furosemide 20 mg PO DAILY@1400 30 Days #30 tablet 09/24/20 [Rx] Furosemide [Lasix] 40 mg PO DAILY 30 Days #60 tablet 09/24/20 [Rx] Oxygen Therapy Mode: Room Air Patient Handouts: Heart Failure, Self Care, Csuy-vg-Dauu, Fall Prevention in Hospitals, Adult, Venous Thromboembolism Prevention Forms: ED Department Discharge Referrals: Hector De Leon MD [Primary Care Provider] - - Discharge Summary/Plan Comment DC Time >30 min.: No - General Info Date of Service: 09/24/20 Subjective Update: Bro was up to brush his teeth this morning. Denies shortness of breath. Hasn't had bowel movement yet today. Denies any abdominal pain, nausea or vomiting. No diarrhea. Still some edema in his legs. Dressing on left foot changed yesterday. Functional Status: Reports: Tolerating Diet, Ambulating, Urinating. Denies: New Symptoms - Patient Data Vitals - Most Recent: Last Vital Signs Temp 98.4 F 09/24/20 08:22 Pulse 69 09/24/20 11:32 Resp 18 09/24/20 11:32 BP 88/55 L 09/24/20 11:32 Pulse Ox 96 09/24/20 11:32 Weight - Most Recent: 286 lb 4 oz I&O - Last 24 hours: Intake & Output 09/23/20 09/24/20 09/24/20 22:59 06:59 14:59 Intake Total 400 250 Balance 400 250 Lab Results - Last 24 hrs: Laboratory Results - last 24 hr 09/23/20 09/24/20 09/24/20 Range/Units 16:47 06:02 06:02 PT 24.8 H (9.0-11.1) sec INR 2.44 H (1.00-1.24) Sodium 129 L (135-145) mmol/L Potassium 3.8 (3.5-5.3) mmol/L Chloride 95 L (100-110) mmol/L Carbon Dioxide 26 (21-32) mmol/L BUN 14 (7-18) mg/dL Creatinine 1.1 (0.70-1.30) mg/dL Est Cr Clr Drug Dosing 50.09 mL/min Estimated GFR (MDRD) > 60 (>60) BUN/Creatinine Ratio 12.7 (9-20) Glucose 124 H (80-116) mg/dL POC Glucose 178 H (74-100) mg/dL Calcium 8.5 L (8.6-10.2) mg/dL 09/24/20 09/24/20 Range/Units 06:05 11:30 PT (9.0-11.1) sec INR (1.00-1.24) Sodium (135-145) mmol/L Potassium (3.5-5.3) mmol/L Chloride (100-110) mmol/L Carbon Dioxide (21-32) mmol/L BUN (7-18) mg/dL Creatinine (0.70-1.30) mg/dL Est Cr Clr Drug Dosing mL/min Estimated GFR (MDRD) (>60) BUN/Creatinine Ratio (9-20) Glucose (80-116) mg/dL POC Glucose 114 H 157 H (74-100) mg/dL Calcium (8.6-10.2) mg/dL Med Orders - Current: Current Medications Albuterol (Ventolin Hfa) 0 gm INH Q4H PRN PRN Reason: Shortness of Breath Aspirin (Halfprin) 81 mg PO DAILY [facility] Last Admin: 09/24/20 08:31 Dose: 81 mg Documented by: Carvedilol (Coreg) 12.5 mg PO BIDMEALS [facility] Last Admin: 09/24/20 08:29 Dose: 12.5 mg Documented by: Dextrose/Water (Dextrose 50% In Water) 50 ml IVPUSH ASDIRECTED PRN PRN Reason: Hypoglycemia Docusate Sodium (Colace) 100 mg PO DAILY [facility] Last Admin: 09/24/20 08:31 Dose: 100 mg Documented by: Enalapril Maleate (Vasotec) 2.5 mg PO DAILY [facility] Last Admin: 09/24/20 08:34 Dose: 2.5 mg Documented by: Fluticasone Propionate (Flonase) 0 gm NASBOTH BID [facility] Last Admin: 09/24/20 08:32 Dose: 1 spray Documented by: Furosemide (Lasix) 60 mg PO DAILY [facility] Last Admin: 09/24/20 08:28 Dose: 60 mg Documented by: Glucagon (Glucagen) 1 mg IM ASDIRECTED PRN PRN Reason: Hypoglycemia Insulin Glargine (Lantus Solostar) 40 units SUBCUT BEDTIME [facility] Last Admin: 09/23/20 20:11 Dose: 40 unit Documented by: Insulin Human Lispro (Humalog) 0 unit SUBCUT TIDMEALS [facility]; Protocol Last Admin: 09/24/20 11:34 Dose: 1 units Documented by: Metolazone (Zaroxolyn) 2.5 mg PO TuThSa@0730 [facility] Last Admin: 09/23/20 13:11 Dose: 2.5 mg Documented by: Morphine Sulfate (Morphine) 2 mg IVPUSH Q2H PRN PRN Reason: Pain (severe 7-10) Multivitamins/Minerals (Thera M Plus) 1 tab PO DAILY [facility] Last Admin: 09/24/20 08:31 Dose: 1 tab Documented by: Nitroglycerin (Nitrostat) 0.4 mg SL Q5M PRN PRN Reason: Chest Pain (Atorvastatin Calcium [Lipitor] 80 Mg) *Ptom 40 mg PO BEDTIME [facility] Last Admin: 09/23/20 20:08 Dose: 40 mg Documented by: (Omeprazole [ Omeprazole] 40 Mg) * Ptom 40 mg PO 1700 [facility] Last Admin: 09/23/20 17:15 Dose: 40 mg Documented by: (Tiotropium Br/Olodaterol Hcl [ Stiolto Respimat Inhal [place]) *Ptom 1 puff INH DAILY [facility] Last Admin: 09/24/20 08:32 Dose: 1 puff Documented by: Potassium Chloride (Klor-Con M20) 20 meq PO BIDMEALS [facility] Last Admin: 09/24/20 08:30 Dose: 20 meq Documented by: Sodium Chloride (Saline Flush) 10 ml FLUSH ASDIRECTED PRN PRN Reason: keep vein open Last Admin: 09/23/20 06:00 Dose: 10 ml Documented by: Warfarin Sodium (Coumadin Sliding Scale) 1 each PO ASDIRECTED ROCIO Warfarin Sodium (Coumadin) 2.5 mg PO ONETIME ONE Stop: 09/24/20 16:01 Discontinued Medications Fluticasone Propionate (Flonase) 1 gm NASBOTH BID ROCIO Furosemide (Lasix) 20 mg IVPUSH ONETIME ONE Stop: 09/23/20 03:25 Last Admin: 09/23/20 03:47 Dose: 20 mg Documented by: Furosemide (Lasix) 60 mg IVPUSH DAILY ROCIO Morphine Sulfate (Morphine) 2 mg IVPUSH ONETIME ONE Stop: 09/23/20 03:51 Last Admin: 09/23/20 03:54 Dose: 2 mg Documented by: Non-Formulary Medication (Acetaminophen [Acetaminophen Er]) 650 mg PO Q4H PRN PRN Reason: Pain Non-Formulary Medication (Aloe Vera/Sodium Chloride [Union Saline Nasal Gel]) 1 applic NASBOTH TID ROCIO Non-Formulary Medication (Insulin Aspart [Novolog]) 12 units SUBCUT TIDMEALS ROCIO Non-Formulary Medication (Loratadine [Claritin]) 10 mg PO DAILY PRN PRN Reason: Allergies Non-Formulary Medication (Sodium Chloride 0.65% [Union Saline]) 2 spray ANKUR QID ROCIO Non-Formulary Medication (Triamcinolone Acetonide [Kenalog 0.1% Crm]) 1 applic TOP TID PRN PRN Reason: RASH/ITCHING Warfarin Sodium (Coumadin) 5 mg PO ONETIME ONE Stop: 09/23/20 16:01 Last Admin: 09/23/20 16:38 Dose: 5 mg Documented by: - Exam General: Reports: Alert, Oriented, Cooperative, No Acute Distress Lungs: Reports: Clear to Auscultation, Normal Respiratory Effort, Decreased Breath Sounds (bibasilar). Denies: Crackles, Wheezing Cardiovascular: Reports: Regular Rate, Regular Rhythm GI/Abdominal Exam: Normal Bowel Sounds, Soft, Non-Tender, No Distention Extremities: Pedal Edema (2+ pitting edema to knees.) *Q Meaningful Use (DIS) - VTE *Q VTE Mechanical Contraindications *Q: At Risk for Falls
[2020-09-24] MEDS ORDERED: Warfarin 2.5 MG Tab *PTOM PO ONE (16:00)
[2020-09-24 16:20] VITALS: BP 122/69; PULSE 73
== END 2020-09-24 17:20 | disposition home health service (06) ==
LOC: FB.ED 02:41 → FB.MS 04:06 → INTOOBSV 04:06
PROVIDERS: ADMIT Family Medicine; ATTEND Family Medicine
DX: I11.0 Hypertensive heart disease with heart failure (principal); I50.9 Heart failure, unspecified; J81.1 Chronic pulmonary edema; J90 Pleural effusion, not elsewhere classified; I48.20 Chronic atrial fibrillation, unspecified; I25.5 Ischemic cardiomyopathy; E87.1 Hypo-osmolality and hyponatremia; I82.411 Acute embolism and thrombosis of right femoral vein; Z20.822 Contact with and (suspected) exposure to COVID-19; I25.10 Atherosclerotic heart disease of native coronary artery without angina pectoris; J44.9 Chronic obstructive pulmonary disease, unspecified; E78.00 Pure hypercholesterolemia, unspecified; G47.33 Obstructive sleep apnea (adult) (pediatric); E11.9 Type 2 diabetes mellitus without complications; E66.9 Obesity, unspecified; Z68.41 Body mass index [BMI] 40.0-44.9, adult; Z87.891 Personal history of nicotine dependence; Z95.0 Presence of cardiac pacemaker; Z95.5 Presence of coronary angioplasty implant and graft; Z79.01 Long term (current) use of anticoagulants; Z79.4 Long term (current) use of insulin; Z79.899 Other long term (current) drug therapy; Z98.890 Other specified postprocedural states
CPT/HCPCS: 36415; 71046; 80048; 82962; 83880; 84484; 85025; 85610; 93005; 93010; 96374; 96375; 99285; 99285-25; A9270-GY; J1815; J1815-GY; J1940; J2270; U0002

== ENCOUNTER 2020-09-27 09:52 | Emergency (ER) | payer MEDICARE, BC ==
--- NOTE | 2020-09-27 10:39 | EDM.PDOC ---
ED HPI GENERAL MEDICAL PROBLEM - General Chief Complaint: Cardiovascular Problem Stated Complaint: SOB Time Seen by Provider: 09/27/20 10:35 Source of Information: Reports: Patient History Limitations: Reports: No Limitations - History of Present Illness INITIAL COMMENTS - FREE TEXT/NARRATIVE: Patient presents with SOB at rest, onset @2 hours ago while seated in recliner. PMHx includes Afib, pacemaker, DVT, CHF, CAD, COPD, ROCKY, and T2DM. He was admitted to [facility] twice in the last 2 weeks with CHF exacerbation. Patient denies chest pain or cough. Duration: Hour(s): (2) - Related Data Allergies Allergy/AdvReac Type Severity Reaction Status Date / Time No Known Allergies Allergy Verified 09/23/20 03:03 Home Meds: Home Meds Omeprazole 40 mg PO 1700 12/08/13 [History] Acetaminophen [Acetaminophen ER] 650 mg PO Q4H PRN 02/22/16 [History] Multivit-Minerals/FA/Lycopene [One Daily Men's Health Tablet] 1 tab PO DAILY 04/14/16 [History] Nitroglycerin 0.4 mg SL Q5M PRN 04/14/16 [History] Triamcinolone Acetonide [Kenalog 0.1% Crm] 1 applic TOP TID PRN 04/14/16 [Hi story] metOLazone [Metolazone] 2.5 mg PO TUTHSA 01/07/18 [History] Docusate Sodium [Colace] 100 mg PO DAILY 11/25/18 [History] Fluticasone Propionate [Flonase] 1 spray ANKUR BID 11/25/18 [History] Gluc [place]/Chondro [place] A/Vit C/Mn [Glucosamine-Chondroitin Cap] 1 cap PO BID 11/25/18 [History] Insulin Detemir [Levemir Flextouch] 40 units SQ BEDTIME 11/25/18 [History] Loratadine [Claritin] 10 mg PO DAILY PRN 11/25/18 [History] Potassium Chloride 20 meq PO BIDMEALS 11/25/18 [History] Tiotropium Br/Olodaterol HCl [Stiolto Respimat Inhal [place]] 1 puff INH DAILY 11/25/18 [History] Warfarin Sodium [Jantoven] 2.5 mg PO FR 11/25/18 [History] Warfarin Sodium [Jantoven] 5 mg PO SUMOTUWETHSA 11/25/18 [History] Glycerin/Phenyleph/Pramox/Pet [Preparation H Crm] 1 applic RC Q4H PRN 03/18/19 [History] Sodium Chloride 0.65% [[place] Saline] 2 spray ANKUR QID 03/18/19 [History] Albuterol [Ventolin HFA] 2 puff IH Q4H PRN 09/14/20 [History] Aloe Vera/Sodium Chloride [[place] Saline Nasal Gel] 1 applic NASBOTH TID 09/14/20 [History] Aspirin [Halfprin] 81 mg PO DAILY 09/14/20 [History] Insulin Aspart [NovoLOG] 12 units SUBCUT TIDMEALS 09/14/20 [History] atorvaSTATin Calcium [Lipitor] 40 mg PO DAILY 09/14/20 [History] carvediloL [Coreg] 12.5 mg PO BIDMEALS 09/14/20 [History] Enalapril [Vasotec] 2.5 mg PO DAILY 09/23/20 [History] Furosemide 20 mg PO DAILY@1400 30 Days #30 tablet 09/24/20 [Rx] Furosemide [Lasix] 40 mg PO DAILY 30 Days #60 tablet 09/24/20 [Rx] Past Medical History HEENT History: Reports: Cataract, Hard of Hearing, Sinusitis Other HEENT History: States had sinus surgery in the past. Cardiovascular History: Reports: Automatic Implantable Cardioverter Defibrillators, Blood Clots/VTE/DVT, CAD, High Cholesterol, Heart Failure, Hypertension, LA, Pacemaker, Stents, SOB on Exertion Other Cardiovascular History: peripheral vascular disease; unstable angina; cardio renal syndrome; deviated septum; elevated troponin, 17 stents, chronic atrial fibrilation. Respiratory History: Reports: COPD, Sleep Apnea, SOB Other Respiratory History: Uses O2 @ hs with CPAP - maybe. Reports no cannister Gastrointestinal History: Reports: GERD Genitourinary History: Reports: Other (See Below) Other Genitourinary History: organic impotence; phimosis Musculoskeletal History: Reports: Arthritis, Back Pain, Chronic, Fracture, Gout, Other (See Below), Osteoarthritis Other Musculoskeletal History: fx ankle Endocrine/Metabolic History: Reports: Diabetes, Type II, Obesity/BMI 30+ Other Endocrine/Metabolic History: Diabetic retinopathy; peripheral neuropathy Hematologic History: Reports: Blood Transfusion(s) Other Hematologic History: long time use of anticoagulant therapy Dermatologic History: Reports: Other (See Below) Other Dermatologic History: Stated rash was on stomach and was taken medication at home and now resolved. 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 ED EXAM, GENERAL - Physical Exam Exam: See Below Exam Limited By: No Limitations General Appearance: Alert, WD/WN, No Apparent Distress Throat/Mouth: No Airway Compromise Head: Atraumatic, Normocephalic Neck: Full Range of Motion Respiratory/Chest: No Respiratory Distress, Lungs Clear, Normal Breath Sounds Cardiovascular: Regular Rate, Rhythm, No Gallop, No Murmur GI/Abdominal: Non-Tender, No Distention Back Exam: Full Range of Motion Extremities: Pedal Edema Neurological: Alert, Normal Cognition Psychiatric: Normal Affect, Normal Mood Skin Exam: Warm, Dry #1 Interpretation EKG Date: 09/27/20 Time: 10:08 Rhythm: Other (paced rhythm) Rate (Beats/Min): 72 Comparison: No Change Course - Vital Signs Last Recorded V/S: Last Vital Signs Temp 36.9 C 09/27/20 09:55 Pulse 64 09/27/20 09:55 Resp 18 09/27/20 09:55 BP 105/57 L 09/27/20 09:55 Pulse Ox 100 09/27/20 09:55 - Orders/Labs/Meds Orders: Active Orders 24 hr Category Date Time Status EKG Documentation Completion [RC] ASDIRECTED Care 09/27/20 10:25 Active Ang Chest [CT] Stat Exams 09/27/20 11:44 Taken Sodium Chloride 0.9% [Saline Flush] Med 09/27/20 11:51 Active 10 ml FLUSH ASDIRECTED PRN EKG 12 Lead [EK] Stat Ther 09/27/20 10:25 Ordered Medication Orders Sodium Chloride (Saline Flush) 10 ml FLUSH ASDIRECTED PRN PRN Reason: Keep Vein Open Last Admin: 09/27/20 11:52 Dose: 10 ml Documented by: JOSEP Labs: Laboratory Tests 09/27/20 09/27/20 09/27/20 Range/Units 10:17 11:00 11:00 WBC 5.7 (3.2-10.1) x10-3/uL RBC 4.04 (3.90-5.90) x10(6)uL Hgb 12.9 (12.9-17.7) g/dL Hct 38.0 L (38.3-50.1) % MCV 94.1 (80.8-98.7) fL MCH 31.9 (27.0-33.3) pg MCHC 33.9 (28.7-35.3) g/dL RDW 15.6 H (12.4-15.0) % Plt Count 187 (117-477) x10(3)uL MPV 8.7 (6.7-11.0) fL Neut % (Auto) 68.8 (40.3-71.8) % Lymph % (Auto) 16.7 (15.8-45.3) % [place] % (Auto) 8.2 (5.5-15.2) % Eos % (Auto) 3.3 (0.1-6.8) % Baso % (Auto) 3.0 (0.3-3.8) % Neut # (Auto) 3.9 (1.7-6.9) x10-3/uL Lymph # (Auto) 0.9 (0.5-4.5) x10-3/uL [place] # (Auto) 0.5 (0.0-1.2) x10-3/uL Eos # (Auto) 0.2 (0.0-0.6) x10-3/uL Baso # (Auto) 0.2 (0.0-0.3) x10-3/uL PT 27.4 H (9.0-11.1) sec INR 2.71 H (1.00-1.24) APTT 34.9 H (24.4-33.2) SECONDS D-Dimer, Quantitative 0.77 H (0.0-0.59) mg/LFEU Sodium (135-145) mmol/L Potassium (3.5-5.3) mmol/L Chloride (100-110) mmol/L Carbon Dioxide (21-32) mmol/L BUN (7-18) mg/dL Creatinine (0.70-1.30) mg/dL Est Cr Clr Drug Dosing Estimated GFR (MDRD) (>60) BUN/Creatinine Ratio (9-20) Glucose (80-116) mg/dL POC Glucose 230 H (74-100) mg/dL Calcium (8.6-10.2) mg/dL Total Bilirubin (0.1-1.3) mg/dL AST (5-25) IU/L ALT (12-36) U/L Alkaline Phosphatase (56-112) IU/L Troponin I (4.0-60.3) pg/mL NT-Pro-B Natriuret Pep (<=450) pg/mL Total Protein (6.0-8.0) g/dL Albumin (3.2-4.6) g/dL Globulin g/dL Albumin/Globulin Ratio 09/27/20 09/27/20 Range/Units 11:00 11:00 WBC (3.2-10.1) x10-3/uL RBC (3.90-5.90) x10(6)uL Hgb (12.9-17.7) g/dL Hct (38.3-50.1) % MCV (80.8-98.7) fL MCH (27.0-33.3) pg MCHC (28.7-35.3) g/dL RDW (12.4-15.0) % Plt Count (117-477) x10(3)uL MPV (6.7-11.0) fL Neut % (Auto) (40.3-71.8) % Lymph % (Auto) (15.8-45.3) % [place] % (Auto) (5.5-15.2) % Eos % (Auto) (0.1-6.8) % Baso % (Auto) (0.3-3.8) % Neut # (Auto) (1.7-6.9) x10-3/uL Lymph # (Auto) (0.5-4.5) x10-3/uL [place] # (Auto) (0.0-1.2) x10-3/uL Eos # (Auto) (0.0-0.6) x10-3/uL Baso # (Auto) (0.0-0.3) x10-3/uL PT (9.0-11.1) sec INR (1.00-1.24) APTT (24.4-33.2) SECONDS D-Dimer, Quantitative (0.0-0.59) mg/LFEU Sodium 129 L (135-145) mmol/L Potassium 3.6 (3.5-5.3) mmol/L Chloride 94 L (100-110) mmol/L Carbon Dioxide 28 (21-32) mmol/L BUN 15 (7-18) mg/dL Creatinine 1.2 (0.70-1.30) mg/dL Est Cr Clr Drug Dosing TNP Estimated GFR (MDRD) 58 L (>60) BUN/Creatinine Ratio 12.5 (9-20) Glucose 169 H (80-116) mg/dL POC Glucose (74-100) mg/dL Calcium 8.2 L (8.6-10.2) mg/dL Total Bilirubin 0.7 (0.1-1.3) mg/dL AST 21 D (5-25) IU/L ALT 22 D (12-36) U/L Alkaline Phosphatase 88 (56-112) IU/L Troponin I 391.2 H* (4.0-60.3) pg/mL NT-Pro-B Natriuret Pep 3885 H* (<=450) pg/mL Total Protein 6.4 (6.0-8.0) g/dL Albumin 3.1 L (3.2-4.6) g/dL Globulin 3.3 g/dL Albumin/Globulin Ratio 0.9 Meds: Medications Generic Name Dose Route Start Last Admin Trade Name Freq PRN Reason Stop Dose Admin Sodium Chloride 10 ml 09/27/20 11:51 09/27/20 11:52 Saline Flush FLUSH 10 ml ASDIRECTED PRN Administration Keep Vein Open Discontinued Medications Generic Name Dose Route Start Last Admin Trade Name Freq PRN Reason Stop Dose Admin Aspirin 243 mg 09/27/20 11:42 09/27/20 11:45 Aspirin PO 09/27/20 11:43 243 mg ONETIME ONE Administration Furosemide 20 mg 09/27/20 11:41 09/27/20 11:50 Lasix IVPUSH 09/27/20 11:42 20 mg ONETIME ONE Administration Iopamidol 100 ml 09/27/20 11:54 09/27/20 12:07 Isovue-370 (76%) IV 09/27/20 11:55 100 ml . DIRECTED ONE Administration - Radiology Interpretation Free Text/Narrative:: CXR: IMPRESSION: 1. ASHD with cardiomegaly, CHF and possible acute pulmonary edema of mild degree. 2. Cannot exclude areas atelectasis and possibly pneumonia and pleuritis at the lung bases. Dictated by: Husam Mcfarland MD. CTA Chest: Interstitial edema. Atelectasis. Moderate right and small left pleural effusions. No pulmonary emboli. (verbal report from Dr. Mcfarland) - Re-Assessments/Exams Free Text/Narrative Re-Assessment/Exam: 09/27/20 12:49 Patient diuresed 900 ml after Lasix 20mg IV. 09/27/20 12:53 Dr. Avila accepts patient for transfer to [facility], advises against Heparin at this time. Departure - Departure Time of Disposition: 12:50 Disposition: DC/Tfer to Acute Hospital 02 Reason for Transfer *Q: Other Condition: Fair Clinical Impression: Non-STEMI (non-ST elevated myocardial infarction) CHF exacerbation Qualifiers: Heart failure type: unspecified Qualified Code(s): I50.9 - Heart failure, unspecified Referrals: Hector De Leon MD [Primary Care Provider] - Forms: ED Department Discharge Sepsis Event Note (ED) - Focused Exam Vital Signs: Vital Signs Temp Pulse Resp BP Pulse Ox 09/27/20 09:55 36.9 C 64 18 105/57 L 100 - My Orders Last 24 Hours: My Active Orders 09/27/20 10:25 EKG Documentation Completion [RC] ASDIRECTED EKG 12 Lead [EK] Stat 09/27/20 11:44 Ang Chest [CT] Stat 09/27/20 11:51 Sodium Chloride 0.9% [Saline Flush] 10 ml FLUSH ASDIRECTED PRN - Assessment/Plan Last 24 Hours: My Active Orders 09/27/20 10:25 EKG Documentation Completion [RC] ASDIRECTED EKG 12 Lead [EK] Stat 09/27/20 11:44 Ang Chest [CT] Stat 09/27/20 11:51 Sodium Chloride 0.9% [Saline Flush] 10 ml FLUSH ASDIRECTED PRN
[2020-09-27] MEDS ORDERED: Furosemide 20 MG/2 ML VIAL IVPUSH ONE (11:41)
[2020-09-27] MEDS ORDERED: Aspirin 81 MG Tab.Chew PO ONE (11:42)
[2020-09-27] MEDS ORDERED: Sodium Chloride 0.9% 10 ML Syringe FLUSH PRN (11:51)
[2020-09-27] MEDS ORDERED: Iopamidol 755 Mg/ML 100 ML Bottle IV ONE (11:54)
--- NOTE | 2020-09-27 12:46 | CR ---
INDICATION: Short of breath. CHEST ONE VIEW: An AP upright portable view of the chest 09/27/20 was compared with 09/23/20 and 09/16/20 and again revealed the heart to be enlarged with pulmonary vasculature that is prominent and interstitial infiltration compatible with edema. Additionally, especially on the right and possibly minimally on the left, there appears to be some alveolar infiltration which may represent acute pulmonary edema superimposed. The possibility of bibasilar pneumonia cannot be excluded with heavy markings in those areas, possibly with minimal pleuritis as there is some blunting of the right costophrenic angle. Overlying EKG leads are noted. Bipolar pacemaker leads are unchanged in position. IMPRESSION: 1. ASHD with cardiomegaly, CHF and possible acute pulmonary edema of mild degree. 2. Cannot exclude areas of atelectasis and possibly pneumonia and pleuritis at the lung bases. Report was given by phone to Dr. Villa at 1140 hours, 09/27/20. [facility]
--- NOTE | 2020-09-27 13:20 | CT ---
COMPUTERIZED TOMOGRAPHY ANGIOGRAPHY OF THE CHEST WITH CONTRAST 3706 INDICATION: Shortness of breath, question PE. D-dimer slightly increased. Spiral 1.25 mm axial sections were obtained through the chest with 100 mL Isovue 370 at 2.7 mL/sec with sagittal, coronal and axial reconstructions 09/27/2020--no comparison except chest x-ray from from today. Total exam DLP was 1146.78 mGy-cm. Calcifications are noted in brachiocephalic arteries and the arch of the aorta as well as descending thoracic aorta and coronary arteries. The heart appears enlarged. No pericardial effusion was seen. Pacemaker leads are noted. The upper abdomen included in the study showed evidence of a probable simple cyst at the upper pole of the right kidney which could be confirmed by ultrasound as necessary with renal fascial thickening compatible with scarring of both kidneys and larger probable simple cyst off the mid pole cortex laterally of the left kidney which could also be confirmed by ultrasound. Other etiologies such as angiomyolipomas would be considerations. The gallbladder is absent with clips compatible with cholecystectomy. Abdominal aortic calcifications and superior mesenteric artery calcifications as well as renal artery calcification on the right are noted. There appears to be interstitial lung edema and bilateral pleural effusions, larger on the right than on the left with parenchymal changes at the lower lobes and to a lesser extent lingula and middle lobe which may be on the basis of atelectasis and possibly pneumonia and pleuritis. Findings are also compatible with CHF and interstitial and possible minimal alveolar lung edema. No evidence of pulmonary emboli could be identified. IMPRESSION: 1. No pulmonary emboli identified. 2. ASHD, cardiomegaly, CHF, interstitial and probable mild alveolar lung edema--acute pulmonary edema. 3. Cannot exclude bibasilar pneumonia and pleuritis. Report was called to Dr. Villa at 1238 hours, 09/27/2020. [facility]
[2020-09-27] MEDS ORDERED: Heparin Sodium/0.45% NaCl 500 ML IV SCH (13:30)
[2020-09-28 01:29] VITALS: BP_SYST 68
--- OUTSIDE RECORDS SUMMARY | 2020-10-04 12:29 | XMSREPORT ---
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 [phone] Reason for Referral (Routine) Status Reason Specialty Diagnoses / Procedures Referred By Michelle abraham Referred To Contact [facility] [address] [place] [phone] Phone: Comprehensive Primary Care Plus (Routine) Status Reason Specialty Diagnoses / Referred By Referred To Contact Procedures Contact New Request CARDIOLOGY Diagnoses Acute on chronic combined systolic and diastolic congestive heart failure (HCC) Sophia Sanders Cardiology Fabian Martinez MD [address] [place] [phone] Phone: Phone: Scheduling Instructions This is an electronic referral. Reason for Visit Auth/Cert Status Reason Specialty Diagnoses / Procedures Referred By Michelle abraham Referred To Contact Encounter Details Date Type Department Care Team Description 09/27/2020 - Hospital Encounter [facility] Provider, [facility] Procedure Acute on chronic 10/03/2020 CENTER 6CD Escobar Erickson MD [address] [place] [address] [phone] combined systolic [address] Juan Sanders MD [address] [place] [address] [phone] [place] [address] Palomo Clifton MD [address] [place] [address] [phone] congestive heart [phone] Corby Avila MD [address] [place] [address] [phone] failure (HCC) Allergies No Known Allergiesdocumented as of this encounter (statuses as of 10/03/2020) Medications Medication Sig Dispensed Refills Start End Status Date Date acetaminophen Take 650 mg by 0 A ctive (TYLENOL mouth Every 4 ARTHRITIS) 650 mg hours as needed CR tablet for mild pain saline (AYR) Use 1 application 1 Tube 6 Active nasal in the nose 3 6 gelIndications: times a day Wash Nasal hands and then obstruction, apply ointment as Nasal dryness, instructed History of epistaxis saline nasal [place] 2 sprays 0 Ac tive spray (AYR,OCEAN) into each nostril 0.65 % nasal 4 times a day spray Multiple Vitamin Take 1 tablet by 30 tablet 0 Active (ONE-A-DAY MENS) mouth 1 time per 8 TABSIndications: day Diabetes mellitus with background retinopathy (HCC) Mouthwashes Place 10 mL into 0 A ctive (BIOTENE DRY mouth 3 times a MOUTH) LIQD day mouthwash PREPARATION H Insert rectally 0 Active (PREPARATION H) Every 4 hours as 1-0.25-14.4-15 % needed CREA Glucosamine-Chond Take 1 capsule by 0 Active roit-Vit C-Mn mouth 2 times a (GLUCOSAMINE-ELBERT day DROITIN) capsule insulin needle To use with 200 each 2 Act toni (UNIFINE PENTIPS) insulin four times 8 31G X 8 mm daily E11.3299 (516") ShortIndications: Diabetes mellitus with background retinopathy (HCC) nitroglycerin Dissolve 1 tablet 25 tablet 3 Active (NITROSTAT) 0.4 (0.4 mg) under the 9 mg sublingual tongue Every 5 tabletIndications minutes as needed : Coronary artery for chest pain May disease involving repeat every 5 [place]oksack heart with minutes for a angina pectoris, total of 3 doses. unspecified vessel or lesion type ([facility]) docusate sodium Take 1 capsule 0 Active (COLACE) 100 mg (100 mg) by mouth 9 capsuleIndication 1 time per day s: 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, with long-term current use of insulin ([facility]) Accu-Chek Kajal USE TO TEST BLOOD 300 each 2 Active Plus test SUGAR THREE TIMES 0 stripIndications: DAILY ICD:E11.32 Diabetes mellitus with background retinopathy ([facility]) triamcinolone Apply to affected 120 g 0 Active acetonide area three times 0 (KENALOG,ARISTOCO daily as directed RT) 0.1 % creamIndications: Rash and other nonspecific skin eruption warfarin Take 1-2 tablets 180 tablet 3 Ac tive (JANTOVEN) 2.5 MG daily as directed 0 tabletIndications by Anticoag Clinic : Chronic atrial fibrillation ([facility]) tiotropium-olodat Inhale 1 puff 3 Inhaler 3 Active maritza (STIOLTO orally 1 time per 0 RESPIMAT) 2.5-2.5 day mcg/puff inhalerIndication s: COPD exacerbation ([facility]) omeprazole Take 1 capsule (40 90 capsule 1 Active (PRILOSEC) 40 mg mg) by mouth 1 0 capsuleIndication time a day at s: Uncontrolled supper type 2 diabetes mellitus with complication, with long-term current use of insulin ([facility]) loratadine Take 1 tablet (10 90 tablet 1 A ctive (CLARITIN) 10 mg mg) by mouth 1 0 tabletIndications time per day As : COPD needed for exacerbation allergies ([facility]) insulin detemir Inject 40 Units 3 mL 11 Active (LEVEMIR subcutaneously 0 FLEXTOUCH) every night at subcutaneous bedtime injection (pen)Indications: Diabetes mellitus with background retinopathy ([facility]), 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, with long-term current use of insulin ([facility]) insulin aspart Inject 12 Units 15 mL 3 Active (NOVOLOG FLEXPEN) subcutaneously 3 0 subcutaneous times a day with injection meals (pen)Indications: 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, with long-term current use of insulin ([facility]) fluticasone USE 1 SPRAY IN 16 g Act toni (FLONASE) 50 EACH NOSTRIL TWICE 0 mcg/spray nasal A DAY sprayIndications: 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, with long-term current use of insulin ([facility]), COPD exacerbation (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), 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, with long-term current use of insulin ([facility]) albuterol HFA Inhale 2 puffs 1 Inhaler A ctive (ALBUTEROL, orally Every 4 0 021 VENTOLIN BRAND,) hours as needed 108 (90 Base) for wheezing Shake MCG/ACT well before using. inhalerIndication s: Wheezing aspirin 81 mg Take 1 tablet (81 30 tablet 0 Active chewable mg) by mouth 1 1 tabletIndications time per day : NSTEMI (non-ST elevated myocardial infarction) ([facility]) potassium Take 1 tablet (20 90 tablet 0 Ac tive chloride mEq) by mouth 2 1 (KLOR-CON M20) 20 times a day MEQ CR tabletIndications : Essential hypertension warfarin Take 1 tablet (2.5 30 tablet 0 A ctive (COUMADIN) 2.5 MG mg) by mouth 1 1 021 tabletIndications time per day : Acute on chronic combined systolic and diastolic congestive heart failure (HCC), Chronic atrial fibrillation ([facility]) ramipril (ALTACE) Take 1 capsule 30 capsule 0 Active 1.25 mg (1.25 mg) by mouth 1 021 capsuleIndication every night at s: Acute on bedtime chronic combined systolic and diastolic congestive heart failure ([facility]) carVEDilol Take 1 tablet 60 tablet 0 Activ e (COREG) 3.125 mg (3.125 mg) by 1 021 tabletIndications mouth 2 times a : Acute on day with meals chronic combined systolic and diastolic congestive heart failure (HCC) torsemide Take 1 tablet (20 60 tablet 0 Ac tive (DEMADEX) 20 mg mg) by mouth two 1 021 tabletIndications times a day (in : Acute on the morning and chronic combined mid-afternoon). systolic and diastolic congestive heart failure (HCC) metOLazone Take 1 tablet (2.5 90 tablet 6 Discontinued (ZAROXOLYN) 2.5 mg) by mouth 3 0 021 (Stop Taking at mg times a week , D ischarge) tabletIndications Th, Sat Take : Uncontrolled 30 min prior to type 2 diabetes lasix mellitus with complication, with long-term current use of insulin ([facility]) furosemide Take 1 tablet (40 180 tablet 1 Discontinued (LASIX) 40 mg mg) by mouth 2 0 021 ( Stop Taking at tabletIndications times a day Discharge) : 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, with long-term current use of insulin ([facility]) dilTIAZem Take 1 capsule 90 capsule 3 Disc ontinued (CARDIZEM CD) 240 (240 mg) by mouth 0 021 (Stop Taking at mg extended 1 time per day Dis charge) release capsuleIndication s: 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, with long-term current use of insulin ([facility]) carVEDilol Take 1 tablet 180 tablet 1 Disc ontinued (COREG) 12.5 mg (12.5 mg) by mouth 0 021 (Stop Taking at tabletIndications 2 times a day with Discharge) : Coronary artery meals disease of [place] artery of [place]oksack heart with stable angina pectoris (HCC), Essential hypertension, Chronic atrial fibrillation ([facility]) enalapril Take 2.5 mg by 0 Disco ntinued (VASOTEC) 2.5 mg mouth 1 time per 021 (Stop Taking at tablet day Discharge) ramipril (ALTACE) Take 1 capsule 30 capsule 0 Discontinued 1.25 mg (1.25 mg) by mouth 1 021 capsuleIndication every night at s: Acute on bedtime chronic combined systolic and diastolic congestive heart failure (HCC) carVEDilol Take 1 tablet 60 tablet 0 Disco ntinued (COREG) 3.125 mg (3.125 mg) by 1 021 tabletIndications mouth 2 times a : Acute on day with meals chronic combined systolic and diastolic congestive heart failure (HCC) torsemide Take 1 tablet (20 180 tablet 4 D iscontinued (DEMADEX) 20 mg mg) by mouth two 1 021 tabletIndications times a day (in : Acute on the morning and chronic combined mid-afternoon). 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 10/16/2019 Status post insertion of drug eluting coronary artery stent 03/21/2019 NSTEMI (non-ST elevated myocardial infarction) 019 Biliary colic 01/08/2018 Osteoarthritis of right knee 07/03/2017 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 Phimosis 01/16/2017 Deviated septum 05/31/2016 ROCKY (obstructive sleep apnea) 04/20/2016 Overview: PSG 12/30/07, AHI 36.7 O2 83% CPAP 12 Changed to CPAP 17 cmH2O, EPR 3/AHI 36.7 on 09/27/2016 Obesity hypoventilation syndrome 04/20/2016 COPD exacerbation 04/20/2016 Chronic atrial fibrillation 04/20/2016 Obesity, Class III, BMI 40-49.9 (morbid obesity) 04/20 Cardiorenal syndrome 04/15/2016 Diabetic retinopathy, nonproliferative 10/26/2015 Status post implantation of automatic cardioverter/def ibrillator (AICD) 10/16/2015 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 On warfarin therapy. Acute on chronic combined systolic and diastolic conge stive heart failure 04/29/2014 Cataract 10/13/2013 Callus of foot 07/28/2013 Hyperlipidemia 06/21/2012 Hypertension 06/21/2012 Ischemic cardiomyopathy 06/21/2012 Overview: -10/24/11 implantable cardiac defibrillat or placement Coronary artery disease involving [place]oksack coronary silvia ry of nooksack heart 05/28/2012 Overview: -09/11/2007 ST-elevated myocardial infarction with angiogram [...] Ejection fraction 25%. -10/17/2007 planned angiogram to interven e on the 80% lesion of the mid left anterior descending artery. Patient received 2-Cypher drug eluting stents to this lesion with 0% residual stenosis. -10/20/09 angiogram due to non-ST elevate d myocardial infarction revealed 95% lesion in the mid left anterior descending artery and 80% stenosis in the mid circumflex, patient received Cypher drug elutin g stent to the mid left anterior descend ing artery and Xience drug eluting stent to the mid circumflex. Right PDA was supplied by collaterals. There was a diffuse 100% stenosis in the middle third of this vessel segment. Ejection fraction 40%. -10/26/09 non-ST elevated myocardial infa rction with angiogram revealing a 100% lesion in the mid left anterior descending artery and patient received a Mini Vision bare-metal stent to this lesion. Also noted to have a 50% stenosis in the mid dle third of the RPLS. RPDA with 100% stenosis and good collateral flow. Ejection fraction 40% with severe anterolateral hypokinesis and severe apical hypokinesis. -03/14/11 non-ST elevated myocardial infar ction with angiogram revealing 99% in- stent stenosis in the mid LAD. 100% distal left anterior descending artery stenosis. Received a Xience drug eluting stent to the 99% stenosis in the mid left anteri or descending artery. -03/14/11 Echo revealed the left ventricle moderately dilated. Systolic function was markedly reduced with ejection fraction 30%. No significant valvular disease. -10/06/2012 non-STEMI with 2 drug-eluting stents to the mid circumflex. -12/10/13 chest pain with angiogram showin g tight stenosis in the proximal RCA and received a 3.5x30 mm Resolute LAMONT to this lesion. -10.14.2015 . Left main stent and circum flex stent Peripheral vascular disease 03/17/2011 Overview: March 2011: Initial visit to IR for claudication with left resting ISHAN 0.39. Angiogram recommended but he was on Effient for recent (3 days prior) LAMONT. Angiogram deferred. July 2011: Lower extremity angiogram by Dr. Solorio with SECURITY TRAINER to intervention including left peroneal and left popliteal arteries. June 2013: Underwent LE angiogram p er Dr. Coto due to recurrent progressive claudication and worsening ABIs. Underwent left SFA 6 mm SECURITY TRAINER and left tibioperoneal trunk 4 mm SECURITY TRAINER. Noted to have sev ere tibial occlusive disease with single vessel runoff to both feet. Diabetes mellitus with background retinopathy Type 2 diabetes mellitus, with long-term current use o f insulin Congenital spondylolisthesis documented as of this encounter (statuses as of 10/03/2020) Resolved Problems Problem Noted Date Resolved Date Acute combined systolic and diastolic heart failure 04/29/20 16 01/07/2018 Acute respiratory failure with hypoxia 04/20/2016 0 01/07/2018 Hyponatremia 04/15/2016 04/20/2016 Elevated troponin 04/15/2016 01/07/2018 NSTEMI (non-ST elevated myocardial infarction) 03/30/2016 01/07/2018 Chest pain 10/14/2015 01/07/2018 Unstable angina 12/10/2013 01/07/2018 Rash and other nonspecific skin eruption 07/22/2009 01/07/2018 documented as of this encounter (statuses as of 10/03/2020) Immunizations Name Administration Dates Next Due FLU VACCINE HIGH DOSE 65YR+(Fluzone) 05/02/2019, 04/25/2018, 05/21/2017, 04/29/2016, 05/11/2015, 05/04/2014, 05/23/2013 Influenza Vaccine,unspecified 04/20/2020, 06/22/2005 Moderna COVID-19 Vaccine 09/03/2020 Pneumococcal Conj PCV13 05/05/2015 Pneumococcal Polysaccharide PPSV23 12/12/2016, 06/22/2006, 1 08/22/1997 TDAP 05/27/2012 Tetanus Toxoid,not adsorbed 05/11/2014, 06/22/1998 Zoster Live(Zostavax) 05/23/2013 Zoster Recombinant (Shingrix) 05/24/2020, 09/29/2019, 2018 documented as of this encounter Social History Tobacco Use Types Packs/Day Years Used Date Former Smoker Cigarettes, Cigars 2 20 Quit: Smokeless Tobacco: Never Used Alcohol Use Drinks/Week oz/Week Comments No 0 Standard drinks or equivalent 0.0 Quit 1987 Social Isolation Answer Date Recorded In a typical week, how many times do you More than three blayne es a week 01/22/2019 talk on the phone with family, friends, or neighbors? How often do you get together with friends More than three t imes a week 01/22/2019 or relatives? How often do you attend sabianist or More than 4 times per year 01/22/2019 sabianist services? Do you belong to any clubs or Yes 01/22/2019 organizations such as sabianist groups, unions, fraternal or athletic groups, or school groups? How often do you attend meetings of the More than 4 times pe r year 01/22/2019 clubs or organizations you belong to? Are you now , , , Never 01/22/2019 , never or living with a partner? Physical Activity Answer Date Recorded On average, how many days per week do you engage in moderate to 0 days 01/22/2019 strenuous exercise (like walking fast, running, jogging, dancing, swimming, biking, or other activities that cause a light or heavy sweat)? On average, how many minutes do you engage in exercise at th is 0 min 09/25/2019 level? Financial Resource Strain Answer Date Recorded How hard is it for you to pay for the very basics like Not h jr at all 01/22/2019 food, housing, medical care, and heating? Intimate Partner Violence Answer Date Recorded Within the last year, have you been afraid of your partner o r No 01/22/2019 ex-partner? Within the last year, have you been humiliated or emotionall y No 01/22/2019 abused in other ways by [...] worried that your food would Never true 01/22/2019 run out before you got money to buy more. Within the past 12 months, the food you bought just didn't N ever true 01/22/2019 last and you didn't have money to get more. Transportation Needs Answer Date Recorded In the past 12 months, has lack of transportation kept you f rom No 01/22/2019 medical appointments or from getting medications? In the past 12 months, has lack of transportation kept you f rom No 01/22/2019 meetings, work, or getting things needed for daily living? Sexually Active Control Partners Comments Not Currently Sex Assigned at Date Recorded Not on file documented as of this encounter Last Filed Vital Signs Vital Sign Reading Time Taken Comments Blood Pressure 104/71 10/03/2020 7:00 AM OBJECTIVE C DEVELOPER Pulse 66 10/03/2020 9:29 AM OBJECTIVE C DEVELOPER Temperature 36.3 C (97.4 F) 10/03/2020 7:00 AM OBJECTIVE C DEVELOPER Respiratory Rate 18 10/03/2020 9:29 AM OBJECTIVE C DEVELOPER Oxygen Saturation 95% 10/03/2020 7:00 AM OBJECTIVE C DEVELOPER Inhaled Oxygen Concentration - - Weight 126.1 kg (278 lb 1.6 oz) 10/03/2020 6:25 AM OBJECTIVE C DEVELOPER Height 172.7 cm (5' 8") 09/27/2020 4:00 PM OBJECTIVE C DEVELOPER Body Mass Index 42.28 09/27/2020 4:00 PM OBJECTIVE C DEVELOPER documented in this encounter Functional Status Functional [...] on filedocumented in this encounter Discharge Instructions InstructionsBull Ramon, LUIS M D - 09/29/2020Heart Failure Discharge Instructions Diet: Low sodium (low salt) diet Fluid intake 2-3 liters daily unless otherwise advised Follow instructions from our dietitian if one visited you Activity: Plan time every day for walking or other activity. If you feel tired and short of breath, stop and rest. Continue activity when ready. Follow guidelines given by cardiac rehab and nursing staff. Treatments/Self Care: Weigh yourself daily at the same time of the day and with the same amount of clothing. Write down your weight every day and keep this record. Avoid NSAIDs or Non-Steroidal Anti-Inflammatory Drugs (ie: Advil, Ibuprofen, Motrin, etc.) Contact Your Doctor If You Have Any of These Symptoms: Sudden weight gain of 2 to 3 pounds in a day or 5 pounds in a week. This is a sign of fluid build-up. Swelling in feet , ankles, legs, or stomach area Shortness of breath or trouble breathing at rest Having to sleep with more pillows or sitting up Frequent or worsening cough A decrease in amount of urination Chest pain Confusion Questions about medications or other problems Review the Living Well with Heart Failure booklet for more information on caring for yourself or your loved one at home. Warfarin Discharge Instructions: Warfarin 5 mg dose given 10/03/20 in the hospital. Check INR tomorrow on 10/04/20 documented in this encounter Medications at Time of Discharge Medication Sig Dispensed Refills Start Date End Date ramipril (ALTACE) 1.25 Take 1 capsule (1.25 30 capsule 0 11/02/2020 mg capsuleIndications: mg) by mouth every Acute on chronic night at bedtime combined systolic and diastolic congestive heart failure (HCC) carVEDilol (COREG) Take 1 tablet (3.125 60 tablet 0 2 021 11/02/2020 3.125 mg mg) by mouth 2 times a tabletIndications: day with meals Acute on chronic combined systolic and diastolic congestive heart failure ([facility]) torsemide (DEMADEX) 20 Take 1 tablet (20 mg) 60 tablet 0 11/02/2020 mg tabletIndications: by mouth two times a Acute on chronic day (in the morning combined systolic and and mid-afternoon). diastolic congestive heart failure ([facility]) aspirin 81 mg chewable Take 1 tablet (81 mg) 30 tablet 0 tabletIndications: by mouth 1 time per NSTEMI (non-ST day elevated myocardial infarction) ([facility]) potassium chloride Take 1 tablet (20 mEq) 90 tablet 0 08/18 (KLOR-CON M20) 20 MEQ by mouth 2 times a day CR tabletIndications: Essential hypertension triamcinolone Apply to affected area 120 g 0 06/28/2020 acetonide three times daily as (KENALOG,ARISTOCORT) directed 0.1 % creamIndications: Rash and other nonspecific skin eruption warfarin (JANTOVEN) Take 1-2 tablets daily 180 tablet 3 06/07 2.5 MG as directed by tabletIndications: [facility] Chronic atrial fibrillation ([facility]) tiotropium-olodaterol Inhale 1 puff orally 1 3 Inhaler 3 (STIOLTO RESPIMAT) time per day 2.5-2.5 mcg/puff inhalerIndications: COPD exacerbation ([facility]) omeprazole (PRILOSEC) Take 1 capsule (40 mg) 90 capsule 1 40 mg by mouth 1 time a day capsuleIndications: at supper 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, with long-term current use of insulin ([facility]) loratadine (CLARITIN) Take 1 tablet (10 mg) 90 tablet 1 10 mg by mouth 1 time per tabletIndications: day As needed for COPD exacerbation allergies ([facility]) insulin detemir Inject 40 Units 3 mL 11 06/28/2020 (LEVEMIR FLEXTOUCH) subcutaneously every subcutaneous injection night at bedtime (pen)Indications: Diabetes mellitus with background retinopathy ([facility]), 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, with long-term current use of insulin ([facility]) insulin aspart Inject 12 Units 15 mL 3 06/28/2020 (NOVOLOG FLEXPEN) subcutaneously 3 times subcutaneous injection a day with meals (pen)Indications: 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, with long-term current use of insulin ([facility]) fluticasone (FLONASE) USE 1 SPRAY IN EACH 16 g 06/28 50 mcg/spray nasal NOSTRIL TWICE A DAY sprayIndications: 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, with long-term current use of insulin ([facility]), COPD exacerbation (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), 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, with long-term current use of insulin ([facility]) albuterol HFA Inhale 2 puffs orally 1 Inhaler 06/28/2020 07/03/2021 (ALBUTEROL, VENTOLIN Every 4 hours as BRAND,) 108 (90 Base) needed for wheezing MCG/ACT Shake well before inhalerIndications: using. Wheezing docusate sodium Take 1 capsule (100 0 03/20/2019 (COLACE) 100 mg mg) by mouth 1 time capsuleIndications: per day 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, with long-term current use of insulin ([facility]) nitroglycerin Dissolve 1 tablet (0.4 25 tablet 3 01/15/2019 (NITROSTAT) 0.4 mg mg) under the tongue sublingual Every 5 minutes as tabletIndications: needed for chest pain Coronary artery May repeat every 5 disease involving minutes for a total of nooksack heart with 3 doses. angina pectoris, unspecified vessel or lesion type ([facility]) PREPARATION H Insert rectally Every 0 (PREPARATION H) 4 hours as needed 1-0.25-14.4-15 % CREA Glucosamine-Chondroit- Take 1 capsule by 0 Vit C-Mn mouth 2 times a day (GLUCOSAMINE-CHONDROIT IN) capsule Mouthwashes (BIOTENE Place 10 mL into mouth 0 DRY MOUTH) LIQD 3 times a day mouthwash Multiple Vitamin Take 1 tablet by mouth 30 tablet 0 018 (ONE-A-DAY MENS) 1 time per day TABSIndications: Diabetes mellitus with background retinopathy ([facility]) acetaminophen (TYLENOL Take 650 mg by mouth 0 ARTHRITIS) 650 mg CR Every 4 hours as tablet needed for mild pain warfarin (COUMADIN) Take 1 tablet (2.5 mg) 30 tablet 0 09/0711/02/2020 2.5 MG by mouth 1 time per tabletIndications: day Acute on chronic combined systolic and diastolic congestive heart failure (HCC), Chronic atrial fibrillation (HCC) Accu-Chek Kajal Plus USE TO TEST BLOOD 300 each 2 03/22/20 20 test stripIndications: SUGAR THREE TIMES Diabetes mellitus with DAILY ICD:E11.32 background retinopathy (HCC) insulin needle To use with insulin 200 each 2 06/12/2018 ([facility]) 31G four times daily X 8 mm (12/19") E11.3299 ShortIndications: Diabetes mellitus with background retinopathy (HCC) saline nasal spray [place] 2 sprays into 0 (AYR,OCEAN) 0.65 % each nostril 4 times a nasal spray day saline (AYR) nasal Use 1 application in 1 Tube 6 016 gelIndications: Nasal the nose 3 times a day obstruction, Nasal Wash hands and then dryness, History of apply ointment as epistaxis instructed documented as of this encounter Progress Notes Alyssa Mckeon, [employer] STRINGER - 10/02/2020 1:37 PM CST Cardiology Hospital Progress Note Assessment / Plan Principal Problem: Acute on chronic combined systolic and diastolic congestive heart failure (HCC) Active Problems: Diabetes mellitus with background retinopathy (HCC) Type 2 diabetes mellitus, with long-term current use of insulin (HCC) Peripheral vascular disease (HCC) Status post implantation of automatic cardioverter/defibrillator (AICD) Diabetic retinopathy, nonproliferative (HCC) Chronic atrial fibrillation (HCC) Obesity, Class III, BMI 40-49.9 (morbid obesity) (HCC) Status post insertion of drug eluting coronary artery stent Acute CHF (congestive heart failure) ([facility]) Resolved Problems: * No resolved hospital problems. * Plan: Chronic systolic heart failure/ EF 45% -agree with discontinuing Entresto, while it is a good medication it is indicated for HF with EF less than 40%, and I believe that coverage -start ramipril 1.25 mg every evening. We can slowly work to titrate this medication per protocol inthe outpatient setting -heart failure clinic follow up within 1-2 weeks of discharge, this was discussed with patient and he is agreeable. -heart failure education was reviewed with the patient. -recommend compression stockings/wraps to continue to help with edema after discharge. -continue Coreg 3.125 mg twice daily -cardiology will sign off, we will follow the patient in cardiology clinic -recommend fluid restriction to correct hyponatremia Atrial fibrillation -continue coumadin for anticoagulation HPI / History / ROS Francisco Smith is a 80yr old male admitted on 09/27/2020. HPI The patient denies any complaints of chest pain, left arm pain, neck pain, jaw pain, dizziness, lightheadedness, lower extremity edema and palpitations. Physical / Results Current Vital Signs Temp: 97.8 F (36.6 C) BP: 100/59 Weight: 125.6 kg (277 lb) SpO2: 98 % Resp: 16 Pulse: 77 Current BMI (>50 = increased risk): (!) 43.05 O2 Device: Room Air O2 Flow Rate (L/min): 1 l/min Pain Ratin Maximum Temperatures (last 24 hours) Temperature Maximum Max Temp 97.8 F (36.6 C) Physical Exam Constitutional: He appears chronically ill and acutely ill. Cardiovascular: Normal rate, S1 normal and S2 normal. An irregular rhythm present. No murmur heard. Pulses: Radial pulses are 2+ on the right side and 2+ on the left side. Telemetry- V-paced with underlying AF Pulmonary/Chest: Effort normal. Abdominal: Bowel sounds are normal. He exhibits distension. Musculoskeletal: General: Edema present. Neurological: He is alert and oriented to person, place, and time. Skin: Skin is warm and dry. There is pallor. CTIVE C DEVELOPER Associated attestation - Jeremias Ramirez MD - 10/02/2020 6:09 PM OBJECTIVE C DEVELOPER I discussed the patient with the MI and personally interviewed and examined the patient. I verifiedin the medical record all MI documentation/findings, including history, physical exam, and medical decision making, and I agree with the MI's documentation.Juan Sanders MD - 10/02/2020 10:05 AM OBJECTIVE C DEVELOPER Internal Medicine Progress note: Exam date: 10/02/2020 Impression and Plan: 1. Vzokk-io-xwuohbo combined systolic and diastolic congestive heart failure exacerbation. Continue torsemide 20 mg oral b.i.d. Given hypotension discontinued metolazone and Coreg was decreased to3.125 mg bid. Entresto decreased Entresto further to 1/2 tab bid. Patient continues to be intolerant, Discussed with Dr Ramirez. Will discontinue and try KATEY inhibitors per cardiology recommendations. Check CXR given PND at night 2. Hypokalemia, corrected. 3. Non-ST elevation VT, likely type 2 from demand ischemia from heart failure exacerbation. 4. Diabetes with background retinopathy. Last A1c 8.1. Continue Levemir and scheduled NovoLog with meals and also sliding scale. 5. GERD, on Prilosec. 6. Hypertension, on Coreg. 7. Dyslipidemia, on Lipitor. 8. Coronary artery disease. Continue aspirin. 9. COPD. Continue Anoro Ellipta inhalation. 10. Chronic atrial fibrillation, rate controlled. Continue Coumadin. INTERVAL HISTORY: Patient's SBP again dropped in the 80's. At night patient woke up with SOB and had to sit up to feel better. Still shortness of breath persists with any activity. Denies lightheadedness or dizziness. Review of system: General: No fever, no chills Respiratory: No cough. No sob Cardiovascular: No chest pain, No palpitation Abdomen: No abdominal pain, No distension Neuro: No headache. No dizziness. Psychiatry: No severe mood swings Examination: Vitals: 10/01/20 2227 10/02/20 0522 10/02/20 0800 10/02/20 0828 BP: 88/55 116/69 Pulse: 62 96 68 Resp: 18 16 24 Temp: 97.3 F (36.3 C) 96.5 F (35.8 C) SpO2: 95% 99% 96% Weight: 125.6 kg (277 lb) Height: Temp (24hrs), Av.5 F (35.8 C), Min:96 F (35.6 C), Max:96.8 F (36 C) Systolic (24hrs), Av , Min:103 , Max:128 Intake/Output Summary (Last 24 hours) at 09/28/2020 1229 Last data filed at 09/27/2020 2149 Gross per 24 hour Intake 360 ml Output 900 ml Net -540 ml Patient Vitals for the past 72 hrs: Weight 09/27/20 1600 128.4 kg (283 lb 1.1 oz) 09/28/20 0559 127.7 kg (281 lb 8 oz) General: No acute distress Head/ENT: atraumatic normocephalic. Hearing grossly intact. External ear/nose normal. Respiratory: bilateral breath sound present. Decreased BS bases, No wheeze, no crackles. Cardiovascular: S1 S2 heard, regular. No murmur. Abdomen: soft , obese, non tender, BS present. Musculoskeletal: no cyanosis. No gross joint swelling. Has trace pedal edema and wraps on LE Neuro: awake, moving extremities grossly. Skin: No rash Labs: (reviewed) Labs (Last day) 10/02/20 09 - 10/02/20 0921 CHEMISTRY 10/02/20 0921 CHEMISTRY Glucose 70-100 (mg/dL) 227 Sodium 135-145 (meq/L) 129 Potassium 3.5-5.3 (meq/L) 4.6 Chloride 99-110 (meq/L) 97 CO2 20-29 (meq/L) 24 Anion Gap with K 6-20 (meq/L) 13 BUN 6-22 (mg/dL) 20 Creatinine 0.80-1.30 (mg/dL) 1.03 BUN/Creatinine Ratio 10.0-25.0 19.4 Calcium 8.5-10.5 (mg/dL) 8.4 Corrected Calcium 8.5-10.5 (mg/dL) 9.0 Phosphorus 2.5-4.5 (mg/dL) 3.2 Albumin 3.5-5.0 (g/dL) 3.3 eGFR >=60 (mL/min/1.73m2) 84 eGFR Non- >=60 (mL/min/1.73m2) 69 10/02/20 0711 - 10/02/20 0711 GENERAL COAGULATION 10/02/20 0711 GENERAL COAGULATION Protime 12.0-14.5 (secs) 27.4 INR 2.0-3.5 2.7 10/02/20 0529 - 10/01/20 1202 GLUCOSE POINT OF CARE 10/02/20 0529 10/01/20202110/01/20 1657 10/01/20 1629 10/01/20 1202 GLUCOSE POINT OF CARE Glucose POC 70-99 (mg/dL) 77 202 156 159 91 10/02/20 0921 - 10/02/20 0921 OTHER 10/02/20920 OTHER Age (Years) 80 CTIVE C DEVELOPER Juan Sanders MD - 10/01/2020 2:05 PM CST Internal Medicine Progress note: Exam date: 10/01/2020 Impression and Plan: 1. Nelsj-jw-lnyirey combined systolic and diastolic congestive heart failure exacerbation. Continue torsemide 20 mg oral b.i.d. Given hypotension discontinued metolazone and Coreg was decreased to3.125 mg bid. Entresto decreased Entresto further to 1/2 tab bid. If continues to be intolerant, will have to discontinue and try KATEY inhibitors per cardiology recommendations. 2. Hypokalemia, corrected. 3. Non-ST elevation VT, likely type 2 from demand ischemia from heart failure exacerbation. 4. Diabetes with background retinopathy. Last A1c 8.1. Continue Levemir and scheduled NovoLog with meals and also sliding scale. 5. GERD, on Prilosec. 6. Hypertension, on Coreg and diltiazem. 7. Dyslipidemia, on Lipitor. 8. Coronary artery disease. Continue aspirin. 9. COPD. Continue Anoro Ellipta inhalation. 10. Chronic atrial fibrillation, rate controlled. Continue Coumadin. INTERVAL HISTORY: Patient's SBP was 85-90 this am and Coreg and Torsemide had to be held. Shortnessof breath persists with any activity. Denies lightheadedness or dizziness. Review of system: General: No fever, no chills Respiratory: No cough. No sob Cardiovascular: No chest pain, No palpitation Abdomen: No abdominal pain, No distension Neuro: No headache. No dizziness. Psychiatry: No severe mood swings Examination: Vitals: 10/01/20 0730 10/01/20 0739 10/01/20 0901 10/01/20 1202 BP: 100/51 89/58 115/72 Pulse: 90 69 85 91 Resp: 18 24 20 Temp: 97.5 F (36.4 C) SpO2: 94% 96% 93% Weight: Height: Temp (24hrs), Av.5 F (35.8 C), Min:96 F (35.6 C), Max:96.8 F (36 C) Systolic (24hrs), Av , Min:103 , Max:128 Intake/Output Summary (Last 24 hours) at 09/28/2020 1229 Last data filed at 09/27/2020 2149 Gross per 24 hour Intake 360 ml Output 900 ml Net -540 ml Patient Vitals for the past 72 hrs: Weight 09/27/20 1600 128.4 kg (283 lb 1.1 oz) 09/28/20 0559 127.7 kg (281 lb 8 oz) General: No acute distress Head/ENT: atraumatic normocephalic. Hearing grossly intact. External ear/nose normal. Respiratory: bilateral breath sound present. Decreased BS bases, No wheeze, no crackles. Cardiovascular: S1 S2 heard, regular. No murmur. Abdomen: soft , obese, non tender, BS present. Musculoskeletal: no cyanosis. No gross joint swelling. Has pedal edema and wraps on LE Neuro: awake, moving extremities grossly. Skin: No rash Labs: (reviewed) Labs (Last day) 10/01/20 0713 - 10/01/20 0713 GENERAL COAGULATION 10/01/20 0713 GENERAL COAGULATION Protime 12.0-14.5 (secs) 28.5 INR 2.0-3.5 2.8 10/01/20 1202 - 09/30/20 1707 GLUCOSE POINT OF CARE 10/01/20 1202 10/01/20 0556 09/30/20 2131 09/30/20 1707 GLUCOSE POINT OF CARE Glucose POC 70-99 (mg/dL) 91 108 226 160 CTIVE C DEVELOPER Faviola Benavides APRN-FISH NET STRINGER - 09/30/2020 1:38 PM CST Cardiology Progress Note Patient Name: Francisco Smith Admit Date: 09/27/2020 CSN: [id number] Assessment and Plan Principal Problem: Acute on chronic combined systolic and diastolic congestive heart failure (HCC) Active Problems: Diabetes mellitus with background retinopathy (HCC) Type 2 diabetes mellitus, with long-term current use of insulin (HCC) Peripheral vascular disease (HCC) Status post implantation of automatic cardioverter/defibrillator (AICD) Diabetic retinopathy, nonproliferative (HCC) Chronic atrial fibrillation (HCC) Obesity, Class III, BMI 40-49.9 (morbid obesity) (HCC) Status post insertion of drug eluting coronary artery stent Acute CHF (congestive heart failure) (HCC) Resolved Problems: * No resolved hospital problems. * Plan: -Pt was interviewed/examined and a plan was developed along with Dr. Ramirez. -Struggling with hypotension considering addition of several medications and significant diuresis. Coreg decreased to 3.125 mg. If he continues to struggle with hypotension, would recommend stopping Entresto and starting low dose lisinopril which would allow for further titration of Coreg which willbenefit his atrial fibrillation. -Continue with torsemide 20 mg BID for an additional day and then will evaluate dose appropriate fordischarge. Code Status: Full Code I appreciate the opportunity to be involved in this patient's care. Cardiology will continue to follow. Faviola Benavides APRN-FISH NET STRINGER Cardiology Pager #[phone] [facility], [place] 09/29/2020 Interval History This is a patient with known CAD along with combined systolic and diastolic congestive heart failurewho is admitted with acute on chronic CHF. He has been diuresing well with torsemide, down over 4.5liters since admission. He is feeling well this morning, denies any dizziness, shortness of breath improved. Labs stable. Continues to be slightly hypotensive. Medications have had to be decreased accordingly. ROS ROS Current Vital Signs Temp: 96 F (35.6 C) BP: 96/63 Pulse: 57 O2 Device: Room Air O2 Flow Rate (L/min): 1 l/min Resp: 18 Pain Ratin (out of 10) Weight: 126.4 kg (278 lb 11.2 oz) SpO2: 94 % Physical Exam Physical Exam Constitutional: He is oriented to person, place, and time. He appears well- developed and well-nourished. No distress. Neck: Normal range of motion. Cardiovascular: Normal rate. An irregular rhythm present. Pulmonary/Chest: Effort normal and breath sounds normal. He has no wheezes. He has no rales. Abdominal: Soft. Bowel sounds are normal. There is no abdominal tenderness. Musculoskeletal: Normal range of motion. General: Edema (2+ edema to lower extremities bilat.) present. Neurological: He is alert and oriented to person, place, and time. Skin: Skin is warm and dry. He is not diaphoretic. Psychiatric: He has a normal mood and affect. His behavior is normal. Nursing note and vitals reviewed. Labs I have reviewed all labs, and pertinent positives and negatives are discussed in the Assessment and Plan. CTIVE C DEVELOPER Associated attestation - Jeremias Ramirez MD - 09/30/2020 5:47 PM OBJECTIVE C DEVELOPER I discussed the patient with the MI and personally interviewed and examined the patient. I verifiedin the medical record all MI documentation/findings, including history, physical exam, and medical decision making, and I agree with the MI's documentation.Juan Sanders MD - 09/30/2020 9:52 AM OBJECTIVE C DEVELOPER Internal Medicine Progress note: Exam date: 09/30/2020 Impression and Plan: 1. Sqeeo-ip-rvtpmgg combined systolic and diastolic congestive heart failure exacerbation. Continue torsemide 20 mg oral b.i.d. Given hypotension discontinued metolazone and Coreg was decreased to3.125 mg bid. Entresto was added with hold parameters. Decreased Entresto further to 1/2 tab bid. 2. Hypokalemia, corrected. 3. Non-ST elevation VT, likely type 2 from demand ischemia from heart failure exacerbation. 4. Diabetes with background retinopathy. Last A1c 8.1. Continue Levemir and scheduled NovoLog with meals and also sliding scale. 5. GERD, on Prilosec. 6. Hypertension, on Coreg and diltiazem. 7. Dyslipidemia, on Lipitor. 8. Coronary artery disease. Continue aspirin. 9. COPD. Continue Anoro Ellipta inhalation. 10. Chronic atrial fibrillation, rate controlled. Continue Coumadin. INTERVAL HISTORY: Patient's shortness of breath improved. Still some SOB with activity. Denies lightheadedness or dizziness. Nursing staff reports that BP was 118/76 this morning. Torsamide and coreggiven. 0945 Rechecked BP 83/49 MAP 61. Held enstresto this am Review of system: General: No fever, no chills Respiratory: No cough. No sob Cardiovascular: No chest pain, No palpitation Abdomen: No abdominal pain, No distension Neuro: No headache. No dizziness. Psychiatry: No severe mood swings Examination: Vitals: 09/30/20 0633 09/30/20 0751 09/30/20 0944 09/30/20 0948 BP: 118/76 83/49 96/63 Pulse: 66 69 Resp: 20 Temp: SpO2: 99% Weight: 126.4 kg (278 lb 11.2 oz) Height: Temp (24hrs), Av.5 F (35.8 C), Min:96 F (35.6 C), Max:96.8 F (36 C) Systolic (24hrs), Av , Min:103 , Max:128 Intake/Output Summary (Last 24 hours) at 09/28/2020 1229 Last data filed at 09/27/2020 2149 Gross per 24 hour Intake 360 ml Output 900 ml Net -540 ml Patient Vitals for the past 72 hrs: Weight 09/27/20 1600 128.4 kg (283 lb 1.1 oz) 09/28/20 0559 127.7 kg (281 lb 8 oz) General: No acute distress Head/ENT: atraumatic normocephalic. Hearing grossly intact. External ear/nose normal. Respiratory: bilateral breath sound present. Decreased BS bases, No wheeze, no crackles. Cardiovascular: S1 S2 heard, regular. No murmur. Abdomen: soft , obese, non tender, BS present. Musculoskeletal: no cyanosis. No gross joint swelling. Has pedal edema and wraps on LE Neuro: awake, moving extremities grossly. Skin: No rash Labs: (reviewed) Labs (Last day) 09/30/20 0652 - 09/30/20 0652 CBC 09/30/20 0652 CBC WBC 4.0-11.0 (K/uL) 5.4 RBC 4.40-5.80 (M/uL) 4.47 Hemoglobin 13.5-17.5 (g/dL) 14.3 Hematocrit 40.0-50.0 (%) 42.3 MCV 80.0-98.0 (fL) 94.6 MCH 25.5-34.0 (pg) 32.0 MCHC 31.5-36.5 (g/dL) 33.8 RDW-CV 11.5-15.5 (%) 13.9 RDW-SD 35.5-50.0 (fl) 48.5 Platelet Count 140-400 (K/uL) 233 MPV 8.5-12.0 (fL) 10.2 09/30/20651 - 09/30/2052 CHEMISTRY 09/30/20 06 CHEMISTRY Glucose 70-100 (mg/dL) 95 Sodium 135-145 (meq/L) 133 Potassium 3.5-5.3 (meq/L) 3.6 Chloride 99-110 (meq/L) 97 CO2 20-29 (meq/L) 27 Anion Gap with K 6-20 (meq/L) 13 BUN 6-22 (mg/dL) 23 Creatinine 0.80-1.30 (mg/dL) 1.17 BUN/Creatinine Ratio 10.0-25.0 19.7 Calcium 8.5-10.5 (mg/dL) 8.9 Corrected Calcium 8.5-10.5 (mg/dL) 9.1 Phosphorus 2.5-4.5 (mg/dL) 3.9 Albumin 3.5-5.0 (g/dL) 3.7 eGFR >=60 (mL/min/1.73m2) 72 eGFR Non- >=60 (mL/min/1.73m2) 60 09/30/20 0652 - 09/30/20 0652 GENERAL COAGULATION 09/30/20 06 GENERAL COAGULATION Protime 12.0-14.5 (secs) 27.4 INR 2.0-3.5 2.7 09/30/20621 - 09/29/20 1121 GLUCOSE POINT OF CARE 09/30/20 0609/29/20 2236 09/29/20 1825 09/29/20 1808 09/29/20 1121 GLUCOSE POINT OF CARE Glucose POC 70-99 (mg/dL) 81 173 137 128 234 09/30/20 0652 - 09/30/20 0652 OTHER 09/30/20 0652 OTHER Age (Years) 80 CTIVE C DEVELOPER Juan Sanders MD - 09/29/2020 3:30 PM CST Internal Medicine Progress note: Exam date: 09/29/2020 Impression and Plan: 1. Vzjnu-ks-dxmubde combined systolic and diastolic congestive heart failure exacerbation. Continue torsemide 20 mg oral b.i.d. Given hypotension discontinued metolazone and Coreg was decreased to3.125 mg bid. Entresto was added with hold parameters. If BP remains low will consider decreasing Entresto to 1/2 tab bid. 2. Hypokalemia, corrected. 3. Non-ST elevation VT, likely type 2 from demand ischemia from heart failure exacerbation. 4. Diabetes with background retinopathy. Last A1c 8.1. Continue Levemir and scheduled NovoLog with meals and also sliding scale. 5. GERD, on Prilosec. 6. Hypertension, on Coreg and diltiazem. 7. Dyslipidemia, on Lipitor. 8. Coronary artery disease. Continue aspirin. 9. COPD. Continue Anoro Ellipta inhalation. 10. Chronic atrial fibrillation, rate controlled. Continue Coumadin. INTERVAL HISTORY: Patient's shortness of breath improved. Nursing staff reports low BPs with SBP inthe 80's this am. Denies lightheadedness or dizziness Review of system: General: No fever, no chills Respiratory: No cough. No sob Cardiovascular: No chest pain, No palpitation Abdomen: No abdominal pain, No distension Neuro: No headache. No dizziness. Psychiatry: No severe mood swings Examination: Vitals: 09/29/20 0943 09/29/20 1138 09/29/20 1204 09/29/20 1505 BP: 145/134 96/54 125/83 Pulse: 70 70 58 76 Resp: 18 16 20 Temp: 97.7 F (36.5 C) 95.1 F (35.1 C) SpO2: 94% 96% 99% Weight: Height: Temp (24hrs), Av.5 F (35.8 C), Min:96 F (35.6 C), Max:96.8 F (36 C) Systolic (24hrs), Av , Min:103 , Max:128 Intake/Output Summary (Last 24 hours) at 09/28/2020 1229 Last data filed at 09/27/2020 2149 Gross per 24 hour Intake 360 ml Output 900 ml Net -540 ml Patient Vitals for the past 72 hrs: Weight 09/27/20 1600 128.4 kg (283 lb 1.1 oz) 09/28/20 0559 127.7 kg (281 lb 8 oz) General: No acute distress Head/ENT: atraumatic normocephalic. Hearing grossly intact. External ear/nose normal. Respiratory: bilateral breath sound present. Decreased BS bases, No wheeze, no crackles. Cardiovascular: S1 S2 heard, regular. No murmur. Abdomen: soft , obese, non tender, BS present. Musculoskeletal: no cyanosis. No gross joint swelling. Has trace pedal edema Neuro: awake, moving extremities grossly. Skin: No rash Labs: (reviewed) Labs (Last day) 09/29/20718 - 09/29/20718 CHEMISTRY 09/29/20 07 CHEMISTRY Glucose 70-100 (mg/dL) 80 Sodium 135-145 (meq/L) 133 Potassium 3.5-5.3 (meq/L) 3.7 Chloride 99-110 (meq/L) 99 CO2 20-29 (meq/L) 24 Anion Gap with K 6-20 (meq/L) 14 BUN 6-22 (mg/dL) 22 Creatinine 0.80-1.30 (mg/dL) 1.24 BUN/Creatinine Ratio 10.0-25.0 17.7 Calcium 8.5-10.5 (mg/dL) 8.6 eGFR >=60 (mL/min/1.73m2) 68 eGFR Non- >=60 (mL/min/1.73m2) 56 09/29/20 0719 - 09/29/20 07 GENERAL COAGULATION 09/29/20 0719 GENERAL COAGULATION Protime 12.0-14.5 (secs) 26.6 INR 2.0-3.5 2.6 09/29/20 1121 - 09/28/20 1636 GLUCOSE POINT OF CARE 09/29/20 1121 09/29/20 0554 09/28/20 2128 09/28/20 1743 09/28/20 1636 GLUCOSE POINT OF CARE Glucose POC 70-99 (mg/dL) 234 75 190 213 230 09/29/20 0719 - 09/29/20 0719 OTHER 09/29/20 0719 OTHER Age (Years) 80 CTIVE C DEVELOPER Faviola Benavides APRN-CNP - 09/29/2020 9:47 AM CST Cardiology Progress Note Patient Name: Francisco Smith Admit Date: 09/27/2020 CSN: [id number] Assessment and Plan Principal Problem: Acute on chronic combined systolic and diastolic congestive heart failure (HCC) Active Problems: Diabetes mellitus with background retinopathy (HCC) Type 2 diabetes mellitus, with long-term current use of insulin (HCC) Peripheral vascular disease (HCC) Status post implantation of automatic cardioverter/defibrillator (AICD) Diabetic retinopathy, nonproliferative (HCC) Chronic atrial fibrillation (HCC) Obesity, Class III, BMI 40-49.9 (morbid obesity) (HCC) Status post insertion of drug eluting coronary artery stent Acute CHF (congestive heart failure) (HCC) Resolved Problems: * No resolved hospital problems. * Plan: -Pt was interviewed/examined and a plan was developed along with Dr. Garcia. -Pt is doing well on oral torsemide, feels his breathing is improved, had good output, down over 3.5liters since admission. Labs stable. Did have some hypotension last evening, got gentle IVF. BP remains soft but stable. He has no dizziness or lightheadedness sitting on edge of bed during exam. -Stop Zaroxolyn, continue with Demadex BID. -Continue Entresto. If BP too soft, can try half tab. -Reduce Coreg to 6.25 mg BID Code Status: Full Code I appreciate the opportunity to be involved in this patient's care. Cardiology will continue to follow. [facility] Card[facility] Pager #[phone] [facility], [place] 09/29/2020 Interval History This is a patient with known CAD along with combined systolic and diastolic congestive heart failurewho is admitted with acute on chronic CHF. He has been diuresing well with torsemide, down over 3.5liters. He is feeling well this morning, denies any dizziness, shortness of breath improved. Labs stable. Did have some hypotension last evening, required gentle IVF. Medication changes made accordingly. BROOKE COX Current Vital Signs Temp: 96.3 F (35.7 C) BP: 93/57 Pulse: 70 O2 Device: Room Air O2 Flow Rate (L/min): 1 l/min Resp: 18 Pain Ratin (out of 10) Weight: 126.5 kg (278 lb 12.8 oz) SpO2: 94 % Physical Exam Physical Exam Constitutional: He is oriented to person, place, and time. He appears well- developed and well-nourished. No distress. Neck: Normal range of motion. Cardiovascular: Normal rate. An irregular rhythm present. Pulmonary/Chest: Effort normal and breath sounds normal. He has no wheezes. He has no rales. Abdominal: Soft. Bowel sounds are normal. There is no abdominal tenderness. Musculoskeletal: Normal range of motion. General: Edema (2+ edema to lower extremities bilat.) present. Neurological: He is alert and oriented to person, place, and time. Skin: Skin is warm and dry. He is not diaphoretic. Psychiatric: He has a normal mood and affect. His behavior is normal. Nursing note and vitals reviewed. Labs I have reviewed all labs, and pertinent positives and negatives are discussed in the Assessment and Plan. CTIVE C DEVELOPER Associated attestation - Roxy Garcia MD - 09/29/2020 1:09 PM OBJECTIVE C DEVELOPER I discussed the patient with the MI and personally interviewed and examined the patient. I verifiedin the medical record all MI documentation/findings, including history, physical exam, and medical decision making, and I agree with the MI's documentation. Melina Garcia, PHARM D - 09/28/2020 1:49 PM CST09/28/2020 1:49 PM OBJECTIVE C DEVELOPER -- Patient was seen by the pharmacy med reconciliation team and HOME MEDICATIONS have been reconciled and updated to match the patient's home usage. Updated med list with Home Health. Added: Enalapril 2.5 mg daily Removed/Not taking: Diltiazem Changed: Furosemide 40 mg in the morning and 20 mg at noon Melina Garcia, PHARM D CTIVE C DEVELOPER Juan Sanders MD - 09/28/2020 12:29 PM CST Internal Medicine Progress note: Exam date: 09/28/2020 Impression and Plan: 1. Mcjnb-kp-fapnrnd combined systolic and diastolic congestive heart failure exacerbation. Cardiology evaluated the patient and changed Lasix to torsemide 20 mg oral b.i.d. Continue metolazone 2.5 mg daily. Also, Entresto was added. Continue Coreg as well. 2. Hypokalemia, replacing potassium. Today was corrected. 3. Non-ST elevation VT, likely type 2 from demand ischemia from heart failure exacerbation. Cardiology recommended monitoring with repeat troponins. 4. Diabetes with background retinopathy. Last A1c 8.1. Continue Levemir and scheduled NovoLog with meals and also sliding scale. 5. GERD, on Prilosec. 6. Hypertension, on Coreg and diltiazem. 7. Dyslipidemia, on Lipitor. 8. Coronary artery disease. Continue aspirin. 9. COPD. Continue Anoro Ellipta inhalation. 10. Chronic atrial fibrillation, rate controlled. Continue Coumadin. INTERVAL HISTORY: Patient is feeling better. His shortness of breath at rest is cleared. Mild shortness of breath persists with any exertion. Patient describes some vague discomfort in the upper posterior back, no relation to activity. Juan Sanders MD Receipt: [id number] [facility] ID: [id number]/[facility] OBJECTIVE C DEVELOPER OBJECTIVE C DEVELOPER Review of system: General: No fever, no chills Respiratory: No cough. No sob Cardiovascular: No chest pain, No palpitation, Midback discomfort Abdomen: No abdominal pain, No distension Neuro: No headache. No dizziness. Psychiatry: No severe mood swings Examination: Vitals: 09/27/20 1942 09/28/20 0559 09/28/20 0753 09/28/20 1216 BP: 103/72 115/64 Pulse: 84 70 75 Resp: 20 18 18 Temp: 96.8 F (36 C) 96.6 F (35.9 C) SpO2: 98% 96% 95% Weight: 127.7 kg (281 lb 8 oz) Height: Temp (24hrs), Av.5 F (35.8 C), Min:96 F (35.6 C), Max:96.8 F (36 C) Systolic (24hrs), Av , Min:103 , Max:128 Intake/Output Summary (Last 24 hours) at 09/28/2020 1229 Last data filed at 09/27/2020 2149 Gross per 24 hour Intake 360 ml Output 900 ml Net -540 ml Patient Vitals for the past 72 hrs: Weight 09/27/20 1600 128.4 kg (283 lb 1.1 oz) 09/28/20 0559 127.7 kg (281 lb 8 oz) General: No acute distress Head/ENT: atraumatic normocephalic. Hearing grossly intact. External ear/nose normal. Respiratory: bilateral breath sound present. Decreased BS bases, No wheeze, no crackles. Cardiovascular: S1 S2 heard, regular. No murmur. Abdomen: soft , obese, non tender, BS present. Musculoskeletal: no cyanosis. No gross joint swelling. Has trace pedal edema Neuro: awake, moving extremities grossly. Skin: No rash Labs: (reviewed) Labs (Last day) 09/28/20 07 - 09/27/202212 CARDIAC MARKERS 09/28/20 0749 09/27/202212 CARDIAC MARKERS Troponin I 0.000-0.028 (ng/mL) 0.398 0.378 09/28/20 0749 - 09/27/202212 CBC 09/28/20 0749 09/27/202212 CBC WBC 4.0-11.0 (K/uL) 5.7 6.0 RBC 4.40-5.80 (M/uL) 4.06 4.07 Hemoglobin 13.5-17.5 (g/dL) 13.1 13.1 Hematocrit 40.0-50.0 (%) 39.0 38.1 MCV 80.0-98.0 (fL) 96.1 93.6 MCH 25.5-34.0 (pg) 32.3 32.2 MCHC 31.5-36.5 (g/dL) 33.6 34.4 RDW-CV 11.5-15.5 (%) 14.2 13.9 RDW-SD 35.5-50.0 (fl) 50.3 47.5 Platelet Count 140-400 (K/uL) 214 199 MPV 8.5-12.0 (fL) 10.2 10.3 09/28/20 0749 - 09/27/202212 CHEMISTRY 09/28/20 0749 09/28/20 0749 09/27/20221209/27/202212 CHEMISTRY Glucose 70-100 (mg/dL) 88 186 Sodium 135-145 (meq/L) 134 131 Potassium 3.5-5.3 (meq/L) 3.6 3.4 Chloride 99-110 (meq/L) 98 97 CO2 20-29 (meq/L) 27 25 Anion Gap with K 6-20 (meq/L) 13 12 BUN 6-22 (mg/dL) 17 15 Creatinine 0.80-1.30 (mg/dL) 1.07 1.14 BUN/Creatinine Ratio 10.0-25.0 15.9 13.2 Calcium 8.5-10.5 (mg/dL) 8.4 8.3 Corrected Calcium 8.5-10.5 (mg/dL) 8.7 Magnesium 1.8-2.4 (mg/dL) 2.0 Bilirubin Total 0.2-1.2 (mg/dL) 0.7 0.7 Bilirubin Direct 0.0-0.4 (mg/dL) 0.3 Bilirubin Indirect 0.0-0.8 (mg/dL) 0.4 Alkaline Phosphatase 30-150 (U/L) 78 86 ALT - SGPT 0-55 (U/L) 17 16 AST - SGOT 0-35 (U/L) 20 18 Protein Total 6.0-8.2 (g/dL) 6.2 6.2 Albumin 3.5-5.0 (g/dL) 3.5 3.5 eGFR >=60 (mL/min/1.73m2) 80 75 eGFR Non- >=60 (mL/min/1.73m2) 66 61 09/28/20 0749 - 09/27/202212 DIFFERENTIAL 09/28/20 0749 09/27/202212 DIFFERENTIAL Seg Neut Absolute 1.8-8.0 (K/uL) 3.6 3.8 Lymphocytes Absolute 0.8-4.1 (K/uL) 1.2 1.4 Monocytes Absolute 0.0-1.0 (K/uL) 0.5 0.6 Eosinophils Absolute 0.0-0.7 (K/uL) 0.2 0.2 Basophil Absolute 0.0-0.2 (K/uL) 0.1 0.1 Immature Granulocyte Absolute 0.00-0.06 (K/uL) 0.01 0.01 Neutrophils Percent (%) 63.9 63.7 Neutrophils Abs. (Segs and Bands) (/uL) 3,600 3,800 Lymphocytes Percent (%) 21.4 23.1 Monocytes Percent (%) 9.5 9.2 Immature Granulocyte Percent (%) 0.2 0.2 Eosinophils Percent (%) 4.1 3.0 Basophil Percent (%) 0.9 0.8 Nucleated RBC (/100 WBC's) 0 0 09/28/20 1145 - 09/28/20 1145 ECG/EKG 09/28/20 1145 ECG/EKG EKG WAVEFORM Ventricular-paced rhythm with occasional Premature ventricular complexes Abnormal ECG When compared with ECG of 22-SEP-2020 15:16, Electronic ventricular pacemaker has replaced Sinus rhythm Ventricular Rate: 69 BPM Atrial Rate: 78 BPM QRS Duration: 206 ms Q-T Interval: 546 ms QTc Calculation(Bazett): 585 ms Calculated P [place]: -105 degrees Calculated R [place]: -83 degrees Calculated T [place]: 90 degrees 09/28/20 0749 - 09/27/202212 GENERAL COAGULATION 09/28/20 0749 09/27/20 221 GENERAL COAGULATION Protime 12.0-14.5 (secs) 25.9 24.9 INR 2.0-3.5 2.5 2.3 09/28/20 1132 - 09/28/20 0539 GLUCOSE POINT OF CARE 09/28/20 1132 09/28/20 1046 09/28/20 0931 09/28/20 0742 09/28/20 0539 GLUCOSE POINT OF CARE Glucose POC 70-99 (mg/dL) 78 80 85 83 96 09/27/202049 - 09/27/201718 GLUCOSE POINT OF CARE 09/27/20204909/27/201718 GLUCOSE POINT OF CARE Glucose POC 70-99 (mg/dL) 168 114 09/27/203 - 09/27/202212 THYROID 09/27/202212 THYROID TSH 0.40-5.00 (uIU/mL) 1.42 09/28/20 0749 - 09/27/202212 OTHER 09/28/20 0749 09/27/202212 OTHER Age (Years) [age] CTIVE C DEVELOPER Juan Sanders MD - 09/28/2020 1:00 AM PATIENT NAME: FRANCISCO SMITH DATE OF SERVICE: 09/28/2020 ABBEY: [id number] IMPRESSION AND PLAN: 1. Mamkm-pu-sgukbby combined systolic and diastolic congestive heart failure exacerbation. Cardiology evaluated the patient and changed Lasix to torsemide 20 mg oral b.i.d. Continue metolazone 2.5 mg daily. Also, Entresto was added. Continue Coreg as well. 2. Hypokalemia, replacing potassium. Today was corrected. 3. Non-ST elevation VT, likely type 2 from demand ischemia from heart failure exacerbation. Cardiology recommended monitoring with repeat troponins. 4. Diabetes with background retinopathy. Last A1c 8.1. Continue Levemir and scheduled NovoLog with meals and also sliding scale. 5. GERD, on Prilosec. 6. Hypertension, on Coreg and diltiazem. 7. Dyslipidemia, on Lipitor. 8. Coronary artery disease. Continue aspirin. 9. COPD. Continue Anoro Ellipta inhalation. 10. Chronic atrial fibrillation, rate controlled. Continue Coumadin. INTERVAL HISTORY: Patient is feeling better. His shortness of breath at rest is cleared. Mild shortness of breath persists with any exertion. Patient describes some vague discomfort in the upper posterior back, no relation to activity. Juan Sanders MD Receipt: [id number] Trans ID: [id number]/[facility] OBJECTIVE C DEVELOPER CST Berta Bradley, PHARM D - 09/27/2020 9:09 PM CST Warfarin Initial Consult Note Mr. Smith has been initiated on warfarin per pharmacy protocol for history of DVT. Desired goal INR is 2-3. Patient has previously been on anticoagulation therapy. Previous dose was 2.5 mg on Fridays and 5 mg all other days of the week. Labs: Lab Results Component Value Date INR 2.43 09/18/2020 PT 17.2 (H) 08/18/2020 Protime Date/Time Value Ref Range Status 08/18/2020 06:30 AM 17.2 (H) 12.0 - 14.5 secs Final 08/17/2020 05:41 AM 16.4 (H) 12.0 - 14.5 secs Final 08/16/2020 05:19 AM 15.8 (H) 12.0 - 14.5 secs Final INR Date/Time Value Ref Range Status 09/18/2020 2.43 Final 09/16/2020 1.93 Final 09/15/2020 1.61 Final 08/18/2020 06:30 AM 1.5 (L) 2.0 - 3.5 Final 08/17/2020 05:41 AM 1.4 (L) 2.0 - 3.5 Final 08/16/2020 05:19 AM 1.3 (L) 2.0 - 3.5 Final 05/16/2016 2.70 Final 05/15/2016 2.70 Final 05/14/2016 2.80 Final Platelet Count Date/Time Value Ref Range Status 09/22/2020 03:54 PM 187 140 - 400 K/uL Final 06/18/2014 03:28 PM 158 140 - 400 K/uL Final Hemoglobin Date/Time Value Ref Range Status 09/22/2020 03:54 PM 12.7 (L) 13.5 - 17.5 g/dL Final 06/18/2014 03:28 PM 15.2 13.5 - 17.5 g/dL Final Plan: Warfarin: 5 mg today. Pharmacy will monitor and if indicated, adjust dose per the anticoagulation policy. Thank you very much for the consult. Berta Cm, Luis MD, BCPS CTIVE C DEVELOPER documented in this encounter H&P Notes Escobar Valderrama MD - 09/27/2020 5:20 PM CST ADMISSION HISTORY & PHYSICAL Francisco Smith is a 80yr old male admitted on 09/27/2020. Today's Date: 09/27/2020 Referring Physician: Admitted through the ER at [place], [place] Principal Admission Diagnosis: Acute on chronic combined systolic and diastolic congestive heart failure (HCC) Chief Complaint and History of Present Illness Mr. Francisco Smith is an 80-year-old male with PMH significant for HTN, HLD, IDDM2,ROCKY, PVD, CADs/pmultiple stents (patient [id number]) with most recent stent done in 03/2019,chronic atrial fibrillation on warfarin,systolic and diastolic CHF, ischemic cardiomyopathy (EF 45% 08/26), AICD, COPD, obesity hypoventilation syndrome, morbid obesity, recent hospitalization at [facility] for L 2ndtoe amputation and critical limb ischemia L SFA and Pop angioplasty plus L TP trunk angioplasty, as well as recent hospitalization at [facility] for CHF exacerbation (until 2 weeks prior to current admission,details not available) who presented for dyspnea. Mr. Francisco Smith had been at home, [place] and [place], when had subacute worsening of dyspnea past 5-6 days. Worse with exertion, as well as when lying flat. Also mildswelling of both legs. Does not weigh himself. Given all of this, presented to outside hospital. No chest pain. CTA chest done with moderate b/l effusions and given mild troponin elevation, transfer [facility] for further management. Feels fine right now, just a bit dyspneic. Is hungry. No diarrhea, if at all actually constipated. 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) Obesity, Class III, BMI 40-49.9 (morbid obesity) ([facility]) Cardiorenal syndrome Diabetic retinopathy, nonproliferative ([facility]) Status post implantation of automatic cardioverter/defibrillator (AICD) shelter current use of anticoagulant therapy [facility] Tier 1 (Basic) Peripheral neuropathy CHEN (dyspnea on exertion) Deep vein thrombosis of right femoral vein ([facility]) 04/25/14 R) Proximal femoral deep vein thrombosis, still present on 11/2014 US. On warfarin therapy. Acute on chronic combined systolic and diastolic congestive heart failure (HCC) Cataract Callus of foot Hyperlipidemia Hypertension Ischemic cardiomyopathy -10/24/11 implantable cardiac defibrillator placement Coronary artery disease involving nooksack coronary artery of nooksack heart -09/11/2007 ST-elevated myocardial infarction with angiogram revealing a 100% lesion in the proximalRCA. Received a Liberte bare-metal stent to this [...] the mid circumflex, patient received Cypher drug eluting stent to the mid left anterior descending [...] Mini Vision bare-metal stent to this lesion. Alsonoted to have a 50% stenosis in the [...] ventricle moderately dilated. Systolic function was markedly reducedwith ejection fraction 30%. No significant valvular disease. -10/06/2012 non-STEMI with 2 drug-eluting stents to the mid circumflex. -12/10/13 chest pain with angiogram showing tight stenosis in the proximal RCA and received a 3.5x30 mm Resolute LAMONT to this lesion. -10.14.2015 . Left main stent and circumflex stent Congenital spondylolisthesis Peripheral vascular disease (HCC) March 2011: Initial visit to IR for claudication with left resting ISHAN 0.39. Angiogram recommended but he was on Effient for recent (3 days prior) LAMONT. Angiogram deferred. July 2011: Lower extremity angiogram by Dr. Solorio with SECURITY TRAINER to intervention including left peroneal and left popliteal arteries. June 2013: Underwent LE angiogram per Dr. Coto due to recurrent progressive claudication and worsening ABIs. Underwent left SFA 6 mm SECURITY TRAINER and left tibioperoneal trunk 4 mm SECURITY TRAINER. Noted to have severe tibial occlusive disease with single vessel runoff to both feet. Type 2 diabetes mellitus, with long-term current use of insulin ([facility]) Diabetes mellitus with background retinopathy ([facility]) Past Medical History Francisco Past Medical History: Diagnosis Date Atrial fibrillation ([facility]) Biliary colic Blood transfusion without reported diagnosis CAD (coronary artery disease) history of non-ST elevated myocardial infarction on Effient with PTCA and stenting to the LAD on March 14, 2011. History of cardiac disease with previous PTCA and stenting in October 2007. Callus of foot 07/28/2013 Cardiorenal syndrome Cataract CHF (congestive heart failure) ([facility]) Chronic back pain COPD (chronic obstructive pulmonary disease) ([facility]) Deviated septum hx of Diabetes mellitus ([facility]) Diabetic retinopathy ([facility]) Diverticular disease CHEN (dyspnea on exertion) Dyslipidemia GERD (gastroesophageal reflux disease) HTN (hypertension) Hyperlipidemia Ischemic cardiomyopathy Myocardial infarction ([facility]) Obesity Osteoarthritis Osteoarthritis Peripheral neuropathy Phimosis PVD (peripheral vascular disease) (HCC) History of peripheral vascular disease with history of lower extremity angiogram by Dr. Solorio on July 06, 2011, with intervention including left peroneal and left popliteal artery angioplasty. Sleep apnea on CPAP. Spondylolisthesis congenital Tear film insufficiency Varicose veins Past Surgical History Francisco Past Surgical History: Procedure Laterality Date AMPUTATION MINOR Left 08/14/2020 Procedure: LEFT FOOT SECOND DIGIT AMPUTATION;; Surgeon: Jordin Lester DPM COLONOSCOPY FRACTURE SURGERY HERNIA REPAIR INSERT REPOSITIONING ELECT LEAD SNGL DUAL CHAMBER DEF SYSTEM ICD Implant-AICD LAP CHOLECYSTECTOMY N/A 03/26/2018 Procedure: LAPAROSCOPIC CHOLECYSTECTOMY;; Surgeon: Johnson Christy MD PERCUTANEOUS CORONARY INTERVENTION CRYPTOLOGIST Prior to Admission Medications Medications Prior to Admission Medication Sig Dispense Refill Last Dose aspirin 81 mg chewable tablet Take 1 tablet (81 mg) by mouth 1 time per day 30 tablet 0 potassium chloride (KLOR-CON M20) 20 MEQ CR tablet Take 1 tablet (20 mEq) by mouth 2 times a day90 tablet 0 triamcinolone acetonide (KENALOG,ARISTOCORT) 0.1 % cream Apply to affected area three times daily as directed 120 g 0 warfarin (JANTOVEN) 2.5 MG tablet Take 1-2 tablets daily as directed by Anticoag Clinic 180 tablet 3 tiotropium-olodaterol (STIOLTO RESPIMAT) 2.5-2.5 mcg/puff inhaler Inhale 1 puff orally 1 time per day 3 Inhaler 3 omeprazole (PRILOSEC) 40 mg capsule Take 1 capsule (40 mg) by mouth 1 time a day at supper 90 capsule 1 metOLazone (ZAROXOLYN) 2.5 mg tablet Take 1 tablet (2.5 mg) by mouth 3 times a week , ,Sun Take 30 min prior to lasix 90 tablet 6 loratadine (CLARITIN) 10 mg tablet Take 1 tablet (10 mg) by mouth 1 time per day As needed for allergies 90 tablet 1 insulin detemir (LEVEMIR FLEXTOUCH) subcutaneous injection (pen) Inject 40 Units subcutaneously every night at bedtime 3 mL 11 insulin aspart (NOVOLOG FLEXPEN) subcutaneous injection (pen) Inject 12 Units subcutaneously 3 times a day with meals (Patient taking differently: Inject 10 Units subcutaneously 3 times a day with meals ) 15 mL 3 furosemide (LASIX) 40 mg tablet Take 1 tablet (40 mg) by mouth 2 times a day 180 tablet 1 fluticasone (FLONASE) 50 mcg/spray nasal spray USE 1 SPRAY IN EACH NOSTRIL TWICE A DAY 16 g 11 dilTIAZem (CARDIZEM CD) 240 mg extended release capsule Take 1 capsule (240 mg) by mouth 1 time per day 90 capsule 3 carVEDilol (COREG) 12.5 mg tablet Take 1 tablet (12.5 mg) by mouth 2 times a day with meals 180 tablet 1 atorvaSTATin (LIPITOR) 40 mg tablet Take 1 tablet (40 mg) by mouth 1 time per day 90 tablet 3 albuterol HFA (ALBUTEROL, VENTOLIN BRAND,) 108 (90 Base) MCG/ACT inhaler Inhale 2 puffs orally Every 4 hours as needed for wheezing Shake well before using. 1 Inhaler 11 Accu-Chek Kajal Plus test strip USE TO TEST BLOOD SUGAR THREE TIMES DAILY ICD:E11.32 300 each 2 docusate sodium (COLACE) 100 mg capsule Take 1 capsule (100 mg) by mouth 1 time per day nitroglycerin (NITROSTAT) 0.4 mg sublingual tablet Dissolve 1 tablet (0.4 mg) under the tongue Every 5 minutes as needed for chest pain May repeat every 5 minutes for a total of 3 doses. 25 tablet 3 insulin needle (UNIFINE PENTIPS) 31G X 8 mm (5/16") Short To use with insulin four times daily E11.3299 200 each 2 PREPARATION H (PREPARATION H) 1-0.25-14.4-15 % CREA Insert rectally Every 4 hours as needed Zjkkllvwpre-Ixymfvgae-Ctj C-Mn (GLUCOSAMINE-CHONDROITIN) capsule Take 1 capsule by mouth 2 timesa day Mouthwashes (BIOTENE DRY MOUTH) LIQD mouthwash Place 10 mL into mouth 3 times a day Multiple Vitamin (ONE-A-DAY MENS) TABS Take 1 tablet by mouth 1 time per day 30 tablet 0 saline nasal spray (AYR,OCEAN) 0.65 % nasal spray [place] 2 sprays into each nostril 4 times a day saline (AYR) nasal gel Use 1 application in the nose 3 times a day Wash hands and then apply ointment as instructed 1 Tube 6 acetaminophen (TYLENOL ARTHRITIS) 650 mg CR tablet Take 650 mg by mouth Every 4 hours as needed for mild pain Allergies Allergies have been reviewed. Francisco Patient has no known allergies. Social History Francisco Social History Socioeconomic History Marital status: Single Spouse name: Not on file Number of children: 0 Years of education: 8 Highest education level: Not on file Occupational History Occupation: [employer] Social Needs Financial resource strain: Not hard at all Food insecurity Worry: Never true Inability: Never true Transportation needs Medical: No Non-medical: No Tobacco Use Smoking status: Former Smoker Packs/day: 2.00 Years: 20.00 Pack years: 40.00 Types: Cigarettes, Cigars Quit date: 08/06/1985 Years since quittin.1 Smokeless tobacco: Never Used Substance and Sexual Activity Alcohol use: No Alcohol/week: 0.0 standard drinks Comment: Quit 1987 Drug use: No Sexual activity: Not Currently Lifestyle Physical activity Days per week: 0 days Minutes per session: 0 min Stress: Not on file Relationships Social connections Talks on phone: More than three times a week Gets together: More than three times a week Attends sabianist service: More than 4 times per year Active member of club or organization: Yes Attends meetings of clubs or organizations: More than 4 times per year Relationship status: Never Intimate partner violence Fear of current or ex partner: No Emotionally abused: No Physically abused: No Forced sexual activity: Not on file Other Topics Concern Transportation No Stress in your marriage No Stress with your relationship No Stress with your family No Parenting/Being a parent No Daycare concerns No Not enough social support No Housing problems No Financial stress No Safety/danger No Work/job stress No Legal stress No Time conflicts (feeling too busy) No Academic/school stress No Language difficulties No Spiritual concerns No Insurance problems No The cost of having to take medication No The costs of buying food/groceries No Illness of family member/friend/relative No of a family member/friend/relative No Violence in your relationship No Abuse/neglect No Community stress No Cultural barriers No Ability to do self cares No Social History Narrative Lives at home with his sister and brother. Family History Francisco's Family History Problem Relation Age of Onset Diabetes Father Stroke Father Heart Failure Mother CHF Glaucoma Mother Diabetes Brother Prostate Cancer Brother Diabetes Brother Colorectal Cancer Brother Glaucoma Maternal Grandfather Amblyopia Neg Hx Blindness Neg Hx Macular Degeneration Neg Hx Retinal Detachment Neg Hx Strabismus Neg Hx Bladder Cancer Neg Hx Kidney Cancer Neg Hx Kidney Disease Neg Hx Nephrolithiasis Neg Hx Testicular Cancer Neg Hx Psychosocial History Needs a cane, lives with sister and brother Immunizations Immunization History Administered Date(s) Administered FLU VACCINE HIGH DOSE 65YR+(Fluzone) 05/23/2013, 05/04/2014, 05/11/2015, 04/29/2016, 05/21/2017,04/25/2018, 05/02/2019 Influenza Vaccine,unspecified 06/22/2005, 04/20/2020 Moderna COVID-19 Vaccine 09/03/2020 Pneumococcal Conj PCV13 05/05/2015 Pneumococcal Polysaccharide PPSV23 06/22/1998, 06/22/2006, 12/12/2016 TDAP 05/27/2012 Tetanus Toxoid,not adsorbed 06/22/1998, 05/11/2014 Triamcinolone Acetonide 40mg/ml 12/23/2012 Zoster Live(Zostavax) 05/23/2013 Zoster Recombinant (Shingrix) 05/02/2019, 09/29/2019, 05/24/2020 Review of Systems 14-point ROS obtained and negative except for items noted above in HPI Admission Vital Signs Temp: 96 F (35.6 C) BP: 110/82 Pulse: 72 Resp: 22 Pain Ratin (out of 10) Weight: 128.4 kg (283 lb 1.1 oz) O2 Device: NC - no humidity O2 Flow Rate (L/min): 2 l/min SpO2: 100 % Height: 172.7 cm (5' 8") Physical Exam General Appearance: Tachypneic, pleasant Mental Status: alert, oriented to person, place, and time Eyes: EOMI Mouth: mucous membranes moist, pharynx normal without lesions Neck: supple, no significant adenopathy Chest: Decreased lung sounds, crackles b/l Heart: Irregularly irregular, 1-2+ edema b/l Abdomen: soft, nontender, nondistended, no masses or organomegaly Neurological: alert, oriented, normal speech, no focal findings or movement disorder noted Skin: Healing incision left foot, s/p 2nd toe amputation. Chronic venous stasis. 1-2+ pedal edema. Diagnostics and Labs Relevant diagnostic, laboratory and radiological studies have been reviewed in the Electronic Medical Record. No results found for any visits on 09/27/20. Assessment and Plan Patient Active Hospital Problem List: Acute on chronic combined systolic and diastolic congestive heart failure (HCC) (04/29/2014), elevated troponin: Last EF 45% 08/26. Has PPM, so arhythmia unlikely. Will still place on telemetry x 24 hours, consider d/c in am if normal. Might simply need extra diuresis when discharges. Trend troponin to e nsure no ACS. No iv heparin as patient with therapeutic INR. Consider cards consult. - Lasix 40 mg iv q12 hours (doubling of home dose) - Metolazone 2.5 mg daily (doubling of home dose) - Telemetry overnight, consider d/c in am - Trop now and in am -- if rises, consider cards consult - I&Os, daily weight - BMP, Mg now - ASA, atorvastatin, Coreg 12.5 mg po bid - Consider starting KATEY-I/ARB Addendum: Significant trop elevation, > 0.3. Patient on coumadin, hold on iv heparin. Will ask cards for consult in am. Patient NPO. Diabetes mellitus with background retinopathy ([facility]) (): Uncontrolled IDDM type 2 with hyperglycemia.HbA1c was 8.1% 08/26. - Levemir 40 units qhs - Pre-meal Novolog 10 units with high ISS Peripheral vascular disease (HCC) (03/17/2011): Recent critical ischemia left leg. - ASA 81 mg daily - Lipitor 40 mg daily Status post implantation of automatic cardioverter/defibrillator (AICD) (10/16/2015): Noted. Left chest wall. Chronic atrial fibrillation ([facility]) (04/20/2016)/h/o DVT: On coumadin. Outsied INR was therapeutic. No signs of bleeding. - Pharmacy to dose coumdain - INR now and in am - Cardizem 240 mg daily, Coreg 12.5 mg po bid Obesity, Class III, BMI 40-49.9 (morbid obesity) ([facility]) (04/20/2016): Morbid obesity. BMI 43. Disposition: Inpatient, coumadin for DVT prophylaxis. Pt, OT to see. Escobar Valderrama documented in this encounter Consult Notes Faviola Benavides, [employer] NET STRINGER - 09/28/2020 9:28 AM CSTAssociated Order(s): CONSULT CARDIOLOGY CARDIOLOGY CONSULT Assessment and Plan Principal Problem: Acute on chronic combined systolic and diastolic congestive heart failure (HCC) Active Problems: Diabetes mellitus with background retinopathy (HCC) Type 2 diabetes mellitus, with long-term current use of insulin (HCC) Peripheral vascular disease (HCC) Status post implantation of automatic cardioverter/defibrillator (AICD) Diabetic retinopathy, nonproliferative (HCC) Chronic atrial fibrillation (HCC) Obesity, Class III, BMI 40-49.9 (morbid obesity) (HCC) Status post insertion of drug eluting coronary artery stent Acute CHF (congestive heart failure) ([facility]) Resolved Problems: * No resolved hospital problems. * Impression & Plan: -Pt was interviewed/examined and a plan was developed in conjunction with Dr. Garcia. This is a patient with known CAD along with combined systolic and diastolic congestive heart failure who is admitted with acute on chronic CHF. He has been diuresing with lasix and zaroxolyn since admission and hisbreathing is slightly improved. Unfortunately, he appears to respond appropriately to IV diuresis but has reduced respose to PO form once discharge. 1. Acute on chronic combined systolic and diastolic congestive heart failure: -Recommend changing lasix to torsemide for better bioavailability. -Start low-dose Entresto for systolic heart failure -Decrease diltiazem to 180 mg daily -Will need heart failure education. He was weighing himself in the past but no longer doing this, also not very cognizant of sodium intake. 2. NSTEMI -Troponin elevation likely secondary to acute CHF exacerbation, he denies any chest pain. Would recommend trending troponin for now. If continues to trend up or he would develop chest pain, can consider stress testing. For now, will plan to diurese him and proceed with any other working pending hisresponse to diuresis. -May benefit from SGLT2 inhibitor considering his diabetes and heart diease. I appreciate the opportunity to be involved in this patient's care. Thank you for the consult, cardiology will continue to follow. Faviola Benavides APRN-[facility] Cardiology Pager #[phone] [facility], [place] 09/28/2020 Reason for consult Dyspnea, acute on chronic combined systolic and diastolic congestive heart failure. H&P Francisco Gale" Mohit Smith is an 80-year-old male who was admitted from [place] with acute on chronic combined systolic and diastolic congestive heart failure. He has a history of HTN, HLD, IDDM2,ROCKY, PVD, CADs/pmultiple stents (patient [id number])withmostrecent stent done in03/2019,chronic atrial fibrillation on warfarin,systolic and diastolic CHF, ischemic cardiomyopathy (EF45% 08/26), AICD in place, COPD, obesity hypoventilation syndrome, morbid obesity, recent hospitalization at [facility] for L 2nd toe amputation and critical limb ischemia L SFA and Pop angioplasty plus L TP trunk angioplasty. Pt state she was hospitalized in [place] about two weeks ago. He states they took off some fluid and he felt well on discharge. Two days after discharge he started to experience more shortness of breath. Several days later he had worsening dyspnea which he now noticed during rest and when lying down. He also endorses some swelling in his legs, more than normal. He does not weigh himself sounsure if this had changed. He presented to outside facility. Due to mild troponin elevation, her was transferred to [facility] for further management. Upon arrival to ED, labs show hyponatremia and hypo kalemia. Mag and thyroid function normal. CBC without gross abnormalities. Troponin elevated at 0.378->0.398. Currently, he is resting comfortably in the recliner. He denies any chest pain. He states his breathing is improved from admission. He states since his last cardiology appointment he has not had anysignificant chest pain. He did notice some mild chest pressure with the shortness of breath but nothing as bad as when he has had stenting in the past. [place] with his brother and [id number]. He is compliant with medications. He denies tobacco, alcohol or drug use. Cardiac History 08/10/2020 Echo: EF 45% with mid anteroseptal, mid inferolateral, apicla anterior, apical septal, apical inferior, apical lateral and apex hypokinesis. 04/[address] Solorio in clinic follow up. Coronary artery disease -Stable s/p multiple stents including left main. On Brilinta. Reviewed PET with patient. 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 If Om stenosisrecurs then consider CABG. 2018 He had PET viability scan done to evaluate the LAD territory. the calculated total viability percentage equals 10%. Ejection fraction was 34% at rest. There were regional wall motion abnormalitiesnoted in the septal wall as well as the mid and distal anterior wall. 03/19/2019 Operative Procedure:Left heart catheterization, coronary angiography, 60% left main stenosis, 90% obtuse marginal branch stenosis, 100% proximal LAD stenosis, LAD supplied by collaterals, patent RCA stents, occluded PDA PTCA and stenting of obtuse marginal branch #1 with a 3.0 x 26 orsiro LAMONT,PTCA of left main with a 3.5 x 20 noncompliant balloon 05/22/2016 patient presents for follow up evaluation. He was admitted at [facility] and underwent angiography which revealed instent restenosis of mLAD. This was PTCA by Chapo. No new issues since thatadmission. The patient denies shortness of breath, orthopnea, PND, chest pain or tightness, syncope or pre syncope symptoms, dizziness/lightheadedness, tachycardia or palpatations and claudication. He has been having trouble with low sugars. 03/2016 [facility] 90% LM 4.0x15 Resolute stent 10/2015 [facility] 100% LAD, 80% mCx 3.0x18, 90% LM 3.5x38 Resolute December of 2013 non-ST segment elevation myocardial infarction. He was noted to have a chronic total occlusion of the mid LAD which was the site of multiple prior stenting procedures. He also had 30% circumflex lesion and a 90% ostial right coronary artery stenosis. Ostial right coronary artery was stented with a 3.5 x 30 resolute drug-eluting stent. 07/2014 He presented for PCI of the LCx with two LAMONT post dilated to 3.5 mm in the proximal vessel and 3.0 mm in the mid vessel for anbnormal PET scan. Cardiac Risk Factors 1. Age - positive, 80yr 2. Gender - positive, 3. Hyperlipidemia - positive, Lab Results Component Value Date LDL 58 08/09/2020 4. Hypertension - positive, 5. Obesity - positive, Body mass index is 42.8 kg/m. 6. Family History - positive 7. Peripheral vascular disease - negative 8. Smoking - negative , Social History Tobacco Use Smoking status: Former Smoker Packs/day: 2.00 Years: 20.00 Pack years: 40.00 Types: Cigarettes, Cigars Quit date: 08/06/1985 Years since quittin.1 Smokeless tobacco: Never Used Substance Use Topics Alcohol use: No Alcohol/week: 0.0 standard drinks Comment: Quit 1987 9. Diabetes Mellitus - positive, Lab Results Component Value Date HGBA1C 8.2 (H) 08/09/2020 10. Chronic kidney disease - negative, Estimated Creatinine Clearance: 51.5 mL/min (based on SCr of 1.07 mg/dL). 11. 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) Cardiorenal syndrome Diabetic retinopathy, nonproliferative (HCC) Status post implantation of automatic cardioverter/defibrillator (AICD) shelter current use of anticoagulant therapy [facility] Tier 1 (Basic) Peripheral neuropathy CHEN (dyspnea on exertion) Deep vein thrombosis of right femoral vein (HCC) 04/25/14 R) Proximal femoral deep vein thrombosis, still present on 11/2014 US. On warfarin therapy. Acute on chronic combined systolic and diastolic congestive heart failure (HCC) Cataract Callus of foot Hyperlipidemia Hypertension Ischemic cardiomyopathy -10/24/11 implantable cardiac defibrillator placement Coronary artery disease involving nooksack coronary artery of nooksack heart -09/11/2007 ST-elevated myocardial infarction with angiogram revealing a 100% lesion in the proximalRCA. Received a Liberte bare-metal stent to this [...] the mid circumflex, patient received Cypher drug eluting stent to the mid left anterior descending [...] Mini Vision bare-metal stent to this lesion. Alsonoted to have a 50% stenosis in the [...] ventricle moderately dilated. Systolic function was markedly reducedwith ejection fraction 30%. No significant valvular disease. -10/06/2012 non-STEMI with 2 drug-eluting stents to the mid circumflex. -12/10/13 chest pain with angiogram showing tight stenosis in the proximal RCA and received a 3.5x30 mm Resolute LAMONT to this lesion. -10.14.2015 . Left main stent and circumflex stent Congenital spondylolisthesis Peripheral vascular disease (HCC) March 2011: Initial visit to IR for claudication with left resting ISHAN 0.39. Angiogram recommended but he was on Effient for recent (3 days prior) LAMONT. Angiogram deferred. July 2011: Lower extremity angiogram by Dr. Solorio with SECURITY TRAINER to intervention including left peroneal and left popliteal arteries. June 2013: Underwent LE angiogram per Dr. Coto due to recurrent progressive claudication and worsening ABIs. Underwent left SFA 6 mm SECURITY TRAINER and left tibioperoneal trunk 4 mm SECURITY TRAINER. Noted to have severe tibial occlusive disease with single vessel runoff to both feet. Type 2 diabetes mellitus, with long-term current use of insulin (HCC) Diabetes mellitus with background retinopathy (HCC) Past Medical History Past Medical History: Diagnosis Date Atrial fibrillation (HCC) Biliary colic Blood transfusion without reported diagnosis CAD (coronary artery disease) history of non-ST elevated myocardial infarction on Effient with PTCA and stenting to the LAD on March 14, 2011. History of cardiac disease with previous PTCA and stenting in October 2007. Callus of foot 07/28/2013 Cardiorenal syndrome Cataract CHF (congestive heart failure) (HCC) Chronic back pain COPD (chronic obstructive pulmonary disease) (HCC) Deviated septum hx of Diabetes mellitus (HCC) Diabetic retinopathy (HCC) Diverticular disease CHEN (dyspnea on exertion) Dyslipidemia GERD (gastroesophageal reflux disease) HTN (hypertension) Hyperlipidemia Ischemic cardiomyopathy Myocardial infarction (HCC) Obesity Osteoarthritis Osteoarthritis Peripheral neuropathy Phimosis PVD (peripheral vascular disease) (HCC) History of peripheral vascular disease with history of lower extremity angiogram by Dr. Solorio on July 06, 2011, with intervention including left peroneal and left popliteal artery angioplasty. Sleep apnea on CPAP. Spondylolisthesis congenital Tear film insufficiency Varicose veins Past Surgical History Past Surgical History: Procedure Laterality Date AMPUTATION MINOR Left 08/14/2020 Procedure: LEFT FOOT SECOND DIGIT AMPUTATION;; Surgeon: Jordin Lester DPM COLONOSCOPY FRACTURE SURGERY HERNIA REPAIR INSERT REPOSITIONING ELECT LEAD SNGL DUAL CHAMBER DEF SYSTEM ICD Implant-AICD LAP CHOLECYSTECTOMY N/A 03/26/2018 Procedure: LAPAROSCOPIC CHOLECYSTECTOMY;; Surgeon: Johnson Christy MD PERCUTANEOUS CORONARY INTERVENTION CRYPTOLOGIST Prior to Admission Medications Medications Prior to Admission Medication Sig Dispense Refill Last Dose aspirin 81 mg chewable tablet Take 1 tablet (81 mg) by mouth 1 time per day 30 tablet 0 potassium chloride (KLOR-CON M20) 20 MEQ CR tablet Take 1 tablet (20 mEq) by mouth 2 times a day90 tablet 0 triamcinolone acetonide (KENALOG,ARISTOCORT) 0.1 % cream Apply to affected area three times daily as directed 120 g 0 warfarin (JANTOVEN) 2.5 MG tablet Take 1-2 tablets daily as directed by Anticoag Clinic 180 tablet 3 tiotropium-olodaterol (STIOLTO RESPIMAT) 2.5-2.5 mcg/puff inhaler Inhale 1 puff orally 1 time per day 3 Inhaler 3 omeprazole (PRILOSEC) 40 mg capsule Take 1 capsule (40 mg) by mouth 1 time a day at supper 90 capsule 1 metOLazone (ZAROXOLYN) 2.5 mg tablet Take 1 tablet (2.5 mg) by mouth 3 times a week , ,Sun Take 30 min prior to lasix 90 tablet 6 loratadine (CLARITIN) 10 mg tablet Take 1 tablet (10 mg) by mouth 1 time per day As needed for allergies 90 tablet 1 insulin detemir (LEVEMIR FLEXTOUCH) subcutaneous injection (pen) Inject 40 Units subcutaneously every night at bedtime 3 mL 11 insulin aspart (NOVOLOG FLEXPEN) subcutaneous injection (pen) Inject 12 Units subcutaneously 3 times a day with meals (Patient taking differently: Inject 10 Units subcutaneously 3 times a day with meals ) 15 mL 3 furosemide (LASIX) 40 mg tablet Take 1 tablet (40 mg) by mouth 2 times a day 180 tablet 1 fluticasone (FLONASE) 50 mcg/spray nasal spray USE 1 SPRAY IN EACH NOSTRIL TWICE A DAY 16 g 11 dilTIAZem (CARDIZEM CD) 240 mg extended release capsule Take 1 capsule (240 mg) by mouth 1 time per day 90 capsule 3 carVEDilol (COREG) 12.5 mg tablet Take 1 tablet (12.5 mg) by mouth 2 times a day with meals 180 tablet 1 atorvaSTATin (LIPITOR) 40 mg tablet Take 1 tablet (40 mg) by mouth 1 time per day 90 tablet 3 albuterol HFA (ALBUTEROL, VENTOLIN BRAND,) 108 (90 Base) MCG/ACT inhaler Inhale 2 puffs orally Every 4 hours as needed for wheezing Shake well before using. 1 Inhaler 11 Accu-Chek Kajal Plus test strip USE TO TEST BLOOD SUGAR THREE TIMES DAILY ICD:E11.32 300 each 2 docusate sodium (COLACE) 100 mg capsule Take 1 capsule (100 mg) by mouth 1 time per day nitroglycerin (NITROSTAT) 0.4 mg sublingual tablet Dissolve 1 tablet (0.4 mg) under the tongue Every 5 minutes as needed for chest pain May repeat every 5 minutes for a total of 3 doses. 25 tablet 3 insulin needle (UNIFINE PENTIPS) 31G X 8 mm (5/16") Short To use with insulin four times daily E11.3299 200 each 2 PREPARATION H (PREPARATION H) 1-0.25-14.4-15 % CREA Insert rectally Every 4 hours as needed Uasmwpcqnxy-Puhoqkiol-Qri C-Mn (GLUCOSAMINE-CHONDROITIN) capsule Take 1 capsule by mouth 2 timesa day Mouthwashes (BIOTENE DRY MOUTH) LIQD mouthwash Place 10 mL into mouth 3 times a day Multiple Vitamin (ONE-A-DAY MENS) TABS Take 1 tablet by mouth 1 time per day 30 tablet 0 saline nasal spray (AYR,OCEAN) 0.65 % nasal spray [place] 2 sprays into each nostril 4 times a day saline (AYR) nasal gel Use 1 application in the nose 3 times a day Wash hands and then apply ointment as instructed 1 Tube 6 acetaminophen (TYLENOL ARTHRITIS) 650 mg CR tablet Take 650 mg by mouth Every 4 hours as needed for mild pain Allergies No Known Allergies Social History reports that he quit smoking about 35 years ago. His smoking use included cigarettes and cigars. Hehas a 40.00 pack-year smoking history. He has never used smokeless tobacco. He reports that he does not drink alcohol or use drugs. Family History Family History Problem Relation Age of Onset Diabetes Father Stroke Father Heart Failure Mother CHF Glaucoma Mother Diabetes Brother Prostate Cancer Brother Diabetes Brother Colorectal Cancer Brother Glaucoma Maternal Grandfather Amblyopia Neg Hx Blindness Neg Hx Macular Degeneration Neg Hx Retinal Detachment Neg Hx Strabismus Neg Hx Bladder Cancer Neg Hx Kidney Cancer Neg Hx Kidney Disease Neg Hx Nephrolithiasis Neg Hx Testicular Cancer Neg Hx Immunizations Immunization History Administered Date(s) Administered FLU VACCINE HIGH DOSE 65YR+(Fluzone) 05/23/2013, 05/04/2014, 05/11/2015, 04/29/2016, 05/21/2017,04/25/2018, 05/02/2019 Influenza Vaccine,unspecified 06/22/2005, 04/20/2020 Moderna COVID-19 Vaccine 09/03/2020 Pneumococcal Conj PCV13 05/05/2015 Pneumococcal Polysaccharide PPSV23 06/22/1998, 06/22/2006, 12/12/2016 TDAP 05/27/2012 Tetanus Toxoid,not adsorbed 06/22/1998, 05/11/2014 Zoster Live(Zostavax) 05/23/2013 Zoster Recombinant (Shingrix) 05/02/2019, 09/29/2019, 05/24/2020 ROS Review of Systems Constitution: Negative for malaise/fatigue. Cardiovascular: Positive for leg swelling and orthopnea. Negative for chest pain, irregular heartbeat, palpitations and syncope. Respiratory: Positive for shortness of breath and sleep disturbances due to breathing. Hematologic/Lymphatic: Negative for bleeding problem. Does not bruise/bleed easily. Musculoskeletal: Negative for falls. Gastrointestinal: Negative for hematochezia and melena. Genitourinary: Negative for hematuria. Neurological: Negative for light-headedness and weakness. Current Vital Signs Temp: 96.6 F (35.9 C) BP: 115/64 Pulse: 70 O2 Device: NC - no humidity O2 Flow Rate (L/min): 1 l/min Resp: 18 Pain Ratin (out of 10) Weight: 127.7 kg (281 lb 8 oz) SpO2: 96 % Wt Readings from Last 3 Encounters: 09/28/20 127.7 kg (281 lb 8 oz) 09/22/20 129.3 kg (285 lb) 08/25/20 129.7 kg (285 lb 15 oz) Physical Exam Physical Exam Constitutional: He is oriented to person, place, and time. He appears well- developed and well-nourished. No distress. Neck: Normal range of motion. Cardiovascular: Normal rate. An irregular rhythm present. Pulmonary/Chest: Effort normal. Diminished to bases bilat, faint wheezes and rales noted bilat. Abdominal: Soft. There is no abdominal tenderness. Musculoskeletal: Normal range of motion. General: Edema: Edema 1+ to lower extremities bilat. Neurological: He is alert and oriented to person, place, and time. Skin: Skin is warm and dry. He is not diaphoretic. Psychiatric: He has a normal mood and affect. His behavior is normal. Nursing note and vitals reviewed. Diagnostics and Labs Relevant diagnostic, laboratory and radiological studies have been reviewed in the Electronic Medical Record. Lab Results Component Value Date TROPONINI 0.398 (H) 09/28/2020 TROPONINI 0.378 (H) 09/27/2020 TROPONINI 0.019 08/09/2020 Lab Results Component Value Date WBC 5.7 09/28/2020 NUCRBC 0 09/28/2020 RBC 4.06 (L) 09/28/2020 HEMOGLOBIN 13.1 (L) 09/28/2020 HEMATOCRIT 39.0 (L) 09/28/2020 MCV 96.1 09/28/2020 MCH 32.3 09/28/2020 MCHC 33.6 09/28/2020 RDW 12.8 06/24/2013 PLTCOUNT 214 09/28/2020 NEUTROPCT 63.9 09/28/2020 LYMPHSPCT 21.4 09/28/2020 MONOSPCT 9.5 09/28/2020 EOSPCT 4.1 09/28/2020 BASOPHILPCT 0.9 09/28/2020 Lab Results Component Value Date CO2 27 09/28/2020 CL 98 (L) 09/28/2020 POTASSIUM 3.6 09/28/2020 NA 134 (L) 09/28/2020 CREATSERUM 1.07 09/28/2020 GLUCOSE 88 09/28/2020 BUN 17 09/28/2020 CA 8.4 (L) 09/28/2020 Lab Results Component Value Date BNP 296 (H) 09/22/2020 CTIVE C DEVELOPER Associated attestation - Roxy Garcia MD - 09/28/2020 8:00 PM CSTI reviewed this patients case with the midlevel provider. I reviewed all notes for this encounter and concur or made changes where necessary. I took a history and performed a physical exam. Patient is off diltiazem will discontinue He is off enalapril- more than 48 hours it is safe to start Entresto Torasemide started for better bioavalibilitydocumented in this encounter Miscellaneous Notes Clinical Team - Margoth Dougherty, DANA - 10/03/2020 10:00 AM CSTPt is A&Ox4, voiced no complaints. VS are WNL, on room air No overt distress noted, resp are easy and regular. Dyspnea w/ exertion. BP remain stable Drsg changes completed. Assist x1/SBA, GB/FWW Paced per tele w/ occasional PVCs, 80's Discharge today. Coumadin received prior to discharge espiratory Therapy - Christal Cardoso, MARYCRAMEN - 10/03/2020 9:30 AM CSTPt seen for scheduled daily Anoro.Sitting up in bed on RA, SpO2 96%, RR 18, BS clear/diminished. RT to follow. are Planning - Bettye Pearson RN - 10/02/2020 11:18 PM OBJECTIVE C DEVELOPER Problem: DECREASED CARDIAC OUTPUT Goal: ACTIVITY TOLERANCE Description: DEFINITION: Physiologic response to energy-consuming movements with daily activities. 1= Severely compromised, 2=Substantially compromised, 3=Moderately compromised, 4=Mildly compromised, 5=Not compromised. Outcome: NOC Rating 3 Goal: TISSUE PERFUSION: CARDIAC Description: DEFINITION: Adequacy of blood flow through the coronary vasculature to maintain heart function. 1 = Severe deviation from normal range, 2 = Substantial deviation from normal range, 3 = Moderate deviation from normal range, 4 = Mild deviation from normal range, 5 = No deviation from normalrange. Outcome: NOC Rating 3 espiratory Therapy - Rose Dorsey, MARYCARMEN - 10/02/2020 3:46 PM CSTPt seen for scheduled daily Anoro. Pt was seen on RA, SpO2 96%, RR 24, BS clear/diminished. RT to follow. linical Team - Margoth Dougherty RN - 10/02/2020 1:07 PM CSTPt is A&Ox4, voiced no complaints. VS are WNL, on room air No overt distress noted, resp are easy and regular. Dyspnea w/ exertion. CXR R>L pleural effusion Entresto change to KATEY inhibitor. Drsg changes completed. Assist x1/SBA, GB/FWW Paced per tele w/ occasional PVCs, 80's are Planning - Margoth Dougherty RN - 10/02/2020 11:57 AM OBJECTIVE C DEVELOPER Problem: DECREASED CARDIAC OUTPUT Goal: ACTIVITY TOLERANCE Description: DEFINITION: Physiologic response to energy-consuming movements with daily activities. 1= Severely compromised, 2=Substantially compromised, 3=Moderately compromised, 4=Mildly compromised, 5=Not compromised. Outcome: NOC Rating 5 Goal: TISSUE PERFUSION: CARDIAC Description: DEFINITION: Adequacy of blood flow through the coronary vasculature to maintain heart function. 1 = Severe deviation from normal range, 2 = Substantial deviation from normal range, 3 = Moderate deviation from normal range, 4 = Mild deviation from normal range, 5 = No deviation from normalrange. Outcome: NOC Rating 5 Flowsheets (Taken 10/02/2020 1155) Initial Score: 4 Target Score: 5 Plan of care reviewed with: Patient Patient specific goal for the day: BP to remain WNL Patient specific goal for the stay: Return to baseline Achieve goal for stay: By discharge Patient Progress: SBP 116-100 this AM. Denies CP/pressure, SOB w/ exertion. SpO2>90%. Assist x1 w/ GB anf walker. Forgetful at times. Note: No overt distress noted upon exiting room ardiac Rehab - Dede Norwood EP - 10/02/2020 11:01 AM CSTCardiac Rehab Phase 1 Inpatient Note: Diagnosis: CHF Physical Activity Completed: Ambulate in rey Distance Ambulated: 264 feet Ambulation Assistance: SBA Patient response to Exercise: good Exercise Comments: Steady gait with walking, Asymptomatic. Gaitbelt used with activity Vitals Exercise Heart Rate - 112 bpm O2 Device - RA Exercise SpO2 - 96% Assessment/Plan: Tolerates activity well. Encouraged patient to ambulate in hallway 3-4 times daily as tolerated with gradual progression. -Progress as tolerated -Patient referred to outpatient Cardiac Rehab program -Continue to follow until until Discharge -Home activity and exercise teaching completed Recommendation: "Outpatient Cardiac Rehab- [place] Continue Inpatient Cardiac Rehab Plan of Care daily until discharge. Cardiac Rehab [facility] Pager: [phone] are Planning - Bettye Pearson RN - 10/02/2020 6:41 AM OBJECTIVE C DEVELOPER Problem: DECREASED CARDIAC OUTPUT Goal: ACTIVITY TOLERANCE Description: DEFINITION: Physiologic response to energy-consuming movements with daily activities. 1= Severely compromised, 2=Substantially compromised, 3=Moderately compromised, 4=Mildly compromised, 5=Not compromised. Outcome: NOC Rating 3 espiratory Therapy - Rose Dorsey, INFECTIOUS DISEASE TECHNICIAN - 10/01/2020 6:30 PM CSTPt was seen for scheduled Anoro. Pt was seen on RA, SpO2 96%, RR 24, BS clear/diminished. RT to follow. ardiac Rehab - Tracey John EP - 10/01/2020 2:56 PM CSTPatient up walking multiple times today already with other staff. Encouraged 4 walks today. Moving well. ase Mgmt - Rhonda Villa LSW - 10/01/2020 1:58 PM CSTCASE MANAGEMENT / SOCIAL SERVICE TRANSITION PLAN - PROGRESS NOTE PLAN: Awaiting Medical Doctor Recommendations for Transition Will Continue to Follow for Support and Progression Towards Final Transition Plan BARRIERS TO TRANSITION: Awaiting Collateral Information Medical barriers:medical stability; cardiology following, cardiac rehab, monitor BP DOES ACCEPTING FACILITY REQUIRE COVID TESTING BEFORE DISCHARGE: N/A COMMENTS / PATIENT AND FAMILY RESPONSE TO PLAN: Chart review completed. Anticipated dc this weekend, pending stable BP Goal upon discharge will be to return home with siblings near [place], [place]. Brother will provide transportation home. Placed call to [facility]. Confirmed that patient is currently receiving home care services and will resume upon dc. Spoke with Jennifer w/ [facility] and she states they will now be getting coverage through the [place]. Updated Jennifer that pt is anticipated to dc this weekend so that shecan put in for prior-auth. Please call Jennifer ([phone]) to update when pt does dc. [facility] P: [phone] F: Will continue to follow, await treatment team recommendations and provide discharge options as appropriate. IS PATIENT'S ADMISSION ASSOCIATED WITH TIA, ISCHEMIC, OR HEMORRHAGIC STROKE?: No PATIENT / SUBSTITUTE DECISION MAKER GOAL UPON TRANSITION: First Choice: Cardiac Rehab Home Health: Bath Aid and Nurse Home: Family/Friend Support ANTICIPATED NEEDS UPON TRANSITION: Cardiac Rehab Home Health: Bath Aid and Nurse Home: Family/Friend Support RESOURCE(S) PROVIDED: nothing needed at this time ANTICIPATED MODE OF TRANSPORT UPON TRANSITION: Family Car ANTICIPATED MODE OF TRANSPORT TO AND FROM FOLLOW UP APPOINTMENTS: Family Car VERIFIED CORRECT PHARMACY IS ENTERED FOR DISCHARGE: Yes - Pharmacy: . [facility] TRANSITION ROUNDING COMPLETED WITH THE FOLLOWING: Computer Patternmaker SIGNED: RIO Glez Meter Installer And Remover Case Management [facility] [place] P) [phone] are Planning - Genesis Garcia RN - 10/01/2020 12:43 PM OBJECTIVE C DEVELOPER Problem: DECREASED CARDIAC OUTPUT Goal: TISSUE PERFUSION: CARDIAC Description: DEFINITION: Adequacy of blood flow through the coronary vasculature to maintain heart function. 1 = Severe deviation from normal range, 2 = Substantial deviation from normal range, 3 = Moderate deviation from normal range, 4 = Mild deviation from normal range, 5 = No deviation from normalrange. Outcome: NOC Rating 3 Flowsheets (Taken 10/01/2020 1242) Plan of care reviewed with: Patient Patient specific goal for the day: VS will remain stable. Denies any Chest pain/SOB Patient specific goal for the stay: Return to baseline Achieve goal for stay: By discharge Patient Progress: SBP 85-90 this AM. VSS. Denies any Chest pain. mild SOBE. CTIVE C DEVELOPER Occupational Therapy - Leslee Walters OTR/Oneil - 10/01/2020 11:54 AM CST Occupational Therapy Acute Care Progress Note/Discharge Summary Impression/Recommendations Recommend return home with HHOT/home safety evaulation upon medical stability with discharge. Recommend resume prior supervision/assist (I.e. had bath aide, assist for IADLs, and 26/02 supervision/assist available from family). Pt presents with general weakness, impaired cognition, decreased safety awareness, decreased activity tolerance, and completes observed ADLs/transfers/mobility SBA using SEC. Recommendations provided to pt and he indicates having all equipment though needs to install items for toilet (I.e. toilet safety frame, toilet riser). Pt fatigues easily. Education on energy conservation techniques with handout provided. Pt indicates understanding on completion of HEP on his own. Pt correctly answered 16/20 safety questions. Pt reports having 24/7 support from family at home if he needs assistance and mi ears to be near/at baseline functioning and appropriate to discontinue acute OT services. OT to sign off. Objective Cognition: A&O to self, place, , month, year, situation - off from exact date x 3 days. Education on orientation. Pt correctly answered 16/20 safety questions. U/E: HEP provided yesterday. Pt reports understanding, declines to review at this time, has no concerns. Oxygen Level: Rest >90% Activity >90% though fatigues easily with activity on room air. Education on energy conservation techniques with handout provided/reviewed and pt verbalizing understanding. ADLs: Feeding: Independent Grooming: Independent standing at sink for hand wash/dry Dressing: Independent clothing management up/down over hips with good standing balance. Reports having principal web developer and sockaide for use with LB dressing and declines to demo with gripper socks/Le compression garments. Reports no concerns and states has family to assist prn. Toileting: SBA for cues to safely position self in front of toilet before initiating clothing management down over hips otherwise was independent sit<- >stand using GB and denied need to void. Reports no concerns with toileting. Education on removal of scatter rugs/clutter and to wear nonslip footwear with standing activities for safety. Pt indicates understanding. Transfers: Chair: Independent sit<->stand Toilet: Independent sit<->stand with GB and handicapped ht toilet from cane level. Reports 1 bathroom at home is handcapped ht though states "my bathroom is lower" regarding toilet ht. He also states he uses doorknobs on doors B for support with transfer. Education on safety with transfer and recommend toilet riser with toilet safety frame. Pt reports having these pieces of DME though notcurrently installed and reports he can have family install. He was issued handouts on how to obtainDME prn and indicates understanding. Car: Education on technique for car transfer. Pt indicates understanding and reports no concerns,declines to trial. Independent ambulate with SEC<->bathroom, good balance. Pain: 0/10 Transfer belt and nonslip footwear on with all out of bed activities. Pt sitting safely and comfortably in chair with call light and all needed items within reach. Educated on safety and use of call light, waiting for assistance, and not attempting self transfers/standing. Pt indicates understanding. Chair alarm on, door to room left open. Education Education/Training provided: Role of OT, plan of care, energy conservation techniques, HEP, safety, ADLs, transfers, mob, recommendations, AE/DME Learners: Patient Readiness: Acceptance Method of Training: Verbal education, demonstration Response: Verbalized/demonstrated understanding, will benefit from continued reinfocement Adaptive Equipment Recommendations Recommend use of toilet riser and toilet safety frame for pt's bathroom (reports has these items butcurrently not in place and using std ht toilet with doorknobs for support B) Adaptive Equipment Available (per pt): principal web developer, toilet riser (but currently does not have on his stdht toilet near his room), handicapped ht toilet in another bathroom, toilet safety frame (but currently not installed), long-handled sponge, shower chair, grab bars tub/shower, sock aid, front-wheeled walker, and cane Plan to obtain adaptive equipment: Patient indicates all needed adaptive equipment obtained prior to hospitalization and plans to install. Goals Patient/Family Stated Goal for Session: none stated; agreeable to OT Short Term Goals: Patient will tolerate 15-30 minutes U/E exercise to further increase independence with ADL/IADLs. (HEP provided, indicates understanding and ability to complete, HHOT can further review prn) Patient will complete grooming task safely standing at the sink withSBAusing adaptive equipment as needed. (met) Patient will complete LB dressing safely withSBAusing adaptive equipment as needed. (met for clothing management and reports no concerns other LB dressing, has equipment, declined to formally demo,reports family can assist if needed) Patient will complete toileting safely withSBAusing adaptive equipment as needed. (met) Patient will complete functional transfers safely withSBAusing adaptive equipment as needed. (met for chair/bed/simulated tub/ambulate with FWW/SEC - declined car though education provided on technique and reports understanding/no concerns) Patient will further participate with cognitive assessment to increase safety with functional tasks.(met) Patient will have AE in place to increase safety with ADLs by discharge. (met - reports having all AE/DME though needs to install items for toilet so will have family complete) Patient continues to progress towards goals. Charges Treatment/Minutes: Today's Evaluation/Treatment Self care/home management: 24 minutes Total Treatment Time: 24 minutes Treatment Session / Weekly Assessment/Plan (Day 5): Pt appears to be near functional baseline and appropriate for dc from OT in acute setting. Appears he will benefit from HHOT/home safety evaluation. Therapist [facility] Pager Number [phone] are Planning - Parrish Gerardo RN - 09/30/2020 11:33 PM OBJECTIVE C DEVELOPER Problem: DECREASED CARDIAC OUTPUT Goal: TISSUE PERFUSION: CARDIAC Description: DEFINITION: Adequacy of blood flow through the coronary vasculature to maintain heart function. 1 = Severe deviation from normal range, 2 = Substantial deviation from normal range, 3 = Moderate deviation from normal range, 4 = Mild deviation from normal range, 5 = No deviation from normalrange. Outcome: NOC Rating 4 Flowsheets (Taken 09/30/20202330) Target Score: 4 Plan of care reviewed with: Patient Patient specific goal for the day: stay free from chest pain and maintain stable vss on RA Patient specific goal for the stay: Return to baseline Achieve goal for stay: By discharge Patient Progress: pt denies any chest pain. pt does have SOB with exertion. VSS on RA. pt continuingon torsemide. will continue to monitor. CTIVE C DEVELOPER Clinical Team - Parrish Geradro RN - 09/30/2020 11:16 PM CSTPt is alert and oriented x4, bed alarm in place for safety. Pt vss on RA. Pt denies any chest pain, but has sob with exertion. Pt is on tele- paced. Pt is up with assist of 1 and FWW. linical Team - Genesis Garcia RN - 09/30/2020 6:40 PM CSTAAOX4. Room air. Mild SOBE. Denies any chest pain. Tele paced. Ambulated hallways with FWW/GB. Wound care to BLE complete (See assessment.) No acute changes in patient condition. Will continue to monitor. ase Mgmt - Rhonda Villa LSW - 09/30/2020 3:23 PM CSTCASE MANAGEMENT / SOCIAL SERVICE TRANSITION PLAN - PROGRESS NOTE PLAN: Awaiting Medical Doctor Recommendations for Transition Will Continue to Follow for Support and Progression Towards Final Transition Plan BARRIERS TO TRANSITION: Awaiting Collateral Information Medical barriers:medical stability; cardiology following, cardiac rehab DOES ACCEPTING FACILITY REQUIRE COVID TESTING BEFORE DISCHARGE: N/A COMMENTS / PATIENT AND FAMILY RESPONSE TO PLAN: Chart review completed. Met with patient at bedside and reviewed discharge plan. Goal upon discharge will be to return home with siblings near [place], [place]. Brother will provide transportation home. Placed call to [facility]. Confirmed that patient is currently receiving home care services. Per nurse El, they are just about to dc patient from PT/OT due to progress. He would then continue with bath aide/medication management with [facility]. [facility] to [facility] initially for transition home from hospital. Spoke with Lianne with [facility] and she confirmed plan. Due to hospital stay patient will be covered under medicare and once back with [facility] services will be covered by [place]. [facility] P: F: Will continue to follow, await treatment team recommendations and provide discharge options as appropriate. IS PATIENT'S ADMISSION ASSOCIATED WITH TIA, ISCHEMIC, OR HEMORRHAGIC STROKE?: No PATIENT / SUBSTITUTE DECISION MAKER GOAL UPON TRANSITION: First Choice: Cardiac Rehab Home Health: Bath Aid and Nurse Home: Family/Friend Support ANTICIPATED NEEDS UPON TRANSITION: Cardiac Rehab Home Health: Bath Aid and Nurse Home: Family/Friend Support RESOURCE(S) PROVIDED: nothing needed at this time ANTICIPATED MODE OF TRANSPORT UPON TRANSITION: Family Car ANTICIPATED MODE OF TRANSPORT TO AND FROM FOLLOW UP APPOINTMENTS: Family Car VERIFIED CORRECT PHARMACY IS ENTERED FOR DISCHARGE: Yes - Pharmacy: . [facility] [place] TRANSITION ROUNDING COMPLETED WITH THE FOLLOWING: Patient / family Computer Patternmaker Discussed in person SIGNED: RIO Glez Meter Installer And Remover Case Management [facility] [place] P) [phone] ardiac Rehab - Tracey John EP - 09/30/2020 2:14 PM CSTCardiac Rehab Phase 1 Inpatient Note: Diagnosis: CHF Physical Activity Completed: Ambulate in rey Distance Ambulated: 275 feet Ambulation Assistance: SBA Patient response to Exercise: good Exercise Comments: Steady gait with FWW. Less short of breath then yesterday. Gaitbelt used with activity Vitals O2 Device - RA Assessment/Plan: Tolerates activity well. Encouraged patient to ambulate in hallway 3-4 times daily as tolerated with gradual progression. -Progress as tolerated -Patient may self ambulate -Patient referred to outpatient Cardiac Rehab program -Continue to follow until until Discharge -Home activity and exercise teaching completed Recommendation: "Outpatient Cardiac Rehab Continue Inpatient Cardiac Rehab Plan of Care daily until discharge. Cardiac Rehab [facility] Pager: [phone] are Planning - Genesis Garcia RN - 09/30/2020 12:14 PM OBJECTIVE C DEVELOPER Problem: DECREASED CARDIAC OUTPUT Goal: TISSUE PERFUSION: CARDIAC Description: DEFINITION: Adequacy of blood flow through the coronary vasculature to maintain heart function. 1 = Severe deviation from normal range, 2 = Substantial deviation from normal range, 3 = Moderate deviation from normal range, 4 = Mild deviation from normal range, 5 = No deviation from normalrange. Flowsheets (Taken 09/30/2020 1213) Initial Score: 4 Target Score: 4 Plan of care reviewed with: Patient Patient specific goal for the day: stay free from chest pain and maintain stable vss on RA Patient specific goal for the stay: Return to baseline Achieve goal for stay: By discharge Patient Progress: pt denies any chest pain. SOBE. SBP 80-90 this AM, otherwise VSS. will continue tomonitor. CTIVE C DEVELOPER Occupational Therapy - Leslee Walters, OTR/L - 09/30/2020 8:57 AM CST Occupational Therapy Acute Care Progress Note Impression/Recommendations Recommend return home with HHOT/home safety evaulation upon medical stability with discharge. Recommend resume prior supervision/assist (I.e. had bath aide, assist for IADLs, and 26/02 supervision/assist available from family). Pt presents with general weakness, impaired cognition, decreased safety awareness, decreased activity tolerance, and completes observed ADLs/transfers/mobility SBA using FWW. Recommendations provided to pt and he indicates having all equipment though needs to install items for toilet (I.e. toilet safety frame, toilet riser). Pt fatigues easily. Education on energy conservation techniques with handout provided. Issued Ue HEP and began review using 1# hand weight. Pt needs cues for safe placementof FWW and Ue positioning with some sit<->stand transfers. Pt making steady progress. Appears as though he would benefit from 1 more OT session if he remains in hospital though does appear safeto return to prior living situation with above recommendations. OT will continue to follow acutely. Objective Cognition: A&O to self, place, , month, year, situation - off from exact date x 1 weeks. Education on orientation. U/E: Instructed pt on graded Ue strengthening using 1# hand wt B Ue for 3 exercises x 10 reps. Completed in sitting in chair. Fatigues with exercise. Therapeutic rests throughout improving activitytolerance and performance. No discomfort with exercises. Handout for HEP issued and able to complete 3 exercises and then pt requested to use restroom for 2nd time for another BM. Oxygen Level: Rest >90% Activity >90% though fatigues easily with activity on room air. Education on energy conservation techniques with handout provided/reviewed. ADLs: Feeding: Independent eat breakfast which he was finishing when OT arrived Grooming: SBA standing at sink >5 minutes for hand/face wash/dry and oral cares Dressing: Independent thread Ue through hospital gown, SBA clothing management of underwear up/down over hips. Reports hx of using principal web developer and sockaide for LB dressing and was previously able to manage compression garments LE without assist though has family who can assist prn. Pt declines to complete doff/kellie items over feet and reports no concerns. Toileting: SBA including pericares following BM, clothing management with underwear, and transfer with GB from FWW level. Education on removal of scatter rugs/clutter and to wear nonslip footwear with standing activities for safety. Pt indicates understanding. Transfers: Bed: Independent supine<->sit without bedrail, SBA sit<->stand at EOB Chair: SBA sit<->stand Toilet: SBA with GB and handicapped ht toilet from FWW level. Reports 1 bathroom at home is handcapped ht though states "my bathroom is lower" regarding toilet ht. He also states he uses doorknobs on doors B for support with transfer. Education on safety with transfer and recommend toilet riser with toilet safety frame. Pt reports having these pieces of DME though not currently installed and reports he can have family install. He was issued handouts on how to obtain DME prn and indicates understanding. Tub/Shower: Education on technique for tub transfer. SBA simulated tub/shower transfer with GB andshower chair (he has DME at home). Car: Education on technique for car transfer. Pt indicates understanding and reports no concerns,declines to trial. SBA ambulate with FWW<->bathroom, added assist to manage lines. Cues at times for safe positioning of FWW and hand placement with sit<->stand. Responds well to cues. Pain: 0/10 Transfer belt and nonslip footwear on with all out of bed activities. Pt sitting safely and comfortably in chair with call light and all needed items within reach. Educated on safety and use of call light, waiting for assistance, and not attempting self transfers/standing. Pt indicates understanding. Pt requested to use restroom again for another BM at end of OT session and PROGRAM COORDINATOR [employer] present assisting pt. Education to PROGRAM COORDINATOR [employer] how pt should not be left alone in bathroom at this time due to fall risk and she indicated understanding. Education Education/Training provided: Role of OT, plan of care, energy conservation techniques, HEP, safety, ADLs, transfers, mob, recommendations, AE/DME Learners: Patient Readiness: Acceptance Method of Training: Verbal education, demonstration Response: Verbalized/demonstrated understanding, will benefit from continued reinfocement Adaptive Equipment Recommendations Recommend use of toilet riser and toilet safety frame for pt's bathroom (reports has these items butcurrently not in place and using std ht toilet with doorknobs for support B) Adaptive Equipment Available (per pt): principal web developer, toilet riser (but currently does not have on his stdht toilet near his room), handicapped ht toilet in another bathroom, toilet safety frame (but currently not installed), long-handled sponge, shower chair, grab bars tub/shower, sock aid, front-wheeled walker, and cane Plan to obtain adaptive equipment: Patient indicates all needed adaptive equipment obtained prior to hospitalization and plans to install. Goals Patient/Family Stated Goal for Session: wants to use restroom; agreeable to OT Short Term Goals: Patient will tolerate 15-30 minutes U/E exercise to further increase independence with ADL/IADLs. (ongoing) Patient will complete grooming task safely standing at the sink withSBAusing adaptive equipment as needed. (met) Patient will complete LB dressing safely withSBAusing adaptive equipment as needed. (met for clothing management and reports no concerns other LB dressing, has equipment, declined to formally demo) Patient will complete toileting safely withSBAusing adaptive equipment as needed. (met) Patient will complete functional transfers safely withSBAusing adaptive equipment as needed. (met for chair/bed/simulated tub/ambulate with FWW - declined car though educated provided on technique and reports understanding/no concerns) Patient will further participate with cognitive assessment to increase safety with functional tasks.(ongoing) Patient will have AE in place to increase safety with ADLs by discharge. (ongoing - reports having all AE/DME though needs to install items for toilet) Patient continues to progress towards goals. Charges Treatment/Minutes: Today's Evaluation/Treatment Self care/home management: 31 minutes Therapeutic exercise: 8 minutes Total Treatment Time: 39 minutes Treatment Session 2/5 Weekly Assessment/Plan (Day 5): Cont OT per POC Therapist [facility] Pager Number [phone] are Planning - Parrish Gerardo RN - 09/29/2020 11:58 PM OBJECTIVE C DEVELOPER Problem: DECREASED CARDIAC OUTPUT Goal: TISSUE PERFUSION: CARDIAC Description: DEFINITION: Adequacy of blood flow through the coronary vasculature to maintain heart function. 1 = Severe deviation from normal range, 2 = Substantial deviation from normal range, 3 = Moderate deviation from normal range, 4 = Mild deviation from normal range, 5 = No deviation from normalrange. Outcome: NOC Rating 3 Flowsheets (Taken 09/29/2020 7487) Target Score: 4 Plan of care reviewed with: Patient Patient specific goal for the day: stay free from chest pain and maintain stable vss on RA Patient specific goal for the stay: Return to baseline Achieve goal for stay: By discharge Patient Progress: pt denies any chest pain. pt does have sob with exertion. pt vss on RA. will continue to monitor. CTIVE C DEVELOPER Clinical Team - Parrish Gerardo RN - 09/29/2020 11:52 PM CSTPt is alert and oriented x4, bed alarm in place for safety. Pt vss on RA. Pt is on tele- paced and paroxymal Afib. Pt denies any chest pain but does have SOB with exertion. Pt is up with assist of 1 and FWW. ccupational Therapy - Rufina Lazaro OTR/Oneil - 09/29/2020 2:56 PM CSTOT attempted to see this date x 2 however, patient was busy with another discipline. OT will follow up 09/30 as able/appropriate. REYNALDO Martinez/Oneil Alpha pager [phone] CTIVE C DEVELOPER Cardiac Rehab - Tracey John EP - 09/29/2020 2:43 PM CSTCardiac Rehab Phase 1 Inpatient Note: Diagnosis: CHF Physical Activity Completed: Ambulate in rey Distance Ambulated: 275 feet Ambulation Assistance: SBA with FWW Patient response to Exercise: good Exercise Comments: Steady gait. Moves well. Stopped half way to stand and rest for a few minutes dueto shortness of breath and fatigue. Gaitbelt used with activity Vitals Resting Heart Rate - 70 bpm Exercise Heart Rate - 70's bpm O2 Device - RA Resting SpO2 - 98% Assessment/Plan: Tolerates activity well. Encouraged patient to ambulate in hallway 3-4 times daily as tolerated with gradual progression. -Progress as tolerated -Patient referred to outpatient Cardiac Rehab program -Continue to follow until until Discharge -Home activity and exercise teaching completed Recommendation: "Outpatient Cardiac Rehab Continue Inpatient Cardiac Rehab Plan of Care daily until discharge. Cardiac Rehab Alpha Pager: [phone] ase Mgmt - Rhonda Villa LSW - 09/29/2020 2:24 PM CSTCASE MANAGEMENT / SOCIAL SERVICE TRANSITION PLAN - PROGRESS NOTE PLAN: Awaiting Medical Doctor Recommendations for Transition Will Continue to Follow for Support and Progression Towards Final Transition Plan BARRIERS TO TRANSITION: Awaiting Collateral Information Medical barriers:medical stability; cardiology following DOES ACCEPTING FACILITY REQUIRE COVID TESTING BEFORE DISCHARGE: N/A COMMENTS / PATIENT AND FAMILY RESPONSE TO PLAN: Chart review completed. Goal upon discharge will be to return home with siblings near [place], [place]. Brother will provide transportation home. Will continue to follow, await treatment team recommendations and provide discharge options as appropriate. IS PATIENT'S ADMISSION ASSOCIATED WITH TIA, ISCHEMIC, OR HEMORRHAGIC STROKE?: No PATIENT / SUBSTITUTE DECISION MAKER GOAL UPON TRANSITION: First Choice: Home: Family/Friend Support ANTICIPATED NEEDS UPON TRANSITION: Home: Family/Friend Support Transitional Care RESOURCE(S) PROVIDED: nothing needed at this time ANTICIPATED MODE OF TRANSPORT UPON TRANSITION: Family Car ANTICIPATED MODE OF TRANSPORT TO AND FROM FOLLOW UP APPOINTMENTS: Family Car VERIFIED CORRECT PHARMACY IS ENTERED FOR DISCHARGE: Yes - Pharmacy: . [facility] TRANSITION ROUNDING COMPLETED WITH THE FOLLOWING: Patient / family Computer Patternmaker SIGNED: RIO Glez Meter Installer And Remover Case Management [facility], [place] P) [phone] are Planning - Genesis Garcia RN - 09/29/2020 11:34 AM OBJECTIVE C DEVELOPER Problem: DECREASED CARDIAC OUTPUT Goal: TISSUE PERFUSION: CARDIAC Description: DEFINITION: Adequacy of blood flow through the coronary vasculature to maintain heart function. 1 = Severe deviation from normal range, 2 = Substantial deviation from normal range, 3 = Moderate deviation from normal range, 4 = Mild deviation from normal range, 5 = No deviation from normalrange. Flowsheets (Taken 09/29/2020 0667) Initial Score: 3 Target Score: 4 Plan of care reviewed with: Patient Patient specific goal for the day: Remain free of chest pain and SOB Patient specific goal for the stay: Return to baseline Achieve goal for stay: By discharge Patient Progress: Denies any Chest pain. Mild SOB with activty. VSS on RA. Will continue to monitor. espiratory Therapy - Cassi Vasquez RRT - 09/29/2020 11:06 AM CSTPatient was seen for daily Anoro. Patient took the inhaler well, has very good technique. Breath soun ds were diminished and fine crackles in the bases. SpO2 was 94% while on RA. The cough was productive. RT to follow. are Planning - Parrish Gerardo RN - 09/28/2020 11:31 PM OBJECTIVE C DEVELOPER Problem: DECREASED CARDIAC OUTPUT Goal: TISSUE PERFUSION: CARDIAC Description: DEFINITION: Adequacy of blood flow through the coronary vasculature to maintain heart function. 1 = Severe deviation from normal range, 2 = Substantial deviation from normal range, 3 = Moderate deviation from normal range, 4 = Mild deviation from normal range, 5 = No deviation from normalrange. Outcome: NOC Rating 3 Flowsheets (Taken 09/28/2020 1466) Initial Score: 3 Target Score: 4 Plan of care reviewed with: Patient Patient specific goal for the day: Remain free of chest pain and SOB Patient specific goal for the stay: Return to baseline Achieve goal for stay: By discharge Patient Progress: pt denies any chest pain, pt does have sob with exertion. pt bp in the 80's, 250mlbolus given. will continue to monitor CTIVE C DEVELOPER Clinical Team - Parrish Gerardo RN - 09/28/2020 11:17 PM CSTPt is alert and oriented x4. Pt BP low in the 80's, pt asymptomatic, Cee Lemon. Notified 250ml bolus ordered. Pt spo2 stable on RA. Pt is on tele- Paced. Pt sob with exertion. Pt is up with assist of 1 and fww. upplemental Progress Note - Cee Lester APRN-CNP - 09/28/2020 10:17 PM CSTPer report, BP 82/57. Plan: 1. Reviewed OCT. Patient has CHF, as of this time, intake total documented is - 1400, had Torsemid 20mg @1700, Entresto @2131 and Carvedilol 12.5 mg @1740, will give a small bolus of 250 mL IVF and continue to monitor VSS and evidence of fluid overload, renal function unremarkable. linical Team - Brad Kinney RN - 09/28/2020 6:50 PM CSTA/Ox4, VSS on RA. Pt denies pain, nausea, dizziness. Continue to diurese with oral meds and trend trop. are Planning - Brad Kinney RN - 09/28/2020 6:50 PM OBJECTIVE C DEVELOPER Problem: DECREASED CARDIAC OUTPUT Goal: TISSUE PERFUSION: CARDIAC Description: DEFINITION: Adequacy of blood flow through the coronary vasculature to maintain heart function. 1 = Severe deviation from normal range, 2 = Substantial deviation from normal range, 3 = Moderate deviation from normal range, 4 = Mild deviation from normal range, 5 = No deviation from normalrange. 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 Wound type: surgical Pain: None Wound Configuration: Dimension: length: 1.25 cm, width: 0.2 cm and depth: 0.3 cm Wound Bed: Before debridement: Color: pink, yellow and white Slough: 90% Non-granular tissue: 10% After debridement: Color: pink and white Slough: 50% Non-granular tissue: 50% Zo-wound skin: callous and macerated Wound exudate: serous and Amount: scant Wound Odor: cleared with washing Treatment per wound care protocols: Wound Irrigation/Cleansing: wash with mild soap and water Dressing Type per wound care protocols: Dressing: betadine, gauze for left toe and tubigrip size F double layer. Xeroform, ABD, Kerlix, Tubigrip size F double layer for left leg. Recommendations / Plan: Left 2nd toe amputation site: Daily dressing change. Wash with soap and water. Kennan with betadine. Apply dry gauze and secure with gauze roll. Bilateral legs: Wash with soap and water. Apply protective ointment. Apply xeroform and cover with ABD and secure with kerlix to LLE wounds. Apply double layer Tubi-stopping builder socks for compression. Patient may take off at night if legs are elevated. If prefers, can use home compression socks also. Wound care will continue to follow. CTIVE C DEVELOPER Occupational Therapy - Rufina Lazaro OTR/Oneil - 09/28/2020 3:14 PM OBJECTIVE C DEVELOPER Occupational Therapy Acute Care Evaluation Impression/Recommendations Recommend return home upon medical stability with resumption of bath aide and assistance for medications. Ambulates in hallway with SBA to CGA/FWW. Presents with deconditioning and will benefit from 1-2 follow up sessions. Reports family is present 26/02 to assist if needed. Admitting Diagnosis: No diagnosis found. History of Present Illness: Refer to H&P for details Past Medical History: Past Medical History: Diagnosis Date Atrial fibrillation (HCC) Biliary colic Blood transfusion without reported diagnosis CAD (coronary artery disease) history of non-ST elevated myocardial infarction on Effient with PTCA and stenting to the LAD on March 14, 2011. History of cardiac disease with previous PTCA and stenting in October 2007. Callus of foot 07/28/2013 Cardiorenal syndrome Cataract CHF (congestive heart failure) (HCC) Chronic back pain COPD (chronic obstructive pulmonary disease) (HCC) Deviated septum hx of Diabetes mellitus (HCC) Diabetic retinopathy (HCC) Diverticular disease CHEN (dyspnea on exertion) Dyslipidemia GERD (gastroesophageal reflux disease) HTN (hypertension) Hyperlipidemia Ischemic cardiomyopathy Myocardial infarction (HCC) Obesity Osteoarthritis Osteoarthritis Peripheral neuropathy Phimosis PVD (peripheral vascular disease) ([facility]) History of peripheral vascular disease with history of lower extremity angiogram by Dr. Solorio on July 06, 2011, with intervention including left peroneal and left popliteal artery angioplasty. Sleep apnea on CPAP. Spondylolisthesis congenital Tear film insufficiency Varicose veins Activity Level: Prog mob Precautions: Haz med Infection Control: Standard Patient History Social/Home Environment: Patient lives: lives with their brother and sister House: house, 8 steps to enter Home Environment: Bed/Bath on main: Yes Bath Setup: Combo with curtain Employment: retired Prior Level of Function Independent with: dressing, laundry and driving Assistance needed with: bathing, medication management, cooking and cleaning Comments: Ambulates with cane or FWW at baseline. Reports bath aide assists with dressing when sheis there but when she is not, he "manages." Utilizes sock aid. Adaptive Equipment Available: shower chair, grab bars tub/shower, sock aid, front-wheeled walker andcane Present for Eval: Pt Objective Activities of Daily Living: Feeding: Not observed Grooming: Not observed Upper Extremity Dressing: Not observed Lower Extremity Dressing: Not observed, sock aid at baseline Bathing: Not observed, shower chair at baseline Toileting: Not observed Homemaking: Sister completes most at baseline Transfers: Bed: Sit <> stand with FWW and increased time due to low bed height to simulate home, effortful Chair: Declined Toilet: Not observed Tub/Shower: Not observed Comments: Ambulated ~250 ft with SBA/FWW, steady gait. 2 standing rest breaks Pain: Comment: no reports of pain during session Upper Extremity Function: Range of Motion: Right:within functional limits Left: within functional limits Strength: Right: within functional limits Left: within functional limits Endurance: limited Oxygen Level: >90% Coordination: intact Sensation: intact Edema: no Dominant Hand: right Orientation: Cognition: alert Attention: intact Following Directions: intact Safety Awareness: intact Comments: Mild confusion during session. Oriented though had difficulty reporting the year (",000, 20,021, 2100"). Will monitor. Reports siblings are home 26/02 Visual/Perception: Glasses: Readers only Comments: Denies acute changes Education Education/Training provided: Role of OT, plan of care, functional transfers Learners: Patient Readiness: Acceptance Method of Training: Verbal education, demonstration Response: Verbalized/demonstrated understanding, will benefit from continued reinforcement Adaptive Equipment Recommendations Adaptive Equipment Recommended: Anticipate all AE needs have been met, will monitor Plan to obtain adaptive equipment: To further assess. Assessment/Plan Assessment: Patient demonstrates decreased UE strength and decreased physical conditioning Patient showing a decrease in ADL/transfer performance and will benefit from continued OT. Plan: Patient to be seen 1-2 sessions to work toward above goals Treatment plan will consist of Sunday thru Sunday sessions Goals Patient/Family Stated Goal for Session: go for a walk Short Term Goals: Patient will tolerate 15-30 minutes U/E exercise to further increase independence with ADL/IADLs Patient will complete grooming task safely standing at the sink withSBAusing adaptive equipment as needed. Patient will complete LB dressing safely withSBAusing adaptive equipment as needed. Patient will complete toileting safely withSBAusing adaptive equipment as needed. Patient will complete functional transfers safely withSBAusing adaptive equipment as needed. Patient will further participate with cognitive assessment to increase safety with functional tasks. Patient will have AE in place to increase safety with ADLs by discharge Treatment Provided See above for treatment provided Charges Treatment/Minutes: Today's Evaluation/Treatment Evaluation Therapeutic activity: 13 minutes Total for time-based codes: 13 minutes Total treatment time: 23 minutes Evaluation Complexity PMH/Comorbidities that affect Occupational Performance: See PMH Occupational Profile/Medical and Therapy History: LOW - Brief history relating to presenting problem Patient Assessment: LOW - 1-3 performance deficits relating to physical, cognitive, psychosocial limitations/restrictions Clinical Decision Making: LOW - Low complexity, limited amount of treatment options, no assessment modification, no comorbidities Evaluation Complexity: Low Therapist Alpha Pager Number: [phone] CTIVE C DEVELOPER Supplemental Progress Note - Faviola Benavides APRN-CNP - 09/28/2020 2:58 PM CSTPharmacy review of medications and patient states he has not been taking diltiazem. Will discontinue. ase Mgmt - Rhonda Villa LSW - 09/28/2020 2:29 PM CSTCASE MANAGEMENT / SOCIAL SERVICE TRANSITION PLAN - INITIAL ASSESSMENT TRANSITION PLAN: Awaiting Medical Doctor Recommendations for Transition Will Continue to Follow for Support and Progression Towards Final Transition Plan BARRIERS TO TRANSITION: Discharge Needs to be Determined Medical barriers:medical stability; cardiology following COMMENTS / PATIENT AND FAMILY RESPONSE TO PLAN: Reviewed patient medical record, Met with patient at bedside this day in order to discuss discharge planning. Introduced self and case management role. Pt lives at home with his brother and sister on a [place] outside of [place], [place]. Pt is independent with ADLs. He states that his sister helps out with the cooking/cleaning and his brother provides transportation. Denies any use of services/assistance. Pt uses front-wheeled walker or cane for ambulation. Pt has a PCP and manages own medications/finances. Goal upon discharge will be to return home with siblings. Brother will provide transportation. PT: patient mobilizing at baseline. No further inpatient PT needs. Will continue to follow, await treatment team recommendations and provide discharge options as appropriate. ADMISSION DX: nstemi, chf PATIENT STATUS: Inpatient RELEASE OF INFORMATION: Yes -- verbal for: discharge planning SOURCES OF INFORMATION (See demographics for contact information): Medical Record Patient CURRENT LIVING SITUATION / LEVEL OF ASSISTANCE: Lives with brother and sister Independent COMMUNITY SERVICES: None HEALTHCARE DIRECTIVE: No POWER OF SEAMING MACHINE OPERATOR: None FINANCIAL CONCERNS: No Concerns Medicare Part A & B PRIMARY CARE PHYSICIAN: Yes Hector De Leon MD : Yes:[place] notified via [place] Notification ID #: [id number] IS PATIENT'S ADMISSION ASSOCIATED WITH TIA, ISCHEMIC, OR HEMORRHAGIC STROKE?: No LANGUAGE / COMMUNICATION BARRIERS: No PATIENT / SUBSTITUTE DECISION MAKER GOAL UPON TRANSITION: First Choice: Home: Family/Friend Support ANTICIPATED NEEDS, TRANSITION CHOICES OFFERED: Home: Family/Friend Support RESOURCE(S) PROVIDED: nothing needed at this time DOES PATIENT HAVE CLOTHING TO WEAR AT DISCHARGE? Yes ANTICIPATED MODE OF TRANSPORT UPON DISCHARGE: Family Car VERIFIED CORRECT PHARMACY IS ENTERED FOR DISCHARGE: Yes - Pharmacy: [facility] [id number] [phone] (Phone) CURRENT READMISSION RISK SCORE Predictive Risk Score Risk of Unplanned Readmission: 18.6 Please refer to readmission risk assessment flowsheet for further details. SIGNED: RIO Glez Meter Installer And Remover Case Management [facility]) [phone] CTIVE C DEVELOPER Occupational Therapy - Leslee Walters OTR/Oneil - 09/28/2020 11:33 AM CSTOT orders received, acknowledged. Chart reviewed. Attempted to see pt for OT eval however pt was busy with another discipline. Will follow-up to reattempt as able/pt appropriate. MARCIO Sevilla OTR/L Pager [phone] hysical Therapy - Umesh Bradshaw PT - 09/28/2020 8:31 AM CST Physical Therapy Acute Inpatient Initial Evaluation/Discharge ASSESSMENT/RECOMMENDATIONS From a mobility standpoint, patient is mobilizing at his baseline. No further inpatient PT needs, inpatient PT will be discontinued. 6-Clicks Basic Mobility Score: 24 Activity Prescription with Nursing: Encourage patient to walk independently at least 200 ft before discharge. Up in chair for all meals. Encourage patient to be independent with self cares. Anticipated D/C Service needs: No further PT needs anticipated upon transition from hospital Diagnosis: No diagnosis found. Prescription: Eval and Treat Admit Date: 09/27/2020 Pertinent Medical / Surgical History: Patient has a past medical history of Atrial fibrillation ([facility]), Biliary colic, Blood transfusion without reported diagnosis, CAD (coronary artery disease), Callus of foot (07/28/2013), Cardiorenal syndrome, Cataract, CHF (congestive heart failure) ([facility]), Chronic back pain, COPD (chronic obstructive pulmonary disease) ([facility]), Deviated septum, Diabetes mellitus ([facility]), Diabetic retinopathy ([facility]), Diverticular disease, CHEN (dyspnea on exertion), Dyslipidemia, GERD (gastroesophageal reflux disease), HTN(hypertension), Hyperlipidemia, Ischemic cardiomyopathy, Myocardial infarction ([facility]), Obesity, Osteoarthritis, Osteoarthritis, Peripheral neuropathy, Phimosis, PVD (peripheral vascular disease) ([facility]), Sleep apnea, Spondylolisthesis, Tear film insufficiency, and Varicose veins. He also has no past medical history of Amblyopia, Disorder of thyroid, Macular degeneration, Retinal detachment, Strabismus, or Uveitis. Patient has a past surgical history that includes percutaneous coronary intervention cleaner laboratory equipment; hernia repair; colonoscopy; fracture surgery; insert repositioning elect lead sngl dual chamber def system; lap cholecystectomy (N/A, 03/26/2018); and amputation minor (Left, 08/14/2020). Current medical status: Per chart, patient presents due to SOB. Precautions: Activity as tolerated. SUBJECTIVE Social History: Patient lives: With brother and sister. Home environment: House Steps: Several steps with railing to gain entry. Employment: Retired. Prior Level of Function: Activities of Daily Living: Independent. Mobility: Independent ambulation with cane or front-wheeled walker. History of falls: No Home O2: None. Adaptive equipment available: front-wheeled walker and cane Patient Concerns: None. Patient/Family Goals: Return home. OBJECTIVE Patient seen at bedside. Patient presents with 1 liter O2. Cognition: Alert and oriented x 4. Pain: None. Posture: Unremarkable. Observation: No acute distress. Agreeable to PT. Range of Motion: Bilateral lower extremities WFL. Refer to Occupational Therapy report for upper extremity range of motion. Strength: Bilateral lower extremities WFL. Refer to Occupational Therapy report for upper extremity strength testing. Sensation: Grossly intact bilaterally. Tone: Normal. Coordination: WNL bilaterally. Transfers: Sit to/from Stand: Independent. Balance: Static Sitting Balance: Good. Dynamic Sitting Balance: Good. Gait: Ambulates ~ 280 feet with front-wheeled walker. Steady. No dizziness, LOB or SOB. SpO2 is 100% on 1 liter. HR is 81 BPM. Education: Patient was educated on physical therapy role, plan of care and goals today through explanation. They accepted teaching and verbalized understanding. Today's Treatment Evaluation: Completed Gait trainin minutes Therapeutic exercise: 0 minutes Therapeutic activity: 10 minutes TOTAL TIME-CODED MINUTES: 10 minutes TOTAL TREATMENT TIME: 18 minutes Treatment provided: Physical therapy evaluation. Therapeutic activity consisting of: transfers and ambulation PLAN Discontinue inpatient PT. Umesh Bradshaw, PT, DPT Board-Certified Clinical Specialist in Geriatric Physical Therapy Certified Exercise Expert for Aging Adults Pager: [phone] linical Team - Didi Wood RN - 09/28/2020 6:57 AM CSTShift Summary [id number]: A&Ox4. VSS on 1L NC. SOB with exertion. Tele paced. Ambulates with SBA, cane and GB. Bed alarm in place for safety. Denies pain and N/V. NPO. are Planning - Didi Wood RN - 09/27/2020 11:58 PM OBJECTIVE C DEVELOPER Problem: DECREASED CARDIAC OUTPUT Goal: TISSUE PERFUSION: CARDIAC Description: DEFINITION: Adequacy of blood flow through the coronary vasculature to maintain heart function. 1 = Severe deviation from normal range, 2 = Substantial deviation from normal range, 3 = Moderate deviation from normal range, 4 = Mild deviation from normal range, 5 = No deviation from normalrange. Flowsheets (Taken 09/27/2020 4184) Initial Score: 3 Target Score: 4 Plan of care reviewed with: Patient Patient specific goal for the day: Deny chest pain and SOB Patient specific goal for the stay: Return to baseline Achieve goal for stay: By discharge Patient Progress: VSS on 2L NC. Denies pain and N/V. SOB with exertion. Will continue to monitor. are Planning - Elvia Fowler RN - 09/27/2020 5:03 PM OBJECTIVE C DEVELOPER Problem: DECREASED CARDIAC OUTPUT Goal: TISSUE PERFUSION: CARDIAC Description: DEFINITION: Adequacy of blood flow through the coronary vasculature to maintain heart function. 1 = Severe deviation from normal range, 2 = Substantial deviation from normal range, 3 = Moderate deviation from normal range, 4 = Mild deviation from normal range, 5 = No deviation from normalrange. Outcome: NOC Rating 3 Flowsheets (Taken 09/27/2020 1704) Initial Score: 2 Target Score: 4 Plan of care reviewed with: Patient Patient specific goal for the day: Deny chest pain and SOB Patient specific goal for the stay: Return to baseline cardiac status Achieve goal for stay: By discharge Patient Progress: Patient is vitally stable on 2L of O2. Denies chest pain and SOB. Awaiting orders. linical Team - Elvia Fowler RN - 09/27/2020 4:31 PM CSTPatient is vitally stable on 1-2L of O2. Alert and oriented x4 but forgetful . Tele a fib with V pacing. Denies chest pain. SOB and tachypneic. IV lasix given. Up with assist of 1 and cane. Bed alarm in place. Upon Admission to [facility], skin assessment completed with DANA Almaraz Upon skin assessment including pressure points findings include: redness to lower legs with scattered scabs/open areas, amputation to left toe with coban around, redness to lower belly, old surgical scars to abdomen, Plan/Intervention: wound consult for lower extremity wounds CTIVE C DEVELOPER documented in this encounter Plan of Treatment Date Type Specialty Care Team Description 10/14/2020 Ancillary Procedure Radiology 10/14/2020 Office Visit Vascular Surgery Aleksandar Ramirez DO [address] [place] [address] [id number] 12/28/2020 Clinical Support Visit Cardiovascular Services Name Type Priority Associated Diagnoses Order S chedule PROTIME/INR Lab Routine every 24 hours until discontinued starting 2020, 6 completed Name Type Priority Associated Diagnoses Order S chedule CLINIC REFERRAL HEART Referral Routine Acute on chronic Or dered: 10/03/2020 FAILURE PROGRAM ONE combined systolic and CHART diastolic congestive heart failure (HCC) HOSPITAL DISCHARGE Referral Routine Once for 1 Occurrences WARFARIN ANTICOAG starting 0 10/03/2020 ORDER until 1 documented as of this encounter Goals Goal Patient Goal Associated Recent Patient-Stated? Author Type Problems Progress DIET - REDUCE Diet Dori Carcamo RN, CDE Care Coordination General Freddy Carcamo RN, CDE Note: Date Plan Created: 01/25/17 Date of last Plan Modification: 7 Plan discussed with: patient [facility] and patient and/or care givers have discussed and agreed to this Care Plan. After hours call: My [place] Nurse: [phone]. For emergencies: Dial 911 or go to the closest Emergency Room. External Care Plan: None Is there a copy in the EMR? N/A The following people or agencies are inv olved in my care (community resources): Language: [place] Housing: Lives with Alicia cisneros and B rother, Ed. Employment: [employer] Transportation: Patient is able to drive himself, has own vehicle Rastafarian: Holiness, non practicing Diet: Limiting portion sizes/sweets Assistance Needed with ADL's: None Caregiver Support: Siblings for maria victoria villarreal support Barriers: None Exercise - Walking 15 Lifestyle Dori Vasquez RN, CDE minutes every day HGB A1C < 8.0 Result Component 8.2 (08/09/2020 Dori Carcamo RN, CDE 9:09 PM OBJECTIVE C DEVELOPER) documented as of this encounter Implants Implanted Type Area Operations Agent Device Shelf Model / Identifier Expiration Serial / Date Lot [employer] Dual Chamber Defibrillator-10/24/2011 Cardiovasc ular Left: [employer] JANES CRAMER [id number] ICD / Implanted: 10/24/2011 by Fito Ware MD (Quantity not on file) CHEST [id number] / Explanted: (Quantity not on file) Stnt Resolute [id number] N [id number] Ea (Aka [id number])-12/10/2013 Cardiovascular [employer] 08/27/2014 / Implanted: 12/10/2013 (Quantity not on file) / Explanted: (Quantity not on file) [id number] Stnt Resolute 2.47o34jo N [id number] Ea (Aka [id number] 018ux)-07/10/2014 Cardiovascular [employer] 09/24/2015 / Implanted: 07/10/2014 by Scott Rey MD (Quantity not on file) / Explanted: (Quantity not on file) [id number] Stnt Resolute 2.68n21zj N [id number] Ea (Aka [id number] 030ux)-07/10/2014 Cardiovascular [employer] 10/01/2015 / Implanted: 07/10/2014 by Scott Rey MD (Quantity not on file) / Explanted: (Quantity not on file) [id number] Stnt Resolute 3.94t47qu N [id number] Ea (Aka [id number] 018ux)-10/15/2015 Cardiovascular [employer] / Implanted: 10/15/2015 by Nito Solorio DO (Quantity not on file) / [id number] Stnt Resolute 3.5x38mm N [id number] Ea (Aka [id number])-10/15/2015 Cardiovascular [employer] / Implanted: 10/15/2015 by Nito Solorio DO (Quantity not on file) / [id number] Stnt Resolute 4.65t24me N [id number] Ea (Aka [id number] 015ux)-03/30/2016 Cardiovascular [employer] / Implanted: 03/30/2016 by Maxx Harry MD (Quantity not on file) / [id number] Stnt Lamont Orsiro 3.0x26mm N [id number] Ea1 (Aka [id number])-Ca rdiovascular-03/19/2019 Cardiovascular [employer] [id number] / Implanted: Qty: 1 on 03/19/2019 by Nito Solorio DO / [id number] Description:STNT LAMONT ORSIRO 3.0X26MM N [id number] EA1 (AKA [id number])-CARDIOVASCULAR Stnt Resolute Killian Rx 3.5x22mm N [id number] Ea1 (Aka [id number])-Cardiovascular-12/11/2018 ARTERIAL [employer] 10/29/2020 [id number] / Implanted: Qty: 1 on 12/11/2018 by Nito Solorio DO / [id number] Description:STNT RESOLUTE KILLIAN RX 3.5X22 MM N [id number] EA1 (AKA [id number])-CARDIOVASCULAR documented as of this encounter Procedures Procedure Name Priority Date/Time Associated Comments Diagnosis PROTIME/INR Timed Routine 10/03/2020 7:07 Results fo r this AM OBJECTIVE C DEVELOPER procedure are i n the results section. GLUCOSE BY METER, Routine 10/03/2020 5:42 Result s for this POCT AM OBJECTIVE C DEVELOPER procedure are i n the results section. GLUCOSE BY METER, Routine 10/02/2020 8:36 Result s for this POCT PM OBJECTIVE C DEVELOPER procedure are i n the results section. GLUCOSE BY METER, Routine 10/02/2020 4:52 Result s for this POCT PM OBJECTIVE C DEVELOPER procedure are i n the results section. GLUCOSE BY METER, Routine 10/02/2020 11:32 Result s for this POCT AM OBJECTIVE C DEVELOPER procedure are i n the results section. XRAY CHEST PORTABLE Routine 10/02/2020 9:29 Resu lts for this AM OBJECTIVE C DEVELOPER procedure are i n the results section. RENAL FUNCTION PANEL Routine 10/02/2020 9:21 Res ults for this AM OBJECTIVE C DEVELOPER procedure are i n the results section. PROTIME/INR Timed Routine 10/02/2020 7:11 Results fo r this AM OBJECTIVE C DEVELOPER procedure are i n the results section. GLUCOSE BY METER, Routine 10/02/2020 5:29 Result s for this POCT AM OBJECTIVE C DEVELOPER procedure are i n the results section. GLUCOSE BY METER, Routine 10/01/2020 8:22 Result s for this POCT PM OBJECTIVE C DEVELOPER procedure are i n the results section. GLUCOSE BY METER, Routine 10/01/2020 4:57 Result s for this POCT PM OBJECTIVE C DEVELOPER procedure are i n the results section. GLUCOSE BY METER, Routine 10/01/2020 4:29 Result s for this POCT PM OBJECTIVE C DEVELOPER procedure are i n the results section. GLUCOSE BY METER, Routine 10/01/2020 12:02 Result s for this POCT PM OBJECTIVE C DEVELOPER procedure are i n the results section. PROTIME/INR Timed Routine 10/01/2020 7:13 Results fo r this AM OBJECTIVE C DEVELOPER procedure are i n the results section. GLUCOSE BY METER, Routine 10/01/2020 5:56 Result s for this POCT AM OBJECTIVE C DEVELOPER procedure are i n the results section. GLUCOSE BY METER, Routine 09/30/2020 9:31 Result s for this POCT PM OBJECTIVE C DEVELOPER procedure are i n the results section. GLUCOSE BY METER, Routine 09/30/2020 5:07 Result s for this POCT PM OBJECTIVE C DEVELOPER procedure are i n the results section. GLUCOSE BY METER, Routine 09/30/2020 11:53 Result s for this POCT AM OBJECTIVE C DEVELOPER procedure are i n the results section. PROTIME/INR Timed Routine 09/30/2020 6:52 Results fo r this AM OBJECTIVE C DEVELOPER procedure are i n the results section. COMPLETE BLOOD COUNT Routine 09/30/2020 6:52 Res ults for this WITHOUT DIFFERENTIAL AM OBJECTIVE C DEVELOPER procedu re are in the results section. RENAL FUNCTION PANEL Routine 09/30/2020 6:52 Res ults for this AM OBJECTIVE C DEVELOPER procedure are i n the results section. GLUCOSE BY METER, Routine 09/30/2020 6:22 Result s for this POCT AM OBJECTIVE C DEVELOPER procedure are i n the results section. GLUCOSE BY METER, Routine 09/29/2020 10:36 Result s for this POCT PM OBJECTIVE C DEVELOPER procedure are i n the results section. GLUCOSE BY METER, Routine 09/29/2020 6:25 Result s for this POCT PM OBJECTIVE C DEVELOPER procedure are i n the results section. GLUCOSE BY METER, Routine 09/29/2020 6:08 Result s for this POCT PM OBJECTIVE C DEVELOPER procedure are i n the results section. GLUCOSE BY METER, Routine 09/29/2020 11:21 Result s for this POCT AM OBJECTIVE C DEVELOPER procedure are i n the results section. PROTIME/INR Timed Routine 09/29/2020 7:19 Results fo r this AM OBJECTIVE C DEVELOPER procedure are i n the results section. BASIC METABOLIC PANEL Routine 09/29/2020 7:19 Re sults for this AM OBJECTIVE C DEVELOPER procedure are i n the results section. GLUCOSE BY METER, Routine 09/29/2020 5:54 Result s for this POCT AM OBJECTIVE C DEVELOPER procedure are i n the results section. GLUCOSE BY METER, Routine 09/28/2020 9:28 Result s for this POCT PM OBJECTIVE C DEVELOPER procedure are i n the results section. GLUCOSE BY METER, Routine 09/28/2020 5:43 Result s for this POCT PM OBJECTIVE C DEVELOPER procedure are i n the results section. GLUCOSE BY METER, Routine 09/28/2020 4:36 Result s for this POCT PM OBJECTIVE C DEVELOPER procedure are i n the results section. TROPONIN I GILDARDO 09/28/2020 1:11 Results for this PM OBJECTIVE C DEVELOPER procedure are i n the results section. EKG Routine 09/28/2020 11:45 Results for this AM OBJECTIVE C DEVELOPER procedure are i n the results section. GLUCOSE BY METER, Routine 09/28/2020 11:32 Result s for this POCT AM OBJECTIVE C DEVELOPER procedure are i n the results section. GLUCOSE BY METER, Routine 09/28/2020 10:46 Result s for this POCT AM OBJECTIVE C DEVELOPER procedure are i n the results section. GLUCOSE BY METER, Routine 09/28/2020 9:31 Result s for this POCT AM OBJECTIVE C DEVELOPER procedure are i n the results section. LAB ONLY-COMPLETE Routine 09/28/2020 7:49 Result s for this BLOOD COUNT WITH AM OBJECTIVE C DEVELOPER procedure a re in DIFFERENTIAL the results section. PROTIME/INR Timed Routine 09/28/2020 7:49 Results fo r this AM OBJECTIVE C DEVELOPER procedure are i n the results section. TROPONIN I Routine 09/28/2020 7:49 Results for this AM OBJECTIVE C DEVELOPER procedure are i n the results section. HEPATIC FUNCTION Routine 09/28/2020 7:49 Results for this PANEL AM OBJECTIVE C DEVELOPER procedure are i n the results section. BASIC METABOLIC PANEL Routine 09/28/2020 7:49 Re sults for this AM OBJECTIVE C DEVELOPER procedure are i n the results section. LAB ONLY-COMPLETE Routine 09/28/2020 7:49 Result s for this BLOOD COUNT WITH AM OBJECTIVE C DEVELOPER procedure a re in DIFFERENTIAL the results section. GLUCOSE BY METER, Routine 09/28/2020 7:42 Result s for this POCT AM OBJECTIVE C DEVELOPER procedure are i n the results section. GLUCOSE BY METER, Routine 09/28/2020 5:39 Result s for this POCT AM OBJECTIVE C DEVELOPER procedure are i n the results section. LAB ONLY-COMPLETE Routine 09/27/2020 10:13 Result s for this BLOOD COUNT WITH PM OBJECTIVE C DEVELOPER procedure a re in DIFFERENTIAL the results section. TSH REFLEX Routine 09/27/2020 10:13 Results for this PM OBJECTIVE C DEVELOPER procedure are i n the results section. PROTIME/INR Routine 09/27/2020 10:13 Results for this PM OBJECTIVE C DEVELOPER procedure are i n the results section. TROPONIN I Routine 09/27/2020 10:13 Results for this PM OBJECTIVE C DEVELOPER procedure are i n the results section. MAGNESIUM Routine 09/27/2020 10:13 Results for this PM OBJECTIVE C DEVELOPER procedure are i n the results section. COMPREHENSIVE Routine 09/27/2020 10:13 Results fo r this METABOLIC PANEL PM OBJECTIVE C DEVELOPER procedure ar e in the results section. LAB ONLY-COMPLETE Routine 09/27/2020 10:13 Result s for this BLOOD COUNT WITH PM OBJECTIVE C DEVELOPER procedure a re in DIFFERENTIAL the results section. GLUCOSE BY METER, Routine 09/27/2020 8:50 Result s for this POCT PM OBJECTIVE C DEVELOPER procedure are i n the results section. GLUCOSE BY METER, Routine 09/27/2020 5:19 Result s for this POCT PM OBJECTIVE C DEVELOPER procedure are i n the results section. documented in this encounter Results PROTIME/INR (10/03/2020 7:07 AM OBJECTIVE C DEVELOPER) Pathologist Sig nature Protime 26.9 (H) 12.0 - 14.5 secs [place] [address] [facility] INR 2.6 2.0 - 3.5 [place] [address] [facility] Specimen Blood - Blood specimen (specimen) Narrative Performed At Normal INR reference range (patients not on oral antic oagulants) [address] 0.9-1.1. INR Standard Intensity = (2.0 - 3.0) INR Higher Intensity = (2.5 - 3.5) Performing Organization Address [facility] Phone Number [address] [place] [address], [place] [address] GLUCOSE BY METER, POCT (10/03/2020 5:42 AM OBJECTIVE C DEVELOPER) Pathologist Sig nature Glucose POC 110 (H) 70 - 99 mg/dL [facility] O POINT OF CARE TESTING Specimen Blood - Blood specimen (specimen) Performing Organization Address [facility]/[place] Phone Number [facility] POINT OF [address] [facility] [place] [address] CARE TESTING GLUCOSE BY METER, POCT (10/02/2020 8:36 PM OBJECTIVE C DEVELOPER) Pathologist Sig nature Glucose POC 223 (H) 70 - 99 mg/dL [facility] O POINT OF CARE TESTING Specimen Blood - Blood specimen (specimen) Performing Organization Address [facility]/State/Zipcode Phone Number [facility] POINT OF [address] [facility] [place] [address] CARE TESTING GLUCOSE BY METER, POCT (10/02/2020 4:52 PM OBJECTIVE C DEVELOPER) Pathologist Sig nature Glucose POC 118 (H) 70 - 99 mg/dL [facility] O POINT OF CARE TESTING Specimen Blood - Blood specimen (specimen) Performing Organization Address [facility]/[place] Phone Number [facility] [address]INT OF [address], [place] [address] CARE TESTING GLUCOSE BY METER, POCT (10/02/2020 11:32 AM OBJECTIVE C DEVELOPER) Pathologist Sig nature Glucose POC 114 (H) 70 - 99 mg/dL [facility] O POINT OF CARE TESTING Specimen Blood - Blood specimen (specimen) Performing Organization Address [facility]/[place] Phone Number [facility] [address] [place] [address] CARE TESTING XRAY CHEST PORTABLE - (10/02/2020 9:29 AM OBJECTIVE C DEVELOPER) Specimen Narrative Performed At [facility] Patient Name: FRANCISCO SMITH Date of : 1940 Procedure: XRAY CHEST PORTABLE Date of Service: 10/02/2020 EXAM: XRAY CHEST PORTABLE INDICATION:PND, CHF COMPARISON(S): 09/27/2020 FINDINGS/IMPRESSION: Left-sided AICD. The lungs are free of consolidating o pacities. There is no significant pneumothorax. Small bilateral pleural e ffusions, right greater than left. The cardiomediastinal silhouette is stable. Mild pulmonary vascular congestion. Finalized by: Lan Stevens MD on 2020 9:50 AM OBJECTIVE C DEVELOPER Patient/Procedure Information: [facility] MRN/ABBEY: [id number] Order Number: [id number] Accession Number: [id number] Ordering Provider: JUAN SANDERS Authorizing Provider: JUAN SANDERS Procedure Note Interface, Radiantres - 10/02/2020 9:52 AM OBJECTIVE C DEVELOPER Patient Name: FRANCISCO SMITH Date of : 1940 Procedure: XRAY CHEST PORTABLE Date of Service: 10/02/2020 EXAM: XRAY CHEST PORTABLE INDICATION:PND, CHF COMPARISON(S): 09/27/2020 FINDINGS/IMPRESSION: Left-sided AICD. The lungs are free of c onsolidating opacities. There is no significant pneumothorax. Small bilateral pleural effusions, right greater than left. The cardiomediastinal silhouette is stable. Mild pulmonary vascular congestion. Finalized by: Lan Stevens MD on 2020 9:50 AM OBJECTIVE C DEVELOPER Patient/Procedure Information: [facility] MRN/ABBEY: [id number] Order Number: [id number] Accession Number: [id number] Ordering Provider: JUAN SANDERS Authorizing Provider: JUAN SANDERS Performing Organization Address City/State/[place] Phone Number [id number] RENAL FUNCTION PANEL (10/02/2020 9:21 AM OBJECTIVE C DEVELOPER) Pathologist Sig nature Glucose 227 (H) 70 - 100 mg/dL [address] BUN 20 6 - 22 mg/dL [address] Creatinine 1.03 0.80 - 1.[address] mg/dL BUN/Creatinine Ratio 19.4 10.0 - 25.[address] Sodium 129 (L) 135 - 145 meq/L [address] Potassium 4.6 3.5 - 5.3 meq/L [address] Chloride 97 (L) 99 - 110 meq/L [address] CO2 24 20 - 29 meq/L [address] Anion Gap with K 13 6 - 20 meq/L [address] Calcium 8.4 (L) 8.5 - 10.5 mg/dL [address] Phosphorus 3.2 2.5 - 4.5 mg/dL [address] Albumin 3.3 (L) 3.5 - 5.0 g/dL [address] Corrected Calcium 9.0 8.5 - 10.5 mg/dL [address] Age 80 Years [place] [address] [facility] eGFR Non- 69 >=[address] [place] mL/min/1.73m2 eGFR 84 >=[address] mL/min/1.73m2 Specimen Blood - Blood specimen (specimen) Performing Organization Address City/State/Zipcode Phone Number [address] [place] [address], [place] [address] PROTIME/INR (10/02/2020 7:11 AM OBJECTIVE C DEVELOPER) Pathologist Sig nature Protime 27.4 (H) 12.0 - 14.[address] INR 2.7 2.0 - 3.[address] Specimen Blood - Blood specimen (specimen) Narrative Performed At Normal INR reference range (patients not on oral antic oagulants) [address] 0.9-1.1. INR Standard Intensity = (2.0 - 3.0) INR Higher Intensity = (2.5 - 3.5) Performing Organization Address [facility] Phone Number [address] [place] [address] GLUCOSE BY METER, POCT (10/02/2020 5:29 AM OBJECTIVE C DEVELOPER) Pathologist Sig nature Glucose POC 77 70 - 99 mg/dL [facility] POINT OF CARE TESTING Specimen Blood - Blood specimen (specimen) Performing Organization Address [facility] Phone Number [facility] POINT OF [address] [place] [address], [place] [address] CARE TESTING GLUCOSE BY METER, POCT (10/01/2020 8:22 PM OBJECTIVE C DEVELOPER) Pathologist Sig nature Glucose POC 202 (H) 70 - 99 mg/dL [facility] POINT OF CARE TESTING Specimen Blood - Blood specimen (specimen) Performing Organization Address [facility] Phone Number [facility] POINT OF [address] [place] [address] [place] [address] CARE TESTING GLUCOSE BY METER, POCT (10/01/2020 4:57 PM OBJECTIVE C DEVELOPER) Pathologist Sig nature Glucose POC 156 (H) 70 - 99 mg/dL [facility] POINT OF CARE TESTING Specimen Blood - Blood specimen (specimen) Performing Organization Address [facility] Phone Number [facility] POINT OF [address] [place] [address], [place] [address] CARE TESTING GLUCOSE BY METER, POCT (10/01/2020 4:29 PM OBJECTIVE C DEVELOPER) Pathologist Sig nature Glucose POC 159 (H) 70 - 99 mg/dL [facility] POINT OF CARE TESTING Specimen Blood - Blood specimen (specimen) Performing Organization Address [facility]/[place] Phone Number [facility] POINT OF [address] [place] [address] CARE TESTING GLUCOSE BY METER, POCT (10/01/2020 12:02 PM OBJECTIVE C DEVELOPER) Pathologist Sig nature Glucose POC 91 70 - 99 mg/dL [facility] POINT OF CARE TESTING Specimen Blood - Blood specimen (specimen) Performing Organization Address [facility] Phone Number [facility] POINT OF [address] [place] [address], [place] [address] CARE TESTING PROTIME/INR (10/01/2020 7:13 AM OBJECTIVE C DEVELOPER) Pathologist Sig nature Protime 28.5 (H) 12.0 - 14.[address] INR 2.8 2.0 - 3.[address] Specimen Blood - Blood specimen (specimen) Narrative Performed At Normal INR reference range (patients not on oral antic oagulants) [address] 0.9-1.1. INR Standard Intensity = (2.0 - 3.0) INR Higher Intensity = (2.5 - 3.5) Performing Organization Address [facility] Number [address] [address] GLUCOSE BY METER, POCT (10/01/2020 5:56 AM OBJECTIVE C DEVELOPER) Pathologist Sig nature Glucose POC 108 (H) 70 - 99 mg/dL [facility] POINT OF CARE TESTING Specimen Blood - Blood specimen (specimen) Performing Organization Address [facility]/[place] Phone Number [facility] POINT OF [address] [place] [address], [place] [address] CARE TESTING GLUCOSE BY METER, POCT (09/30/2020 9:31 PM OBJECTIVE C DEVELOPER) Pathologist Sig nature Glucose POC 226 (H) 70 - 99 mg/dL [facility] POINT OF CARE TESTING Specimen Blood - Blood specimen (specimen) Performing Organization Address [facility] Phone Number [facility] POINT OF [address] [place] [address] CARE TESTING GLUCOSE BY METER, POCT (09/30/2020 5:07 PM OBJECTIVE C DEVELOPER) Pathologist Sig nature Glucose POC 160 (H) 70 - 99 mg/dL [facility] POINT OF CARE TESTING Specimen Blood - Blood specimen (specimen) Performing Organization Address City/[facility] Phone Number [facility] [address]INT OF [address], [place] [address] CARE TESTING GLUCOSE BY METER, POCT (09/30/2020 11:53 AM OBJECTIVE C DEVELOPER) Pathologist Sig nature Glucose POC 102 (H) 70 - 99 mg/dL [facility] O POINT OF CARE TESTING Specimen Blood - Blood specimen (specimen) Performing Organization Address [facility]/[place] Phone Number [facility] POINT OF [address] [place] [address], [place] [address] CARE TESTING RENAL FUNCTION PANEL (09/30/2020 6:52 AM OBJECTIVE C DEVELOPER) Pathologist Sig nature Glucose 95 70 - 100 mg/dL [place] [address] [facility] BUN 23 (H) 6 - 22 mg/dL [place] [address] [facility] Creatinine 1.17 0.80 - 1.[address] mg/dL BUN/Creatinine Ratio 19.7 10.0 - 25.[address] Sodium 133 (L) 135 - 145 meq/L [address] Potassium 3.6 3.5 - 5.3 meq/L [address] Chloride 97 (L) 99 - 110 meq/L [address] CO2 27 20 - 29 meq/L [address] Anion Gap with K 13 6 - 20 meq/L [address] Calcium 8.9 8.5 - 10.5 mg/dL [address] Phosphorus 3.9 2.5 - 4.5 mg/dL [address] Albumin 3.7 3.5 - 5.0 g/dL [address] Corrected Calcium 9.1 8.5 - 10.5 mg/dL [address] Age [address] eGFR Non- 60 >=60 [place] [address] [facility] [place] mL/min/1.73m2 eGFR 72 >=[address] mL/min/1.73m2 Specimen Blood - Blood specimen (specimen) Performing Organization Address [facility] Phone Number [address] [place] [address] COMPLETE BLOOD COUNT WITHOUT DIFFERENTIAL (09/30/2020 6:52 AM OBJECTIVE C DEVELOPER) Pathologist Sig nature WBC 5.4 4.0 - 11.0 K/uL [address] RBC 4.47 4.40 - 5.80 M/uL [address] Hemoglobin 14.3 13.5 - 17.5 g/dL [address] Hematocrit 42.3 40.0 - 50.0 % [address] MCV 94.6 80.0 - 98.[address] MCH 32.0 25.5 - 34.[address] MCHC 33.8 31.5 - 36.5 g/dL [address] RDW-CV 13.9 11.5 - 15.5 % [address] RDW-SD 48.5 35.5 - 50.[address] Platelet Count 233 140 - 400 K/uL [address] MPV 10.2 8.5 - 12.[address] Specimen Blood - Blood specimen (specimen) Performing Organization Address [facility] Phone Number [address] [address] PROTIME/INR (09/30/2020 6:52 AM OBJECTIVE C DEVELOPER) Pathologist Sig nature Protime 27.4 (H) 12.0 - 14.[address] INR 2.7 2.0 - 3.[address] Specimen Blood - Blood specimen (specimen) Narrative Performed At Normal INR reference range (patients not on oral antic oagulants) [address] 0.9-1.1. INR Standard Intensity = (2.0 - 3.0) INR Higher Intensity = (2.5 - 3.5) Performing Organization Address [facility] Phone Number [address] [place] [address], [place] [address] GLUCOSE BY METER, POCT (09/30/2020 6:22 AM OBJECTIVE C DEVELOPER) Pathologist Sig nature Glucose POC 81 70 - 99 mg/dL [facility] POINT OF CARE TESTING Specimen Blood - Blood specimen (specimen) Performing Organization Address [facility] Phone Number [facility] POINT OF [address] [place] [address] CARE TESTING GLUCOSE BY METER, POCT (09/29/2020 10:36 PM OBJECTIVE C DEVELOPER) Pathologist Sig nature Glucose POC 173 (H) 70 - 99 mg/dL [facility] POINT OF CARE TESTING Specimen Blood - Blood specimen (specimen) Performing Organization Address [facility] Phone Number [facility] POINT OF [address] [place] [address], [place] [address] CARE TESTING GLUCOSE BY METER, POCT (09/29/2020 6:25 PM OBJECTIVE C DEVELOPER) Pathologist Sig nature Glucose POC 137 (H) 70 - 99 mg/dL [facility] POINT OF CARE TESTING Specimen Blood - Blood specimen (specimen) Performing Organization Address [facility] Phone Number [facility] POINT OF [address] [place] [address] CARE TESTING GLUCOSE BY METER, POCT (09/29/2020 6:08 PM OBJECTIVE C DEVELOPER) Pathologist Sig nature Glucose POC 128 (H) 70 - 99 mg/dL [facility] POINT OF CARE TESTING Specimen Blood - Blood specimen (specimen) Performing Organization Address [facility] Phone Number [facility] POINT OF [address] [place] [address] CARE TESTING GLUCOSE BY METER, POCT (09/29/2020 11:21 AM OBJECTIVE C DEVELOPER) Pathologist Sig nature Glucose POC 234 (H) 70 - 99 mg/dL [facility] POINT OF CARE TESTING Specimen Blood - Blood specimen (specimen) Performing Organization Address [facility] Phone Number [facility] POINT OF [address] [place] [address] CARE TESTING BASIC METABOLIC PANEL (09/29/2020 7:19 AM OBJECTIVE C DEVELOPER) Pathologist Sig nature Glucose 80 70 - 100 mg/dL [facility] BUN 22 6 - 22 mg/dL [facility] Creatinine 1.24 0.80 - 1.[address] mg/dL BUN/Creatinine Ratio 17.7 10.0 - 25.[address] Sodium 133 (L) 135 - 145 meq/L [address] Potassium 3.7 3.5 - 5.3 meq/L [address] Chloride 99 99 - 110 meq/L [address] CO2 24 20 - 29 meq/L [address] Anion Gap with K 14 6 - 20 meq/L [address] Calcium 8.6 8.5 - 10.5 mg/dL [address] Age [address] eGFR Non- 56 (L) >=[address] Bur[place] mL/min/1.73m2 eGFR 68 >=[address] mL/min/1.73m2 Specimen Blood - Blood specimen (specimen) Performing Organization Address [facility] Phone Number [address] [place] [address], [place] [address] PROTIME/INR (09/29/2020 7:19 AM OBJECTIVE C DEVELOPER) Pathologist Sig nature Protime 26.6 (H) 12.0 - 14.[address] INR 2.6 2.0 - 3.[address] Specimen Blood - Blood specimen (specimen) Narrative Performed At Normal INR reference range (patients not on oral antic oagulants) [address] 0.9-1.1. INR Standard Intensity = (2.0 - 3.0) INR Higher Intensity = (2.5 - 3.5) Performing Organization Address [facility] Phone Number [address] [place] [address], [place] [address] GLUCOSE BY METER, POCT (09/29/2020 5:54 AM OBJECTIVE C DEVELOPER) Pathologist Sig nature Glucose POC 75 70 - 99 mg/dL [facility] O POINT OF CARE TESTING Specimen Blood - Blood specimen (specimen) Performing Organization Address [facility] Phone Number [facility] POINT OF [address] [place] [address] CARE TESTING GLUCOSE BY METER, POCT (09/28/2020 9:28 PM OBJECTIVE C DEVELOPER) Pathologist Sig nature Glucose POC 190 (H) 70 - 99 mg/dL [facility] POINT OF CARE TESTING Specimen Blood - Blood specimen (specimen) Performing Organization Address [facility] Phone Number [facility] POINT OF [address] [place] [address], [place] [address] CARE TESTING GLUCOSE BY METER, POCT (09/28/2020 5:43 PM OBJECTIVE C DEVELOPER) Pathologist Sig nature Glucose POC 213 (H) 70 - 99 mg/dL [facility] POINT OF CARE TESTING Specimen Blood - Blood specimen (specimen) Performing Organization Address [facility] Phone Number [facility] POINT OF [address] [place] [address] CARE TESTING GLUCOSE BY METER, POCT (09/28/2020 4:36 PM OBJECTIVE C DEVELOPER) Pathologist Sig nature Glucose POC 230 (H) 70 - 99 mg/dL [facility] POINT OF CARE TESTING Specimen Blood - Blood specimen (specimen) Performing Organization Address [facility] Phone Number [facility] POINT OF [address] [place] [address] CARE TESTING TROPONIN I (09/28/2020 1:11 PM OBJECTIVE C DEVELOPER) Pathologist Sig nature Troponin I 0.393 (H) 0.000 - 0.028 ng/mL [address] Specimen Blood - Blood specimen (specimen) Performing Organization Address [facility] Phone Number [place] [address] [place] [address] EKG (09/28/2020 11:45 AM OBJECTIVE C DEVELOPER) Pathologist Sig nature EKG W[employer] Ventricular-paced rhythm with occasional Premature lori tricular complexes Underlying atrial flutter Abnormal ECG Ventricular Rate: 69 BPM Atrial Rate: 78 BPM QRS Duration: 206 ms Q-T Interval: 546 ms QTc Calculation(Bazett): 585 ms Calculated P [place]: -105 degrees Calculated R [place]: -83 degrees Calculated T [place]: 90 degrees Specimen Narrative Performed At This result has an attachment that is no t available. Performing Organization Address [facility] Phone Number [employer] GLUCOSE BY METER, POCT (09/28/2020 11:32 AM OBJECTIVE C DEVELOPER) Pathologist Sig nature Glucose POC 78 70 - 99 mg/dL [facility] POINT OF CARE TESTING Specimen Blood - Blood specimen (specimen) Performing Organization Address [facility] Phone Number [facility] POINT OF [address] [place] [address], [place] [address] CARE TESTING GLUCOSE BY METER, POCT (09/28/2020 10:46 AM OBJECTIVE C DEVELOPER) Pathologist Sig nature Glucose POC 80 70 - 99 mg/dL [facility] POINT OF CARE TESTING Specimen Blood - Blood specimen (specimen) Performing Organization Address [facility] Phone Number [facility] POINT OF [address] [place] [address], [place] [address] CARE TESTING GLUCOSE BY METER, POCT (09/28/2020 9:31 AM OBJECTIVE C DEVELOPER) Pathologist Sig nature Glucose POC 85 70 - 99 mg/dL [facility] POINT OF CARE TESTING Specimen Blood - Blood specimen (specimen) Performing Organization Address [facility] Phone Number [facility] POINT OF [address] [place] [address], [place] [address] CARE TESTING LAB ONLY-COMPLETE BLOOD COUNT WITH DIFFERENTIAL (09/28/2020 7:49 AM OBJECTIVE C DEVELOPER) Pathologist Sig nature WBC 5.7 4.0 - 11.0 K/uL [address] RBC 4.06 (L) 4.40 - 5.[address] M/uL Hemoglobin 13.1 (L) 13.5 - 17.[address] g/dL Hematocrit 39.0 (L) 40.0 - 50.0 % [address] MCV 96.1 80.0 - 98.[address] MCH 32.3 25.5 - 34.[address] MCHC 33.6 31.5 - 36.[address] g/dL RDW-CV 14.2 11.5 - 15.5 % [address] RDW-SD 50.3 (H) 35.5 - 50.[address] Platelet Count 214 140 - 400 K/uL [address] MPV 10.2 8.5 - 12.[address] Seg Neut Absolute 3.6 1.8 - 8.0 K/uL [address] Lymphocytes Absolute 1.2 0.8 - 4.1 K/uL [place] [address] [facility] Monocytes Absolute 0.5 0.0 - 1.0 K/uL [address] Eosinophils Absolute 0.2 0.0 - 0.7 K/uL [place] [address] [facility] Basophil Absolute 0.1 0.0 - 0.2 K/uL [address] Immature Granulocyte 0.01 0.00 - 0.[address] Absolute K/uL Neutrophils Abs. 3,600 /uL [address] (Segs and Bands) Neutrophils Percent 63.9 % [address] Lymphocytes Percent 21.4 % [address] Monocytes Percent 9.5 % [address] Immature Granulocyte 0.2 % [address] Percent Eosinophils Percent 4.1 % [address] Basophil Percent 0.9 % [address] Nucleated RBC 0 /[address] Specimen Blood - Blood specimen (specimen) Performing Organization Address [facility] Phone Number [address] [place] [address] PROTIME/INR (09/28/2020 7:49 AM OBJECTIVE C DEVELOPER) Pathologist Sig nature Protime 25.9 (H) 12.0 - 14.[address] INR 2.5 2.0 - 3.[address] Specimen Blood - Blood specimen (specimen) Narrative Performed At Normal INR reference range (patients not on oral antic oagulants) [address] 0.9-1.1. INR Standard Intensity = (2.0 - 3.0) INR Higher Intensity = (2.5 - 3.5) Performing Organization Address [facility] Phone Number [address] [place] [address] TROPONIN I (09/28/2020 7:49 AM OBJECTIVE C DEVELOPER) Pathologist Sig nature Troponin I 0.398 (H) 0.000 - 0.028 ng/mL [address] Specimen Blood - Blood specimen (specimen) Performing Organization Address [facility] Phone Number [address] [address] HEPATIC FUNCTION PANEL (09/28/2020 7:49 AM OBJECTIVE C DEVELOPER) Pathologist [facility] Alkaline Phosphatase 78 30 - 150 U/L [address] AST - SGOT 20 0 - 35 U/L [address] ALT - SGPT 17 0 - 55 U/L [address] Bilirubin Total 0.7 0.2 - 1.2 mg/dL [address] Bilirubin Indirect 0.4 0.0 - 0.8 mg/dL [address] Bilirubin Direct 0.3 0.0 - 0.4 mg/dL [address] Albumin 3.5 3.5 - 5.0 g/dL [address] Protein Total 6.2 6.0 - 8.2 g/dL [address] Specimen Blood - Blood specimen (specimen) Performing Organization Address [facility] Phone Number [address] [address] BASIC METABOLIC PANEL (09/28/2020 7:49 AM OBJECTIVE C DEVELOPER) [facility] Glucose 88 70 - 100 mg/dL [address] BUN 17 6 - 22 mg/dL [address] Creatinine 1.07 0.80 - 1.[address] mg/dL BUN/Creatinine Ratio 15.9 10.0 - 25.[address] Sodium 134 (L) 135 - 145 meq/L [address] Potassium 3.6 3.5 - 5.3 meq/L [address] Chloride 98 (L) 99 - 110 meq/L [address] CO2 27 20 - 29 meq/L [address] Anion Gap with K 13 6 - 20 meq/L [address] Calcium 8.4 (L) 8.5 - 10.5 mg/dL [address] Age [address] eGFR Non- 66 >=60 [facility] [place] mL/min/1.73m2 eGFR 80 >=[address] mL/min/1.73m2 Specimen Blood - Blood specimen (specimen) Performing Organization Address [facility] Phone Number [address] [place] [address] GLUCOSE BY METER, POCT (09/28/2020 7:42 AM OBJECTIVE C DEVELOPER) Pathologist Sig nature Glucose POC 83 70 - 99 mg/dL [facility] POINT OF CARE TESTING Specimen Blood - Blood specimen (specimen) Performing Organization Address [facility] Phone Number [facility] POINT OF [address] [place] [address] CARE TESTING GLUCOSE BY METER, POCT (09/28/2020 5:39 AM OBJECTIVE C DEVELOPER) Pathologist Sig nature Glucose POC 96 70 - 99 mg/dL [facility] POINT OF CARE TESTING Specimen Blood - Blood specimen (specimen) Performing Organization Address [facility] Phone Number [facility] POINT OF [address] [place] [address] CARE TESTING LAB ONLY-COMPLETE BLOOD COUNT WITH DIFFERENTIAL (09/27/2020 10:13 PM OBJECTIVE C DEVELOPER) Pathologist Sig nature WBC 6.0 4.0 - 11.0 K/uL [address] RBC 4.07 (L) 4.40 - 5.[address] M/uL Hemoglobin 13.1 (L) 13.5 - 17.[address] g/dL Hematocrit 38.1 (L) 40.0 - 50.0 % [address] MCV 93.6 80.0 - 98.[address] MCH 32.2 25.5 - 34.[address] MCHC 34.4 31.5 - 36.[address] g/dL RDW-CV 13.9 11.5 - 15.5 % [address] RDW-SD 47.5 35.5 - 50.[address] Platelet Count 199 140 - 400 K/uL [address] MPV 10.3 8.5 - 12.[address] Seg Neut Absolute 3.8 1.8 - 8.0 K/uL [address] Lymphocytes Absolute 1.4 0.8 - 4.1 K/uL [place] [address] [facility] Monocytes Absolute 0.6 0.0 - 1.0 K/uL [address] Eosinophils Absolute 0.2 0.0 - 0.7 K/uL [place] [address] [facility] Basophil Absolute 0.1 0.0 - 0.2 K/uL [address] Immature Granulocyte 0.01 0.00 - 0.06 [place] [address] [facility] Absolute K/uL Neutrophils Abs. 3,800 /uL [address] (Segs and Bands) Neutrophils Percent 63.7 % [address] Lymphocytes Percent 23.1 % [address] Monocytes Percent 9.2 % [address] Immature Granulocyte 0.2 % [address] Percent Eosinophils Percent 3.0 % [address] Basophil Percent 0.8 % [address] Nucleated RBC 0 /[address] Specimen Blood - Blood specimen (specimen) Performing Organization Address [facility] Phone Number [address] [address] TSH REFLEX (09/27/2020 10:13 PM OBJECTIVE C DEVELOPER) Pathologist Sig nature TSH 1.42 0.40 - 5.00 uIU/mL [address] Specimen Blood - Blood specimen (specimen) Performing Organization Address [facility] Phone Number [address] [address] MAGNESIUM (09/27/2020 10:13 PM OBJECTIVE C DEVELOPER) Pathologist Sig nature Magnesium 2.0 1.8 - 2.4 mg/dL [address] Specimen Blood - Blood specimen (specimen) Performing Organization Address [facility] Phone Number [address] [address] PROTIME/INR (09/27/2020 10:13 PM OBJECTIVE C DEVELOPER) Pathologist Sig nature Protime 24.9 (H) 12.0 - 14.[address] INR 2.3 2.0 - 3.[address] Specimen Blood - Blood specimen (specimen) Narrative Performed At Normal INR reference range (patients not on oral antic oagulants) [address] 0.9-1.1. INR Standard Intensity = (2.0 - 3.0) INR Higher Intensity = (2.5 - 3.5) Performing Organization Address [facility] Phone Number [address] [place] [address], [place] [address] TROPONIN I (09/27/2020 10:13 PM OBJECTIVE C DEVELOPER) Pathologist Sig [facility] Troponin I 0.378 (H) 0.000 - 0.028 ng/mL [address] Specimen Blood - Blood specimen (specimen) Performing Organization Address [facility] Phone Number [address] [place] [address], [place] [address] COMPREHENSIVE METABOLIC PANEL (09/27/2020 10:13 PM OBJECTIVE C DEVELOPER) Pathologist Sig nature Glucose 186 (H) 70 - 100 mg/dL [address] BUN 15 6 - 22 mg/dL [address] Creatinine 1.14 0.80 - 1.[address] mg/dL BUN/Creatinine Ratio 13.2 10.0 - 25.[address] Sodium 131 (L) 135 - 145 meq/L [address] Potassium 3.4 (L) 3.5 - 5.3 meq/L [address] Chloride 97 (L) 99 - 110 meq/L [address] CO2 25 20 - 29 meq/L [address] Anion Gap with K 12 6 - 20 meq/L [address] Calcium 8.3 (L) 8.5 - 10.5 [place] [address] [facility] mg/dL Protein Total 6.2 6.0 - 8.2 g/dL [address] Albumin 3.5 3.5 - 5.0 g/dL [address] Alkaline Phosphatase 86 30 - 150 U/L [address] AST - SGOT 18 0 - 35 U/L [address] ALT - SGPT 16 0 - 55 U/L [address] Bilirubin Total 0.7 0.2 - 1.2 mg/dL [address] Corrected Calcium 8.7 8.5 - 10.[address] mg/dL Age [address] eGFR Non- 61 >=[address] [place] mL/min/1.73m2 eGFR 75 >=[address] mL/min/1.73m2 Specimen Blood - Blood specimen (specimen) Performing Organization Address [facility] Phone Number [address] [place] [address], [place] [address] GLUCOSE BY METER, POCT (09/27/2020 8:50 PM OBJECTIVE C DEVELOPER) Pathologist Sig nature Glucose POC 168 (H) 70 - 99 mg/dL [facility] POINT OF CARE TESTING Specimen Blood - Blood specimen (specimen) Performing Organization Address [facility] Phone Number [facility] POINT OF [address] [place] [phone] CARE TESTING GLUCOSE BY METER, POCT (09/27/2020 5:19 PM OBJECTIVE C DEVELOPER) Pathologist Sig nature Glucose POC 114 (H) 70 - 99 mg/dL [facility] POINT OF CARE TESTING Specimen Blood - Blood specimen (specimen) Performing Organization Address [facility] Phone Number 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) documented in this encounter Discharge Diagnoses Not on filedocumented in this encounter Administered Medications Medication Order MAR Action Action Date Dose Rate Site .Anticoagulation (WARFARIN) therapy nurs ing reminder Anti-coag reminder, First dose on Sun09/28/20 at 1000, Until Discontinued acetaminophen (TYLENOL) tablet 650 mg 650 mg, Oral, Every four hours prn, Starting Sun at 1622, Until Discontinued, mild pain, fever, pain scale 3 or less, Pain stratification is defined as follows for either analog sca le (0-10) or critical care pain observation tool (CPOT, 0-8). a. No pain (0) b. Mil d pain level (1-3) c. Moderate pain level (4-6) d. Severe pain level (greater than or equal to 7) Adult patients: Total dose of acetaminophen from all acetaminophen containing pro ducts should not exceed 4 grams (4,000 mg) per day. Pediatric Haleigh ents 0 - 3 months: Maximum of 60 mg/kg/24 hours of acetaminophen. Pediatric Patients older than 3 months: Maximum of 75 mg/kg/24 hours of acetaminophen (Never exceeding 4 gra ms/day)., aspirin chewable tablet 81 mg Given 10/03/2020 7:36 AM OBJECTIVE C DEVELOPER 81 mg 81 mg, Oral, DAILY, First dose on Sun09/28/20 at 0900, Until Discontinued Given 10/02/2020 8:57 AM OBJECTIVE C DEVELOPER 81 mg Given 10/01/2020 8:45 AM OBJECTIVE C DEVELOPER 81 mg atorvaSTATin (LIPITOR) tablet 40 mg Given 10/03/2020 7:36 AM OBJECTIVE C DEVELOPER 40 mg 40 mg, Oral, DAILY, First dose on Sun09/28/20 at 0900, Until Discontinued Given 10/02/2020 8:57 AM OBJECTIVE C DEVELOPER 40 mg Given 10/01/2020 8:45 AM OBJECTIVE C DEVELOPER 40 mg bisacodyl (DULCOLAX) suppository 10 mg 10 mg, Rectal, One time a day prn, Starting Sun 1 at 1715, Until Discontinued, constipation, Use SECOND for constipatio n. If patient cannot take oral medications, use first for constipation., carbohydrate 15 g 15 g, Oral, PRN per parameter, Starting Sun09/27/20 at 1720, Until Discontinued, low blood glucose, Give 15 grams of carb ohydrate if blood glucose is less than 70 [...] 1 hour. See hypoglycemia treatment on cardex. S ources of 15 grams carbohydrate: a. 4 oz of fruit juice or b. 4 oz of soda pop (NOT diet) or c. 1 tablespoon of honey, carVEDilol (COREG) tablet 3.125 mg Given 10/03/2020 7:36 AM OBJECTIVE C DEVELOPER 3.125 mg 3.125 mg, Oral, Two times a day with meals, First dose (after last modification) on Sun09/29/20 at 1730, Until Discontinued, Take with food. Hold if SBP less than 100, Given 10/02/2020 5:17 PM OBJECTIVE C DEVELOPER 3.125 mg Given 10/02/2020 8:57 AM OBJECTIVE C DEVELOPER 3.125 mg dextrose 50% IV solution 50 mL 50 mL (25 g), IV, PRN per parameter, Starting 09/27 at 1720, Until Discontinued, low blood glucose, 50 mL, Give if blood glucose is less than 70 mg/dL, patient is unresponsive or NPO, a nd has IV access. Recheck blood glucose in 15 minutes and call MD. Repeat dose if r echeck less than 70 mg/dL and call MD. If recheck is greater than 70 mg/dL and abl e to take food or oral meds, give 15 gram carbohydrate if meal or snack due in mor e than an hour. Serve meal or snack if due in less than 1 hour. See hypoglycemia treatment on car dex., dextrose chewable tablet 16 g 16 g (4 tablet), Oral, PRN per parameter, Starting Sun09/27/20 at 1720, Until Discontinued, low blood glucose, Chew before swallowin g. Give 15 gram of carbohydrate if blood glucose is less th an 70 mg/dL, patient is responsive and able to take food or oral meds. Recheck blood glucose in 15 minutes. Repeat 15 gram carbohydrate if recheck is less than 70 mg/dL and call MD. If recheck is greater than 70 mg/dL and able to take food or o ral meds, give 15 gram carbohydrate if meal or snack due in more than an hour. Serve meal or snack if due in less than 1 hour. See hypoglycemia treatment on cardex. (S ources of 15 gram carbohydrate: 4 oz fruit juice or 4 oz soda pop (NOT diet) or 1 t ablespoonful honey or 4 glucose tablets)., docusate sodium (THEREVAC-SB MINI;ENEMEE Z MINI) 283 MG enema 1 enema 1 enema, Rectal, One time a day prn, Starting 09/27 at 1715, Until Discontinued, constipation, Use THIRD for constipation - if no BM 8 hours after dulcolax suppository. If patient cannot take oral medi cations, use second for constipation., glucagon for injection 1 mg vial 1 mg 1 mg, Intramuscular, PRN per parameter, Starting Sun at 1720, Until Discontinued, low blood glucose, Give if blood glucose less than 70 mg/dL, patient is unresponsive or NPO, and has no IV ac cess. Establish IV access. Recheck blood glucose in 15 minutes and call MD. If r echeck is greater than 70 mg/dL and able to take food or oral meds, give 15 gram car bohydrate if meal or snack due in more than an hour. Serve meals or snack if due in less than 1 ho ur. See hypoglycemia treatment on cardex. Reconstitute vial with 1 mL of sterile water for injection for reconstitution for a final concentra tion of 1 mg/mL. Shake vial gently. Use immediately and discard unused portion. Reconstitute with 1 mL of sterile water for injection to yield 1 mg/mL. Shake vial gently. Use immediately and discard unused portion., insulin aspart (NovoLOG) SQ correction Given 10/01/2020 6:54 PM OBJECTIVE C DEVELOPER 3 Units scale (Adult) 3-16 Units, Subcutaneous, Three times a day, First dose on Sun09/27/20 at 1730, Until Discontinued, 0.16 mL, Give this dose whether patient is eating or patient is NPO HIGH DOSE insulin aspart (NovoLOG) Subcutaneous Correction Scale: [place] Blood Glucose = Insulin Dose 150-199 3 units 200-249 5 units 250-299 9 units 300-349 13 units Over 349 16 units, Given 09/30/2020 6:52 PM OBJECTIVE C DEVELOPER 3 Units Given 09/29/2020 11:25 AM OBJECTIVE C DEVELOPER 5 Units insulin aspart (NovoLOG) SQ injection Given 10/03/2020 7:36 AM OBJECTIVE C DEVELOPER 10 Units 10 Units, Subcutaneous, Three times a day with meals, First dose on Sun09/27/20 at 1730, Until Discontinued, 0.1 mL Given 10/02/2020 5:17 PM OBJECTIVE C DEVELOPER 10 Units Given 10/02/2020 11:47 AM OBJECTIVE C DEVELOPER 10 Units insulin detemir (LEVEMIR) SQ injection Given 10/02/2020 9:02 PM OBJECTIVE C DEVELOPER 40 Units 40 Units, Subcutaneous, Bedtime, First dose on Sun09/27/20 at 2100, Until Discontinued, 0.4 mL, Blood Glucose greater than or equal to 100 mg/dL Do Not Hold If Blood Glucose LESS than 100 mg/dL, if patient changed to NPO, or if tube feedings stopped Immediately notify provider before administration., Given 10/01/2020 9:42 PM OBJECTIVE C DEVELOPER 40 Units Given 09/30/2020 9:34 PM OBJECTIVE C DEVELOPER 40 Units metoclopramide (REGLAN) inj soln 5 mg 5 mg, IV, Every six hours prn, Starting Sun09/27/20 at 1622, Until Discontinued, nausea, vomiting, 1 mL, Use SECOND. If ineffective and ondansetron used, call physician for alternative If preference is to further dilute for IV administration: First draw up patient-specific dose, then dilute to 10 mL with 0.9% sodium chloride., omeprazole (priLOSEC) capsule 40 mg Given 10/02/2020 5:17 PM OBJECTIVE C DEVELOPER 40 mg 40 mg, Oral, One time a day with evening meal, First dose on Sun09/27/20 at 1730, Until Discontinued, Swallow cap whole. Do not crush, chew or open., Given 10/01/2020 5:37 PM OBJECTIVE C DEVELOPER 40 mg Given 09/30/2020 4:01 PM OBJECTIVE C DEVELOPER 40 mg ondansetron (ZOFRAN ODT) dispersible tab let 4 mg 4 mg, Oral, Four times a day prn, Starti ng Sun09/27/20 at 1715, Until Discontinued, nausea, vomiting, Use FIRST for nausea / vomiting. If ineffective after 30 minutes use ondansetron IV, ondansetron (ZOFRAN) injection solution 4 mg 4 mg, IV, Four times a day prn, Starting 09/27/20 at 1715, Until Discontinued, nausea, vomiting, 2 mL, Use SECOND for n ausea / vomiting. If ineffective after 30 minutes and ondansetron ODT used, call p hysician for alternative. If preference is to further dilute for IV administration: First draw up patient-specific dose, then dilute to 10 mL with 0.9% sodium chloride., potassium chloride (KLOR-CON M20) CR tablet Given 09/07 7:36 AM OBJECTIVE C DEVELOPER 20 mEq 20 mEq 20 mEq, Oral, Two times a day, First dose on Sun09/27/20 at 2100, Until Discontinued, Tablet may be broken in half, but should not be crushed or chewed. Tablet may be dissolved in 4 oz of water. DO NOT give via feeding tube route as this can clog the tube., Given 10/02/2020 9:02 PM OBJECTIVE C DEVELOPER 20 mEq Given 10/02/2020 8:57 AM OBJECTIVE C DEVELOPER 20 mEq ramipril (ALTACE) capsule 1.25 mg Given 10/02/2020 9:02 PM OBJECTIVE C DEVELOPER 1.25 mg 1.25 mg, Oral, Bedtime, First dose on 10/02/20 at 2100, Until Discontinued senna-docusate sodium (SENOKOT-S;PERICOL KATEY) tablet 2 tablet 2 tablet, Oral, Two times a day prn, Starting Mon 09/27 at 1715, Until Discontinued, constipation, Use FIRST fo r constipation unless patient cannot take oral medications., sodium chloride 0.9% flush (adult) 10 mL Given 10/03/2020 7:37 AM OBJECTIVE C DEVELOPER 10 mL 10 mL, IV, Two times a day and prn, First dose on Sun09/27/20 at 2100, Until Discontinued, 10 mL, Flush IV line as scheduled and as often as necessary before and after meds., Given 10/02/2020 9:03 PM OBJECTIVE C DEVELOPER 10 mL Given 10/02/2020 8:57 AM OBJECTIVE C DEVELOPER 10 mL torsemide (DEMADEX) tablet 20 mg Given 10/03/2020 7:36 AM OBJECTIVE C DEVELOPER 20 mg 20 mg, Oral, Two times a day diuretic, First dose on Sun09/28/20 at 1600, Until Discontinued Given 10/02/2020 5:17 PM OBJECTIVE C DEVELOPER 20 mg Given 10/02/2020 8:57 AM OBJECTIVE C DEVELOPER 20 mg umeclidinium-vilanterol (ANORO ELLIPTA) Given 10/03/2020 9:20 A M OBJECTIVE C DEVELOPER 1 puff 62.5-25 mcg/Inh inhaler 1 puff 1 puff, Inhalation, DAILY, First dose on Sun09/28/20 at 0900, Until Discontinued, Formulary Substitute for tiotropium-olodaterol (Stiolto), Given 10/02/2020 8:28 AM OBJECTIVE C DEVELOPER 1 puff Given 10/01/2020 9:03 AM OBJECTIVE C DEVELOPER 1 puff Medication Order MAR Action Action Date Dose Rate Site carVEDilol (COREG) tablet 12.5 Given 09/28/2020 5:40 PM OBJECTIVE C DEVELOPER 12. 5 mg mg 12.5 mg, Oral, Two times a day with meals, First dose on Sun09/27/20 at 1730, Until Discontinued, Take with food. Take with food., Given 09/28/2020 8:00 AM OBJECTIVE C DEVELOPER 12.5 mg Given 09/27/2020 6:29 PM OBJECTIVE C DEVELOPER 12.5 mg dilTIAZem (CARDIZEM CD) extended release Given 09/28/2020 8:53 AM OBJECTIVE C DEVELOPER 240 mg capsule 240 mg 240 mg, Oral, DAILY, First dose on Sun09/28/20 at 0900, Until Discontinued, Swallow capsule whole. Do not crush, chew or open., furosemide (LASIX) injection solution 40 mg Given 09/28/2020 8:54 AM OBJECTIVE C DEVELOPER 40 mg 40 mg, IV, Two times a day diuretic, First dose on Sun09/27/20 at 1730, Until Discontinued, 4 mL, If preference is to further dilute for IV administration: First draw up patient-specific dose, then dilute to 10 mL with 0.9% sodium chloride. Administer SLOW IV push., Given 09/27/2020 5:42 PM OBJECTIVE C DEVELOPER 40 mg metOLazone (ZAROXOLYN) tablet 2.5 mg Given 09/28/2020 8:00 AM OBJECTIVE C DEVELOPER 2.5 mg 2.5 mg, Oral, Daily, First dose on Sun09/28/20 at 0730, Until Discontinued, If being given with furosemide or bumetanide, give metolazone 30 minutes prior to furosemide or bumetanide., sacubitril-valsartan (ENTRESTO) 24-26 Given 10/02/2020 9:00 AM OBJECTIVE C DEVELOPER 0.5 tablets MG tablet 0.5 tablet 0.5 tablet, Oral, Two times a day, First dose (after last modification) on Paulette 09/30/20 at 2100, Until Discontinued, Hold if SBP less than 100, Given 10/01/2020 9:42 PM OBJECTIVE C DEVELOPER 0.5 tablets Given 09/30/2020 9:34 PM OBJECTIVE C DEVELOPER 0.5 tablets sacubitril-valsartan (ENTRESTO) 24-26 MG Given 09/28/2020 9 :31 PM OBJECTIVE C DEVELOPER 1 tablet tablet 1 tablet 1 tablet, Oral, Two times a day, First dose on Sun09/28/20 at 1035, Until Discontinued, Hold if SBP less than 100, Given 09/28/2020 12:02 PM OBJECTIVE C DEVELOPER 1 tablet sodium chloride 0.9% (bolus) IV solution 250 Given 10:38 PM OBJECTIVE C DEVELOPER 250 mL mL 250 mL, IV, Bolus, 1 dose, Sun09/28/20 at 2220, 500 mL warfarin (COUMADIN) tablet 2.5 mg Given 10/01/2020 3:35 PM OBJECTIVE C DEVELOPER 2.5 mg 2.5 mg, Oral, Warfarin one time dose, 1 dose, Sun10/01/20 at 1600, If patient is receiving tube feeding, hold tube feeding 1 hour before and 1 hour after warfarin administration. If unable to administer dose intact, wear universal precautions (one pair of gloves)., warfarin (COUMADIN) tablet 5 mg Given 09/27/2020 9:38 PM OBJECTIVE C DEVELOPER 5 mg 5 mg, Oral, Warfarin one time dose, 1 dose, Sun09/27/20 at 2110, If patient is receiving tube feeding, hold tube feeding 1 hour before and 1 hour after warfarin administration. If unable to administer dose intact, wear universal precautions (one pair of gloves)., warfarin (COUMADIN) tablet 5 mg Given 09/28/2020 5:00 PM OBJECTIVE C DEVELOPER 5 mg 5 mg, Oral, Warfarin one time dose, 1 dose, Sun09/28/20 at 1600, If patient is receiving tube feeding, hold tube feeding 1 hour before and 1 hour after warfarin administration. If unable to administer dose intact, wear universal precautions (one pair of gloves)., warfarin (COUMADIN) tablet 5 mg Given 09/29/2020 3:08 PM OBJECTIVE C DEVELOPER 5 mg 5 mg, Oral, Warfarin one time dose, 1 dose, 09/29/20 at 1600, If patient is receiving tube feeding, hold tube feeding 1 hour before and 1 hour after warfarin administration. If unable to administer dose intact, wear universal precautions (one pair of gloves)., warfarin (COUMADIN) tablet 5 mg Given 09/30/2020 4:01 PM OBJECTIVE C DEVELOPER 5 mg 5 mg, Oral, Warfarin one time dose, 1 dose, Paulette 09/30/20 at 1600, If patient is receiving tube feeding, hold tube feeding 1 hour before and 1 hour after warfarin administration. If unable to administer dose intact, wear universal precautions (one pair of gloves)., warfarin (COUMADIN) tablet 5 mg Given 10/02/2020 5:17 PM OBJECTIVE C DEVELOPER 5 mg 5 mg, Oral, Warfarin one time dose, 1 dose, 10/02/20 at 1600, If patient is receiving tube feeding, hold tube feeding 1 hour before and 1 hour after warfarin administration. If unable to administer dose intact, wear universal precautions (one pair of gloves)., warfarin (COUMADIN) tablet 5 mg Given 10/03/2020 10:03 AM OBJECTIVE C DEVELOPER 5 mg 5 mg, Oral, Now, 1 dose, 10/03/20 at 0950, If patient is receiving tube feeding, hold tube feeding 1 hour before and 1 hour after warfarin administration. If unable to administer dose intact, wear universal precautions (one pair of gloves)., documented in this encounter
== END 2020-09-27 15:05 ==
LOC: FB.ED 09:52
DX: I21.4 Non-ST elevation (NSTEMI) myocardial infarction (principal); I11.0 Hypertensive heart disease with heart failure; I50.9 Heart failure, unspecified; I25.10 Atherosclerotic heart disease of native coronary artery without angina pectoris; E11.9 Type 2 diabetes mellitus without complications; J44.9 Chronic obstructive pulmonary disease, unspecified; E78.00 Pure hypercholesterolemia, unspecified; K21.9 Gastro-esophageal reflux disease without esophagitis; M19.90 Unspecified osteoarthritis, unspecified site; E11.51 Type 2 diabetes mellitus with diabetic peripheral angiopathy without gangrene; E66.9 Obesity, unspecified; E11.42 Type 2 diabetes mellitus with diabetic polyneuropathy; E11.319 Type 2 diabetes mellitus with unspecified diabetic retinopathy without macular edema; Z79.4 Long term (current) use of insulin; Z79.01 Long term (current) use of anticoagulants; Z79.899 Other long term (current) drug therapy; Z86.718 Personal history of other venous thrombosis and embolism; Z99.81 Dependence on supplemental oxygen; Z79.82 Long term (current) use of aspirin
CPT/HCPCS: 36415; 71045; 71275; 80053; 82962; 83880; 84484; 85025; 85379; 85610; 85730; 93005; 93010; 96365; 96375; 99285; A9270; J1644; J1940; Q9967

== ENCOUNTER 2020-11-24 15:38 | Emergency (ER) | payer MEDICARE, BC ==
[2020-11-24] MEDS ORDERED: Metolazone 5 MG Tab PO STA (16:12)
[2020-11-24] MEDS ORDERED: Furosemide 40 MG/4 ML VIAL IVPUSH ONE (16:12)
[2020-11-24] MEDS ORDERED: Sodium Chloride 0.9% 10 ML Syringe FLUSH PRN (16:12)
--- NOTE | 2020-11-24 17:21 | EDM.PDOC ---
ED HPI GENERAL MEDICAL PROBLEM - General Stated Complaint: N/V,dyspnea Time Seen by Provider: 11/24/20 15:50 Source of Information: Reports: Patient, Family History Limitations: Reports: No Limitations - History of Present Illness INITIAL COMMENTS - FREE TEXT/NARRATIVE: Patient presented to the ED because of N/V/D x 3 days. His HH nurse checked on him today and he has more labored breathing and has a weight gain of 15 lbs in 3 days. He also c/o cough which is non-productive, chills but no fever. He completed his 2 Covid vaccines. - Related Data Allergies Allergy/AdvReac Type Severity Reaction Status Date / Time No Known Allergies Allergy Verified 09/23/20 03:03 Home Meds: Home Meds Omeprazole 40 mg PO 1700 12/08/13 [History] Acetaminophen [Acetaminophen ER] 650 mg PO Q4H PRN 02/22/16 [History] Nitroglycerin 0.4 mg SL Q5M PRN 04/14/16 [History] Triamcinolone Acetonide [Kenalog 0.1% Crm] 1 applic TOP TID PRN 04/14/16 [History] Docusate Sodium [Colace] 100 mg PO DAILY 11/25/18 [History] Fluticasone Propionate [Flonase] 1 spray ANKUR BID 11/25/18 [History] Gluc [place]/Chondro [place] A/Vit C/Mn [Glucosamine-Chondroitin Cap] 1 cap PO BID 11/25/18 [History] Insulin Detemir [Levemir Flextouch] 40 units SQ BEDTIME 11/25/18 [History] Loratadine [Claritin] 10 mg PO DAILY PRN 11/25/18 [History] Potassium Chloride 20 meq PO TIDMEALS 11/25/18 [History] Tiotropium Br/Olodaterol HCl [Stiolto Respimat Inhal [place]] 1 puff INH DAILY 11/25/18 [History] Warfarin Sodium [Jantoven] 2.5 mg PO MOWEFR 11/25/18 [History] Warfarin Sodium [Jantoven] 5 mg PO SUTUTHSA 11/25/18 [History] Glycerin/Phenyleph/Pramox/Pet [Preparation H Crm] 1 applic RC Q4H PRN 03/18/19 [History] Sodium Chloride 0.65% [[place] Saline] 2 spray ANKUR QID 03/18/19 [History] Albuterol [Ventolin HFA] 2 puff IH Q4H PRN 09/14/20 [History] Aloe Vera/Sodium Chloride [[place] Saline Nasal Gel] 1 applic NASBOTH TID 09/14/20 [History] Aspirin [Halfprin] 81 mg PO DAILY 09/14/20 [History] Insulin Aspart [NovoLOG] 12 units SUBCUT TIDMEALS 09/14/20 [History] atorvaSTATin Calcium [Lipitor] 40 mg PO DAILY 09/14/20 [History] Ascorbate Calcium [Vitamin C] 500 mg PO DAILY 11/24/20 [History] Cholecalciferol (Vitamin D3) [Vitamin D3] 50 mcg PO DAILY 11/24/20 [History] Dapagliflozin Propanediol [Farxiga] 5 mg PO DAILY 11/24/20 [History] Mv-Mins/Folic/Lycopene/Ginkgo [One-A-Day Men's 50+] 1 tab PO DAILY 11/24/20 [History] Saliva Substitute Combo No.9 [Biotene] 10 ml PO TID 11/24/20 [History] Sennosides/Docusate Sodium [Senna Plus 8.6-50 mg Tablet] 1 tab PO BID PRN 11/24/20 [History] Torsemide [Demadex] 60 - 100 mg PO BID 11/24/20 [History] carvediloL [Carvedilol] 3.125 mg PO BIDMEALS 11/24/20 [History] metOLazone [Metolazone] 2.5 mg PO ASDIRECTED 11/24/20 [History] ondansetron HCL [Ondansetron HCl] 4 mg PO Q4H PRN 11/24/20 [History] ramipriL [Ramipril] 1.25 mg PO BEDTIME 11/24/20 [History] Past Medical History HEENT History: Reports: Cataract, Hard of Hearing, Sinusitis Other HEENT History: States had sinus surgery in the past. Deviated septum. Cardiovascular History: Reports: Automatic Implantable Cardioverter Defibrillators, Blood Clots/VTE/DVT, CAD, High Cholesterol, Heart Failure, Hypertension, [place], Pacemaker, Stents, SOB on Exertion Other Cardiovascular History: Peripheral vascular disease. Unstable angina. Cardio renal syndrome. Elevated troponin, 17 stents. Chronic atrial fibrilation. Respiratory History: Reports: COPD, Sleep Apnea, SOB Other Respiratory History: CPAP. Gastrointestinal History: Reports: GERD Genitourinary History: Reports: Other (See Below) Other Genitourinary History: Organic impotence. Phimosis. Musculoskeletal History: Reports: Arthritis, Back Pain, Chronic, Fracture, Gout, Other (See Below), Osteoarthritis Other Musculoskeletal History: Fracture of ankle. Endocrine/Metabolic History: Reports: Diabetes, Type II, Obesity/BMI 30+ Other Endocrine/Metabolic History: Diabetic retinopathy. Peripheral neuropathy. Hematologic History: Reports: Blood Transfusion(s) Other Hematologic History: Long time use of anticoagulant therapy. Dermatologic History: Reports: Other (See Below) Other Dermatologic History: Stated rash on stomach, took medication. - Infectious Disease History Infectious Disease History: Reports: Chicken Pox, Measles, Mumps - Past Surgical History HEENT Surgical History: Reports: Cataract Surgery, Other (See Below) Other HEENT Surgeries/Procedures: sinus surgery Cardiovascular Surgical History: Reports: Coronary Artery Stent, Percutaneous Transluminal Angioplasty Other Cardiovascular Surgeries/Procedures: Pacemaker GI Surgical History: Reports: Colonoscopy Musculoskeletal Surgical History: Reports: Amputation Other Musculoskeletal Surgeries/Procedures:: recent amputation 2nd toe left foot Social & Family History - Family History Family Medical History: No Pertinent Family History - Caffeine Use Caffeine Use: Reports: Coffee Other Caffeine Use: Everyday coffee drinker ED ROS GENERAL - Review of Systems Review Of Systems: See Below Constitutional: Reports: Chills HEENT: Reports: No Symptoms Respiratory: Reports: Shortness of Breath, Cough Cardiovascular: Reports: No Symptoms Endocrine: Reports: No Symptoms GI/Abdominal: Reports: No Symptoms : Reports: No Symptoms Musculoskeletal: Reports: No Symptoms Skin: Reports: No Symptoms Neurological: Reports: No Symptoms Psychiatric: Reports: No Symptoms Hematologic/Lymphatic: Reports: No Symptoms ED EXAM, GENERAL - Physical Exam Exam: See Below General Appearance: Alert, No Apparent Distress Ears: Normal External Exam, Normal Canal Nose: Normal Inspection, Normal Mucosa Head: Atraumatic Neck: Normal Inspection Respiratory/Chest: No Respiratory Distress Cardiovascular: Normal Peripheral Pulses, Regular Rate, Rhythm GI/Abdominal: Normal Bowel Sounds, Soft, Non-Tender Back Exam: Normal Inspection Extremities: Normal Inspection, Pedal Edema Neurological: Alert, CN II-XII Intact #2 Interpretation EKG Date: 11/19/20 Time: 16:45 Rhythm: Other (SVT) Rate (Beats/Min): 144 [place]: Normal P-Wave: Present QRS: Normal ST-T: Normal QT: Normal Comparison: No Change (SVT) Course - Vital Signs Text/Narrative:: Lab/EKG/CXR result was reviewed and discussed with patient Zaroxolyn 5 mg po x1 Lasix 40 mg IV x1 Code Status: Full Code ASA 324 mg PO x1 Case discussed with Dr Luu and Leah Last Recorded V/S: Last Vital Signs Temp 36.3 C 11/24/20 17:19 Pulse 78 11/24/20 17:19 Resp 18 11/24/20 17:19 BP 102/74 11/24/20 17:19 Pulse Ox 99 11/24/20 17:19 - Orders/Labs/Meds Orders: Active Orders 24 hr Category Date Time Status EKG Documentation Completion [RC] ASDIRECTED Care 11/24/20 16:12 Active Chest 1V Frontal [CR] Stat Exams 11/24/20 16:11 Ordered Sodium Chloride 0.9% [Saline Flush] Med 11/24/20 16:12 Active 10 ml FLUSH ASDIRECTED PRN Saline Lock Insert [OM.PC] Routine Oth 11/24/20 16:12 Ordered EKG 12 Lead [EK] Routine Ther 11/24/20 16:11 Ordered Medication Orders Sodium Chloride (Sodium Chloride 0.9% 10 Ml Syringe) 10 ml FLUSH ASDIRECTED PRN PRN Reason: Keep Vein Open Labs: Laboratory Tests 11/24/20 11/24/20 11/24/20 Range/Units 16:20 16:20 16:20 WBC 8.6 (3.2-10.1) x10-3/uL RBC 4.18 (3.90-5.90) x10(6)uL Hgb 12.8 L (12.9-17.7) g/dL Hct 39.5 (38.3-50.1) % MCV 94.4 (80.8-98.7) fL MCH 30.5 (27.0-33.3) pg MCHC 32.3 (28.7-35.3) g/dL RDW 16.0 H (12.4-15.0) % Plt Count 188 (117-477) x10(3)uL MPV 9.8 (6.7-11.0) fL Neut % (Auto) 69.1 (40.3-71.8) % Lymph % (Auto) 18.2 (15.8-45.3) % [place] % (Auto) 9.6 (5.5-15.2) % Eos % (Auto) 2.3 (0.1-6.8) % Baso % (Auto) 0.8 (0.3-3.8) % Neut # (Auto) 5.9 (1.7-6.9) x10-3/uL Lymph # (Auto) 1.6 (0.5-4.5) x10-3/uL [place] # (Auto) 0.8 (0.0-1.2) x10-3/uL Eos # (Auto) 0.2 (0.0-0.6) x10-3/uL Baso # (Auto) 0.1 (0.0-0.3) x10-3/uL PT 42.5 H* (9.0-11.1) sec INR 4.34 H* (1.00-1.24) Sodium 132 L (135-145) mmol/L Potassium 4.6 D (3.5-5.3) mmol/L Chloride 94 L (100-110) mmol/L Carbon Dioxide 33 H (21-32) mmol/L BUN 21 H (7-18) mg/dL Creatinine 1.7 H (0.70-1.30) mg/dL Est Cr Clr Drug Dosing TNP Estimated GFR (MDRD) 39 L (>60) BUN/Creatinine Ratio 12.4 (9-20) Glucose 156 H (80-116) mg/dL Calcium 8.4 L (8.6-10.2) mg/dL Total Bilirubin 0.8 (0.1-1.3) mg/dL AST 35 H D (5-25) IU/L ALT 34 D (12-36) U/L Alkaline Phosphatase 112 (56-112) IU/L Troponin I (4.0-60.3) pg/mL NT-Pro-B Natriuret Pep (<=450) pg/mL Total Protein 6.3 (6.0-8.0) g/dL Albumin 2.8 L (3.2-4.6) g/dL Globulin 3.5 g/dL Albumin/Globulin Ratio 0.8 SARS-CoV-2 RNA (ALLI) (NEGATIVE) 11/24/20 11/24/20 Range/Units 16:20 16:45 WBC (3.2-10.1) x10-3/uL RBC (3.90-5.90) x10(6)uL Hgb (12.9-17.7) g/dL Hct (38.3-50.1) % MCV (80.8-98.7) fL MCH (27.0-33.3) pg MCHC (28.7-35.3) g/dL RDW (12.4-15.0) % Plt Count (117-477) x10(3)uL MPV (6.7-11.0) fL Neut % (Auto) (40.3-71.8) % Lymph % (Auto) (15.8-45.3) % [place] % (Auto) (5.5-15.2) % Eos % (Auto) (0.1-6.8) % Baso % (Auto) (0.3-3.8) % Neut # (Auto) (1.7-6.9) x10-3/uL Lymph # (Auto) (0.5-4.5) x10-3/uL [place] # (Auto) (0.0-1.2) x10-3/uL Eos # (Auto) (0.0-0.6) x10-3/uL Baso # (Auto) (0.0-0.3) x10-3/uL PT (9.0-11.1) sec INR (1.00-1.24) Sodium (135-145) mmol/L Potassium (3.5-5.3) mmol/L Chloride (100-110) mmol/L Carbon Dioxide (21-32) mmol/L BUN (7-18) mg/dL Creatinine (0.70-1.30) mg/dL Est Cr Clr Drug Dosing Estimated GFR (MDRD) (>60) BUN/Creatinine Ratio (9-20) Glucose (80-116) mg/dL Calcium (8.6-10.2) mg/dL Total Bilirubin (0.1-1.3) mg/dL AST (5-25) IU/L ALT (12-36) U/L Alkaline Phosphatase (56-112) IU/L Troponin I 847.4 H* (4.0-60.3) pg/mL NT-Pro-B Natriuret Pep 8439 H* (<=450) pg/mL Total Protein (6.0-8.0) g/dL Albumin (3.2-4.6) g/dL Globulin g/dL Albumin/Globulin Ratio SARS-CoV-2 RNA (ALLI) Negative (NEGATIVE) Meds: Medications Generic Name Dose Route Start Last Admin Trade Name Freq PRN Reason Stop Dose Admin Sodium Chloride 10 ml 11/24/20 16:12 Sodium Chloride 0.9% 10 Ml Syringe FLUSH ASDIRECTED PRN Keep Vein Open Discontinued Medications Generic Name Dose Route Start Last Admin Trade Name Freq PRN Reason Stop Dose Admin Aspirin 324 mg 11/24/20 18:48 Aspirin 81 Mg Tab.Chew PO 11/24/20 18:49 NOW STA Furosemide 40 mg 11/24/20 16:12 11/24/20 17:15 Furosemide 40 Mg/4 Ml Vial IVPUSH 11/24/20 16:13 40 mg NOW ONE Administration Metolazone 5 mg 11/24/20 16:12 11/24/20 17:17 Metolazone 5 Mg Tab PO 11/24/20 16:13 5 mg NOW STA Administration Departure - Departure Time of Disposition: 15:45 Disposition: DC/Tfer to [facility] 02 Reason for Transfer *Q: Other Condition: Good Clinical Impression: CHF (congestive heart failure), Acute coronary syndrome, CKD (chronic kidney disease) Referrals: Hector De Leon MD [Primary Care Provider] - Sepsis Event Note (ED) - Evaluation Sepsis Screening Result: No Definite Risk - Focused Exam Vital Signs: Vital Signs Temp Pulse Resp BP Pulse Ox 11/24/20 17:19 36.3 C 78 18 102/74 99 11/24/20 15:47 36.7 C 145 H 20 101/72 100 - My Orders Last 24 Hours: My Active Orders 11/24/20 16:11 Chest 1V Frontal [CR] Stat EKG 12 Lead [EK] Routine 11/24/20 16:12 EKG Documentation Completion [RC] ASDIRECTED Sodium Chloride 0.9% [Saline Flush] 10 ml FLUSH ASDIRECTED PRN Saline Lock Insert [OM.PC] Routine - Assessment/Plan Last 24 Hours: My Active Orders 11/24/20 16:11 Chest 1V Frontal [CR] Stat EKG 12 Lead [EK] Routine 11/24/20 16:12 EKG Documentation Completion [RC] ASDIRECTED Sodium Chloride 0.9% [Saline Flush] 10 ml FLUSH ASDIRECTED PRN Saline Lock Insert [OM.PC] Routine
[2020-11-24] MEDS ORDERED: Aspirin 81 MG Tab.Chew PO STA (18:48)
[2020-11-24 20:53] VITALS: BP 99/61; PULSE 97
--- NOTE | 2020-11-25 10:34 | CR ---
INDICATION: Cough, dyspnea. CHEST ONE VIEW: An AP portable upright view of the chest was obtained 11/24/20 and compared with 09/27/20 and 09/23/20. The heart is enlarged with bipolar pacemaker leads unchanged in position. Upper lung field pulmonary vasculature remains somewhat prominent with interstitial changes again noted compatible with CHF. Heavy markings in the lung jay and some patchy infiltration are noted suggesting pneumonia in both lower lung jay and possibly the right midlung field additionally. Minimal pleural reaction may be present on the right. No gross consolidating pneumonia or large effusion was seen. Overlying EKG leads are noted. IMPRESSION: 1. ASHD, cardiomegaly, bipolar pacemaker leads with CHF and interstitial lung edema, more prominent than on the previous study. 2. Areas of patchy infiltration in the lower lung jay and possible right midlung field compatible with areas of pneumonia, although unusual acute pulmonary edema could also be present. MTDD
== END 2020-11-24 20:25 ==
LOC: FB.ED 15:38
DX: I24.9 Acute ischemic heart disease, unspecified (principal); E11.40 Type 2 diabetes mellitus with diabetic neuropathy, unspecified; E11.22 Type 2 diabetes mellitus with diabetic chronic kidney disease; E11.319 Type 2 diabetes mellitus with unspecified diabetic retinopathy without macular edema; I13.0 Hypertensive heart and chronic kidney disease with heart failure and stage 1 through stage 4 chronic kidney disease, or unspecified chronic kidney disease; N18.9 Chronic kidney disease, unspecified; I50.9 Heart failure, unspecified; I25.10 Atherosclerotic heart disease of native coronary artery without angina pectoris; E78.00 Pure hypercholesterolemia, unspecified; K21.9 Gastro-esophageal reflux disease without esophagitis; E66.9 Obesity, unspecified; I25.2 Old myocardial infarction; Z79.01 Long term (current) use of anticoagulants; Z95.810 Presence of automatic (implantable) cardiac defibrillator; Z20.822 Contact with and (suspected) exposure to COVID-19; Z95.5 Presence of coronary angioplasty implant and graft; Z79.899 Other long term (current) drug therapy; Z79.4 Long term (current) use of insulin; Z68.30 Body mass index [BMI] 30.0-30.9, adult
CPT/HCPCS: 36415; 71045; 80053; 83880; 84484; 85025; 85610; 93005; 96374; 99285; A9270; J1940; U0002